=== PATIENT | male | born 1975 | race Hispanic/Latino ===

== ENCOUNTER 2018-11-30 22:18 | Inpatient (IN) | payer MEDICARE ==
[~2018-11-30] VITALS: Ht 121.9 cm; Wt 22.7 kg
[2018-11-30 23:29] LABS: BASOPHILS % 0.3 % (0.0-1.0); EOSINOPHILS # (AUTO) 0.2 (0.0-0.4); HEMATOCRIT 41.4 % (38.2-49.6); HEMOGLOBIN 14.1 g/dL (14.0-18.0); LYMPHOCYTES # (AUTO) 1.9 (1.0-3.2); MEAN CORPUSCULAR HEMOGLOBIN 32.1 pg (28-32); MEAN CORPUSCULAR HGB CONC 34.1 g/dL (31-35); MEAN CORPUSCULAR VOLUME 94.3 fL (81-99); MONOCYTES # (AUTO) 0.6 (0.2-0.8); MONOCYTES % 4.4 % (4.4-11.3); NEUTROPHILS # (AUTO) 11.7 (2.1-6.9); NEUTROPHILS % 80.9 % (38.7-80.0); PLATELET COUNT 248 x10e3/uL (140-360); RED BLOOD COUNT 4.39 x10e6/uL (4.3-5.7); RED CELL DISTRIBUTION WIDTH 14.1 % (11.7-14.4)
[2018-11-30 23:39] LABS: INR 0.89; PROTHROMBIN TIME 12.5 seconds (11.9-14.5)
[2018-11-30 23:40] LABS: PARTIAL THROMBOPLASTIN TIME 25.8 seconds (23.8-35.5)
[2018-11-30 23:46] LABS: ALANINE AMINOTRANSFERASE 73 IU/L (0-55); ALBUMIN 3.6 g/dL (3.5-5.0); ALKALINE PHOSPHATASE 119 IU/L (40-150); ANION GAP 13.4 mmol/L (8-16); BLOOD UREA NITROGEN 19 mg/dL (7-26); BUN/CREATININE RATIO 32 (6-25); CALCIUM 9.4 mg/dL (8.4-10.2); CARBON DIOXIDE 29 mmol/L (22-29); CHLORIDE 96 mmol/L (98-107); CREATININE, SERUM 0.59 mg/dL (0.72-1.25); EST GLOMERULAR FILTRATION RATE > 60 ML/MIN (60-); GLUCOSE 132 mg/dL (74-118); POTASSIUM 3.4 mmol/L (3.5-5.1); SODIUM 135 mmol/L (136-145)
[2018-11-30 23:47] LABS: AMYLASE 324 U/L (25-125); LIPASE 387 U/L (8-78)
[2018-12-01] VITALS (9 sets, daily range): BP systolic 115–145; BP diastolic 64–100
[2018-12-01] MEDS ORDERED: CARBAMAZEP100 MG/5 M NG (00:32)
[2018-12-01] MEDS: KCL 20MEQ/.9 SOD CHL 1,000 ML IV SCH ×2 (02:02→09:30)
[2018-12-01] MEDS: MORPHINE SULFATE 2 MG/ML SYR 1ML IV PRN ×4 (02:03→17:18)
--- NOTE | 2018-12-01 02:15 | NUR ---
patient came from ER around 01:15, awake but non verbal, sister is on bed side. patient is confined to bed, contractured on all extremities. iv live is on right hand size 20g. noted emesis color dark brown. looked restless and irritable. per reports and according to his sister, sometimes he bites. patient has pegtube but he is NPO at this time as ordered. per sister he consumes 4-5 cartoon (237cc) Vital 1.2 via peg tube. skin intact, iv fuid running at 125cc/hr.
[2018-12-01] MEDS: ONDANSETRON HCL INJ 2MG/ML 2ML 2 MG/ML VIAL IV PRN ×3 (02:53→12:08)
--- OUTSIDE RECORDS SUMMARY | 2018-12-01 04:36 | XMS REPORT ---
Author Author Admin, [facility] [place] [address] [place] [address] Phone Allergies, Adverse Reactions, Alerts Allergy Name Reaction Description Start Date Severity Status Provider No Known Allergies Verna Duong MA Conditions or Problems Problem Name Problem Code Onset Date Status Entry Date Provider Comment Standard Description Annotate Elevated blood pressure reading without diagnosis of hypertension 796.2 Active Candelaria Dialol MD (res) Elevated blood pressure reading without diagnosis of hypertension Circadian rhythm sleep disorder, 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 Candelaria Diallo MD (res) Circadian rhythm sleep disorder, irregular sleep-wake type Flu shot V04.8 Active Candelaria Diallo MD (res) Need for prophylactic vaccination and inoculation against other viral diseases Insomnia 780.52 Active Fran Wu MD Insomnia, unspecified Constipation 564.00 Active Candelaria Diallo MD (res) Constipation, unspecified Cachexia 799.4 Active Candelaria Diallo MD (res) Cachexia Developmental delay 315.9 Active Candelaria Diallo MD (res) Unspecified delay in development Feeding intolerance 783.3 Active Candelaria Diallo MD (res) Feeding difficulties and mismanagement High risk for aspiration V47.2 Active Candelaria Diallo MD (res) Other cardiorespiratory problems History of meningitis V12.42 Active Candelaria Diallo MD (res) Personal history of infections of the central nervous system age 2 months Leaking peg tube 536.49 Active Ashleigh Gaitan D.O. Other gastrostomy complications Need for home health care V60.4 Active Candelaria Diallo MD (res) No other household member able to render care Presence of gastrostomy V44.1 Active Candelaria Diallo MD (res) Gastrostomy status Seizure disorder 780.39 Active Candelaria Diallo MD (res) Other convulsions Cough ICD-786.2 Inactive Candelaria Diallo MD (res) Dysuria ICD-788.1 Inactive Candelaria Diallo MD (res) Foul smelling urine ICD-791.9 Inactive Candelaria Diallo MD (res) Pain due to internal orthopedic prosthetic devices, implants and grafts, initial encounter Inactive Candelaria Diallo MD (res) Cough 786.2 Resolved Candelaria Diallo MD (res) Cough Dysuria 788.1 Resolved Candelaria Diallo MD (res) Dysuria Foul smelling urine 791.9 Resolved Candelaria Diallo MD (res) Other nonspecific findings on examination of urine Medication List Medication Instructions Start Date Stop Date Generic Name NDC Status Provider Patient Instruction HYDROCODONE-ACETAMINOPHEN 5-325 MG ORAL TABLET 1 tab per tube q8h As Needed severe pain HYDROCODONE-ACETAMINOPHEN 32932178031 Active Candelaria Diallo MD (res) Active MELATONIN 10 MG ORAL TABLET DISINTEGRATING 1 tab By Mouth qhs MELATONIN 16645669585 Active Candelaria Diallo MD (res) Active AMBIEN 5 MG ORAL TABLET 1/2 tab by tube nightly at bedtime as needed for insomnia ZOLPIDEM TARTRATE 75697204115 Active Sarah [facility] Active PANTOPRAZOLE SODIUM 40 MG ORAL TABLET DELAYED RELEASE 1 tab per tube daily PANTOPRAZOLE SODIUM 18126578990 Active Candelaria Diallo MD (res) Active DOCUSATE SODIUM 50 MG/5ML ORAL LIQUID 10ml per tube BID DOCUSATE SODIUM 89312323967 Active Candelaria Diallo MD (res) Active CARBAMAZEPINE 100 MG/5ML ORAL SUSPENSION 10ml per G-tube TID CARBAMAZEPINE 63694728854 Active Candelaria Diallo MD (res) Active LORATADINE 10 MG ORAL TABLET 1 per tube once a day as needed for allergies LORATADINE 10 MG ORAL TABLET 789208 LORATADINE Inactive AUGMENTIN 250-62.5 MG/5ML ORAL SUSPENSION RECONSTITUTED 2ml BID for 5 days AUGMENTIN 250-62.5 MG/5ML ORAL SUSPENSION RECONSTITUTED 269655 AMOXICILLIN- POT CLAVULANATE Inactive [facility] PROBIOTIC MAXIMUM STRENGTH ORAL CAPSULE 1 capsule By Mouth tid [facility] PROBIOTIC MAXIMUM STRENGTH ORAL CAPSULE PROBIOTIC PRODUCT Inactive MORPHINE SULFATE 10 MG/5ML ORAL SOLUTION 1ml per G tube q4h As Needed pain MORPHINE SULFATE 10 MG/5ML ORAL SOLUTION 396918 MORPHINE SULFATE Inactive REGLAN 10 MG ORAL TABLET 1/2 tab by mouth ac and nightly at bedtime REGLAN 10 MG ORAL TABLET 123005 METOCLOPRAMIDE HCL Inactive HYDROXYZINE HCL 50 MG ORAL TABLET 1 by mouth take at bedtime for sleep HYDROXYZINE HCL 98657679182 No Longer Active Candelaria Diallo MD (res) Active LORATADINE 10 MG ORAL TABLET 1 per tube once a day as needed for allergies LORATADINE 75395379783 No Longer Active Candelaria Diallo MD (res) Active AUGMENTIN 250-62.5 MG/5ML ORAL SUSPENSION RECONSTITUTED 2ml BID for 5 days AMOXICILLIN-POT CLAVULANATE 27537930870 No Longer Active Candelaria Diallo MD (res) Active [facility] PROBIOTIC MAXIMUM STRENGTH ORAL CAPSULE 1 capsule By Mouth tid PROBIOTIC PRODUCT 80202744225 No Longer Active Candelaria Diallo MD (res) Active MORPHINE SULFATE 10 MG/5ML ORAL SOLUTION 1ml per G tube q4h As Needed pain MORPHINE SULFATE 96883963026 No Longer Active Candelaria Diallo MD (res) Active REGLAN 10 MG ORAL TABLET 1/2 tab by mouth ac and nightly at bedtime METOCLOPRAMIDE HCL 87513505111 No Longer Active Candelaria Diallo MD (res) Active Immunizations Vaccine Administration Date Value Standard Description influenza immunization (Flu Vax) has been administered given influenza virus vaccine, unspecified formulation Vital Signs Date Name Value Unit Range Description blood pressure, diastolic 142 mm[Hg] BP quinn blood pressure, systolic 207 mm[Hg] BP sys pulse rate E&M 98 /min Heart rate respiratory rate E&M 21 /min Resp rate temperature E&M 98.1 [degF] Body temperature blood pressure, diastolic 82 mm[Hg] BP quinn blood pressure, systolic 129 mm[Hg] BP sys pulse rate E&M 66 /min Heart rate respiratory rate E&M 16 /min Resp rate temperature E&M 98.3 [degF] Body temperature blood pressure, diastolic 58 mm[Hg] BP quinn blood pressure, systolic 132 mm[Hg] BP sys pulse rate E&M 136 /min Heart rate respiratory rate E&M 22 /min Resp rate temperature E&M 99.1 [degF] Body temperature Diagnostic Results Date Name Value Unit Range Description Lab Report: Urine Culture, Routine, Result - Urinalysis urine culture PSEUAE Lab Report: Comp. Metabolic Panel (14), Carbamazepine(Tegretol),S - Chemistry sodium, serum 138 mmol/L 600-675 2552/06/26 urea nitrogen/creatinine ratio, serum 88 9-20 Lab Report: Comp. Metabolic Panel (14), Carbamazepine(Tegretol),S - Genetics/fertility eGFR if 205 mL/min/1.73m2 >59 Lab Report: Comp. Metabolic Panel (14), Carbamazepine(Tegretol),S - Chemistry globulin, serum 2.7 1.5-4.5 albumin/globulin ratio, serum 1.4 1.2-2.2 Estimated Glomerular Filtration Rate (calc) 178 mL/min/1.73m2 >59 creatinine, serum 0.25 mg/dL 0.76-1.27 carbon dioxide, venous blood 23 mmol/L 20-29 chloride, serum 99 mmol/L 96-106 bilirubin, serum, total <0.2 mg/dL mg/dL 0.0-1.2 calcium, serum 9.1 mg/dL 8.7-10.2 urea nitrogen, blood 22 mg/dL 6-24 alanine aminotransferase (SGPT), serum 37 U/L 0-44 blood glucose, random 95 mg/dL 65-99 aspartate aminotransferase (SGOT), serum 35 U/L 0-40 protein, total, serum 6.5 g/dL 6.0-8.5 alkaline phosphatase, serum 159 U/L 39-117 potassium, serum 4.7 mmol/L 3.5-5.2 albumin, serum 3.8 g/dL 3.5-5.5 Encounters Date Encounter Provider Code Facility 10:21:25 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
--- NOTE | 2018-12-01 06:50 | NUR ---
RECEIVED PATIENT RESTING IN BED. NO ACUTE DISTRESS NOTED. SISTER AT BEDSIDE. CALL LIGHT WITHIN REACH. BED IN THE LOWEST POSITION. BED ALARM ON.
--- NOTE | 2018-12-01 06:50 | NUR ---
PER NIGHT NURSE PATIENT IS NPO EXCEPT FOR PEG TUBE MEDICATIONS.
[2018-12-01] MEDS: CARBAMAZEPINE 200 MG TAB NG SCH ×3 (08:13→21:32)
--- NOTE | 2018-12-01 08:13 | NUR ---
ASSESSED FOR RESIDUAL AT THIS TIME. NONE NOTED.
--- NOTE | 2018-12-01 10:42 | Diagnostic Imaging Report ---
EXAM: Right upper quadrant abdominal ultrasound INDICATION: Right upper quadrant pain COMPARISON: None. TECHNIQUE: Transverse and longitudinal images of the right upper quadrant abdomen were obtained FINDINGS: Liver: Size: 11.5 cm in the right midclavicular line, normal Appearance: Normal echogenicity, smooth contour Mass: No focal masses Gallbladder: No gallbladder distension, pericholecystic fluid, wall thickening, stone, or reported sonographic Meade's sign. Gallbladder wall measures 0.2 cm. Bile Ducts: Intrahepatic Ducts: No dilatation Extrahepatic Ducts: Common bile duct measures 0.2cm, no dilatation Pancreas: Visualized portions of the pancreatic head, neck and proximal body are normal. Kidney: The right kidney measures 7. 33.3 x 4.0 cm without evidence of hydronephrosis or stone. Vessels: Aorta: Visualized portions are normal Inferior Vena Cava: Visualized portions are normal Main Portal Vein: 0.6 cm, normal size with hepatopetal flow. Free Fluid: No ascites or pleural effusion IMPRESSION: Normal right upper quadrant ultrasound. Signed by: Junior Truong MD on 12/01/2018 10:39 AM
--- NOTE | 2018-12-01 11:36 | NUR ---
DR. CHAPARRO CALLED BACK IN REGARDS TO STAT CONSULT FOR PATIENT. PER MD INCREASE CURRENT IV FLUIDS TO 150CC/HR AND KEEP PATIENT NPO.
--- NOTE | 2018-12-01 12:10 | NUR ---
NOTIFIED DR. CHAPARRO OF PATIENT'S HAVING SMALL AMOUNTS OF COFFEE GROUND EMESIS. WAITING FOR CALL BACK/ORDER.
--- NOTE | 2018-12-01 14:14 | NUR ---
ASSESSED PEG TUBE RESIDUAL, NONE NOTED AT THIS TIME.
--- NOTE | 2018-12-01 14:56 | NUR ---
UNABLE TO DO DPA AT THIS TIME, NO FAMILY MEMBER AND PT UNABLE TO COMMUNICATE AT THIS TIME. LIVES AT HOME WITH FAMILY
[2018-12-01] MEDS ORDERED: POTASSIUM CHLORIDE 20MEQ/15ML UDC NG ONE (16:00)
[2018-12-01] MEDS: D5NS/KCL 20MEQ 1,000 ML IV SCH ×2 (16:09→21:33)
--- NOTE | 2018-12-01 16:10 | NUR ---
PATIENT OFF THE UNIT FOR CT SCAN.
--- NOTE | 2018-12-01 16:28 | NUR ---
PER CHARGE NURSE, PATIENT VOMITED SIGNIFICANT AMOUNT OF GROUND COFFEE EMESIS DOWN IN RADIOLOGY. PAGED DR. CHAPARRO TO INFORM HIM AT THIS TIME.
--- NOTE | 2018-12-01 16:30 | NUR ---
Patient down in CT and techs called a rapid response. Patient resting on ct table and noted to have coffee ground emesis. Call placed to nurse to inform. Nurse informed that patient has been having that today and GI was informed and no new orders. Patient is stable and breathing
--- NOTE | 2018-12-01 16:36 | NUR ---
PATIENT BACK TO UNIT AT THIS TIME. HE IS IN STABLE CONDITION. BROTHER AT BEDSIDE.
--- NOTE | 2018-12-01 16:46 | NUR ---
DR. MORIN NOTIFIED THAT PATIENT HAD A RAPID RESPONSE DUE TO VOMITING X3 COPIOUS AMOUNT OF COFFEE GROUND EMESIS. NEW ORDERS RECEIVED.
[2018-12-01] MEDS ORDERED: PROMETHAZINE 12.5MG/ NACL 0.9% 12.5 MG/50 ML BAG IV PRN (17:00)
[2018-12-01] MEDS ORDERED: PANTOPRAZOLE 40 MG 10ML VIAL IV SCH (17:00)
--- NOTE | 2018-12-01 17:09 | Diagnostic Imaging Report ---
EXAM: CT Abdomen and Pelvis WITH intravenous contrast INDICATION: High lipase COMPARISON: Ultrasound of the right upper quadrant performed partially today TECHNIQUE: Abdomen and pelvis were scanned utilizing a multidetector helical scanner from the lung base to the pubic symphysis after administration of IV contrast. Coronal and sagittal reformations were obtained. Routine protocol was performed. Scan was performed during portal venous phase. IV CONTRAST: 100mL of Isovue 370 ORAL CONTRAST: Water RADIATION DOSE: Total DLP: 143.61 mGy*cm Dose modulation, iterative reconstruction, and/or weight based adjustment of the mA/kV was utilized to reduce the radiation dose to as low as reasonably achievable. FINDINGS: LOWER THORAX: The lung bases are clear. HEPATOBILIARY: No focal hepatic lesions. No biliary ductal dilatation. The gallbladder appears unremarkable. SPLEEN: No splenomegaly. PANCREAS: The pancreas is homogeneous in attenuation. There is no pancreatic ductal dilatation. No peripancreatic inflammatory stranding is present. ADRENALS: No adrenal nodules. KIDNEYS/URETERS: No hydronephrosis, stones, or solid mass lesions. PELVIC ORGANS/BLADDER: Unremarkable. PERITONEUM / RETROPERITONEUM: No free air or fluid. LYMPH NODES: No lymphadenopathy. VESSELS: Unremarkable. GI TRACT: A gastrostomy tube is present. The distal tip of the gastrostomy tube terminates in the second portion of the duodenum. There is moderate distention of the stomach and esophagus. The small bowel is decompressed. There is no evidence of small bowel obstruction. There is a moderate to large amount of retained fecal material throughout the colon particularly in the rectosigmoid colon. BONES AND SOFT TISSUES: No acute osseous abnormalities. IMPRESSION: 1. No CT findings of pancreatitis. 2. The stomach and esophagus are moderately distended. There is no evidence of mechanical obstruction. Consider decreasing tube feed rates. 3. Moderate to large amount retained fecal material. Signed by: Junior Truong MD on 12/01/2018 5:06 PM
[2018-12-01] MEDS: PANTOPRAZOLE 40 MG 10ML VIAL IV SCH (17:18)
--- NOTE | 2018-12-01 18:02 | NUR ---
PAGED DR. MORIN TO INFORM HIM THAT PATIENT'S SISTER STATES HE IS ABOUT TO HAVE A SEIZURE, PATIENT IS CRYING AND TWITCHING FROM HIS ARMS.
[2018-12-01] MEDS ORDERED: PANTOPRAZOLE SO40 MG PEG (18:24)
[2018-12-01] MEDS ORDERED: LORAZEPAM 0.5 MG TAB PEG PRN ×2 (18:30→18:45)
--- NOTE | 2018-12-01 18:40 | NUR ---
SPOKE TO DR. GUTIERREZ IN REGARDS TO CONSULT AND PATIENT POSSIBLE HAVING A SEIZURE, NEW ORDERS RECEIVED.
[2018-12-01] MEDS: LORAZEPAM INJ 2 MG/ML VIAL IV PRN (18:42)
[2018-12-01] MEDS ORDERED: PHENYTOIN SODIUM INJ 50 MG/ML 2 ML VIAL IV ONE (18:45)
--- NOTE | 2018-12-01 18:45 | NUR ---
Received bedside report from day shift RN. The patient is laying asleep on the left side. Mother at bedside. Call light within reach, bed height low, side rails up x2 and wheels lock.
--- NOTE | 2018-12-01 19:10 | NUR ---
Report given to oncoming nurse. Patient is resting in bed, respirations even and unlabored. No acute distress noted. Family at bedside. Call light within reach. Bed in the lowest position.
--- NOTE | 2018-12-01 19:22 | NUR ---
Nutrition Intervention Note RD Recommendation(s) for Physician: -When medically appropriate, rec resuming bolus feeding with 3-4 cartons of 237cc Vital 1.2 via PEG -Water flushes per MD -Monitor for labs, gastric tolerance, daily weight -If GI symptoms persist, rec post pyloric feeding with similar regimen for better tolerance Plan of Care: RD following, monitoring for tolerance and adequacy Nutrition reason for involvement: tube feeding, Nutrition Risk Trigger MST RD Assessment 12/01 43yo M, who was admitted for pancreatitis and coffee ground emesis. Pt was awake but non verbal. Per sister, pt has been getting 4-5 cartons of 237cc Vital 1.2 (1136kcal, 71g protein) via PEG tube (7am, 12pm, 5pm, 9pm). CT abdomen showed no acute finding of pancreatitis; the stomach and esophagus are moderately distended with no evidence of mechanical obstruction, consider decreasing tube feed rates; moderate to large stools. Gallbladder US is WNL. His weight has remained at 50lbs. Pt has been tolerating tube feeding at home so far. Will continue to monitor and follow. Principal Problems/Diagnoses: Pancreatitis, vomiting PMH: no H&P noted GI: abdomen flat, soft, non-tender Skin: intact Labs: (12/01) Na 135 L, K 3.4 L, Creatinine 0.59 L, glucose 139 H, AST 44 H, ALT 73 H, amylase 324 H, lipase 387 H Meds: protonix, morphine, KCl Ht: 48in Wt: 49lb (verified with family) BMI: n/a IBW: n/a Malnutrition Evaluation (12/01/2018) The patient does not meet criteria for a specified degree of malnutrition at this time. Will re-evaluate at follow-up as appropriate. Nutrition Prescription (Diet Order): NPO Estimated Nutritional Needs: Calories: 675 - 787kcal(30-35kcal/kg/d) Weight used: actual body weight Protein: 22 - 33 g(1-1.5g/kg/d) Weight used: actual body weight Diet Adequacy: Not meeting calorie needs, Not meeting protein needs Diet Education Needs Assessment: Diet education not indicated. Nutrition Care Level: mod Nutrition Diagnosis: Swallowing difficulty related to chronic illness as evidenced by dependence on PEG for main source of nutrition. Goal: Patient will meet 75-100% of estimated needs by follow up Progress: Not Progressing Interventions: Composition, Rate, Route Monitoring/Evaluation: Total energy intake, Total protein intake, Formula/Solution, Weight change Signed: Amy Davis MS, RD, LD
[2018-12-01] MEDS ORDERED: IOPAMIDOL 370 MG/ML 200 ML INFUS..BTL INJ ONE (19:35)
[2018-12-01] MEDS ORDERED: [UNRECOGNIZED DRUG - OTHER] IV ONE ×2 (19:45)
[2018-12-01] MEDS ORDERED: SODIUM CHLORIDE 0.9% IV ONE ×2 (19:45)
[2018-12-01] MEDS ORDERED: PHENYTOIN SOD IV ONE ×2 (19:45)
[2018-12-01 20:37] LABS: BASOPHILS # (AUTO) 0.1 (0.0-0.1); BASOPHILS % 0.4 % (0.0-1.0); EOSINOPHILS % 0.2 % (0.0-6.0); HEMATOCRIT 35.9 % (38.2-49.6); HEMOGLOBIN 11.4 g/dL (14.0-18.0); LYMPHOCYTES % 8.2 % (18.0-39.1); MEAN CORPUSCULAR HEMOGLOBIN 32.2 pg (28-32); MEAN CORPUSCULAR HGB CONC 31.8 g/dL (31-35); MEAN CORPUSCULAR VOLUME 101.4 fL (81-99); MONOCYTES # (AUTO) 0.8 (0.2-0.8); MONOCYTES % 6.8 % (4.4-11.3); NEUTROPHILS # (AUTO) 10.2 (2.1-6.9); NEUTROPHILS % 83.8 % (38.7-80.0); PLATELET COUNT 185 x10e3/uL (140-360); RED BLOOD COUNT 3.54 x10e6/uL (4.3-5.7); RED CELL DISTRIBUTION WIDTH 14.4 % (11.7-14.4)
[2018-12-01 21:26] LABS: FERRITIN 79.54 ng/mL (21.81-274.66)
--- NOTE | 2018-12-01 21:30 | NUR ---
DR. CHAPARRO, GI MD, VISITED THE PATIENT WITH SISTER AT BEDSIDE. MD STATED THE COFFEE GROUND EMESIS IS FROM THE PANCREATITIS/GASTRITIS. ORDERED MEDICATIONS TO ASSIST WITH BM. STATED TO CONTINUE WITH IV FLUID AND NPO DIET.
[2018-12-02] VITALS (7 sets, daily range): BP systolic 110–150; BP diastolic 62–94
--- NOTE | 2018-12-02 01:09 | Consultation ---
DATE OF CONSULTATION: 12/01/2018 REASON FOR CONSULT: 1. Coffee-ground emesis. 2. Acute pancreatitis. HISTORY OF PRESENTING ILLNESS: A 43 years old male who is a nonverbal, bed-bound. I cannot derive any history from the patient. Most of my information is derived from my personal interaction with nurse as well as reviewing the medical chart. The patient apparently came with recurrent episode of some coffee-ground emesis. It was also felt that he might be having abdominal pain as well. Blood work revealed lipase level elevated to 387, amylase 328. CT of the abdomen and pelvis with contrast showed no finding of pancreatitis. Stomach and esophagus were moderately distended. Moderate amount of stool was found in colon. He also had ultrasound done that showed no gallstones. Currently, he is being treated on the line of idiopathic pancreatitis. He is getting IV fluids. He is also getting Protonix for coffee-ground emesis. REVIEW OF SYSTEMS: Unobtainable. PAST MEDICAL HISTORY: Mental retardation, seizure disorder, and constipation. PAST SURGICAL HISTORY: PEG tube. FAMILY HISTORY: Noncontributory. SOCIAL HISTORY: No smoking, alcohol, or any illicit drug use. HOME MEDICATIONS: Carbamazepine, lorazepam, morphine, Zofran, pantoprazole, MiraLAX, and promethazine. Home medications reviewed. PHYSICAL EXAMINATION: VITAL SIGNS: Temperature 96.0, pulse 76, respirations 18, blood pressure 140/85 and oxygen saturation 98% on room air. LABORATORY DATA: Sodium 135, potassium 3.4, chloride 96, bicarb 29, BUN 19, creatinine 0.59, glucose 139. Liver enzymes showed total bilirubin 0.4, AST 44, ALT 73, alkaline phosphatase 119. CT of the abdomen and pelvis with contrast showed no CT finding of pancreatitis. Stomach and esophagus are moderately distended. There is no evidence of mechanical obstruction. Consider decreasing tube feedings. Moderate to large amount of retained fecal material in the colon. Ultrasound of the gallbladder showed normal right upper quadrant ultrasound. No gallstones. IMPRESSION: 1. Coffee-grounds emesis, likely due to underlying gastritis. Agree to continue PPI daily. 2. Amylase and lipase levels elevated without any radiographic evidence of pancreatitis on CT scan. This elevated amylase and lipase could be originating from the GI tract rather than coming from pancreatitis. PLAN: Continue IV fluid, resume PEG feeding, continue PPI twice daily. Monitor clinically. I thank Dr. Kraus for allowing me to participate in the care of this patient. Jon Carney MD SA/VANESSA /[id number]
[2018-12-02] MEDS: MORPHINE SULFATE 2 MG/ML SYR 1ML IV PRN (04:46)
[2018-12-02 06:06] LABS: BASOPHILS # (AUTO) 0.1 (0.0-0.1); BASOPHILS % 0.6 % (0.0-1.0); EOSINOPHILS # (AUTO) 0.2 (0.0-0.4); EOSINOPHILS % 1.5 % (0.0-6.0); HEMATOCRIT 42.1 % (38.2-49.6); HEMOGLOBIN 12.8 g/dL (14.0-18.0); LYMPHOCYTES # (AUTO) 1.9 (1.0-3.2); LYMPHOCYTES % 19.5 % (18.0-39.1); MEAN CORPUSCULAR HGB CONC 30.4 g/dL (31-35); MEAN CORPUSCULAR VOLUME 105.3 fL (81-99); MONOCYTES # (AUTO) 0.7 (0.2-0.8); MONOCYTES % 7.5 % (4.4-11.3); NEUTROPHILS # (AUTO) 6.9 (2.1-6.9); NEUTROPHILS % 70.5 % (38.7-80.0); PLATELET COUNT 159 x10e3/uL (140-360); RED CELL DISTRIBUTION WIDTH 14.5 % (11.7-14.4)
[2018-12-02 06:24] LABS: ALANINE AMINOTRANSFERASE 58 IU/L (0-55); ALBUMIN 3.2 g/dL (3.5-5.0); AMYLASE 98 U/L (25-125); BLOOD UREA NITROGEN 10 mg/dL (7-26); BUN/CREATININE RATIO 17 (6-25); CALCIUM 8.5 mg/dL (8.4-10.2); CARBON DIOXIDE 20 mmol/L (22-29); CHLORIDE 111 mmol/L (98-107); CREATININE, SERUM 0.59 mg/dL (0.72-1.25); EST GLOMERULAR FILTRATION RATE > 60 ML/MIN (60-); GLUCOSE 116 mg/dL (74-118); LIPASE 48 U/L (8-78)
[2018-12-02 06:37] LABS: ALKALINE PHOSPHATASE 102 IU/L (40-150)
[2018-12-02 06:38] LABS: ANION GAP 15.4 mmol/L (8-16); POTASSIUM 4.4 mmol/L (3.5-5.1); SODIUM 142 mmol/L (136-145)
[2018-12-02 06:55] LABS: CARBAMAZEPINE (TEGRETOL) 5.04 ug/mL (4.0-12.0); PHENYTOIN (DILANTIN) 13.19 ug/mL (10-20)
--- NOTE | 2018-12-02 07:00 | NUR ---
RECEIVED PATIENT RESTING IN BED. HE IS SCREAMING IN PAIN, PER NIGHT NURSE PATIENT RECEIVED PAIN MEDICATION ABOUT 2 HOURS AGO. SISTER AT BEDSIDE. CALL LIGHT WITHIN REACH. BED IN THE LOWEST POSITION.
--- NOTE | 2018-12-02 07:01 | NUR ---
Paged Dr. Potter to notify that patient is screaming in pain. Morphine administered about 2 hours ago. Waiting business transformation consultant back.
[2018-12-02] MEDS ORDERED: SOD PHOSPHATE/SOD BIPHOSPHATE ENEMA 132 ML BTL PR ONE (08:00)
--- NOTE | 2018-12-02 08:00 | NUR ---
PATIENT SCREAMS IN PAIN ON AND OFF. PAGED DR. THOMAS ONE MORE TIME FOR PAIN MEDICATION ORDER AT THIS TIME.
--- NOTE | 2018-12-02 08:39 | NUR ---
Dr. Sandee Potter called in regards to pain medication page, new orders received.
[2018-12-02] MEDS: HYDROMORPHONE 1MG/1ML INJ IV PRN ×3 (09:05→19:55)
[2018-12-02] MEDS: PANTOPRAZOLE 40 MG 10ML VIAL IV SCH ×2 (09:05→16:00)
[2018-12-02] MEDS: ONDANSETRON HCL INJ 2MG/ML 2ML 2 MG/ML VIAL IV PRN ×3 (09:05→19:54)
[2018-12-02] MEDS: POLYETHYLENE GLYCOL 3350 17 GM PACK PEG SCH ×2 (09:27→16:00)
[2018-12-02] MEDS: CARBAMAZEPINE 200 MG TAB NG SCH ×3 (09:27→22:11)
--- NOTE | 2018-12-02 09:48 | NUR ---
PER DR. CHAPARRO IN PROGRESS NOTE "RESUME PEG FEEDIN". PATIENT ORDER IS STILL NPO IN THE SYSTEM. PAGED DR. CHAPARRO TO CLARIFY FEEDING ORDER. SPOKE TO DR. NIXON, COVERING PHYSICIAN FOR DR. CHAPARRO, AND HE STATED TO RESUME PEG FEEDINGS.
[2018-12-02] MEDS: D5NS/KCL 20MEQ 1,000 ML IV SCH ×2 (11:10→18:00)
--- NOTE | 2018-12-02 12:05 | NUR ---
Dr. Sandee Potter in to see patient, he is screaming and agitated. Per MD give patient a one time dose of Ativan 1mg IV.
[2018-12-02] MEDS ORDERED: LORAZEPAM INJ 2 MG/ML VIAL IV ONE (12:15)
--- NOTE | 2018-12-02 12:30 | NUR ---
Assessed patient's PEG tube residual, none noted at this time. First bolus feeding provided to patient at this time, with the corresponding water flush. Patient tolerated it well. Sister at bedside. Patient with HOB elevated to 45 degrees.
--- NOTE | 2018-12-02 12:42 | NUR ---
Upon assessing patient's VS, O2 saturation noted to be 82%. Placed patient in NC @4L, patient sating 96%.
--- NOTE | 2018-12-02 15:31 | History and Physical ---
HISTORY OF PRESENT ILLNESS: A 43 years old male, who had a past medical history positive for cerebral palsy, contractures while breathing, came here with vomiting. He was found to have pancreatitis. He was admitted to the hospital. REVIEW OF SYSTEMS: The patient is unable to communicate, most information received from his brother who is at the bedside. PAST MEDICAL HISTORY: Positive for cerebral palsy, PEG tube feeding, contractures. ALLERGIES: APPARENTLY, HE IS NOT ALLERGIC TO ANY MEDICATION. SOCIAL HISTORY: We do not know he smokes or drink, apparently not. PHYSICAL EXAMINATION: VITAL SIGNS: Blood pressure 115/64, temperature 35.3, heart rate 65 per minute, and respiratory rate 17 per minute, and oxygen saturation 91%. HEART: Showed regular rhythm. Normal S1, S2 sounds. LUNGS: Clear bilaterally. ABDOMEN: Soft. Has a PEG tube in place. EXTREMITIES: Show atrophy in upper and lower extremities and contractures. LABORATORY DATA: On the BMP; sodium 135, potassium 3.4, chloride 96, CO2 of 29, BUN 19, creatinine 0.59, and glucose 132. On CBC, white count 14,400, hemoglobin 14.1, hematocrit 41.4, and platelet count 248,000. PT 12.5, INR 0.89, and PTT 25.8. AST 44, ALT 73, total bilirubin 0.4, and alkaline phosphatase 119. IMPRESSION: 1. Acute pancreatitis. 2. Hypokalemia. 3. Diagnosis of seizure disorders. 4. Cerebral palsy. 5. Egwdcdif-ht-wdsbgo protein calorie malnutrition. PLAN OF TREATMENT: Change IV fluids to D5 normal saline at 150 mL an hour plus 20 mEq of potassium, Zofran 4 mg IV q.4 hours as needed, carbamazepine 200 mg three times a day, morphine 1 mg q.4 hours as needed. We are going to replete the potassium. We are going to recheck CBC and CMP tomorrow. Lipase level daily for 5 days. Gastroenterology consult, Dr. Garcia. ARMAND TIDWELL/VANESSA /[id number]
[2018-12-02] MEDS: NYSTATIN 100,000 UNITS/GM CRM 30GM TUBE TOP SCH (15:33)
--- NOTE | 2018-12-02 16:30 | NUR ---
ASSESSED FEEDING RESIDUAL, NONE NOTED AT THIS TIME. BOLUS FEEDING PROVIDED AT THIS TIME WITH CORRESPONDING WATER FLUSH.
--- NOTE | 2018-12-02 17:42 | Consultation ---
DATE OF CONSULTATION: 12/02/2018 Neurology Consult Note HISTORY OF PRESENT ILLNESS: Mr. Gimenez is a 43-year-old man with past medical history significant for meningitis at the age of [age] months resulting in severe developmental delay and seizure disorder admitted to [facility] on December 01, 2018, with vomiting and suspected abdominal pain. Mr. Gimenez is nonverbal and bed-bound. History is obtained from his sister, who is at the bedside and is his primary caregiver, as well as review of the electronic medical records. On the day of admission, Mr. Gimenez experienced 2-3 episodes of coffee-grounds emesis. According to the patient's sister, he was moaning and screaming as well, leaving his sister to believe he was in some sort of pain. Mr. Gimenez was brought to the Emergency Center at [facility] for further evaluation of his symptoms. Upon arrival in the Emergency Center, the patient was afebrile with a blood pressure of 170/108 mmHg and a pulse of 70 beats per minute. While in the emergency room, blood work revealed elevated, amylase of 324 and lipase of 387. Mr. Gimenez was admitted to [facility] as an inpatient for possible pancreatitis. Shortly after being admitted to the floor, the patient experienced activity described as follows: The patient flexed his arms at the elbow, repeatedly shrugged his shoulders up and down, and screamed intermittently. The patient's sister informed his nurse, "this is what he does when he has a seizure." Therefore, the Neurology Consultation was placed for further evaluation and treatment of seizures. While speaking with the patient's nurse via telephone, I informed her the type of activity, but more specifically the duration of the activity, made unlikely the patient was experiencing a seizure. However, in the event he was experiencing a seizure, an order for Ativan 1 mg IV was given. This was to be followed by a loading dose of fosphenytoin 500 mg (approximately 20 mg/kg) intravenously once. Carbamazepine was to be held. Total phenytoin and carbamazepine levels were requested to be drawn with morning labs. Treatment with carbamazepine was held due to the patient's admitting diagnosis of possible pancreatitis. There are multiple cases in the literature linking treatment with carbamazepine to pancreatitis, and at least one report linking treatment with carbamazepine to recurrent pancreatitis. REVIEW OF SYSTEMS: Unable to obtain secondary to the patient being nonverbal. PAST MEDICAL HISTORY: Meningitis at the age of three months, severe developmental delay, seizure disorder, and chronic constipation. PAST SURGICAL HISTORY: PEG tube placement. PAST HOSPITALIZATIONS: Surgeries/procedures as listed, pneumonia, abdominal pain x2. FAMILY MEDICAL HISTORY: There is no reported significant family medical history. SOCIAL HISTORY: Mr. Gimenez is single. He is nonverbal and bed-bound. He is cared for by family members. The patient is unemployed. There is no reported current or prior tobacco, alcohol, or recreational drug use. MEDICATIONS: Reported to be: Carbamazepine, lorazepam, morphine, Zofran, pantoprazole, MiraLAX, and promethazine. HOSPITAL MEDICATIONS: Carbamazepine, Dilaudid, lorazepam, Zofran, pantoprazole, and MiraLAX. ALLERGIES: NO KNOWN DRUG ALLERGIES. NO KNOWN FOOD ALLERGIES. NO KNOWN ALLERGIES TO LATEX. NO KNOWN ALLERGIES TO IODINE OR OTHER CONTRAST MATERIALS. PHYSICAL EXAMINATION: VITAL SIGNS: Height 48 inches, weight 49 pounds, BMI 15.0 kg/m2, blood pressure 110/62 mmHg, pulse 92 beats per minute, respiratory rate 20 breaths per minute, and oxygen saturation 97% on room air. GENERAL: The patient is awake, moaning repeatedly. Thin, small for his age. HEENT: Normocephalic, atraumatic. Pupils equal, round, and sluggishly reactive to light. Moist mucous membranes. NECK: Supple. No appreciable thyromegaly. No appreciable carotid bruits. CARDIOVASCULAR: S1, S2, tachycardic, regular rhythm. No murmurs, rubs, or gallops. RESPIRATORY: Clear to auscultation bilaterally. No wheezes, rhonchi, or rales. EXTREMITIES: The skin is warm and dry. No clubbing, cyanosis, or edema. The posterior tibial and dorsalis pedis pulses are 1+ and symmetric. The extremities are without the expected muscle mass (skin and bones). SKIN: No rashes or lesions. NEUROLOGIC: Memory/Attention: The patient is awake, moaning repeatedly. Cranial Nerves: Pupils are 4 mm, sluggishly reactive to 2 mm. The face appears symmetric. Strength: Muscle bulk is markedly reduced. There are flexion contractures at the elbows, wrists, fingers, hips, knees, and ankles. Strength is grossly 1-2/5. Tone is significantly increased in all extremities. DTRs: Deep tendon reflexes are 3+ and symmetric at the triceps, biceps, brachioradialis, patellas, and Achilles. Plantar responses are extensor bilaterally. Sensation: Mr. Gimenez withdraws to peripheral noxious stimulation in both arms and both legs. Cerebellar: Unable to assess secondary to the patient being unable to follow commands. Gait: Deferred. Speech: Mr. Gimenez is nonverbal. Involuntary movements: None. Pronator Drift: As per motor exam. LABORATORY DATA: The most recent comprehensive metabolic panel is significant for a chloride of 111, carbon dioxide of 20, AST of 37, ALT of 58, and globulin of 3.2. Amylase three for 24, 98. Lipase 387, 48. Iron 86, TIBC 279, plus percent saturation 31, transferrin 199, ferritin 79.54. The CBC with differential and platelets reveals a white blood cell count of 9.78 with a normal differential. The hemoglobin and hematocrit are 12.8 and 42.1, respectively. The platelet count is 159. The coagulation profile is within normal limits. Total phenytoin level 13.19. Carbamazepine level 5.04. Anti mitochondrial antibodies are pending. Hepatitis panel is pending. DIAGNOSTIC STUDIES: Gallbladder ultrasound 12/01/2018: Normal right upper quadrant ultrasound. CT of the abdomen Garcia/pelvis with contrast 12/01/2018: 1. No CT findings of pancreatitis. 2. The stomach and esophagus are moderately distended. There is no evidence of mechanical obstruction. Consider decreasing tube feed rates. 3. Moderate to large amount of retained feces much fecal material sorry. ASSESSMENT AND PLAN: Mr. Gimenez is a 43-year-old man with a history of meningitis at the age of [age] months resulting in severe developmental delay and seizure disorder. The patient was admitted to [facility] with multiple episodes of coffee-grounds emesis and probable abdominal pain. The patient's admitting diagnosis was possible pancreatitis. However, according to the Director Of Student Services, the elevated enzymes are more likely to be due to gastritis, rather than pancreatitis. This is especially true given the absence of findings of pancreatitis on the CT of the abdomen/pelvis with contrast on December 01, 2018. Per the Director Of Student Services, treatment with intravenous Protonix was to be continued. An order was given for Mr. Gimenez to resume tube feeds. As detailed in the history of present illness, carbamazepine was held initially due to the possible diagnosis of pancreatitis. However, as the Director Of Student Services suspects elevation of amylase and lipase was secondary to gastritis, rather than pancreatitis, there is no need to continue withholding treatment with carbamazepine. RECOMMENDATIONS: 1. Continue the patient's home medication of carbamazepine 200 mg via PEG tube three times daily. 2. Monitor clinically for seizure activity. 3. Defer treatment of the remaining medical comorbidities to the primary and other services following the patient. Thank you for this consultation. I will continue to follow the patient while he remains in the hospital. TIME SPENT: 50 minutes. Aleyda Larson MD CP/MODL /[id number] MTDD
--- NOTE | 2018-12-02 18:45 | NUR ---
Received bedside report from day shift RN. The patient is laying in bed, not in distress. Family members at bedside. Communication was established to give IV pain medication as needed if the patient is screaming or crying. Call light within reach, bed height low, side rails up x2, and wheels lock
--- NOTE | 2018-12-02 19:17 | NUR ---
REPORT GIVEN TO ONCOMING NURSE. PATIENT IS RESTING IN BED. RESPIRATIONS EVEN AND UNLABORED, NO ACUTE DISTRESS NOTED. FAMILY AT BEDSIDE. CALL LIGHT WITHIN REACH. BED IN THE LOWEST POSITION.
--- NOTE | 2018-12-02 22:00 | NUR ---
Administered 8 oz of Vital AF 1.2 elisa via PEG tube with 60 cc of water for flush/prime. Patient tolerated well.
[2018-12-03] VITALS (8 sets, daily range): BP systolic 98–133; BP diastolic 60–96
[2018-12-03] MEDS: D5NS/KCL 20MEQ 1,000 ML IV SCH ×4 (00:20→18:50)
[2018-12-03] MEDS: ONDANSETRON HCL INJ 2MG/ML 2ML 2 MG/ML VIAL IV PRN ×4 (01:44→21:45)
[2018-12-03] MEDS: HYDROMORPHONE 1MG/1ML INJ IV PRN ×4 (01:44→21:45)
--- NOTE | 2018-12-03 01:47 | NUR ---
Patient had a BM. RN and RN tech helped cleaned the patient, change position, put on new gown. Pain medicine was administered along with Zofran.
--- NOTE | 2018-12-03 06:50 | NUR ---
RECEIVED PATIENT RESTING IN BED. NO ACUTE DISTRESS NOTED. MOTHER AT BEDSIDE. CALL LIGHT WITHIN REACH. BED IN THE LOWEST POSITION.
--- NOTE | 2018-12-03 08:30 | NUR ---
ASSESSED PATIENT'S RESIDUAL. NONE NOTED AT THIS TIME. PROVIDED WITH BOLUS FEED AND CORRESPONDING WATER FLUSH. PATIENT TOLERATED IT WELL.
[2018-12-03] MEDS: POLYETHYLENE GLYCOL 3350 17 GM PACK PEG SCH ×2 (08:59→16:00)
[2018-12-03] MEDS: PANTOPRAZOLE 40 MG 10ML VIAL IV SCH ×2 (08:59→16:00)
[2018-12-03] MEDS: NYSTATIN 100,000 UNITS/GM CRM 30GM TUBE TOP SCH ×2 (08:59→16:00)
[2018-12-03] MEDS: CARBAMAZEPINE 200 MG TAB NG SCH ×3 (08:59→21:30)
--- NOTE | 2018-12-03 12:20 | NUR ---
ASSESSED PATIENT'S RESIDUAL AT THIS TIME, NONE NOTED. PROVIDED WITH BOLUS FEED AND CORRESPONDING WATER FLUSH AT THIS TIME, PATIENT TOLERATED IT WELL.
--- NOTE | 2018-12-03 16:00 | NUR ---
ASSESSED PEG TUBE RESIDUAL AT THIS TIME, NONE NOTED. WILL CONTINUE TO MONITOR.
--- NOTE | 2018-12-03 16:50 | NUR ---
PEG TUBE RESIDUAL ASSESSED AT THIS TIME, NO RESIDUAL NOTED. BOLUS FEED PROVIDED FOLLOWED BY CORRESPONDING WATER FLUSH. WILL CONTINUE TO MONITOR.
--- NOTE | 2018-12-03 19:26 | NUR ---
REPORT GIVEN TO ONCOMING NURSE, WALKING ROUNDS DONE. PATIENT IS LAYING IN BED, HE IS SCREAMING ON AND OFF. NO ACUTE DISTRESS NOTED. CALL LIGHT WITHIN REACH. BED IN THE LOWEST POSITION.
--- NOTE | 2018-12-03 20:00 | NUR ---
PATIENT RESTING IN BED NO DISTRESS NOTED. PATIENT HAD SOILED DIAPER AND WAS CHANGED PROMPTLY. IV IS FLOWING AT ORDERED RATE, BOTH SIDE RAILS ARE UP, BED IN LOWEST POSITION CALL LIGHT WITHIN REACH, WILL CONTINUE TO MONITOR.
--- NOTE | 2018-12-03 21:35 | NUR ---
PATIENT HAD SOILED DIAPER AGAIN AND WAS BATHED AND CHANGED WITH HELP FROM FAMILY MEMBER. NIGHT MEDICATION WAS GIVEN, NO DISTRESS NOTED. FAMILY MEMBERS ARE NOW TRANSPORTING THE PATIENT UP AND DOWN THE HALLS VIA WHEELCHAIR. WILL CONTINUE TO MONITOR.
[2018-12-03] MEDS: LORAZEPAM INJ 2 MG/ML VIAL IV PRN (22:51)
[2018-12-04] VITALS (9 sets, daily range): BP systolic 90–190; BP diastolic 50–97
--- NOTE | 2018-12-04 01:53 | NUR ---
PATIENT URINATED IN DIAPER, WAS CHANGED AND CLEANED PROMPTLY. FAMILY MEMBER AT BEDSIDE, BOTH SIDE RAILS ARE UP, CALL LIGHT IN REACH, WILL CONTINUE TO MONITOR.
[2018-12-04] MEDS: D5NS/KCL 20MEQ 1,000 ML IV SCH ×2 (04:00→04:16)
[2018-12-04] MEDS: HYDROMORPHONE 1MG/1ML INJ IV PRN (07:30)
--- NOTE | 2018-12-04 07:30 | NUR ---
recd pt in bed ,thrashing in bed,and moanoing medicated.had large loose stool
[2018-12-04] MEDS: POLYETHYLENE GLYCOL 3350 17 GM PACK PEG SCH ×2 (09:00→16:48)
[2018-12-04] MEDS: CARBAMAZEPINE 200 MG TAB NG SCH ×3 (09:00→21:00)
[2018-12-04] MEDS: PANTOPRAZOLE 40 MG 10ML VIAL IV SCH (09:00)
--- NOTE | 2018-12-04 09:52 | NUR ---
EDUCATED ABOUT IMM, SIGNED, FILED IN CHART, WITH COPY LEFT WITH FAMILY AT BEDSIDE.
[2018-12-04] MEDS: NYSTATIN 100,000 UNITS/GM CRM 30GM TUBE TOP SCH (10:00)
[2018-12-04] MEDS: LORAZEPAM INJ 2 MG/ML VIAL IV PRN (10:40)
--- NOTE | 2018-12-04 10:40 | NUR ---
PT YELLING AND SCREAMING MEDICATED WITH ATIVAN MOTHER REQUEST
--- NOTE | 2018-12-04 11:21 | NUR ---
WOUND CARE NURSE INITIAL CONSULTATION. 43 YEAR OLD ADMITTED TO [facility] WITH DX OF PANCREATITIS AND VOMITING. HEAD TO TOE SKIN ASSESSMENT PERFORMED TODAY. PT PRESENTS WITH A 0.5X0.5X0.1CM STAGE II PRESSURE ULCER TO RIGHT MEDIAL KNEE. PEG TUBE IN PLACE. THERE ARE NO OTHER AREAS OF CONCERN NOTED A THIS TIME. NO S/S OF INFECTION. LABS: WBC: 9.78 GLUCOSE: 111 ALB: 3.2 RECOMMENDATIONS: APPLY VENELEX OINTMENT TO RIGHT MEDIAL KNEE AND COVER WITH FOAM. CHANGE DRESSING DAILY. TURN PT Q 2 HOURS AND PRN. PROVIDE PT WITH BILATERAL HEEL PROTECTORS AND PILLOW SUSPENSIONS. CONTINUE WITH ALTERNATING. LOW AIR LOSS MATTRESS. THANKS FOR THIS CONSULTATION. Addendum: 12/04/18 at 1128 by Jenny Posey RN Amended: Links added. Addendum: 12/04/18 at 1131 by Jenny Posey RN ULCER IS LOCATED ON LEFT MEDIAL KNEE.
--- NOTE | 2018-12-04 14:45 | NUR ---
Spoke with Dr. Rubin regarding DC plan. States pt can discharge home today. Gave order for home health. CRISTY called and spoke with pt's sister Randa [phone] regarding home health. She states she was agreeable for CM to set it up and to use any company that the MD recommends. Referral was sent to [facility] [place] Amy Erickson, with [facility] was informed of referral and anticipated DC for today. CRISTY called pt's sister Randa and let her know referral was sent to [facility] and that CM will leave contact information for company in pt's room.
--- NOTE | 2018-12-04 16:06 | NUR ---
Nutrition Intervention Note RD Recommendation(s) for Physician: - When medically appropriate, continue 3- 4 cartons of 237cc Vital 1.2 via PEG (1136 kcal, 71 gram protein, 768 ml of fluid) - Water flushes per MD, current water flushes provide the pt with an additional 480 ml of fluid. - Monitor for labs, gastric tolerance, daily weight Plan of Care: RD following, monitoring for tolerance and adequacy. EN recs. Nutrition reason for involvement: f/u RD Assessment 12/04: follow up: Discussed pt in rounds, pt is tolerating his TF per nurse. Pt is receiving 4 cans per day of Vital AF. Pt is meeting 168% of his recommended minimum calorie needs and 215% of his recommended minimum protein needs. Observed pt lying in bed, family at bedside. Possible d/c to home today. Noted- wound care is following. Will continue to monitor. 12/01 43yo M, who was admitted for pancreatitis and coffee ground emesis. Pt was awake but non verbal. Per sister, pt has been getting 4-5 cartons of 237cc Vital 1.2 (1136kcal, 71g protein) via PEG tube (7am, 12pm, 5pm, 9pm). CT abdomen showed no acute finding of pancreatitis; the stomach and esophagus are moderately distended with no evidence of mechanical obstruction, consider decreasing tube feed rates; moderate to large stools. Gallbladder US is WNL. His weight has remained at 50lbs. Pt has been tolerating tube feeding at home so far. Will continue to monitor and follow. Principal Problems/Diagnoses: Pancreatitis, vomiting PMH: cerebral palsy, PEG tube feeding, contractures. GI: abdomen soft, non-tender , stool: liquid Skin: stage II pressure ulcer on left knee Labs: 12/04: POC GM: 111, Lipase 23 (12/01) Na 135 L, K 3.4 L, Creatinine 0.59 L, glucose 139 H, AST 44 H, ALT 73 H, amylase 324 H, lipase 387 H Meds: miralax Ht: 48in Wt: 49lb (verified with family) BMI: 15 kg/m2 IBW: n/a Malnutrition Evaluation (12/04/2018) The patient does not meet criteria for a specified degree of malnutrition at this time. Will re-evaluate at follow-up as appropriate. Nutrition Prescription (Diet Order): Bolus feeding. 4- 5 cans a day. 60 cc water flushed after each can and water flush 2 hours after feeding Estimated Nutritional Needs: Calories: 675 - 787kcal (30-35kcal/kg/d) Weight used: actual body weight Protein: 33 -44 g (1.5-2g/kg/d) Weight used: actual body weight Diet Adequacy: meeting calorie needs, meeting protein needs Diet Education Needs Assessment: Diet education not indicated. Nutrition Care Level: mod Nutrition Diagnosis: Swallowing difficulty related to chronic illness as evidenced by dependence on PEG for main source of nutrition. Goal: Patient will meet 75-100% of estimated needs by follow up Progress: Progressing Interventions: Composition, Rate, Route Monitoring/Evaluation: Total energy intake, Total protein intake, Formula/Solution, Weight change Signed: Sully Timmons RD, LD
--- NOTE | 2018-12-04 16:26 | Progress Note ---
DATE: Internal Medicine Progress Note SUBJECTIVE: The patient is nonverbal. PHYSICAL EXAMINATION: VITAL SIGNS: Blood pressure 105/72, temperature 98.1, heart rate 88 per minute, respiratory rate 18 per minute, O2 saturation 96%. HEART: Showed regular rhythm. Normal S1, S2 sound. LUNGS: Clear bilaterally. ABDOMEN: Soft. He had a PEG tube in place. EXTREMITIES: Show atrophy and contractures in upper and lower extremities. LABORATORY DATA: On the BMP; sodium 142, potassium 4.4, chloride 111, CO2 of 20, BUN 10, creatinine 0.59, glucose 116. On the CBC, white blood count 9.728, hemoglobin 12.8, hematocrit 42.1, platelet count 159,000. PT 12.5, INR 0.89, PTT 25.8. AST 37, ALT 58, total bilirubin 0.5, alkaline phosphatase 102. FINAL IMPRESSION: 1. Vomiting, which is resolved. 2. Dysphagia. 3. Seizure disorder. 4. Mental retardation. 5. Severe protein-calorie malnutrition. PLAN OF TREATMENT: Continue current IV fluids. Continue PEG tube feeding. Continue Zofran 4 mg IV every 4 hours as needed, carbamazepine 200 mg three times a day, Protonix 40 mg twice a day, Dilaudid 1 mg IV q.3 hours as needed, promethazine 12.5 mg IV q.4 hours as needed for vomiting if the Zofran does not work. Continue nystatin twice a day to affected area topically, Balsam Norma/castor oil one application daily of 60 g daily. Continue MiraLAX 17 g twice a day. So far, amylase and lipase are normal. CT of the abdomen showed no evidence of any significant abnormality to explain the vomiting. Gastroenterology is on the case. From the Gastroenterology point of view tentative discharge tomorrow if he is doing better. MD YAMILETH Stewart/VANESSA /[id number]
[2018-12-04] MEDS ORDERED: ATIVAN0.5 MG PO (18:36)
--- NOTE | 2018-12-04 19:50 | NUR ---
RECEIVED PT N BED AOX2.RESPPIRATIONS ARE EVEN AND UNLABORED PEG TUBE INTACT.RT 20 G D51/2 NS + 20KCL RUNNING AT 150 cc/hr .D/C ORDER TO HOME TODAY .FAMILY SAID THEY WITL BE ONLY AFTER 8.WAITING TO TH FAMILY.CALL LIGHT WITH IN REACH .CONTINUE TO MONITOR
[2018-12-04] MEDS: ACETAMINOPHEN 325 MG TAB PO PRN (21:30)
[2018-12-04] MEDS ORDERED: CEFTRIAXONE SOD 2 GM/NS 100 ML 100 ML IV SCH (21:30)
--- NOTE | 2018-12-04 21:30 | NUR ---
DR CORREA HAS GIVEN THE ORDER TO HOLD THE D/C DUE TO THE TEMPERATURE.CONTINUE TO MONITOR
--- NOTE | 2018-12-04 22:48 | Diagnostic Imaging Report ---
Examination: Single AP view of the chest. COMPARISON: CT abdomen and pelvis 12/01/2018 INDICATION: Fever DISCUSSION: The lungs are well-inflated. New dense consolidation with multiple air bronchograms involving the right lower lungs and. Patchy opacities in the upper lungs are present as well. No pleural effusion or pneumothorax. Atherosclerotic calcification of the thoracic aorta. Normal heart size. Convexity of the left lower paraspinal line reflective of esophageal wall thickening as discussed on comparison CT. No acute osseous abnormality. IMPRESSION: Multifocal consolidations compatible with pneumonia in the clinical setting of fever, worst in the right lower and middle lobes. Follow-up chest radiograph in 8 weeks is suggested after appropriate treatment to document resolution. Signed by: Dr. Nasir Rodriguez M.D. on 12/04/2018 10:45 PM
[2018-12-05] VITALS (8 sets, daily range): BP systolic 97–133; BP diastolic 55–78
[2018-12-05] MEDS ORDERED: ONDANSETRON HCL INJ 2MG/ML 2ML 2 MG/ML VIAL IV PRN
[2018-12-05] MEDS ORDERED: LORAZEPAM INJ 2 MG/ML VIAL IV PRN
[2018-12-05] MEDS ORDERED: PROMETHAZINE 12.5MG/ NACL 0.9% 12.5 MG/50 ML BAG IV PRN
[2018-12-05] MEDS: ACETAMINOPHEN 325 MG TAB PO PRN ×2 (05:30→21:06)
[2018-12-05] MEDS: HYDROMORPHONE 2MG/ML 2 MG/ML ML IV PRN ×3 (05:39→15:45)
--- NOTE | 2018-12-05 05:53 | Discharge Summary ---
HISTORY: A 43-year-old male, who has a past medical history positive for when he was 3 years old and with severe mental retardation, contractures in upper and lower extremity. He had a PEG tube, came here with nausea and vomiting, which resolved. The CT of the abdomen showed no evidence of pancreatitis. The lipase and amylase were high in the beginning, back to normal at the end. The patient was seen by Dr. Carney, who recommended proton pump inhibitor. The patient is tolerating the diet. There is no fever. He is going home today with home health. PHYSICAL EXAMINATION: HEART: Showed regular rhythm. Normal S1 and S2 sound. LUNGS: Clear bilaterally. ABDOMEN: Soft. He had a PEG tube in place. VITAL SIGNS: Heart rate 88 per minute, respiratory rate 18 per minute, blood pressure 105/72, temperature is 98.1 degrees, and oxygen 96%. LABORATORY DATA: He had also a CT of the abdomen and pelvis, which showed moderate distension of stomach, so far with no evidence of any mechanical bowel obstruction. He has [id number] amount of retained fecal material. He had a gallbladder ultrasound also, which showed normal right upper quadrant ultrasound. On the blood work, we have a CBC; white blood count 9.78, which is normal; hemoglobin 12.8; hematocrit 42.1; and platelet count 159,000. . On the BMP; sodium 142, potassium 4.4, chloride 111, CO2 of 20, BUN 10, creatinine 0.59, glucose 116, iron 86, TIBC 279, transferrin 199, ferritin 79.4. AST 37, ALT 58, alkaline phosphatase 102, total protein 6.5, albumin 3.2, globulin 3.3, amylase 98, and lipase 48. FINAL IMPRESSION: 1. Episode of vomiting, which is completely resolved. 2. Mental retardation. 3. Contractures. 4. Dysphagia. PLAN OF TREATMENT: The patient going to be discharged home with instruction to continue the current PEG tube feedings. He is going to continue Protonix 40 mg by the PEG tube twice a day, lorazepam 0.5 mg by the PEG tube q.6 hours only as needed for anxiety, Zofran 4 mg by PEG tube q.6 hours as needed for vomiting, carbamazepine 200 mg three times a day, Balsam Norma castor oil one application of 60 g topically daily. The patient going home today with home health. MD YAMILETH Stewart/VANESSA /[id number]
--- NOTE | 2018-12-05 06:39 | NUR ---
PT HAS NAUSEA AND VOMITING .GIVEN ORDERED PAIN MEDICATION..PT HAS LOOSE STOOL.T STRAIGHT. CATH NO URINE GOT TRY TO GET AGAIN .PT C/O PAIN AND GIVEN ORDERED PAIN MEDICATION .CONTINUE TO MONITOR
[2018-12-05] MEDS: D5NS/KCL 20MEQ 1,000 ML IV SCH ×4 (06:40→20:00)
--- NOTE | 2018-12-05 07:30 | NUR ---
The pt. was received from the off-going nurse in bed with bed rails elevated. The family is at the bedside asleep. There is no sign of distress noted and consult with Dr. Dinh is pending.
[2018-12-05] MEDS ORDERED: BALSAM PERU/CASTOR OIL 60 GM OINT...G. TP SCH (09:00)
[2018-12-05] MEDS: NYSTATIN 100,000 UNITS/GM CRM 30GM TUBE TOP SCH ×3 (09:00→17:51)
[2018-12-05] MEDS: POLYETHYLENE GLYCOL 3350 17 GM PACK PEG SCH ×2 (09:20→17:51)
[2018-12-05] MEDS: CARBAMAZEPINE 200 MG TAB NG SCH ×3 (09:20→21:06)
[2018-12-05] MEDS: PIPERACILLIN/TAZO 2.25 GM 50 ML IV SCH ×2 (13:21→20:04)
--- NOTE | 2018-12-05 14:47 | NUR ---
Spoke to Dr. Rubin regarding LTAC order. He states pt has bilateral pna and will need 2 weeks of IV abx. CM called and spoke to pt's sister Randa Alexander [phone] and discussed new discharge plan. Explained need for IV abx. Ms. Tolentino verbalized understanding and is agreeable to [facility]. Choice letter placed in chart. Summer Crenshaw with [facility] was informed of referral.
--- NOTE | 2018-12-05 15:18 | NUR ---
MOT initiated and given to Molly, community board member, to place with pt's packet once it has been made. [id number] [place], [place] [id number]
--- NOTE | 2018-12-05 16:09 | Consultation ---
DATE OF CONSULTATION: 12/05/2018 REASON FOR CONSULTATION: This is a patient of Dr. Jorge Rubin, currently located at [facility] in room 286. HISTORY OF PRESENT ILLNESS: Mr. Gimenez is a pleasant 43-year-old gentleman unfortunate, cerebral palsy was admitted to the hospital secondary to episodes of coffee-ground emesis. Initial workup suggested pancreatitis with elevated amylase and lipase. CT of abdomen and pelvis, however, was not indicating evidence of pancreatitis. CT also suggests that the stomach and esophagus were moderately distended and there was no evidence of mechanical obstruction on CAT scan, as it was reported and was recommended to decrease the feeding rate on a feeding tube and also showed the patient had moderate to large amount of retained fecal material. The patient was treated with Rocephin and he was about to be discharged when he spiked a temperature of 100.1. Discharge was held and Infectious Disease was consulted for evaluation of fever. PAST MEDICAL HISTORY: Including cerebral palsy, dysphagia with PEG tube. The patient is bedbound, aphasic, dysphagia, anxiety, electrolyte abnormalities, and constipation. ALLERGIES: NO KNOWN ALLERGIES. SOCIAL HISTORY: The patient without history of tobacco or alcohol or illicit drugs. The patient stays at home with the family, seems to have a good family support. PAST SURGICAL HISTORY: Feeding tube placement. MEDICATIONS: Medication list reviewed and as far as Infectious Disease point of view, the patient is on Rocephin gram a day. RADIOLOGY STUDIES: CT of abdomen and pelvis was mentioned above. Chest x-ray was done yesterday showed multifocal consolidation compatible with pneumonia, worse on the right lower and middle lobes. REVIEW OF SYSTEMS: Unable to obtain review of systems. PHYSICAL EXAMINATION: GENERAL: The patient is currently in bed, awake and agitated a little bit. VITAL SIGNS: Include temperature 97.7, pulse is 77, respirations 17, and blood pressure 97/57. CV: S1 and S2. CHEST: Decreased breath sounds. Equal expansion. No acute distress. ABDOMEN: Soft. No distention. Bowel sounds positive with PEG tube. HEENT: Moist. No pallor. No JVD. EXTREMITIES: Cerebral palsy, contracted, thin, and underdeveloped. ASSESSMENT AND PLAN: 1. Fever. 2. Aspiration precaution with concern about aspiration pneumonia. 3. Cerebral palsy. 4. Debility. 5. Recent elevation of pancreatic enzymes. 6. Constipation. The patient is seen and evaluated. Discussed with Dr. Dinh in details. Available labs and notes reviewed, the patient has no allergies and has a creatinine level of 0.59. Available labs as mentioned above and reviewed. Hep panel was negative. We changed antibiotics to Zosyn and discharge planning noted for home, may be able to change to Augmentin through the PEG tube and discharge at the time of discharge plan. Thank you for this consult. This case was discussed with Dr. Dinh in details. Dictated by Rick Mccrayr PA-C (Al) Bienvenido Dinh MD /VANESSA /[id number]
--- NOTE | 2018-12-05 16:09 | Progress Note ---
DATE: Internal Medicine Progress Note SUBJECTIVE: The patient developed fever last night. Chest x-ray was done. He was found to have pneumonia, most likely secondary to aspiration. He was started on IV Zosyn. We are going to need to transfer him to [facility] for continuation of IV antibiotic. PHYSICAL EXAMINATION: VITAL SIGNS: Blood pressure 133/72, temperature 96.6, heart rate 92 per minute, respiratory rate 19 per minute, and oxygen saturation 94%. HEART: Show regular rhythm. Normal S1, S2 sound. LUNGS: Show decreased breath sounds bilaterally. ABDOMEN: Soft. He had a PEG tube in place. EXTREMITIES: Show atrophy in upper and lower extremities. LABORATORY DATA: On the BMP; sodium 142, potassium 4.4, chloride 111, CO2 of 20, BUN 10, creatinine 0.59, glucose 116. On the CBC; white blood count 9.78, hemoglobin 12.8, hematocrit 42.1, platelet count 159,000. PT 12.5, INR 0.89, PTT 25.8. AST 37, ALT 58, total bilirubin 0.5, alkaline phosphatase 102. IMPRESSION: 1. Fever secondary to aspiration pneumonia. 2. Dysphagia. 3. Vomiting, which has resolved. 4. Seizure disorder. 5. Mental retardation. 6. Severe protein-calorie malnutrition. PLAN OF TREATMENT: 1. Continue Zosyn 3.375 g IV q.8 hours. 2. Continue IV fluids 150 mL an hour. 3. Carbamazepine 200 mg via PEG tube three times a day. 4. MiraLAX 17 g twice a day. 5. Lorazepam 2 mg q.4 hours as needed. 6. Nystatin twice a day. 7. Promethazine 12.5 mg IV q.4 hours as needed. 8. Balsam Norma castor oil one application daily. 9. Zofran 4 mg IV q.4 hours as needed. 10. Tylenol 650 mg q.4 hours as needed. 11. Dilaudid 1 mg IV q.3 hours as needed. Tentative discharge to [facility] if okay with the family. He needs at least two weeks of IV antibiotics. MD YAMILETH Stewart/VANESSA /[id number]
--- NOTE | 2018-12-05 16:33 | NUR ---
Straight cath urine obtained and sent to the lab.
[2018-12-05 16:40] LABS: BILIRUBIN,URINE NEGATIVE (NEGATIVE); CLARITY,URINE CLEAR (CLEAR); COLOR,URINE YELLOW (YELLOW); KETONES,URINE NEGATIVE (NEGATIVE); LEUKOCYTE ESTERASE ,URINE NEGATIVE (NEGATIVE); NITRITE,URINE NEGATIVE (NEGATIVE); PROTEIN,URINE DIPSTICK NEGATIVE (NEGATIVE); URINE UROBILINOGEN 0.2 mg/dL (0.2 - 1)
[2018-12-05 17:00] LABS: AMORPHOUS SEDIMENT,URINE FEW (FEW); MUCUS,URINE FEW (RARE)
--- NOTE | 2018-12-05 19:50 | NUR ---
report given to MALIKA at [facility]
--- NOTE | 2018-12-05 20:39 | NUR ---
Spoke with Dr. Rubin regarding patient's room in [place]. Order to discharge patient received.
--- NOTE | 2018-12-05 22:15 | NUR ---
Patient transferred to [place] via EMS. Not on distress. Patient on portable quality assurance monitor body and oxygen. Family is aware of the transfer.
--- NOTE | 2018-12-06 00:48 | Progress Note ---
DATE: 12/05/2018 SUBJECTIVE: The patient continues to have cough, phlegm. No ok coffee-grounds emesis. Tolerating G-tube feeding. Regular BM, stool is liquidy brown. REVIEW OF SYSTEMS: Unobtainable. The patient is mentally challenged. MEDICATIONS: Reviewed as per MAR. PHYSICAL EXAMINATION: VITAL SIGNS: Temperature 97.4, pulse 84, respirations 18, blood pressure 105/55, oxygen saturation 99% on 2 L nasal cannula. GENERAL: Thin body habitus, nonverbal. HEENT: Oral mucosa is moist. ABDOMEN: Soft, nondistended. G-tube site is clean. No bleeding or leak. No mass or hernia. Bowel sounds present. LABORATORY DATA: WBC 9.78, hemoglobin 12.8, hematocrit 42.1, MCV 105.3, and platelet count 159. Sodium 142, potassium 4.4, chloride 111, bicarb 20, BUN 10, creatinine 0.59. Liver enzymes showed a total bilirubin 0.5. AST 37, ALT 58, alkaline phosphatase 102. Chest x-ray showed multifocal consolidation compatible with pneumonia in the clinical setting of fever, worst in the right lower and middle lobes. Follow up chest radiograph in 8 weeks is suggested after appropriate treatment to document resolution. IMPRESSION: 1. Coffee-grounds emesis, resolved. 2. Status post G-tube, tolerating it very well. PLAN: Continue present medical management for pneumonia. G-tube bolus feeding as before. The patient is going to be transferred to [place]. We will follow him there to check his clinical progress. Jon Carney MD SA/VANESSA /[id number]
== END 2018-12-05 22:20 | DRG 177 ==
LOC: ER 22:18 → ERHOLD 12-01 00:45 → MED/SURG3 12-01 01:15
PROVIDERS: ADMIT Internal Medicine; ATTEND Internal Medicine
DX: J69.0 Pneumonitis due to inhalation of food and vomit (principal); E43 Unspecified severe protein-calorie malnutrition; E87.6 Hypokalemia; G40.909 Epilepsy, unspecified, not intractable, without status epilepticus; G80.9 Cerebral palsy, unspecified; R13.10 Dysphagia, unspecified; F79 Unspecified intellectual disabilities; K59.00 Constipation, unspecified; M24.50 Contracture, unspecified joint; Z74.01 Bed confinement status; R74.8 Abnormal levels of other serum enzymes; Z93.1 Gastrostomy status; K29.70 Gastritis, unspecified, without bleeding
CPT/HCPCS: 36415; 71045; 74177; 76705; 80053; 80156; 80185; 81001; 82150; 82390; 82728; 82948; 83540; 83690; 84466; 85025; 85610; 85730; 86255; 86850; 86900; 87040; 87086; 99284; J0696; J1165; J1170; J2060; J2270; J2405; J2543; J2550; Q9967

== ENCOUNTER 2019-10-14 17:26 | Inpatient (IN) | payer MEDICARE, OTHER ==
[~2019-10-14] VITALS: Ht 121.9 cm; Wt 26.4 kg
[~2019-10-14 17:26] MED LIST: ATIVAN0.5 MG PO; CARBAMAZEP100 MG/5 M NG; PANTOPRAZOLE SO40 MG PEG
[2019-10-14] MEDS ORDERED: PANTOPRAZOLE 40 MG 10ML VIAL IV STA (17:53)
[2019-10-14] MEDS ORDERED: PIPERACILLIN/TAZO 2.25 GM 50 ML IV STA (17:53)
[2019-10-14] MEDS ORDERED: SODIUM CHLORIDE 0.9% 500ML 500 ML IV ONE (18:00)
[2019-10-14 18:55] LABS: BASOPHILS # (AUTO) 0.1 (0.0-0.1); BASOPHILS % 0.3 % (0.0-1.0); EOSINOPHILS # (AUTO) 0.1 (0.0-0.4); EOSINOPHILS % 0.3 % (0.0-6.0); HEMATOCRIT 46.4 % (38.2-49.6); HEMOGLOBIN 15.3 g/dL (14.0-18.0); LYMPHOCYTES # (AUTO) 2.6 (1.0-3.2); LYMPHOCYTES % 18.1 % (18.0-39.1); MEAN CORPUSCULAR HEMOGLOBIN 31.7 pg (28-32); MEAN CORPUSCULAR VOLUME 96.3 fL (81-99); MONOCYTES # (AUTO) 0.4 (0.2-0.8); MONOCYTES % 2.9 % (4.4-11.3); NEUTROPHILS # (AUTO) 11.1 (2.1-6.9); NEUTROPHILS % 78.1 % (38.7-80.0); PLATELET COUNT 232 x10e3/uL (140-360); RED BLOOD COUNT 4.82 x10e6/uL (4.3-5.7); RED CELL DISTRIBUTION WIDTH 14.1 % (11.7-14.4)
[2019-10-14 19:04] LABS: BILIRUBIN,URINE NEGATIVE (NEGATIVE); CLARITY,URINE HAZY (CLEAR); COLOR,URINE YELLOW (YELLOW); KETONES,URINE NEGATIVE (NEGATIVE); LEUKOCYTE ESTERASE ,URINE NEGATIVE (NEGATIVE); NITRITE,URINE NEGATIVE (NEGATIVE); PROTEIN,URINE DIPSTICK 2+ (NEGATIVE); URINE UROBILINOGEN 0.2 mg/dL (0.2 - 1)
[2019-10-14 19:05] LABS: INR 0.96; PROTHROMBIN TIME 13.3 seconds (11.9-14.5)
--- NOTE | 2019-10-14 19:05 | Emergency Department Note ---
History of Present Illnes History of Present Illness Chief Complaint: General Medicine Complaints History of Present Illness This is a 44 year old male with PMH of developmental delay presents to the ED for pain and discoloration of the feeding tube. Sister provides history where patient is acting abnormal and indicates that the feeding tube site is not functional . . Historian: Family Member (sister) Arrival Mode: Car History limited by: developmental delay Onset (how long ago): second(s) Severity: moderate Duration (how long): hour(s) Progression: worsening Chronicity: new Context: Reports recent immobilization Exacerbating factors: eating Associated symptoms: Reports loss of appetite, Reports weakness Treatments prior to arrival: none Past Medical/Family History Physician Review I have reviewed the patient's past medical and family history. Any updates have been documented here. Past Medical History Recent Fever: No Clinical Suspicion of Infectio: No New/Unexplained Change in Ment: Yes Past Medical History: Seizure Disorder, GERD Other Medical History: MENINGITIS AT 3 MONTHS PEG TUBE MENTAL RETARDATION Other Surgery: PEG TUBE Social History Smoking Cessation: Never Smoker Alcohol Use: None Physically hurt or threatened: No Other Last Tetanus: UTD Review of Systems ROS Narrative Unable to obtain ROS: altered mental status Review of Systems Constitutional: Reports malaise, Reports weakness Gastrointestinal: Reports abdominal pain Physical Exam Related Data Allergies: Coded Allergies: No Known Drug Allergies (Verified Allergy, Unknown, 11/30/18) Triage Vital Signs Vital Signs Date Time Temp Pulse Resp B/P (MAP) Pulse Ox O2 Delivery O2 Flow Rate FiO2 7//20 17:50 97.2 88 20 169/99 95 Room Air Physical Exam CONSTITUTIONAL Constitutional: Present cachectic, Present distressed, Present ill appearing HENT HENT: Present normocephalic, Present atraumatic, Present oropharynx clear/moist, Present nose normal HENT L/R: Present left ext ear normal, Present right ext ear normal EYES Eyes: Reports PERRL, Reports conjunctivae normal NECK Neck: Present ROM normal PULMONARY Pulmonary: Present effort normal, Present breath sounds normal CARDIOVASCULAR Cardiovascular: Present regular rhythm, Present heart sounds normal, Present capillary refill normal, Present normal rate GASTROINTESTINAL Abdominal: Present soft, Present distension GENITOURINARY Genitourinary: Present exam deferred SKIN Skin: Present warm, Present dry, Present erythema (erythema surrounding feeding tube site. Petechial lesions LUQ) MUSCULOSKELETAL Musculoskeletal: Present ROM normal NEUROLOGICAL Neurological: Present abnormal DTRs, Present abnormal coordination, Present weakness PSYCHOLOGICAL Results Laboratory Result Diagram: 10/14/19 9107 Laboratory Laboratory Tests Test 10/14/19 18:35 White Blood Count 14.30 x10e3/uL (4.8-10.8) Red Blood Count 4.82 x10e6/uL (4.3-5.7) Hemoglobin 15.3 g/dL (14.0-18.0) Hematocrit 46.4 % (38.2-49.6) Mean Corpuscular Volume 96.3 fL (81-99) Mean Corpuscular Hemoglobin 31.7 pg (28-32) Mean Corpuscular Hemoglobin Concent 33.0 g/dL (31-35) Red Cell Distribution Width 14.1 % (11.7-14.4) Platelet Count 232 x10e3/uL (140-360) Neutrophils (%) (Auto) 78.1 % (38.7-80.0) Lymphocytes (%) (Auto) 18.1 % (18.0-39.1) Monocytes (%) (Auto) 2.9 % (4.4-11.3) Eosinophils (%) (Auto) 0.3 % (0.0-6.0) Basophils (%) (Auto) 0.3 % (0.0-1.0) Neutrophils # (Auto) 11.1 (2.1-6.9) Lymphocytes # (Auto) 2.6 (1.0-3.2) Monocytes # (Auto) 0.4 (0.2-0.8) Eosinophils # (Auto) 0.1 (0.0-0.4) Basophils # (Auto) 0.1 (0.0-0.1) Absolute Immature Granulocyte (auto 0.05 x10e3/uL (0-0.1) Urine Color Yellow (YELLOW) Urine Clarity Hazy (CLEAR) Urine pH 5.5 (5 - 7) Urine Specific [place] 1.030 (1.010-1.025) Urine Protein 2+ (NEGATIVE) Urine Glucose (UA) Negative (NEGATIVE) Urine Ketones Negative (NEGATIVE) Urine Blood Negative (NEGATIVE) Urine Nitrite Negative (NEGATIVE) Urine Bilirubin Negative (NEGATIVE) Urine Urobilinogen 0.2 mg/dL (0.2 - 1) Urine Leukocyte Esterase Negative (NEGATIVE) Lab results reviewed: Yes Imaging Imaging results reviewed: Yes Impressions [facility] [address] [address] Patient Name: SHANNON VAZQUEZ MR #: [id number] : 1975 Age/Sex: 44/M Req #: [id number] Adm Physician: Ordered by: SHIRLEY CHAIDEZ MD Report #: [id number] Location: ER Room/Bed: Procedure: [id number] CT/CT ABDOMEN/PELVIS W Exam Date: 10/14/19 Exam Time: 230 REPORT STATUS: Signed EXAM: CT Abdomen and Pelvis WITH contrast INDICATION: ^ABD PAIN, DISTENDED, FLUID LEAKING AROUND GTUBE, ?SBO ^[id number] ^2300 COMPARISON: 12/01/2018 TECHNIQUE: Abdomen and pelvis were scanned utilizing a multidetector helical scanner from the lung base to the pubic symphysis after administration of IV contrast. Coronal and sagittal reformations were obtained. Routine protocol was performed. Scan was performed when during portal venous phase. IV CONTRAST: 100 mL of Isovue 370 ORAL CONTRAST: Water COMPLICATIONS: None RADIATION DOSE: Total DLP: 842 mGy*cm Estimated effective dose: (DLP x 0.015 x size factor) mSv CTDIvol has been reviewed. It is below the limits set by the Radiation Protocol Committee (RPC). Dose modulation, iterative reconstruction, and/or weight based adjustment of the mA/kV was utilized to reduce the radiation dose to as low as reasonably achievable. FINDINGS: LOWER THORAX: Confluent groundglass opacities of the visualized lower lobes. No pleural effusion. HEPATOBILIARY: No focal hepatic lesions. No biliary ductal dilation. GALLBLADDER: No radio-opaque stones or sludge. No wall thickening. SPLEEN: No splenomegaly. PANCREAS: No focal masses or ductal dilatation. ADRENALS: No adrenal nodules. KIDNEYS/URETERS: Kidneys enhance symmetrically. No hydronephrosis. Small left renal cortical cyst. No stones. GI TRACT: Suboptimal evaluation of the bowel due to lack of oral contrast and small amount of intraperitoneal fat. A percutaneous gastroduodenal tube is in unchanged position when compared to the previous study from 2019. The tip of the tube again terminates within the second portion of the duodenum. The stomach is mostly decompressed. The visualized thoracic esophagus is markedly dilated and contains a large amount of fluid. No discrete dilated small bowel loops. The rectum and sigmoid colon are distended by stool. Prominent gas within the transverse colon. PELVIC ORGANS/BLADDER: Grossly unremarkable. LYMPH NODES: Suboptimally evaluated. No gross adenopathy. VESSELS: Unremarkable. PERITONEUM / RETROPERITONEUM: No free air or fluid. BONES: No acute osseous abnormality. SOFT TISSUES: Diffuse soft tissue edema. IMPRESSION: 1. The stomach is mostly decompressed. No specific evidence of small bowel obstruction. 2. Marked dilatation of the fluid-filled thoracic esophagus. 3. Prominent formed stool within the sigmoid colon and rectum which may reflect fecal impaction. 4. Diffuse airspace disease of the visualized lower lungs. This may represent diffuse aspiration and/or multifocal pneumonia. Signed by: Carisa Marucs MD on 10/14/2019 11:33 PM Dictated By: CARISA MARCUS MD [id number] Transcribed By: SELVIN on 10/14/19 2333 COPY TO: SHIRLEY CHAIDEZ MD~ Critical Care Time Total Critical Care Time (min): 31 Critcal care necessary due to: respiratory failure Critcal care time spent by me: develop tx plan w patient/surrogate, examination of patient, obtaining hx from patient/surrogate, order/perform tx or interventions, order/review laboratory studies, order/review radiographic studies, pulse oximetry Assessment & Plan Medical Decision Making MDM 44 yom with abdominal pain. CBC, CMP, UA and CTS ordered to r/o sepsis, pneumonia, COVID-19 infection, appendicitis, diverticulitis, UTI, kidney stone, perforated viscus, obstruction, ischemia, and biliary pathology Assessment & Plan Final Impression: (1) Respiratory tract infection due to COVID-19 virus (2) Fecal impaction (3) Hypoxia Depart Disposition: ADMITTED Last Vital Signs Date Time Temp Pulse Resp B/P (MAP) Pulse Ox O2 Delivery O2 Flow Rate FiO2 10/14/19 20:07 80 18 124/86 99 10/14/19 19:15 97.6 10/14/19 17:50 Room Air Date Time Temp Pulse Resp B/P (MAP) Pulse Ox O2 Delivery O2 Flow Rate FiO2 10/14/19 17:50 97.2 88 20 169/99 95 Room Air Home Meds Reported Medications Lorazepam* (ATIVAN*) 0.5 Mg Tablet, 0.5 MG PO QID PRN for ANXIETY, #60 TAB 12/04/18 Pantoprazole Sodium* (PROTONIX) 40 Mg Tablet.dr, 40 MG PEG DAILY, TAB 12/01/18 Carbamazepine (CARBAMAZEPINE) 100 Mg/5 Ml Oral.susp, 200 MG NG TID GIVE 10ML PER G-TUBE THREE TIMES DAILY. PER PT'S SISTER, PT TAKES 1ST DOSE AT 0800; 2ND DOSE AT 2878-4220; THIRD DOSE AT 2200. 12/01/18 Medications in the ED Pantoprazole Sodium 40 mg ONCE STAT IV ; Start 10/14/19 at 17:53; Stop 10/14/19 at 18:00; Status DC Sodium Chloride 500 ml @ 0 mls/hr Q0M ONCE IV ; Start 10/14/19 at 18:00; Stop 10/14/19 at 18:01; Status DC Piperacillin Sod/ Tazobactam Sod 50 ml @ 50 mls/hr NOW STAT IV ; Start 10/14/19 at 17:53; Stop 10/14/19 at 18:52; Status DC DENISSE MEJIA DO Oct 14, 2019 19:05
[2019-10-14 19:06] LABS: PARTIAL THROMBOPLASTIN TIME 36.5 seconds (23.8-35.5)
[2019-10-14 19:08] LABS: AMORPHOUS SEDIMENT,URINE FEW (FEW); BACTERIA,URINE FEW /HPF; EPITHELIAL CELLS,URINE FEW /LPF; MUCUS,URINE FEW (RARE); RBC,URINE 0-5 /HPF (0-5); WBC,URINE (MAN) 0-5 /HPF (0-5)
[2019-10-14 22:18] LABS: ALANINE AMINOTRANSFERASE 68 IU/L (0-55); ALBUMIN 2.9 g/dL (3.5-5.0); ALBUMIN/GLOBULIN RATIO 0.7 (0.8-2.0); ALKALINE PHOSPHATASE 113 IU/L (40-150); BLOOD UREA NITROGEN 35 mg/dL (7-26); BUN/CREATININE RATIO 51 (6-25); CALCIUM 7.8 mg/dL (8.4-10.2); CARBON DIOXIDE 28 mmol/L (22-29); CHLORIDE 102 mmol/L (98-107); CREATINE KINASE 32 IU/L (30-200); CREATININE, SERUM 0.69 mg/dL (0.72-1.25); EST GLOMERULAR FILTRATION RATE > 60 ML/MIN (60-); GLUCOSE 123 mg/dL (74-118); SODIUM 141 mmol/L (136-145)
[2019-10-14] MEDS ORDERED: IOPAMIDOL 370 MG/ML 200 ML INFUS..BTL INJ ONE (22:34)
[2019-10-14] MEDS ORDERED: SODIUM CHLORIDE 0.9% 50ML 50 ML ONE (22:34)
[2019-10-14 22:35] LABS: LIPASE 39 U/L (8-78)
[2019-10-14] MEDS ORDERED: LEVETIRACETAM 500MG/5ML VIAL 500 MG in SODIUM CHLORIDE 0.9% 100 ML 100 ML IV STA (22:37)
[2019-10-14] MEDS ORDERED: LORAZEPAM INJ 2 MG/ML VIAL IV ONE (22:45)
[2019-10-14] MEDS ORDERED: LEVETIRACETAM 500 MG/5 ML VIAL IV ONE (22:48)
[2019-10-14] MEDS ORDERED: LEVETIRACETAM 500MG/5ML VIAL 500 MG in SODIUM CHLORIDE 0.9% 100 ML 100 ML IV SCH (23:00)
--- NOTE | 2019-10-14 23:37 | Diagnostic Imaging Report ---
EXAM: CT Abdomen and Pelvis WITH contrast INDICATION: ^ABD PAIN, DISTENDED, FLUID LEAKING AROUND GTUBE, ?SBO ^[id number] ^2300 COMPARISON: 12/01/2018 TECHNIQUE: Abdomen and pelvis were scanned utilizing a multidetector helical scanner from the lung base to the pubic symphysis after administration of IV contrast. Coronal and sagittal reformations were obtained. Routine protocol was performed. Scan was performed when during portal venous phase. IV CONTRAST: 100 mL of Isovue 370 ORAL CONTRAST: Water COMPLICATIONS: None RADIATION DOSE: Total DLP: 842 mGy*cm Estimated effective dose: (DLP x 0.015 x size factor) mSv CTDIvol has been reviewed. It is below the limits set by the Radiation Protocol Committee (RPC). Dose modulation, iterative reconstruction, and/or weight based adjustment of the mA/kV was utilized to reduce the radiation dose to as low as reasonably achievable. FINDINGS: LOWER THORAX: Confluent groundglass opacities of the visualized lower lobes. No pleural effusion. HEPATOBILIARY: No focal hepatic lesions. No biliary ductal dilation. GALLBLADDER: No radio-opaque stones or sludge. No wall thickening. SPLEEN: No splenomegaly. PANCREAS: No focal masses or ductal dilatation. ADRENALS: No adrenal nodules. KIDNEYS/URETERS: Kidneys enhance symmetrically. No hydronephrosis. Small left renal cortical cyst. No stones. GI TRACT: Suboptimal evaluation of the bowel due to lack of oral contrast and small amount of intraperitoneal fat. A percutaneous gastroduodenal tube is in unchanged position when compared to the previous study from 2019. The tip of the tube again terminates within the second portion of the duodenum. The stomach is mostly decompressed. The visualized thoracic esophagus is markedly dilated and contains a large amount of fluid. No discrete dilated small bowel loops. The rectum and sigmoid colon are distended by stool. Prominent gas within the transverse colon. PELVIC ORGANS/BLADDER: Grossly unremarkable. LYMPH NODES: Suboptimally evaluated. No gross adenopathy. VESSELS: Unremarkable. PERITONEUM / RETROPERITONEUM: No free air or fluid. BONES: No acute osseous abnormality. SOFT TISSUES: Diffuse soft tissue edema. IMPRESSION: 1. The stomach is mostly decompressed. No specific evidence of small bowel obstruction. 2. Marked dilatation of the fluid-filled thoracic esophagus. 3. Prominent formed stool within the sigmoid colon and rectum which may reflect fecal impaction. 4. Diffuse airspace disease of the visualized lower lungs. This may represent diffuse aspiration and/or multifocal pneumonia. Signed by: Williams Ramos MD on 10/14/2019 11:33 PM
[2019-10-15] VITALS (8 sets, daily range): BP systolic 95–113; BP diastolic 58–82
[2019-10-15] MEDS ORDERED: ONDANSETRON HCL INJ 2MG/ML 2ML 2 MG/ML VIAL IV PRN
[2019-10-15] MEDS ORDERED: MORPHINE SULFATE INJ IV PRN (00:15)
[2019-10-15] MEDS ORDERED: MORPHINE SULFATE INJ 4 MG/ML INJ 1ML IV PRN (00:15)
--- NOTE | 2019-10-15 01:35 | NUR ---
patient is a new admit that arrived via stretcher. patient is awake and non verbal. no signs of pain or discomfort noted. patient has been transferred into the bed. bed is in the lowest position and call light is within reach. will continue to monitor patient.
[2019-10-15] MEDS ORDERED: SODIUM CHLORIDE 0.9% 1000ML 1,000 ML ONE (05:40)
[2019-10-15] MEDS: SODIUM CHLORIDE 0.9% 1000ML 1,000 ML IV SCH ×2 (06:16→17:00)
--- NOTE | 2019-10-15 06:56 | NUR ---
patient is resting in the bed. bed is in the lowest position and call light is within reach.
--- NOTE | 2019-10-15 07:48 | NUR ---
PATIENT RESTING IN BED WITH NO S/S OF DISTRESS. PEG TUBE TO MID ABD INTACT. BED IN LOWER POSITION, CALL LIGHT AT REACH.
--- NOTE | 2019-10-15 09:29 | Diagnostic Imaging Report ---
EXAMINATION: CHEST SINGLE (PORTABLE) INDICATION: Pneumonia COMPARISON: CT abdomen and pelvis of 10/14/2019, chest radiograph 12/04/2018 FINDINGS: LINES/TUBES:None LUNGS:The lungs are well-inflated. Multifocal bilateral patchy airspace opacities. PLEURA:No pleural effusion or pneumothorax. MEDIASTINUM:The cardiomediastinal silhouette appears normal in size and shape. BONES/SOFT TISSUES:No acute osseous injury. ABDOMEN:No free air under the diaphragm. IMPRESSION: Multifocal bilateral patchy airspace opacities consistent with known history of viral pneumonia. Signed by: Petr Flynn MD on 10/15/2019 9:25 AM
[2019-10-15] MEDS: CARBAMAZEPINE 200 MG TAB PEG SCH ×3 (09:50→21:00)
[2019-10-15] MEDS: LEVETIRACETAM 500MG/5ML VIAL 500 MG in SODIUM CHLORIDE 0.9% 100 ML 100 ML IV SCH ×2 (10:54→21:00)
--- NOTE | 2019-10-15 11:00 | NUR ---
MD IN TO SEE PATIENT, NEW ORDERS RECEIVED.
--- NOTE | 2019-10-15 11:15 | Consultation ---
DATE OF CONSULTATION: Pulmonary Critical Care Consultation CHIEF COMPLAINT: Congestion and positive COVID-19. HISTORY OF PRESENT ILLNESS: The patient is a 44-year-old man with severe developmental delay and cognitive impairment. He also has a history of a seizure disorder and is on Keppra. He came to the emergency department with increased congestion and was found to have COVID-19 infection. PAST MEDICAL HISTORY: 1. Developmental delay. 2. Cognitive impairment. 3. Seizure disorder. PAST SURGICAL HISTORY: Noncontributory. ALLERGIES: NO KNOWN DRUG ALLERGIES. FAMILY HISTORY: Noncontributory. SOCIAL HISTORY: The patient is not a smoker. He is not a drinker. REVIEW OF SYSTEMS: The patient does not have any fevers at this time. He has no history of recent seizures. He is not complaining of chest pain. There was some increased phlegm production. There is no abdominal pain. There is no nausea or vomiting. PHYSICAL EXAMINATION: VITAL SIGNS: The blood pressure is 103/63, saturation is 98% on 2 L and the pulse is 116, the respiratory rate is 18. GENERAL: The patient is small for his age and has obvious developmental delay with neurological impairment. HEENT: Shows no facial swelling or erythema. LYMPHATIC: Shows no submandibular, cervical, or supraclavicular adenopathy. CARDIAC: Reveals regular rate and rhythm with normal S1 and S2. LUNGS: Auscultation of lungs reveals rhonchorous breath sounds bilaterally. There is no wheezing. ABDOMEN: Soft, nontender. There is no rebound or guarding. EXTREMITIES: Shows no leg edema or calf tenderness. There is atrophy in the extremities. The patient does move, but does not have any meaningful interactions, which appears to be his baseline. LABORATORY DATA: BUN to creatinine ratio is 35 to 0.69. Other electrolytes are within normal limits. White blood cell count is 14.3 and hemoglobin is 15.3. Platelet count is 232,000. Urinalysis is within normal limits. RADIOGRAPHIC DATA: Chest x-ray shows multifocal bilateral infiltrates consistent with viral pneumonia. IMPRESSION: 1. Viral pneumonia and coronavirus disease-19 infection. 2. Dehydration and acute kidney injury. 3. Severe developmental delay. 4. Seizure disorder. 5. Gastroesophageal reflux. PLAN: 1. Continue IV hydration and repeat electrolytes, BUN and creatinine tomorrow. 2. Continue Tegretol and check Tegretol level. 3. Rocephin and Zithromax. 4. Low-dose oxygen. 5. Enteral feedings. 6. Continue Protonix. MD TAMMI Gonzalez/VANESSA /[id number]
[2019-10-15] MEDS ORDERED: CITRATE OF MAGNESIA 300ML BOTTLE PO ONE (11:30)
[2019-10-15] MEDS: CEFTRIAXONE SOD 1 GM/NS 50 ML 50 ML IV SCH (11:59)
[2019-10-15 12:21] LABS: BASOPHILS % 0.1 % (0.0-1.0); EOSINOPHILS % 0.3 % (0.0-6.0); HEMOGLOBIN 11.8 g/dL (14.0-18.0); LYMPHOCYTES # (AUTO) 1.3 (1.0-3.2); LYMPHOCYTES % 16.3 % (18.0-39.1); MEAN CORPUSCULAR HEMOGLOBIN 31.1 pg (28-32); MEAN CORPUSCULAR HGB CONC 31.9 g/dL (31-35); MEAN CORPUSCULAR VOLUME 97.6 fL (81-99); MONOCYTES # (AUTO) 0.2 (0.2-0.8); MONOCYTES % 2.7 % (4.4-11.3); NEUTROPHILS # (AUTO) 6.2 (2.1-6.9); NEUTROPHILS % 80.1 % (38.7-80.0); PLATELET COUNT 152 x10e3/uL (140-360); RED BLOOD COUNT 3.79 x10e6/uL (4.3-5.7); RED CELL DISTRIBUTION WIDTH 14.1 % (11.7-14.4)
[2019-10-15] MEDS: AZITHROMYCIN 250MG/NS 100 ML 100 ML IV SCH (12:48)
[2019-10-15 12:53] LABS: ALANINE AMINOTRANSFERASE 55 IU/L (0-55); ALBUMIN 2.5 g/dL (3.5-5.0); ALBUMIN/GLOBULIN RATIO 0.7 (0.8-2.0); ALKALINE PHOSPHATASE 98 IU/L (40-150); ANION GAP 10.9 mmol/L (8-16); BLOOD UREA NITROGEN 20 mg/dL (7-26); BUN/CREATININE RATIO 40 (6-25); CALCIUM 7.6 mg/dL (8.4-10.2); CARBON DIOXIDE 25 mmol/L (22-29); CHLORIDE 109 mmol/L (98-107); EST GLOMERULAR FILTRATION RATE > 60 ML/MIN (60-); GLUCOSE 89 mg/dL (74-118); POTASSIUM 3.9 mmol/L (3.5-5.1); SODIUM 141 mmol/L (136-145)
--- NOTE | 2019-10-15 13:52 | NUR ---
WOUND CARE CONSULT FOR 44 YO MALE HX OF PNEU,FECAL IMPACTION LIZA 11 ON STRICT PUP STATUS AND INTERVENTIONS AND ALTERNATING PRESSURE MATTRESS LABS: WBC-14.30 HGB_15.3 GLUCOSE-123 SKIN ASSESSMENT COMPLETE PATIENT PRESENTS WITH DENUDED SKIN RAMILA G TUBE 3CM X3CM X0.1CM RECOMMENDATIONS: NURSING TO CONTINUE TO MAINTAIN STRICT PUP STATUS AND INTERVENTIONS AND ALTERNATING PRESSURE MATTRESS NURSING TO CONTINUE TO ASSIST PATIENT OUT OF BED FOR MEALS AND MUCH TOLERATED NURSING TO CONTINUE TO ASSIST PATIENT NEEDED WITH MEALS AND NUTRITIONAL SUPPLEMENTS TO ENSURE PROPER REQUIREMENTS FOR HEALING NURSING TO CONTINUE TO OFFLOAD FEET AND HEELS NEEDED WITH PILLOW SUSPENSION WHEN IN BED NURSING TO CLEAN DENUDED SKIN RAMILA G TUBE WITH NORMAL SALINE PRN WHEN PECTIN BARRIER BECOMES UNSECURED AND REAPPLY BARRIER . STOMA POWDER MAY BE USED TO ACHIEVE DRY SURFACE IF DENUDED SKIN IS WEEPING Addendum: 10/15/19 at 1405 by Hossein Smith RN Amended: Links added.
--- NOTE | 2019-10-15 15:44 | NUR ---
PATIENT ASSISTED WITH DIAPER CHANGE. REPOSITIONED IN BED, CALL LIGHT AT REACH.
--- NOTE | 2019-10-15 15:49 | NUR ---
Nutrition Intervention Note RD Recommendation(s) for Physician: - Recommend changing TF to Osmolite 1.2 with goal rate of 40 ml/hr (to provide 1152 kcal and 53 gm protein). - Water flushes per MD. Plan of Care: RD following, TF rec's, monitor tolerance and adequacy Nutrition reason for involvement: new TF on admit RD Assessment 10/14: 44 YOM admitted for pneumonia and fecal impaction, found to have Covid-19 on admit. Pt with g-tube present on admit, recent TF hx unavailable. Pt wt stable per admit hx and UBW of 49-50#. TF rec's provided. Chart reviewed. Will continue to monitor. Principal Problems/Diagnoses: pneumonia, covid-19, fecal impaction PMH: celebral palsy, PEG, pancreatitis GI: LBM 10/14- liquid stool, + PEG Skin: denuded skin around PEG site Labs: 10/14: Na 141, K 3.9, BUN 20, Cr 0.5, Gluc 89 Meds: protonix, zofran, azithromycin, abx, decadron IV/Drips: NS at 125 ml/hr Ht: 48 in Wt: 48.13 lb BMI: 14.7 kg/m2 AIBW: 41.4 kg Malnutrition Evaluation (10/15/19) Unable to assess at this time due to current isolation protocol. Nutrition Prescription (Diet Order): Jevity 1.2 at 20 ml/hr- pending Estimated Nutritional Needs: Calories: 5523-3532 (25-30 kcal/kg/d) Weight used: AIBW Protein: 41-62 (1-1.5 g/kg/d) Weight used: AIBW Diet Adequacy: Meeting calorie needs, Not meeting protein needs Tolerance: pending Diet Education Needs Assessment: Diet education not indicated. Nutrition Care Level: Low- established TF pt Nutrition Diagnosis: Inadequate energy and protein intake related to PEG on admit as evidenced by requiring EN. Goal: Patient will meet 75-100% of estimated needs by follow up Progress: N/A Interventions: Tube feeding - Composition, Rate, Route Monitoring/Evaluation: Total energy intake, Total protein intake, Formula/Solution, Weight change Signed: Sophia Dickson RD, LD, [facility]
--- NOTE | 2019-10-15 16:32 | Consultation ---
DATE OF CONSULTATION: HISTORY OF PRESENT ILLNESS: Mr. Gimenez is a 44-year-old male, who has severe developmental disorder, history of seizure disorder, comes to emergency room with congestion. He was found to have COVID-19. The patient was alert, but noncommunicative. The patient was admitted. The patient, who has past medical history of developmental delay, cognitive impairment, and seizure disorder. PAST MEDICAL HISTORY: As above. PAST SURGICAL HISTORY: As above. ALLERGIES: NKA. SOCIAL HISTORY: There is no smoking, drug abuse, or alcohol abuse. The patient is being admitted. PHYSICAL EXAMINATION: GENERAL: He is alert, noncommunicative. VITAL SIGNS: Temperature 97.5, heart rate of 52, respiration 18, he is on nasal cannula of 2 L. Vitals stable, currently afebrile. HEENT: He is not icteric. NECK: Supple. CHEST: Clear. HEART: S1 and S2. ABDOMEN: Soft. LABORATORY DATA: His blood culture is pending. His white count when he first came 14.3, hemoglobin 15.4, came down to 7.69. COVID-19 was positive. Sodium 141, potassium 3.9, creatinine 0.51, 7.69. IMPRESSION: COVID-19 pneumonia on admission, probably aspiration. I will recommend azithromycin 500 mg daily for 3 days, Rocephin 1 g daily for 5 days, Lovenox 30 mg subcutaneous daily. Oxygen as needed. We will follow with you. We will give supplement of zinc, vitamin D, and vitamin C. MD JORY Wilcox/MODL /[id number]
[2019-10-15] MEDS: ENOXAPARIN 30 MG/0.3 ML SYR SC SCH (17:10)
--- NOTE | 2019-10-15 17:34 | NUR ---
TUBE FEEDING STARTED ORDERED, PATIENT IN BED WITH HEAD OF BED ELEVATED, CALL LIGHT AT REACH.
[2019-10-15] MEDS: DEXAMETHASONE PHOS 4MG/ML 5ML MULTIDOSE VIAL IV SCH (18:03)
--- NOTE | 2019-10-15 19:15 | NUR ---
BEDSIDE SHIFT REPORT RECEIVED FROM DAY RN. PT OPENS EYES AND MOVES AROUND IN BED TO VERBAL STIMULI. O2 ON PER N/C AT 2l. RESPIRATIONS ARE EVEN AND UNLABORED. TUBE FEEDING PER PEG TUBE AT 20 ML/HR. PIV AT 100 ML/HR. HOB ELEVATED. CALL LIGHT WITHIN REACH. BED IN LOW POSITION.
--- NOTE | 2019-10-15 19:25 | NUR ---
BED SIDE SHIFT REPORT GIVEN TO ON COMING NURSE.
[2019-10-16] VITALS (7 sets, daily range): BP systolic 101–109; BP diastolic 67–77
--- NOTE | 2019-10-16 05:00 | NUR ---
DR Sandee THOMAS CALLED PT HR 51-44 INTERMITENTLY. PT TURNED Q 2HRS INCONTINENT OF LARGE LIQUID BROWN STOOL. PT INCONTINENT OF STOOL.AWAITING CALL ABOUT LOWER HR. pT CRYING HR 90,
--- NOTE | 2019-10-16 07:53 | NUR ---
PATIENT IN BED RESTING WITH HEAD OF BED ELEVATED, O2 IN PLACE VIA N/C. TUBE FEEDING IN PROGRESS. BED ON LOWER POSITION, CALL LIGHT AT REACH.
[2019-10-16] MEDS ORDERED: ACETAMINOPHEN 325 MG TAB PO PRN (08:15)
[2019-10-16] MEDS: PANTOPRAZOLE SOD 40 MG TABEC PO SCH (09:35)
[2019-10-16] MEDS: LEVETIRACETAM 500MG/5ML VIAL 500 MG in SODIUM CHLORIDE 0.9% 100 ML 100 ML IV SCH ×2 (09:35→22:03)
[2019-10-16] MEDS ORDERED: LORAZEPAM 0.5 MG TAB PO PRN (10:00)
[2019-10-16] MEDS: CEFTRIAXONE SOD 1 GM/NS 50 ML 50 ML IV SCH (11:00)
--- NOTE | 2019-10-16 11:55 | NUR ---
PATIENT ASSISTED WITH DIAPER CHANGE, REPOSITIONED IN BED, CALL LIGHT AT REACH.
[2019-10-16] MEDS: AZITHROMYCIN 250MG/NS 100 ML 100 ML IV SCH (12:55)
--- NOTE | 2019-10-16 14:07 | Progress Note ---
DATE: Pulmonary Critical Care Progress Note SUBJECTIVE: The patient is afebrile. Still on nasal cannula. PHYSICAL EXAMINATION: VITAL SIGNS: Blood pressure is 101/70, saturation is 100% on 2 L and the pulse is 75. HEENT: Shows no facial swelling or erythema. CARDIAC: Reveals regular rate and rhythm with normal S1 and S2. LUNGS: Auscultation of lungs reveals decreased breath sounds at the bases. There is no wheezing. The patient has contractures and changes consistent with chronic neurological disease. IMPRESSION: 1. COVID-19 and viral pneumonia. 2. Developmental delay. 3. Seizure disorder. 4. Gastroesophageal reflux. PLAN: 1. Continue oxygen. 2. Address nutrition. 3. Lovenox for DVT prophylaxis. 4. Dexamethasone. 5. Continue current seizure medications. MD TAMMI Gonzalez/VANESSA /[id number]
[2019-10-16] MEDS: CARBAMAZEPINE 200 MG TAB NG SCH ×2 (15:00→22:13)
[2019-10-16] MEDS ORDERED: CARBAMAZEPINE 200 MG NG SCH (15:00)
[2019-10-16] MEDS: SODIUM CHLORIDE 0.9% 1000ML 1,000 ML IV SCH ×2 (16:00)
[2019-10-16] MEDS: DEXAMETHASONE PHOS 4MG/ML 5ML MULTIDOSE VIAL IV SCH (16:00)
--- NOTE | 2019-10-16 16:07 | NUR ---
MD IN TO SEE PATIENT, NEW ORDERS RECEIVED.
[2019-10-16] MEDS: CHOLECALCIFEROL 400 UNIT TAB PO SCH (17:26)
[2019-10-16] MEDS: ENOXAPARIN 30 MG/0.3 ML SYR SC SCH (17:26)
[2019-10-16] MEDS: ASCORBIC ACID 500 MG TAB PO SCH (17:26)
[2019-10-17] VITALS: BP 107/80
[2019-10-17 04:00] VITALS: BP 114/88
[2019-10-17 06:21] LABS: BASOPHILS % 0.2 % (0.0-1.0); EOSINOPHILS % 0.2 % (0.0-6.0); HEMATOCRIT 37.3 % (38.2-49.6); HEMOGLOBIN 12.1 g/dL (14.0-18.0); LYMPHOCYTES # (AUTO) 0.7 (1.0-3.2); LYMPHOCYTES % 17.2 % (18.0-39.1); MEAN CORPUSCULAR HEMOGLOBIN 32.1 pg (28-32); MEAN CORPUSCULAR HGB CONC 32.4 g/dL (31-35); MEAN CORPUSCULAR VOLUME 98.9 fL (81-99); MONOCYTES # (AUTO) 0.1 (0.2-0.8); MONOCYTES % 3.2 % (4.4-11.3); NEUTROPHILS # (AUTO) 3.2 (2.1-6.9); NEUTROPHILS % 77.5 % (38.7-80.0); PLATELET COUNT 99 x10e3/uL (140-360); RED BLOOD COUNT 3.77 x10e6/uL (4.3-5.7); RED CELL DISTRIBUTION WIDTH 14.2 % (11.7-14.4)
[2019-10-17 06:38] LABS: ANION GAP 8.8 mmol/L (8-16); BLOOD UREA NITROGEN 7 mg/dL (7-26); BUN/CREATININE RATIO 18 (6-25); CALCIUM 7.1 mg/dL (8.4-10.2); CARBON DIOXIDE 24 mmol/L (22-29); CHLORIDE 106 mmol/L (98-107); EST GLOMERULAR FILTRATION RATE > 60 ML/MIN (60-); GLUCOSE 99 mg/dL (74-118); POTASSIUM 3.8 mmol/L (3.5-5.1); SODIUM 135 mmol/L (136-145)
--- NOTE | 2019-10-17 07:24 | NUR ---
infectious disease progress note 10/17/2019 Patient seen examined chart reviewed events noted Medication list reviewed Discussed with the medical team Laboratory reviewed Patient is feeling better e patient is afebrile. Still on nasal cannula. PHYSICAL EXAMINATION: VITAL SIGNS: Blood pressure is 101/70, saturation is 100% on 2 L and the pulse is 75. HEENT: Shows no facial swelling or erythema. CARDIAC: Reveals regular rate and rhythm with normal S1 and S2. LUNGS: Auscultation of lungs reveals decreased breath sounds at the bases. There is no wheezing. The patient has contractures and changes consistent with chronic neurological disease. IMPRESSION: 1. COVID-19 and viral pneumonia. 2. Developmental delay. 3. Seizure disorder. 4. Gastroesophageal reflux. clinically improving Patient to be discharged home with home oxygen albuterol inhaler as needed for cough Tylenol for fever 10 days of Decadron Eliquis 2.5 Eliquis 2.5 mg by mouth twice a day for 30 days
[2019-10-17 08:00] VITALS: BP 132/83
--- NOTE | 2019-10-17 08:04 | NUR ---
REPORT GIVEN TO DAYSHIFT NURSE. ALERT. RESTING IN BED. NO SIGNS IV INFILTRATION. BED LOCKED AND IN LOW POSITION. CALL LIGHT WITHIN REACH.
[2019-10-17 08:40] VITALS: BP 132/83
[2019-10-17] MEDS ORDERED: ZINC SULFATE 220 MG CAP PO SCH (09:00)
[2019-10-17] MEDS: LEVETIRACETAM 500MG/5ML VIAL 500 MG in SODIUM CHLORIDE 0.9% 100 ML 100 ML IV SCH (09:28)
[2019-10-17] MEDS: ASCORBIC ACID 500 MG TAB PO SCH ×2 (09:28→16:29)
[2019-10-17] MEDS: CHOLECALCIFEROL 400 UNIT TAB PO SCH ×2 (09:28→16:29)
[2019-10-17] MEDS: CARBAMAZEPINE 200 MG TAB NG SCH ×2 (09:28→16:29)
[2019-10-17] MEDS: PANTOPRAZOLE SOD 40 MG TABEC PO SCH (09:28)
[2019-10-17 09:50] LABS: PLATELET MORPHOLOGY COMMENT RARE EDTA CLUMPING; RBC MORPHOLOGY COMMENT NORMAL
[2019-10-17 09:51] LABS: PLATELET ESTIMATE MODERATELY DECREASED
[2019-10-17] MEDS: CEFTRIAXONE SOD 1 GM/NS 50 ML 50 ML IV SCH (11:00)
--- NOTE | 2019-10-17 11:40 | Progress Note ---
DATE: SUBJECTIVE: The patient is not in any respiratory distress. He is on 2 L. He has no fever. PHYSICAL EXAMINATION: VITAL SIGNS: The blood pressure is 132/83 and saturation is 99%. Pulse is 50 to 60. HEENT: Shows no facial swelling or erythema. CARDIAC: Reveals regular rate and rhythm with normal S1 and S2. LUNGS: Auscultation of lungs reveals decreased breath sounds at the bases. There is no wheezing. ABDOMEN: Soft and nontender. There is no rebound or guarding. EXTREMITIES: Shows contractures. NEUROLOGIC: He has permanent neurological impairment that is his baseline. LABORATORY DATA: White blood cell count is 4 and the hemoglobin is 12.1. The platelet count is 199. The BUN to creatinine ratio is 7 to 0.4. Sodium is 135. IMPRESSION: 1. COVID-19 and viral pneumonia. 2. Developmental delay. 3. Seizure disorder. 4. Gastroesophageal reflux. PLAN: 1. Continue oxygen. 2. DVT prophylaxis. 3. Complete dexamethasone. 4. Continue seizure medications. 5. Continue enteral feedings. 6. Arrange for disposition. Tico Martin MD [facility]/MODL /[id number]
[2019-10-17 12:20] VITALS: BP 112/75
[2019-10-17] MEDS: AZITHROMYCIN 250MG/NS 100 ML 100 ML IV SCH (12:54)
[2019-10-17 16:00] VITALS: BP 110/67
[2019-10-17] MEDS: DEXAMETHASONE PHOS 4MG/ML 5ML MULTIDOSE VIAL IV SCH (16:29)
[2019-10-17] MEDS: ENOXAPARIN 30 MG/0.3 ML SYR SC SCH (16:29)
--- NOTE | 2019-10-17 17:00 | NUR ---
Spoke with sister to let her know that patient will be discharging home. Sister verbalized understanding off all discharge instructions and new prescriptions.
[2019-10-17] MEDS ORDERED: DECADRON6 MG PEG (17:48)
[2019-10-17] MEDS ORDERED: ELIQUIS2.5 MG PEG (17:49)
--- NOTE | 2019-10-17 20:02 | NUR ---
Spoke with family to confirm that patient okay to DC home [facility]. Family informed that Tegretol was last given at approximately 1630. Patient currently leaving by stretcher. Vital signs stable, on room air, no s/s of distress. All belongings with patient.
--- OUTSIDE RECORDS SUMMARY | 2019-11-09 06:49 | XMS REPORT | Clinical Summary ---
Author Author [facility] Organization [facility] Address Unknown Phone Unavailable Care Team Providers Care Pole Shaver Helper Name Role Phone Summer Jasso MD PCP Allergies No Known Allergies Medications End Date Status Medication Sig Dispensed Refills Start Date Active hydrOXYzine (ATARAX) 50 1 by mouth 0 MG tablet take at 8 bedtime for sleep Active pantoprazole (PROTONIX) Take 40 mg by 2 40 MG EC tablet mouth daily. 9 Active zolpidem (AMBIEN) 5 MG / tab by 0 01 tablet tube nightly 8 at bedtime as needed for insomnia Active carBAMazepine (TEGretol) Take 400 mg 6 06/13 200 mg tablet by mouth 3 9 (three) times a day. 8am, 3pm, 8pm Active bisacodyL (DULCOLAX) 10 Insert 10 mg 0 mg suppository into the rectum as needed for constipation. Active HYDROcodone-acetaminophen Take 1 tablet 0 (NORCO) 5-325 mg per by mouth tabletIndications: acute every 6 (six) pain hours as needed for moderate pain .acute pain. 06/24/2019 Discontinued ondansetron (ZOFRAN) 4 Take 5 mL (4 50 mL 0 mg/5 mL solution mg total) by 9 mouth 2 (two) times a day as needed for nausea or vomiting. 06/24/2019 Discontinued HYDROcodone-acetaminophen 1 tab per 0 01/09 (NORCO) 5-325 mg per tube q8h As 8 tablet Needed severe pain 06/24/2019 Discontinued carBAMazepine (TEGretol) 200 mg by 0 200 mg tablet g-tube route daily with lunch. 06/27/2019 Discontinued (Stop Taking at Discharge) azithromycin (ZITHROMAX) Take 6.3 mL 25.2 mL 0 0 200 mg/5 mL suspension (250 mg 0 total) by mouth daily for 4 days. * 06/24/2019 Discontinued amoxicillin-pot Take 12.5 mL 175 mL 0 clavulanate (AUGMENTIN) (1,000 mg 0 400-57 mg/5 mL suspension total) by mouth 2 (two) times a day for 7 days. 07/19/2019 albuterol (ACCUNEB) 2.5 Take 3 mL 75 mL 0 mg /3 mL (0.083 %) (2.5 mg 0 nebulizer total) by solutionIndications: nebulization Pneumonia of both lungs every 6 (six) due to infectious hours as organism, unspecified needed for part of lung wheezing for up to 30 days. 07/04/2019 amoxicillin-pot Take 1 tablet 14 tablet 0 06/27/19 2 clavulanate (AUGMENTIN) by mouth 2 0 875-125 mg per tablet (two) times a day for 7 days. Active Problems Problem Noted Date Community acquired pneumonia 06/24/2019 Gastric outlet obstruction 07/12/2018 UTI (urinary tract infection) 07/12/2018 Sepsis 07/14/2017 Acute respiratory failure with hypoxia 07/14/2017 Septic shock 07/14/2017 Cerebral palsied 07/14/2017 Seizure 07/14/2017 Thrombocytopenia 07/14/2017 ARDS (adult respiratory distress syndrome) 8 Pneumonia of both lungs due to infectious organism 0 07/03/2017 Encounters Care Team Description Date Type Specialty Rui Etienne DO Mougouris, Taso, MD Community acquired pneumonia, unspecifie d laterality (Primary Dx); Failure of outpatient treatment 06/24/2019 [facility] General Internal In dicine - Encounter 06/27/2019 06/24/2019 Travel Suzy Garcia MD Pneumonia of both lungs due to infectiou s organism, unspecified part of lung (Primary Dx) 06/19/2019 Emergency Emergency Medicine 11/30/2018 Emergency Emergency Medicine after 10/13/2018 Immunizations Name Administration Dates Next Due FLUCELVAX QUAD PF 06/27/2019 Pneumococcal Conjugate 07/15/2017 (Deferred: - Re ceived Pneumonia 13-Valent Vaccine previous hospital v isit) Family History Medical History Relation Name Comments Hypertension Brother Arthritis Mother Diabetes Mother Hyperlipidemia Mother Hypertension Mother Arthritis Sister Hyperlipidemia Sister Hypertension Sister Pancreatitis Sister Hypertension Sister Relation Name Status Comments Brother Mother Sister Sister Social History Date Tobacco Use Types Packs/Day Years Used Never Smoker Smokeless Tobacco: Never Used Drinks/Week oz/Week Comments Alcohol Use No Sex Assigned at Date Recorded Not on file Industry Job Start Date Occupation Not on file Not on file Not on file Travel End Travel History Travel Start No recent travel history available. Last Filed Vital Signs Reading Time Taken Comments Vital Sign 113/71 06/27/2019 3:23 PM CDT Blood Pressure 64 06/27/2019 3:23 PM CDT Pulse 36.6 C (97.9 F) 06/27/2019 3:23 PM CDT Temperature 17 06/27/2019 3:23 PM CDT Respiratory Rate 98% 06/27/2019 3:23 PM CDT Oxygen Saturation - - Inhaled Oxygen Concentration 18.6 kg (41 lb) 06/24/2019 2:04 AM CDT Weight 147.3 cm (4' 10") 06/24/2019 2:04 AM CDT Height 8.57 06/24/2019 2:04 AM CDT Body Mass Index Plan of Treatment Health Maintenance Due Date Last Done Comments INFLUENZA VACCINE 11/10/2019 06/27/2019 Procedures Comments Procedure Name Priority Date/Time Associated Diag nosis ESTIMATED GFR Routine 06/27/2019 5:25 AM CDT COMPREHENSIVE METABOLIC Routine 06/27/2019 PANEL 5:25 AM CDT HC COMPLETE BLD COUNT Routine 06/27/2019 W/AUTO DIFF 5:25 AM CDT XR CHEST 1 VW PORTABLE Routine 06/26/2019 12:06 PM CDT ESTIMATED GFR Routine 06/26/2019 5:03 AM CDT HC COMPLETE BLD COUNT Routine 06/26/2019 W/AUTO DIFF 5:03 AM CDT COMPREHENSIVE METABOLIC Routine 06/26/2019 PANEL 5:03 AM CDT ESTIMATED GFR Routine 06/25/2019 5:51 AM CDT COMPREHENSIVE METABOLIC Routine 06/25/2019 PANEL 5:51 AM CDT HC COMPLETE BLD COUNT Routine 06/25/2019 W/AUTO DIFF 5:51 AM CDT XR CHEST 1 VW PORTABLE STAT 06/24/2019 3:05 AM CDT RESPIRATORY PATHOGEN Routine 06/24/2019 PANEL 2:40 AM CDT BLOOD CULTURE, AEROBIC & Routine 06/24/2019 ANAEROBIC 2:40 AM CDT INFLUENZA ANTIGEN TEST, Routine 06/24/2019 REFLEX NEGATIVE TO RPP 2:40 AM CDT LIPASE LEVEL STAT 06/24/2019 2:25 AM CDT HEPATIC FUNCTION PANEL STAT 06/24/2019 2:25 AM CDT ESTIMATED GFR STAT 06/24/2019 2:25 AM CDT CREATINE KINASE, TOTAL STAT 06/24/2019 (CPK) 2:25 AM CDT BASIC METABOLIC PANEL STAT 06/24/2019 2:25 AM CDT HC COMPLETE BLD COUNT STAT 06/24/2019 W/AUTO DIFF 2:25 AM CDT XR CHEST 1 VW PORTABLE STAT 06/19/2019 12:58 AM CDT after 10/13/2018 Results * Estimated GFR (06/27/2019 5:25 AM CDT) Only the most recent of 4 results within the time period is included. Estimated GFR >=90 mL/min/1.73 m2 [place] Comment: [facility] Interpretation G1 >=90 Normal or high G2 60-89 Mildly decreased G3a 45-59 Mildly to moderately decreased G3b 30-44 Moderately to severely decreased G4 15-29 Severely decreased G5 <15 Kidney failure The eGFR was calculated using the Chronic Kidney Disease Epidemiology Collaboration (CKD-EPI) equation. Interpretation is based on recommendations of the National Kidney Foundation-Kidney Disease Outcomes Quality Initiative (NKF-KDOQI) published in 2014. Specimen Performing Organization Address City/State/Zipcode Ph one Number [facility] [place] [address] [place], [place] [address] PATHOLOGY AND GENOMIC MEDICINE [facility] [address] * CBC with platelet and differential (06/27/2019 5:25 AM CDT) Only the most recent of 4 results within the time period is included. WBC 4.15 (L) 4.50 - 11.00 k/uL [facility] RBC 4.08 (L) 4.40 - 6.00 m/uL [facility] HGB 12.4 (L) 14.0 - 18.0 g/dL [facility] HCT 38.8 (L) 41.0 - 51.0 % [facility] MCV 95.1 82.0 - 100.0 fL [facility] MCH 30.4 27.0 - 34.0 pg [facility] MCHC 32.0 31.0 - 37.0 g/dL [facility] RDW - SD 52.9 37.0 - 55.0 fL [facility] MPV 10.8 8.8 - 13.2 fL [facility] Platelet count 220 150 - 400 k/uL [facility] Nucleated RBC 0.00 /100 WBC [facility] Neutrophils 62.9 39.0 - 69.0 % [facility] Lymphocytes 25.8 25.0 - 45.0 % [facility] Monocytes 5.1 0.0 - 10.0 % [facility] Eosinophils 4.8 0.0 - 5.0 % [facility] Basophils 1.2 (H) 0.0 - 1.0 % [facility] Specimen Blood Performing Organization Address City/State/Zipcode Ph one Number [facility] [place] [address] [address] [place] [address] PATHOLOGY AND GENOMIC MEDICINE [facility] [address] [address] * Comprehensive metabolic panel (06/27/2019 5:25 AM CDT) Only the most recent of 3 results within the time period is included. Sodium 142 135 - 148 mEq/L [facility] Potassium 3.2 (L) 3.5 - 5.0 mEq/L [facility] Chloride 110 98 - 112 mEq/L [facility] CO2 21 (L) 24 - 31 mEq/L [facility] Anion gap 11@ANIO 7 - 15 mEq/L [facility] BUN 17 6 - 20 mg/dL [facility] Creatinine 0.40 (L) 0.70 - 1.20 mg/dL [facility] Glucose 130 (H) 65 - 99 mg/dL [facility] Calcium 8.4 8.3 - 10.2 mg/dL [facility] Protein 6.3 6.3 - 8.3 g/dL [place] Comment: [facility] [place] 4.6-7.0 g/dL 1 week 4.4-7.6 g/dL 7 months-1year 5.1-7.3 g/dL 1-2 years 5.6-7.5 g/dL >3 years 6.0-8.0 g/dL 18-150 6.3-8.3 g/dL Albumin 3.2 (L) 3.5 - 5.0 g/dL [facility] A/G ratio 1.0 0.7 - 3.8 [facility] Alkaline 140 (H) 40 - 129 U/L [place] phosphatase [facility] AST 80 (H) 10 - 50 U/L [facility] ALT 87 (H) 5 - 50 U/L [facility] Total bilirubin <0.2 0.0 - 1.2 mg/dL [facility] Specimen Blood Performing Organization Address City/State/Zipcode Ph one Number [facility] [place] [address] [address] [place], [place] [address] PATHOLOGY AND GENOMIC MEDICINE [facility] [address] [place] [address] [facility] * XR Chest 1 Vw Portable (06/26/2019 12:06 PM CDT) Only the most recent of 3 results within the time period is included. Specimen Narrative Performed At EXAMINATION: XR CHEST 1 VW PORTABLE [facility]IANT CLINICAL HISTORY: f u pneumonia COMPARISON: Single view chest from IMPRESSION: An AP radiograph of the chest was submi tted for interpretation. Perihilar opacities have improved. Inte rstitial opacities are again seen bilaterally which are nonspecific and m ay represent underlying chronic lung disease. No pleural effusion. No pneumothorax or midline shift. The mediastinal contours and cardiac si lhouette are unchanged. Atherosclerotic disease. Osteopenia. [facility] Procedure Note Hm Interface, Radiology Results Incoming - 06/26/2019 12:12 PM CDT EXAMINATION: XR CHEST 1 VW PORTABLE CLINICAL HISTORY: f u pneumonia COMPARISON: Single view chest from 06/24/2019 IMPRESSION: An AP radiograph of the chest was submitted for interpretation. Perihilar opacities have improved. Interstitial opacities are again seen bilaterally which are nonspecific and may represent underlying chronic lung disease. No pleural effusion. No pneumothorax or midline shift. The mediastinal contours and cardiac silhouette are unchanged. Atherosclerotic disease. Osteopenia. [facility] Performing Organization Address City/[facility] Ph one Number [facility] [address] [place] [address] * Respiratory pathogen panel (06/24/2019 2:40 AM CDT) [facility] Respiratory Negative for all pathogens [place] pathogen panel tested: [facility] Negative for Adenovirus HOSPITAL Negative for Coronavirus HKU1 Negative for Coronavirus NL63 Negative for Coronavirus 229E Negative for Coronavirus OC43 Negative for Human Metapneumovirus Negative for Rhinovirus/Enterovirus Negative for Influenza A Negative for Influenza A/H1 Negative for Influenza A/H3 Negative for Influenza A/H1-2009 Negative for Influenza B Negative for Parainfluenza Virus 1 Negative for Parainfluenza Virus 2 Negative for Parainfluenza Virus 3 Negative for Parainfluenza Virus 4 Negative for Respiratory Syncytial Virus Negative for Bordetella pertussis Negative for Chlamydophila pneumoniae Negative for Mycoplasma pneumoniae This real-time PCR assay detects the presence of nucleic acids (RNA or DNA) for the respiratory pathogens listed. A result of "Not-detected" does not exclude the possibility of the presence of one or more pathogens at concentrations less than the detectable limits of the assay. Comment: Specimen Information Specimen Source: Nares Specimen Site: Left Specimen Nares - Left Performing Organization Address City/State/Zipcode Ph one Number [facility] DEPARTMENT OF [address] [place] [address] PATHOLOGY AND GENOMIC MEDICINE [place] [facility] [address] [place] [address] * Influenza antigen test, reflex negative to RPP (06/24/2019 2:40 AM CDT) Influenza Negative for Influenza A/B [place] antigen antigen. [facility] Comment: [facility] Specimen Information Specimen Source: Nares Specimen Site: Left Specimen Nares - Left Performing Organization Address [facility] one Number [facility] [place]MENT [place] [id number] [place] [address] [place] [address] PATHOLOGY AND GENOMIC MEDICINE [address] * Blood culture, aerobic & anaerobic (06/24/2019 2:40 AM CDT) Pathologist [facility] Blood culture No growth after 5 days of [place] isolate incubation. [facility] Comment: HOSPITAL Specimen Information Specimen Source: Blood Specimen Site: Forearm, left Specimen Blood - Forearm, left Performing Organization Address [facility] one Number [facility] DEPARTMENT OF [address] [place] [address] PATHOLOGY AND GENOMIC MEDICINE [place] [facility] [address] [place] [address] * Lipase level (06/24/2019 2:25 AM CDT) Pathologist [facility] Lipase 118 (H) 13 - 60 U/L [facility] Specimen Blood Performing Organization Address [facility] one Number [facility] [place] [id number] [place] [address] [place] [address] PATHOLOGY AND GENOMIC MEDICINE [place] [facility] * Creatine kinase, total (CPK) (06/24/2019 2:25 AM CDT) Creatine kinase 114 39 - 308 U/L [facility] Specimen Blood Performing Organization Address [facility] one Number [facility] [place] [address] [place] [address] PATHOLOGY AND GENOMIC MEDICINE [address] * Hepatic function panel (06/24/2019 2:25 AM CDT) Albumin 3.8 3.5 - 5.0 g/dL [facility] Total bilirubin 0.2 0.0 - 1.2 mg/dL [facility] Bilirubin <0.1 0.0 - 0.3 mg/dL [place] direct [facility] Alkaline 153 (H) 40 - 129 U/L [place] phosphatase [facility] Protein 7.9 6.3 - 8.3 g/dL [place] Comment: [facility] 4.6-7.0 g/dL 1 week 4.4-7.6 g/dL 7 months-1year 5.1-7.3 g/dL 1-2 years 5.6-7.5 g/dL >3 years 6.0-8.0 g/dL 18-150 6.3-8.3 g/dL ALT 86 (H) 5 - 50 U/L [facility] AST 80 (H) 10 - 50 U/L [facility] Specimen Blood Performing Organization Address [facility] Ph one Number [facility] DEPARTMENT [place] [address] [place] [address] [place] [address] PATHOLOGY AND GENOMIC MEDICINE [address] * Basic metabolic panel (06/24/2019 2:25 AM CDT) Sodium 136 135 - 148 mEq/L [facility] Potassium 5.0 3.5 - 5.0 mEq/L [facility] Chloride 102 98 - 112 mEq/L [facility] CO2 20 (L) 24 - 31 mEq/L [facility] Anion gap 14@ANIO 7 - 15 mEq/L [facility] BUN 20 6 - 20 mg/dL [facility] Creatinine 0.40 (L) 0.70 - 1.20 mg/dL [facility] Glucose 115 (H) 65 - 99 mg/dL [facility] Calcium 9.1 8.3 - 10.2 mg/dL [facility] Specimen Blood Performing Organization Address [facility] Ph one Number [facility] [place] [address] [place] [address] PATHOLOGY AND GENOMIC MEDICINE [address] [place] [address] [facility] after 10/13/2018 Insurance Type Payer Benefit Subscriber ID Effective Phone Address Plan / Dates Group O [facility] D[facility] xxxxxxxxx 2019-P COMPLETE resent [place]ANC[place] Advance Directives For more information, please contact: [phone] Patient Multi Skilled Operator Explanation Type Date Recorded Advance Directives, 07/03/2017 1:34 PM Living Will and Medical Power of Distributor Sales Manager Advance Directives, 05/12/2018 12:51 PM Living Will and Medical Power of Distributor Sales Manager Advance Directives, 07/12/2018 4:53 AM Living Will and Medical Power of Distributor Sales Manager Date Inactivated Comments Code Status Date Activated 07/16/2017 2:02 AM DNR 07/05/2017 6:55 PM Code Status decision reached by: Legal Surrogate Name of Surrogate: brother , mother Surrogate Relation: 1. Legal Guardian or Agent
--- OUTSIDE RECORDS SUMMARY | 2019-11-09 06:50 | XMS REPORT | Continuity of Care Document ---
Author Author [facility] t Organization [facility] Address [address] [place] [address] Phone Unavailable Care Team Providers Care Nurse Case Management Name Role Phone NONSTAFF PCP Unavailable BASHIR THOMAS Attphys Unavailable Ruyd Boo Attphys Unavailable Avalos MedAdherence,, Eloisa Attphys Unavailable Gal Otoole Attphys Unavailable Emerald, Paigea Attphys Unavailable Duncan Heart Attphys Unavailable Minoo Lee Attphys Unavailable Summer Jasso Attphys Ren MedAdherence, Sarah Attphys Veena Gaitan Attphys Darshana Gomez Attphys Unavailable Kaitlyn Pfeiffer Attphys Unavailable Veena Posey Attphys Unavailable Plasencia MedAdherence, Loida Attphys Unavailable Noah MedAdherence, S Opal Attphys Unavailab le Posey MedAdherence, Tabatha Attphys Unavailable Luba Mandujano Attphys Unavailable Fabian Vazquez Attphys Unavailable Chloe Etienne DO Attphys Richie HIDALGO, Awilda Attphys Jose HIDALGO, Maddy Almonte Attphys Diana Herrera Attphys Wilfredo MedAdherence, IShunti Attphys Unavailab le Status, Fax Attphys Unavailable Augustus Guzman Attphys Unavailable Duong, Verna Attphys Unavailable GoldbergRanda honeycutt Attphys Unavailable Randa Alicia Attphys Unavailable Fran Wu Attphys Tobi Roxana Attphys Magallon, Hassel Attphys Unavailable PrietoAnushka marino Attphys Unavailable AlejoAbby agarwal Attphys Unavailable Shahid Dumontlondrika Attphys Unavailable Roman Kristal Attphys Unavailable MIKEL, ARMAND Attphys Unavailable Kicza, Candelaria Attphys Unavailable Cornelius Bull, Tanika Attphys Unavailable Lindsey, Madisabellamita Attphys Su Underwood Attphys Unavailable Ruddy, Elvira Attphys Unavailable Elisabeth Astorga Attphys Unavailable Enedelia Mi Attphys Unavailable Desi Adam Attphys Effie Woodard Attphys Argueta, Claus Attphys Unavailable THOMAS, SOUHEIL Admphys Unavailable MOUGOURIS, TASO Admphys Unavailable MIKEL, ARMAND Admphys Unavailable Rudy Boo Unavailable Unavailable Tim, Agustinarika Unavailable Unavailable Kicza, Candelaria Unavailable Unavailable Fran Wu Unavailable Veena Gaitan Unavailable Payers Payer Name Policy Type Policy Number Effective Date Expiration Date zan [facility] [id number] 2011 00:00:00 [facility] [id number] 1998 00:00:[address] [facility] UHC MEDICAREUHC DUAL COMPLETE [id number] xxxxxxxxx 2019 00:00:00 [facility] A & B [id number] 1998 00:00:00 [facility] Problems Condition Name Condition Details Condition Category Status Onset Date Resolution Date Last Treatment Date Treating Clinician Comments Source Bronchiectasis Condition Active 2019-07-31 00:00:00 11:40:02 [facility] Chest congestion Condition Active 2019-07-18 00:00:00 2 08[facility]50:[facility] acquired pneumonia Community acquired pneumonia Disease Active 2019-06-24 00:00:00 Jed Otero Irritability Condition Active 2019-04-06 00:00:00 04-18 10:04:29 [facility] Incontinence Condition Active 2019-02-27 00:00:00 03-01 09:25:22 [facility] Generalized pain Condition Active 2019-02-27 00:00:00 2 09[facility]25[facility] G[facility] outlet obstruction Gastric outlet obstruction Disease Active 2018-07-12 00:00:[address] UTI (urinary tract infection) UTI (urinary tract infection) Disease Active 2018-07-12 00:00:00 Jed Otero Elevated blood pressure reading without diagnosis of hypertensio n Condition Active 2018-03-30 00:00:00 2018-03-31 [facility] Ins[facility] Condition Active 2018-01-26 00:00:00 2018-03-12 1 16:40:26 Fran Wu [facility] Circadian rhythm sleep disorder, irregular sleep wake Condition Active 2018-01-26 00:00:00 2018-01-26 21:38:56 [facility] Flu shot Condition Active 2018-01-26 00:00:00 2018-01-09 8 21:38:56 [facility] Constipation Condition Active 2017-11-02 00:00:00 11-02 [facility] Condition Active 2017-10-04 00:00:00 2 09:58:34 Ashleigh Gaitan [facility] High risk for aspiration Condition Active 2017-10-04 00:0 0:00 2017-10-05 19:34:[facility] Cachexia Condition Active 2017-10-04 00:00:00 2017-09-10 7 19:34:51 Candelaria Diallo [facility] Need for home health care Condition Active 2017-10-04 00: 00:00 2017-10-05 19:34:51 Candelaria Diallo [facility] lt Seizure disorder Condition Active 2017-10-04 00:00:00 2 16:09:06 Candelaria Diallo [facility] Feeding intolerance Condition Active 2017-10-04 00:00:00 2017-10-04 16:09:06 Candelaria Diallo [facility] Presence of gastrostomy Condition Active 2017-10-04 00:00 :00 2018-05-16 11:59:16 Candelaria Diallo [facility] History of meningitis Condition Active 2017-10-04 00:00:0 0 2017-10-04 16:09:06 Candelaria Diallo age 2 months [facility] Developmental delay Condition Active 2017-10-04 00:00:00 2017-10-04 16:09:06 Candelaria Diallo [facility] Sepsis Sepsis Disease Active 2017-07-14 00:00:00 Jed Otero Acute respiratory failure with hypoxia Acute respiratory jonathan lure with hypoxia Disease Active 2017-07-14 00:00:00 Jed Otero Septic shock Septic shock Disease Active 2017-07-14 00:00:00 Jed Otero Cerebral palsied Cerebral palsied Disease Active 2017-07-14 00:00:00 Jed Otero Seizure Seizure Disease Active 2017-07-14 00:00:00 Jed Otero Thrombocytopenia Thrombocytopenia Disease Active 2017-07-14 00:00:00 Jed Otero ARDS (adult respiratory distress syndrome) ARDS (adult respiratory distress syndrome) Disease Active 2017-07-05 00:00:00 Alexander Otero Pneumonia of both lungs due to infectious organism Pne umonia of both lungs due to infectious organism Disease Active 2017-07-03 00:00:00 Jed Otero Pancreatitis Pancreatitis Problem Active [facility] Vomiting Vomiting Problem Active [facility] Respiratory tract infection due to sever e acute respiratory syndrome coronavirus 2 (SARS-CoV-2) Problem Active [facility] Fecal impaction Problem Active [facility] Hypoxia Problem Active [facility] History of Past Illness Condition Name Condition Details Condition Category Status Onset Date Resolution Date Last Treatment Date Treating Clinician Comments Source Cough Condition Inactive 2017-12-06 00:00:00 2018-01-26 00:00:00 2018-01-26 21:38:56 Yoel Candelaria [facility] Dysuria Condition Inactive 2017-10-04 00:00:00 2017-11-02 00:00:00 2017-11-02 13:21:10 Yoel [facility] Foul smelling urine Condition Inactive 2017-10-04 00:00 :00 2017-11-02 00:00:00 2017-11-02 13:21:10 Yoel Cand[facility]aria [facility] Allergies, Adverse Reactions, Alerts This patient has no known allergies or adverse reactions. Family History Family Member Diagnosis Comments Start Date Stop Date Source Natural brother Hypertension [facility] Natural mother Arthritis [facility] Natural mother Diabetes [facility] Natural mother Hyperlipidemia [place] Natural mother Hypertension Goode Yarsani Natural sister Arthritis [facility] Natural sister Hyperlipidemia [place] Natural sister Pancreatitis Good[facility] Yarsani Natural sister Hypertension [facility] Social History Social Habit Start Date Stop Date Quantity Comments Source Sex Assigned At [place] adalsophia Otero time of call 2019-09-04 14:51:58 2019-09-04 14:51:58 09/04/2019 2:52 PM [facility] Alcohol intake 2019-06-24 00:00:00 2019-06-24 00:00:00 Current non-drinker of alcohol (finding) [facility] drug use, illicit 2019-04-06 15:48:42 2019-04-06 15:48:42 Never [facility] alcohol use 2019-04-06 15:48:42 2019-04-06 15:48:42 Never [facility] social history reviewed E&M 2019-04-06 15:48:42 2019-04-06 15:48 :42 reviewed today [facility] passive cigarette smoke exposure 2019-04-06 15:48:42 2019-04-06 15:48 :42 No [facility] assessment of health literacy ([employer] 2014 Standard s, 3C10) 2019-04-06 15:48:42 2019-04-06 15:48:42 Low [facility] is there any chance that you could be ? 2019-02-27 1 5:50:01 2019-02-27 15:50:[address] [facility] Occupation #1 2017-10-04 14:13:35 2017-10-04 14:13:35 Disabled [facility] patient considered to be homeless 2017-10-04 14:13:35 2017-10-04 14:1 3:35 No [facility] Smoking Status Start Date Stop Date Source Never smoker Jed eller Medications Ordered Medication Name Filled Medication Name Start Date Stop Da te Current Medication? Ordering Clinician Indication Dosage Frequency Signature (SIG) Comments Components Source (SODIUM CHLORIDE) 0.9 % NEBU 2019-07-26 00:00:00 Yes Yue Wu apply 3ml to nebulizer Three Times a Day As Needed allow for substitutions [facility] AIRIAL COMPACT COMPRESSOR NEB (NEBULIZERS) 2019-07-18 00:0 0:00 Yes Fran Wu use as instructed for chest congestion related to bronchiectasis allow for substitutions [facility] bisacodyL (DULCOLAX) 10 mg suppository 2019-06-27 21:27:19 Yes 10mg Insert 10 mg into the rectum as needed for constipation. Jed Otero HYDROcodone-acetaminophen (NORCO) 5-325 mg per tablet 2019-06-27 21:27:19 Yes acute pain 1{tbl} Q6H Take 1 tablet b y mouth every 6 (six) hours as needed for moderate pain .acute pain. Jed Curiel ethodist amoxicillin-pot clavulanate (AUGMENTIN) 875-125 mg per table t 2019-06-27 00:00:00 2019-07-04 23:59:00 No 1{tbl} Q.5D Take 1 tablet by mouth 2 (two) times a day for 7 days. Jed eller carBAMazepine (TEGretol) 200 mg tablet 2019-06-10 5 09:16:53 2019-06-24 00:00:00 No 200mg QD 200 mg by g-tube route daily wit h lunch. Jed Otero albuterol (ACCUNEB) 2.5 mg /3 mL (0.083 %) nebulizer solutio n 2019-06-19 00:00:00 2019-07-19 23:59:00 No Pneumonia of both lungs due to infectious organism, unspecified part of lung 2.5mg Q6H Take 3 mL (2.5 mg total) by nebulization every 6 (six) hours as needed for wheezing for up to 30 days. Jed Otero azithromycin (ZITHROMAX) 200 mg/5 mL suspension 2019-06-19 00:00:00 2019-06-27 00:00:00 No 250mg QD Take 6.3 mL (2 50 mg total) by mouth daily for 4 days. * Jed Otero amoxicillin-pot clavulanate (AUGMENTIN) 400-57 mg/5 mL suspe nsion 2019-06-19 00:00:00 2019-06-24 00:00:00 No 1000mg Q.5D Take 12.5 mL (1,000 mg total) by mouth 2 (two) times a day for 7 days. Alexander Otero (TRAMADOL HCL) 50 MG TABS 2019-04-06 00:00:00 Yes Is aac Wu 2{Tablet} 2xD 1-2 tablets by mouth 2 times a day as needed for pain [facility] (HYDROXYZINE HCL) 25 MG TABS 2019-04-06 00:00:00 Yes Yue ac Wu 2 by mouth daily As Needed before bedtime [facility] (LORAZEPAM) 0.5 MG TABS 2019-04-06 00:00:00 Yes Isaa c Wu 1{Tablet} 3xD 1 by mouth 3 times a day as needed [facility] (GABAPENTIN) 100 MG CAPS 2019-04-06 00:00:00 Yes Fran G oldberg 1 by mouth before bedtime [facility] (TRAMADOL HCL) 50 MG TABS 2019-02-27 00:00:00 2019-04-06 00:00:0 0 No 2{Tablet} 4xD 1-2 tablets by mouth 4 times a day as needed for pain [facility] carBAMazepine (TEGretol) 200 mg tablet 2018-06-13 00:00:00 Yes 400mg [id number] Take 400 mg by mouth 3 (three) times a d ay. 8am, 3pm, 8pm Jed Otero ondansetron (ZOFRAN) 4 mg/5 mL solution 00:00:00 2019-06-24 00:00:00 No 4mg Q.5D Take 5 mL (4 m g total) by mouth 2 (two) times a day as needed for nausea or vomiting. Jed Curiel ethodist pantoprazole (PROTONIX) 40 MG EC tablet 2018-04-29 00:00:00 Yes 40mg QD Take 40 mg by mouth daily. Jed Meth odist (MELATONIN) 10 MG TBDP 2018-01-26 00:00:00 Yes Fran Gol dberg 1 tab By Mouth [facility] HYDROcodone-acetaminophen (NORCO) 5-325 mg per tablet 2018-01-26 00:00:00 2019-06-24 00:00:00 No 1 tab per tube q8h A s Needed severe pain Jed Otero (HYDROCODONE-ACETAMINOPHEN) 5-325 MG TABS 2017-04 00:00:00 2019-04-06 00:00:00 No 1 tab per tube q8h As Needed se elin pain [facility] (PANTOPRAZOLE SODIUM) 40 MG TBEC 2017-12-30 00:00:00 Yes Ashleigh Curiel Ehdaie 1 tab per tube daily [facility] hydrOXYzine (ATARAX) 50 MG tablet 2017-12-30 00:00:00 Yes 1 by mouth take at bedtime for sleep Jed Henley isdaphnie zolpidem (AMBIEN) 5 MG tablet 2017-12-30 00:00:00 Yes 1/2 tab by tube nightly at bedtime as needed for insomnia Jed Otero AMBIEN (ZOLPIDEM TARTRATE) 5 MG TABS 2017-12-30 00:00: 00 2019-04-06 00:00:00 No 1/2 tab by tube nightly at bedtime as ne eded for insomnia [facility] (LORATADINE) 10 MG TABS 2017-12-06 00:00:00 2018-01-26 00: 00:00 No Ashleigh Curiel Ehdaie 1 per tube once a day as needed for tien rgies [facility] (DOCUSATE SODIUM) 50 MG/5ML LIQD 2017-11-02 00:00:00 Yes Ashleigh Curiel Shahzaddaie 10ml per tube BID [facility] (CARBAMAZEPINE) 100 MG/5ML SUSP 2017-10-29 00:00:00 Yes Fran Wu TAKE 10ML PER G-TUBE 3 TIMES DAILY [facility] AUGMENTIN (AMOXICILLIN-POT CLAVULANATE) 250-62.5 MG/5ML SUSR 2017-10-10 00:00:00 2017-11-02 00:00:00 No 2ml BID for 5 days take with food, changed from pill to liquid [facility] [employer] PROBIOTIC MAXIMUM STRENGTH (PROBIOTIC PRODUCT) CAPS 2017-10-10 00:00:00 2017-10-15 00:00:00 No Ashleigh Curiel Ehdaie 1 capsule By Veena burnett [facility] REGLAN (METOCLOPRAMIDE HCL) 10 MG TABS 2017-09-10 6 00:00:00 2018-01-26 00:00:00 No Ashleigh Pikedaie 1/2 tab by mouth ac and kulwinder gan at bedtime [facility] (MORPHINE SULFATE) 10 MG/5ML SOLN 2017-10-04 00:00:00 2017 00:00:00 No 1ml per G tube q4h As Needed pain [facility] Apixaban (Eliquis) 2.5 Mg TABLET Apixaban (Eliquis) 2.5 Mg TABLET Yes 2.5 Twice A Day for 30 [facility] Carbamazepine Carbamazepine Yes [address] [facility] Dexamethasone (Decadron) 6 Mg TABLET Dexamethasone (Decadron) 6 Mg TABLET Yes [address] [facility] Lorazepam (Ativan*) 0.5 Mg TABLET Lorazepam (Ativan*) 0.5 Mg TABLET Yes .5 Four Times Daily as needed for Anxiety [facility] Pantoprazole Sodium (Protonix) 40 Mg TABLET. Pantopr azole Sodium (Protonix) 40 Mg TABLET. Yes [address] [facility] Immunizations Ordered Immunization Name Filled Immunization Name Date Status Comments Source FLUCELVAX QUAD PF 2019-06-27 00:00:00 Completed Jed Otero Vital Signs Vital Name Observation Time Observation Value Comments Source Body Temperature 2019-10-17 16:00:00 97.1 [degF] [facility] Weight 2019-10-17 02:24:00 58.25 [lb_av] [facility] BMI (Body Mass Index) 2019-10-17 02:24:00 17.8 kg/m2 [facility] Weight 2019-10-14 17:50:00 50 [lb_av] [facility] BMI (Body Mass Index) 2019-10-14 17:50:00 15.3 kg/m2 [facility] Systolic blood pressure 2019-06-27 15:23:03 113 mm[Hg] Goode Yarsani Diastolic blood pressure 2019-06-27 15:23:03 71 mm[Hg] Goode Yarsani Heart rate 2019-06-27 15:23:03 64 [facility] 2019-06-27 15:23:03 36.61 Talya [place] Yarsani Respiratory rate 2019-06-27 15:23:03 17 /min [place] [facility] Oxygen saturation in Arterial blood by Pulse oximetry 06-26 15:23:03 98 /min Adkins Yarsani Body height 2019-06-24 02:04:00 147.3 cm Goode Yarsani Body weight 2019-06-24 02:04:00 18.597 kg Goode Yarsani BMI 2019-06-24 02:04:00 8.57 kg/m2 Goode Yarsani oxygen saturation, oximetry 2019-04-06 15:48:42 98 % [facility] blood pressure, diastolic 2019-04-06 15:48:42 61 mm[Hg] [facility] blood pressure, systolic 2019-04-06 15:48:42 102 mm[Hg] [facility] respiratory rate E&M 2019-04-06 15:48:42 18 /min [facility] pulse rate 2019-04-06 15:48:42 72 /min [facility] temperature site 2019-04-06 15:48:42 tympanic Lega [facility] temperature E&M 2019-04-06 15:48:42 98.2 [degF] [facility], oximetry 2019-02-27 15:50:01 95 % [facility] blood pressure, diastolic 2019-02-27 15:50:01 85 mm[Hg] [facility] blood pressure, systolic 2019-02-27 15:50:01 138 mm[Hg] [facility] respiratory rate E&M 2019-02-27 15:50:01 14 /min [facility] pulse rate 2019-02-27 15:50:01 68 /min [facility] 2019-02-27 15:50:01 oral Lega [facility] temperature E&M 2019-02-27 15:50:01 97.6 [degF] [facility] oxygen saturation, oximetry 2018-03-30 09:44:41 98 % [facility] blood pressure, diastolic 2018-03-30 09:44:41 142 mm[Hg] [facility] blood pressure, systolic 2018-03-30 09:44:41 207 mm[Hg] [facility] respiratory rate E&M 2018-03-30 09:44:41 21 /min [facility] pulse rate 2018-03-30 09:44:41 98 /min [facility] temperature site 2018-03-30 09:44:41 tympanic Lega [facility] temperature E&M 2018-03-30 09:44:41 98.1 [degF] [facility] pressure, diastolic 2018-01-26 14:21:39 82 mm[Hg] [facility] blood pressure, systolic 2018-01-26 14:21:39 129 mm[Hg] [facility] respiratory rate E&M 2018-01-26 14:21:39 16 /min [facility] pulse rate 2018-01-26 14:21:39 66 /min [facility] 2018-01-26 14:21:39 tympanic Lega [facility] temperature E&M 2018-01-26 14:21:39 98.3 [degF] Legac [facility] respiratory rate E&M 2017-11-02 09:08:16 22 /min [facility] pulse rate 2017-11-02 09:08:16 136 /min [facility] blood pressure, diastolic 2017-11-02 09:08:16 58 mm[Hg] [facility] blood pressure, systolic 2017-11-02 09:08:16 132 mm[Hg] [facility] oxygen saturation, oximetry 2017-11-02 09:08:16 90 % [facility] temperature E&M 2017-11-02 09:08:16 99.1 [degF] [facility] 2017-11-02 09:08:16 axillary Lega [facility] oxygen saturation, oximetry 2017-10-04 14:13:35 98 % [facility] blood pressure, diastolic 2017-10-04 14:13:35 97 mm[Hg] [facility] blood pressure, systolic 2017-10-04 14:13:35 143 mm[Hg] [facility] respiratory rate E&M 2017-10-04 14:13:35 16 /min [facility] pulse rate 2017-10-04 14:13:35 67 /min [facility] temperature site 2017-10-04 14:13:35 oral Lega [facility] temperature E&M 2017-10-04 14:13:35 99.2 [degF] [facility] Procedures Procedure Date / Time Performed Performing Clinician Sour e Computed tomography of abdomen and pelvis with contrast 00:00:00 [facility] HC COMPLETE BLD COUNT W/AUTO DIFF 2019-06-27 05:25:00 Jose David COMPREHENSIVE METABOLIC PANEL 2019-06-27 05:25:00 Jose David ESTIMATED GFR 2019-06-27 05:25:00 Dustin Martinez XR CHEST 1 VW PORTABLE 2019-06-26 12:06:36 Dustin Martinez COMPREHENSIVE METABOLIC PANEL 2019-06-26 05:03:00 David Jaime HC COMPLETE BLD COUNT W/AUTO DIFF 2019-06-26 05:03:00 Denny Jaime ESTIMATED GFR 2019-06-26 05:03:00 David Jaime HC COMPLETE BLD COUNT W/AUTO DIFF 2019-06-25 05:51:00 Murray Colon COMPREHENSIVE METABOLIC PANEL 2019-06-25 05:51:00 Radha Colon ESTIMATED GFR 2019-06-25 05:51:00 ColonRadha reich XR CHEST 1 VW PORTABLE 2019-06-24 03:05:18 Rui Etienne INFLUENZA ANTIGEN TEST, REFLEX NEGATIVE TO RPP 2019-06-24 02 :40:00 LowellRui BLOOD CULTURE, AEROBIC & ANAEROBIC 2019-06-24 02:40:00 LowellTeresita RESPIRATORY PATHOGEN PANEL 2019-06-24 02:40:00 LowellRui HC COMPLETE BLD COUNT W/AUTO DIFF 2019-06-24 02:25:00 LowellDarrell BASIC METABOLIC PANEL 2019-06-24 02:25:00 LowellRui CREATINE KINASE, TOTAL (CPK) 2019-06-24 02:25:00 LowellRui ESTIMATED GFR 2019-06-24 02:25:00 LowellRui HEPATIC FUNCTION PANEL 2019-06-24 02:25:00 LowellRui LIPASE LEVEL 2019-06-24 02:25:00 LowellRui XR CHEST 1 VW PORTABLE 2019-06-19 00:58:00 Suzy Garcia Plan of Care Planned Activity Planned Date Details Comments Source Future Scheduled Test 2019-11-10 00:00:00 INFLUENZA VACCINE [code = INFLUENZA VACCINE] Jed Otero Instructions COVID-19: 06/25/2019 [facility] Encounters Start Date/Time End Date/Time Encounter Type Admission Type [facility] Care Department Encounter ID Source 2019-10-15 02:00:00 2019-10-15 02:00:00 Admitted Inpatient 1 THOMASBASHIR Swenson [facility] [id number] [facility] 2019-09-25 00:00:00 2019-09-25 00:00:00 Office Visit Rudy Barron [facility]herence,, [facility]/[id number] [facility] 2019-09-25 00:00:00 2019-09-25 00:00:00 Office Visit Rudy Barron MedAdherbruno,, Eloisa [facility] Encounter/[id number] [facility] 2019-09-10 00:00:00 2019-09-10 00:00:00 Office Visit Rudy Barron, Gal Corbin, Ileana Heart, Duncan Lee, Minoo [facility] Encounter/[id number] [facility] 2019-09-07 00:00:00 2019-09-07 00:00:00 Office Visit Summer Vaughn MedAdherence, Sarah Boo, Rudy [facility] Encounter/[id number] [facility] 2019-09-07 00:00:00 2019-09-07 00:00:00 Office Visit Ashleigh Zamora MedAdherbruno, Sarah [facility] Encounter/[id number] [facility] 2019-09-04 00:00:00 2019-09-04 00:00:00 Office Visit Rudy Barron Lisa Mariaca, Jennifer [facility] Encounter/[id number] Leg [facility] 2019-08-06 00:00:00 2019-08-06 00:00:00 Office Visit Rudy Barron Lisa [facility] Encounter/[id number] [facility] 2019-07-31 00:00:00 2019-07-31 00:00:00 Office Visit Rudy Barron Lisa Vazquez, Shantelle M [facility] Encounter/[id number] [facility] 2019-07-30 00:00:00 2019-07-30 00:00:00 Office Visit Ashleigh Zamora Mary [facility] Encounter/[id number] [facility] 2019-07-26 00:00:00 2019-07-26 00:00:00 Office Visit Pankaj Boo [facility] Encounter/[id number] [facility] 2019-07-18 00:00:00 2019-07-18 00:00:00 Office Visit Rudy Barron MedAdherbruno [facility]al [facility] Encounter/[id number] [facility] 2019-06-29 00:00:00 2019-06-29 00:00:00 Office Visit Rudy Barron MedAdherenceTabatha [facility] Encounter/[id number] [facility] 2019-06-29 00:00:00 2019-06-29 00:00:00 Office Visit Rudy Barron Lindsey Leon, Karla L [facility] Encounter/[id number] [facility] 2019-06-27 00:00:00 2019-06-27 00:00:00 Office Visit Pankaj Boo [facility] Encounter/[id number] [facility] 2019-06-27 00:00:00 2019-06-27 00:00:00 Office Visit Pankaj Boo [facility] Encounter/[id number] [facility] 2019-06-24 00:00:00 2019-06-27 00:00:00 Inpatient ANNIE MANZANO [facility] [id number] [facility] 2019-06-24 00:00:00 2019-06-24 00:00:00 Office Visit Pankaj Boo [facility] Encounter/[id number] [facility] 2019-06-19 00:00:00 2019-06-19 00:00:00 Emergency JOSE SUZY Popeye 064 [id number] [facility] 2019-06-19 00:00:00 2019-06-19 00:00:00 Office Visit Pankaj Boo [facility] Encounter/[id number] [facility] 2019-06-05 00:00:00 2019-06-05 00:00:00 Office Visit Aisha Herrera [facility] Encounter/[id number] [facility] 2019-05-15 00:00:00 2019-05-15 00:00:00 Office Visit Ashleigh Zamora MedAdherence, Rudy Lam MedAdherence, Ольга [facility] Encounter/[id number] [facility] 2019-05-02 00:00:00 2019-05-02 00:00:00 Office Visit Aisha Herrera [facility] Encounter/[id number] [facility] 2019-05-02 00:00:00 2019-05-02 00:00:00 Office Visit Status, Fax [facility] Encounter/[id number] [facility] 2019-05-02 00:00:00 2019-05-02 00:00:00 Office Visit Status, Fax [facility] Encounter/[id number] [facility] 2019-05-02 00:00:00 2019-05-02 00:00:00 Office Visit Status, Fax [facility] Encounter/[id number] [facility] 2019-04-20 00:00:00 2019-04-20 00:00:00 Office Visit Pankaj Boo [facility] Encounter/[id number] [facility] 2019-04-18 00:00:00 2019-04-18 00:00:00 Office Visit Augustus Ashton Yandro [facility][id number] [facility]:00 2019-04-09 00:00:00 Office Visit Status, Fax [facility] Encounter/[id number] [facility] 2019-04-09 00:00:00 2019-04-09 00:00:00 Office Visit Status, Fax [facility] Encounter/[id number] [facility] 2019-04-09 00:00:00 2019-04-09 00:00:00 Office Visit Status, Fax [facility] Encounter/[id number] [facility] 2019-04-06 00:00:00 2019-04-06 00:00:00 Office Visit Pankaj Boo [facility] Encounter/[id number] [facility] 2019-04-06 00:00:00 2019-04-06 00:00:00 Office Visit Pankaj Boo emanuel [facility] Encounter/[id number] [facility] 2019-04-06 00:00:00 2019-04-06 00:00:00 Office Visit Pankaj Boo emanuel [facility] Encounter/[id number] [facility] 2019-04-06 00:00:00 2019-04-06 00:00:00 Office Visit Ashleigh Zamora, Diana Duong, Rudy Gunderson [facility] Encounter/[id number] [facility] 2019-03-30 00:00:00 2019-03-30 00:00:00 Office Visit Galina Goldberg [facility] Encounter/[id number] [facility] 2019-03-30 00:00:00 2019-03-30 00:00:00 Office Visit Portia Alicia [facility] Encounter/[id number] [facility] 2019-03-29 00:00:00 2019-03-29 00:00:00 Office Visit Nathan Jasso [facility] Encounter/[id number] [facility] 2019-03-23 00:00:00 2019-03-23 00:00:00 Office Visit Fran Welch MedAdherLoida carr [facility] Encounter/[id number] [facility] 2019-03-14 00:00:00 2019-03-14 00:00:00 Office Visit Roxana Duggan MedAdherSarah carr [facility] Encounter/[id number] [facility] 2019-03-01 00:00:00 2019-03-01 00:00:00 Office Visit Luciano Magallon [facility] Encounter/[id number] [facility] 2019-02-28 00:00:00 2019-02-28 00:00:00 Office Visit Darshana Ambriz Christina Cepeda, Abby Felix [facility][id number] [facility] 2019-02-[facility] 00:00:00 2019-02-28 00:00:00 Office Visit Status, Fax [facility] Encounter/[id number] [facility] 2019-02-28 00:00:00 2019-02-28 00:00:00 Office Visit Status, Fax [facility] Encounter/[id number] [facility] 2019-02-28 00:00:00 2019-02-28 00:00:00 Office Visit Status, Fax [facility] Encounter/[id number] [facility] 2019-02-27 00:00:00 2019-02-27 00:00:00 Office Visit Polly Dumont [facility] Encounter/[id number] [facility] 2019-02-27 00:00:00 2019-02-27 00:00:00 Office Visit Polly Dumont [facility] Encounter/[id number] [facility] 2019-02-27 00:00:00 2019-02-27 00:00:00 Office Visit Aurora elliott, Fran Herrera, Diana Dumont, Polly Owens, Augustus Orozco [facility] Encounter/[id number] [facility] 2019-02-09 00:00:00 2019-02-09 00:00:00 Office Visit Roxana Duggan MedAdherence, Loida Mcclure MedAdherence, Sarah Dumont, Polly [facility] Encounter/[id number] L [facility] 2018-12-18 00:00:00 2018-12-18 00:00:00 Office Visit Luba Rapp Jennifer [facility] Encounter/[id number] [facility] 2018-12-01 00:45:00 2018-12-05 22:20:00 Discharged Inpatient 1 MIKEL, ARMAND [facility] [id number] [facility] 2018-11-30 00:00:00 2018-11-30 00:00:00 Office Visit Polly Dumont [facility] Encounter/[id number] [facility] 2018-11-28 00:00:00 2018-11-28 00:00:00 Office Visit Summer Vaughn, Sarah FLORES [facility] Encounter/[id number] [facility] 2018-10-13 00:00:00 2018-10-13 00:00:00 Office Visit Status, Fax [facility] Encounter/[id number] [facility] 2018-10-04 00:00:00 2018-10-04 00:00:00 Office Visit Jasmin Byrd, Sarah Mandujano, Luba Prieto, Abby Marinelli [facility] Encounter/[id number] [facility] 2018-10-04 00:00:00 2018-10-04 00:00:00 Office Visit Status, Faasael [facility] Encounter/[id number] [facility] 2018-09-26 00:00:00 2018-09-26 00:00:00 Office Visit Cristina Diallo [facility] Encounter/[id number] [facility] 2018-09-24 00:00:00 2018-09-24 00:00:00 Office Visit Cristina Diallo [facility] Encounter/[id number] [facility] 2018-09-05 00:00:00 2018-09-05 00:00:00 Office Visit Jasmin Byrd, Darshana Onofre Adrienne Osorio Marquez, Laura [facility] Encounter/[id number] [facility] 2018-09-05 00:00:00 2018-09-05 00:00:00 Office Visit Fran WelchAdherbruno, Candelaria Bustamante [facility] Encounter/[id number] [facility] 2018-07-20 00:00:00 2018-07-20 00:00:00 Office Visit Cristina Diallo [facility] Encounter/[id number] [facility] 2018-07-14 00:00:00 2018-07-14 00:00:00 Office Visit Arsh Britton i [facility] Encounter/[id number] [facility] 2018-07-14 00:00:00 2018-07-14 00:00:00 Office Visit Cristina Diallo [facility] Encounter/[id number] [facility] 2018-07-14 00:00:00 2018-07-14 00:00:00 Office Visit Cristina Diallo [facility] Encounter/[id number] [facility] 2018-07-11 00:00:00 2018-07-11 00:00:00 Office Visit Ema Robertdr castellanos [facility] Encounter/[id number] [facility] 2018-07-11 00:00:00 2018-07-11 00:00:00 Office Visit Candelaria Matta Lindsey [id number] [facility]-06-15 00:00:00 2018-06-15 00:00:00 Office Visit Ileana Desir Lindsey [facility][id number] [facility] 2018-05-16 00:00:00 2018-05-16 00:00:00 Office Visit Cristina Diallo LC Encounter/[id number] [facility] 2018-05-16 00:00:00 2018-05-16 00:00:00 Office Visit Galindo Portillo [facility] Encounter/[id number] [facility] 2018-05-16 00:00:00 2018-05-16 00:00:00 Office Visit Hamida Mandujano [facility] Encounter/[id number] [facility] 2018-05-11 00:00:00 2018-05-11 00:00:00 Office Visit Candelaria Matta Lindsey LC LC Encounter/[id number] [facility] 2018-03-30 00:00:00 2018-03-30 00:00:00 Office Visit Cristina Diallo [facility] Encounter/[id number] [facility] 2018-03-30 00:00:00 2018-03-30 00:00:00 Office Visit Fran Welch Jacqueline Kicza, Adrienne [facility] Encounter/[id number] [facility] 2018-03-15 00:00:00 2018-03-15 00:00:00 Office Visit Keith Gaitan [facility] Encounter/[id number] [facility] 2018-01-30 00:00:00 2018-01-30 00:00:[address] Adrienne [facility] Encounter/[id number] [facility] 2018-01-30 00:00:00 2018-01-30 00:00:00 Office Visit Anushka Prieto [facility] Encounter/[id number] [facility] 2018-01-26 00:00:00 2018-01-26 00:00:00 Office Visit Cristina Diallo [facility] Encounter/[id number] [facility] 2018-01-26 00:00:00 2018-01-26 00:00:00 Office Visit Cristina Diallo [facility] Encounter/[id number] [facility] 2018-01-26 00:00:00 2018-01-26 00:00:00 Office Visit Cristina Diallo [facility] Encounter/[id number] [facility] 2018-01-26 00:00:00 2018-01-26 00:00:00 Office Visit Portia Alicia [facility] Encounter/[id number] [facility] 2018-01-26 00:00:00 2018-01-26 00:00:00 Office Visit Cristina Diallo LC [facility] Encounter/[id number] [facility] 2018-01-26 00:00:00 2018-01-26 00:00:00 Office Visit Fran Welch Maria Rivera, Jacqueline Kicza, Adrienne [facility] Encounter/[id number] [facility] 2018-01-26 00:00:00 2018-01-26 00:00:00 Office Visit Hamida Mandujano [facility] Encounter/[id number] [facility] 2018-01-25 00:00:00 2018-01-25 00:00:00 Office Visit Cristina Diallo [facility] Encounter/[id number] [facility] 2018-01-25 00:00:00 2018-01-25 00:00:00 Office Visit Candelaria Matta Lindsey [facility] Encounter/[id number] [facility] 2018-01-25 00:00:00 2018-01-25 00:00:00 Office Visit Hamida Mandujano [facility] Encounter/[id number] [facility] 2018-01-20 00:00:00 2018-01-20 00:00:00 Office Visit Cristina Diallo [facility] Encounter/[id number] [facility] 2018-01-20 00:00:00 2018-01-20 00:00:[address] Lindsey Kicza, Adrienne [facility] Encounter/[id number] [facility] 2018-01-13 00:00:00 2018-01-13 00:00:00 Office Visit Cristina Diallo [facility] Encounter/[id number] [facility] 2018-01-11 00:00:00 2018-01-11 00:00:00 Office Visit Cristina Diallo [facility] Encounter/[id number] [facility] 2017-12-30 00:00:00 2017-12-30 00:00:00 Office Visit Cristina Diallo [facility] Encounter/[id number] [facility] 2017-12-20 00:00:00 2017-12-20 00:00:00 Office Visit Summer Vaughn Drinda Kicza, Adrienne [facility] Encounter/[id number] [facility] 2017-12-19 00:00:00 2017-12-19 00:00:00 Office Visit Cristina Diallobhavana [facility] Encounter/[id number] [facility] 2017-12-15 00:00:00 2017-12-15 00:00:00 Office Visit Cristina Diallo [facility] Encounter/[id number] [facility] 2017-12-15 00:00:00 2017-12-15 00:00:00 Office Visit Cristina Diallo [facility] Encounter/[id number] [facility] 2017-12-15 00:00:00 2017-12-15 00:00:00 Office Visit Crsitina Diallobhavana [facility] Encounter/[id number] [facility] 2017-12-06 00:00:00 2017-12-06 00:00:00 Office Visit Candelaria Matta Lindsey Garcia, Yareli LC LC Encounter/[id number] [facility] 2017-11-15 00:00:00 2017-11-15 00:00:00 [facility]/[id number] [facility] 2017-11-08 00:00:00 2017-11-08 00:00:00 [facility]/[id number] [facility] 2017-11-02 00:00:00 2017-11-02 00:00:00 Office Visit Cristina Diallo susan [facility] Encounter/[id number] [facility] 2017-11-02 00:00:00 2017-11-02 00:00:00 Office Visit Ashleigh Zamora, Elisabeth Diallo, Elvira Bonilla Kristine [facility] Encounter/[id number] [facility] 2017-10-24 00:00:00 2017-10-24 00:00:00 [facility]/[id number] [facility] 2017-10-14 00:00:00 2017-10-14 00:00:00 Office Visit Emily BaileyJorgeon [facility] Encounter/[id number] [facility] 2017-10-10 00:00:00 2017-10-10 00:00:00 Office Visit Yoel Cristina larsonbhavana LC [facility] Encounter/[id number] [facility] 2017-10-07 00:00:00 2017-10-07 00:00:00 Office Visit Emily Bailey Elvira [facility] Encounter/[id number] [facility] 2017-10-06 00:00:00 2017-10-06 00:00:00 Office Visit Keith Gaitan LC [facility] Encounter/[id number] [facility] 2017-10-05 00:00:00 2017-10-05 00:00:00 Office Visit Jerrytessy Cristina susan LC [facility] Encounter/[id number] [facility] 2017-10-05 00:00:00 2017-10-05 00:00:00 Office Visit Sarah Yanez LC [facility] Encounter/[id number] [facility] 2017-10-05 00:00:00 2017-10-05 00:00:00 Office Visit Status, Fax [facility] Encounter/[id number] [facility] 2017-10-05 00:00:00 2017-10-05 00:00:00 Office Visit Status, Fax [facility] Encounter/[id number] [facility] 2017-10-05 00:00:00 2017-10-05 00:00:00 Office Visit Status, Fax [facility] Encounter/[id number] [facility] 2017-10-05 00:00:00 2017-10-05 00:00:00 Office Visit Status, Fax L[facility] Encounter/[id number] [facility] 2017-10-05 00:00:00 2017-10-05 00:00:00 Office Visit Status, Fax L[facility] Encounter/[id number] [facility] 2017-10-05 00:00:00 2017-10-05 00:00:00 Office Visit Status, Fax L[facility] Encounter/[id number] [facility] 2017-10-04 00:00:00 2017-10-04 00:00:00 Office Visit Keith Gaitan [facility] Encounter/[id number] [facility] 2017-10-04 00:00:00 2017-10-04 00:00:00 Office Visit Cristina Diallo [facility] Encounter/[id number] [facility] 2017-10-04 00:00:00 2017-10-04 00:00:00 Office Visit Cristina Diallo [facility] Encounter/[id number] [facility] 2017-10-04 00:00:00 2017-10-04 00:00:00 Office Visit Ashleigh Zamora Veena Adam, Desi Goldberg, Randa Woodard, Effie Diallo, Candelaria Fox, Elvira Argueta, Claus Mi, Enedelia [facility] Encounter/[id number] [facility] Results Test Description Test Time Test Comments Results Result Comments Source Blood leukocytes automated count (number/volume) 2019-10-17 05:40:00 Test Item White Blood Count (test code = 6690-2) 4.08 4.8-10.8 [facility] erythrocytes automated count (number/volume)2019-10-17 05:40:00* Test Item Value Reference Range Interpretation Comments Red Blood Count (test code = 789-8) 3.77 4.3-5.7 [facility] hemoglobin measurement (moles/volume)2019-10-17 05:40:00* Test Item Value Reference Range Interpretation Comments Hemoglobin (test code = 43518-7) 12.1 14.0-18.0 [facility]Autom[facility] blood hematocrit (volume fraction)2019-10-17 05:40:00* Test Item Value Reference Range Interpretation Comments Hematocrit (test code = 4544-3) 37.3 38.2-49.6 [facility] erythrocyte mean corpuscular atirse5321-16-68 05:40:00* Test Item Value Reference Range Interpretation Comments Mean Corpuscular Volume (test code = 787-2) 98.9 81-99 [facility] erythrocyte mean corpuscular hemoglobin (mass per erythrocyte)2019-10-17 05:40:00* Test Item Value Reference Range Interpretation Comments Mean Corpuscular Hemoglobin (test code = 785-6) 32.1 28-32 [facility] erythrocyte mean corpuscular hemoglobin concentration measurement (mass/volume)2019-10-17 05:40:00* Test Item Value Reference Range Interpretation Comments Mean Corpuscular Hemoglobin Concent (test code = 786-4) 32.4 31-35 [facility] HospitalRDW ZwqOa-Pgy4320-68-08 05:40:00* Test Item Value Reference Range Interpretation Comments Red Cell Distribution Width (test code = 52743-8) 14.2 11.7 -14.4 [facility] Hospital[facility] blood platelet count (count/volume)2019-10-17 05:40:00* Test Item Value Reference Range Interpretation Comments Platelet Count (test code = 777-3) 99 140-360 [facility] Tomballed blood segmented neutrophil count as percentage of total lrcoxnofvb3784-39-43 05:40:00* Test Item Value Reference Range Interpretation Comments Neutrophils (%) (Auto) (test code = 80560-4) 77.5 38.7-80.0 [facility] HospitalAutom[facility] lymphocyte count as percentage ot total fynmdtqwlt0024-37-72 05:40:00* Test Item Value Reference Range Interpretation Comments Lymphocytes (%) (Auto) (test code = 736-9) 17.2 18.0-39.1 [facility] HospitalAutom[facility] blood monocyte count as percentage of total ksbcqlbtcg1902-78-81 05:40:00* Test Item Value Reference Range Interpretation Comments Monocytes (%) (Auto) (test code = 5905-5) 3.2 4.4-11.3 [facility] HospitalAutom[facility] blood eosinophil count as percentage of total atugsvtxnp5259-23-09 05:40:00* Test Item Value Reference Range Interpretation Comments Eosinophils (%) (Auto) (test code = 713-8) 0.2 0.0-6.0 [facility] HospitalAutom[facility] blood basophil count as percentage of total qnapwkfymx6990-13-61 05:40:00* Test Item Value Reference Range Interpretation Comments Basophils (%) (Auto) (test code = 706-2) 0.2 0.0-1.0 [facility] HospitalFluoroscopic procedure less than one hour qbtliyxu6747-04-64 05:40:00* Test Item Value Reference Range Interpretation Comments IM GRANULOCYTES % (test code = IM GRANULOCYTES %) 1.7 0.0- 1.0 [facility] HospitalAutom[facility] blood neutrophil count 2019-10-17 05:40:00* Test Item Value Reference Range Interpretation Comments Neutrophils # (Auto) (test code = 751-8) 3.2 2.1-6.9 [facility] HospitalBlood lymphocytes count (number/volume) 2019-10-17 05:40:00* Test Item Value Reference Range Interpretation Comments Lymphocytes # (Auto) (test code = 23513-9) 0.7 1.0-3.2 [facility] monocytes automated count (number/volume)2019-10-17 05:40:00* Test Item Value Reference Range Interpretation Comments Monocytes # (Auto) (test code = 742-7) 0.1 0.2-0.8 [facility] HospitalAutom[facility] blood eosinophil count 2019-10-17 05:40:00* Test Item Value Reference Range Interpretation Comments Eosinophils # (Auto) (test code = 711-2) 0.0 0.0-0.4 [facility] HospitalAutomated blood basophil count (count/volume)2019-10-17 05:40:00* Test Item Value Reference Range Interpretation Comments Basophils # (Auto) (test code = 704-7) 0.0 0.0-0.1 [facility] HospitalFluoroscopic procedure less than one hour ynokxcpu2945-30-68 05:40:00* Test Item Value Reference Range Interpretation Comments Absolute Immature Granulocyte (auto (heraclio t code = Absolute Immature Granulocyte (auto) 0.07 0-0.1 [facility] HospitalBlood platelets count by estimate (number/volume)2019-10-17 05:40:00* Test Item Value Reference Range Interpretation Comments Platelet Estimate (test code = 48498-3) MODERATELY DECREASED [facility] HospitalPlatelet gshrwewdhr3531-07-96 05:40:00* Test Item Value Reference Range Interpretation Comments Platelet Morphology Comment (test code = 85160-1) RARE EDTA CLUMPIN G [facility] HospitalRBC bgxfbjrffv7789-64-19 05:40:00* Test Item Value Reference Range Interpretation Comments Red Cell Morphology Comment (test code = 6742-1) NORMAL [place] [facility] sodium measurement (moles/volume)2019-10-17 05:40:00* Test Item Value Reference Range Interpretation Comments Sodium Level (test code = 2951-2) 135 136-145 [place] [facility] potassium measurement (moles/volume)2019-10-17 05:40:00* Test Item Value Reference Range Interpretation Comments Potassium Level (test code = 2823-3) 3.8 3.5-5.1 [facility] chloride measurement (moles/volume)2019-10-17 05:40:00* Test Item Value Reference Range Interpretation Comments Chloride Level (test code = 2075-0) 106 98-107 [place] [facility] plasma carbon dioxide, total measurement (moles/volume)2019-10-17 05:40:00* Test Item Value Reference Range Interpretation Comments Carbon Dioxide Level (test code = 2028-9) 24 22-29 [facility] Hospital[facility] or plasma anion ujy1782-02-50 05:40:00* Test Item Value Reference Range Interpretation Comments Anion Gap (test code = 15491-7) 8.8 8-16 [place] [facility] or plasma urea nitrogen measurement (mass/volume)2019-10-17 05:40:00* Test Item Value Reference Range Interpretation Comments Blood Urea Nitrogen (test code = 3094-0) 7 7-26 [place] [facility] Hospital[facility] or plasma creatinine measurement (mass/volume)2019-10-17 05:40:00* Test Item Value Reference Range Interpretation Comments Creatinine (test code = 2160-0) 0.40 0.72-1.25 [place] [facility] Hospitalerum or plasma urea nitrogen/creatinine mass wzvkh4070-89-02 05:40:00* Test Item Value Reference Range Interpretation Comments BUN/Creatinine Ratio (test code = 3097-3) 18 6-25 [facility] HospitalEstimated glomerular filtration rate (GFR) ywjkhzxkxaiye1027-80-00 05:40:00* Test Item Value Reference Range Interpretation Comments Estimat Glomerular Filtration Rate (test code = 714607646) > 60 >60 Ranges were taken from the National Kidney Disease Education Program and the [facility] Kidney Foundation literature.Reference ranges:60 or greater: Fejymu95-56 ( for 3 consecutive months): Chronic kidney disease 15 or less: Kidney failureSt. Luke's Health – Memorial Livingston HospitalGlucose zajltadjiry2764-79-63 05:40:00* Test Item Value Reference Range Interpretation Comments Glucose Level (test code = PKH2909) 99 74-118 [place] [facility] calcium [facility] (mass/volume)2019-10-17 05:40:00* Test Item Value Reference Range Interpretation Comments Calcium Level (test code = 35563-8) 7.1 8.4-10.2 [place] [facility] total bilirubin measurement (mass/volume)2019-10-15 12:18:00* Test Item Value Reference Range Interpretation Comments Total Bilirubin (test code = 1975-2) 0.2 0.2-1.2 [facility] HospitalFluoroscopic procedure less than one hour [id number] 12:18:00* Test Item Value Reference Range Interpretation Comments Aspartate Amino Transf (AST/SGOT) (test code = Aspartate Amino Transf (AST/SGOT)) 40 5-34 [place] [facility] alanine aminotransferase measurement (enzymatic activity/volume)2019-10-15 12:18:00* Test Item Value Reference Range Interpretation Comments Alanine Aminotransferase (ALT/SGPT) (test code = 1742-6) 55 0-55 [place] [facility] protein measurement (mass/volume)2019-10-15 12:18:00* Test Item Value Reference Range Interpretation Comments Total Protein (test code = 2885-2) 6.2 6.5-8.1 [place] [facility] albumin measurement (mass/volume)2019-10-15 12:18:00* Test Item Value Reference Range Interpretation Comments Albumin (test code = 1751-7) 2.5 3.5-5.0 [facility] HospitalPlasma globulin measurement (mass/volume) 2019-10-15 12:18:00* Test Item Value Reference Range Interpretation Comments Globulin (test code = 73027-3) 3.7 2.3-3.5 [facility] albumin/globulin mass vurht0645-25-74 12:18:00* Test Item Value Reference Range Interpretation Comments Albumin/Globulin Ratio (test code = 1759-0) 0.7 0.8-2.0 [place] [facility] alkaline phosphatase measurement (enzymatic activity/volume)2019-10-15 12:18:00* Test Item Value Reference Range Interpretation Comments Alkaline Phosphatase (test code = 6768-6) 98 40-150 [place] [facility] plasma carbamazepine measurement (mass/volume)2019-10-15 12:18:00* Test Item Value Reference Range Interpretation Comments Carbamazepine (Tegretol) Level (test code = 3432-2) 8.65 4. 0-12.0 [facility] HospitalCHEST SINGLE (PORTABLE)2019-10-15 09:24:00 [place] [address] Patient Name: SHANNON GIMENEZ MR #: [id number] : 1975 Age/Sex: 44/M Req #: [id number] Adm Physician: BASHIR THOMAS MD Ordered by: MELCHOR LI MD Report #: [id number] Location: [facility] Room/Bed: [place] [address] Procedure: [id number] DX/CHEST SINGL E (PORTABLE) Exam Date: 10/15/19 Exam Time: 0855 REPORT STATUS: Signed EXAMINATION: CHEST SINGLE (PORTABLE) INDICATION: Pneumonia COMPARISON: CT abdo men and pelvis of 10/14/2019, chest radiograph 12/04/2018 FINDINGS: LINES/TUBES:None LUNGS:The lungs are well-inflated. Multifocal bilateral pa tchy airspace opacities. PLEURA:No pleural effusion or pneumothorax. MEDIASTINUM:The cardiomediastinal silhouette appears normal in size and shape. BONES/SOFT TISSUES:No acute osseous injury. ABDOMEN:No free air under the diaphragm. IMPRESSION: Multifocal bilateral patchy airspace opaci ties consistent with known history of viral pneumonia. Signed by: Fredrick Perry MD on 10/15/2019 9:25 AM Dictated By: FREDRICK PERRY MD Electronically Si gned By: FREDRICK PERRY MD on 10/15/19924 Transcribed By: SELVIN on 10/15/19 092 5 COPY TO: MELCHOR LI MD CT ABDOMEN/PELVIS [id number] 23:26:00 [place] [address] Patient Name: SHANNON GIMENEZ MR #: [id number] : 1975 Age/Sex: 44/M Req #: [id number] Adm Physician: Ordered by: SHIRLEY CHAIDEZ MD Report #: [id number] Location: ER Room/Bed: Procedure: [id number] CT/CT ABDOMEN/ PELVIS W Exam Date: 10/14/19 Exam Time: 2300 REPORT STATUS: Signed EXAM: CT Abdomen and Pelvis WITH contrast INDICATION: ABD PAIN, DISTENDED, FLUID NUVIASera RANDHAWA AROUND AARTI, ?SBO [id number] COMPARISON: 12/01/2018 TECHNIQUE : Abdomen and pelvis were scanned utilizing a multidetector helical scanner fr om the lung base to the pubic symphysis after administration of IV contrast. C oronal and sagittal reformations were obtained. Routine protocol was performed . Scan was performed when during portal venous phase. IV CONTRAST: 10 0 mL of Isovue 370 ORAL CONTRAST: Water COMPLICATIONS: N one RADIATION DOSE: Total DLP: 842 mGy*cm Estimated effective dose: (DLP x 0.015 x size factor) mSv CTDIvol has been reviewed. It is b elow the limits set by the Radiation Protocol Committee (RPC). Dose mod ulation, iterative reconstruction, and/or weight based adjustment of the mA/kV was utilized to reduce the radiation dose to as low as reasonably achievable. FINDINGS: LOWER THORAX: Confluent groundglass opacities of the visu alized lower lobes. No pleural effusion. HEPATOBILIARY: No focal hep atic lesions. No biliary ductal dilation. GALLBLADDER: No radio-opaque sto almita or sludge. No wall thickening. SPLEEN: No splenomegaly. PANCREAS : No focal masses or ductal dilatation. ADRENALS: No adrenal nodules. KIDNEYS/URETERS: Kidneys enhance symmetrically. No hydronephrosis. Small left renal cortical cyst. No stones. GI TRACT: Suboptimal evaluation of the bowel due to lack of oral contrast and small amount of intraperitoneal fat . A percutaneous gastroduodenal tube is in unchanged position when compared to the previous study from 2019. The tip of the tube again terminates within the second portion of the duodenum. The stomach is mostly decompressed. The visua lized thoracic esophagus is markedly dilated and contains a large amount of fl uid. No discrete dilated small bowel loops. The rectum and sigmoid colon are d istended by stool. Prominent gas within the transverse colon. PELVIC ORGA NS/BLADDER: Grossly unremarkable. LYMPH NODES: Suboptimally evaluated. No g ross adenopathy. VESSELS: Unremarkable. PERITONEUM / RETROPERITONEUM: No free air or fluid. BONES: No acute osseous abnormality. SOFT TISSUE S: Diffuse soft tissue edema. IMPRESSION: 1. The stomach is mostly decompressed. No specific evidence of small bowel obstruction. 2. M arked dilatation of the fluid-filled thoracic esophagus. 3. Prominent formed stool within the sigmoid colon and rectum which may reflect fecal impaction. 4. Diffuse airspace disease of the visualized lower lungs. This may represent diffuse aspiration and/or multifocal pneumonia. Signed by: Williams Marcus MD on 10/14/2019 11:33 PM Dictated By: WILLIAMS MARCUS MD 32 Transcribed By: SELVIN on 2332 COPY TO: SHIRLEY CHAIDEZ MD Serum or plasma sodium measurement (moles/volume)2019-10-14 21:53:00* Test Item Value Reference Range Interpretation Comments Sodium Level (test code = 2951-2) 141 136-145 [place] [facility] potassium measurement (moles/volume)2019-10-14 21:53:00* Test Item Value Reference Range Interpretation Comments Potassium Level (test code = 2823-3) 4.0 3.5-5.1 [place] [facility] plasma chloride measurement (moles/volume)2019-10-14 21:53:00* Test Item Value Reference Range Interpretation Comments Chloride Level (test code = 2075-0) 102 98-107 [place] [facility] or plasma carbon dioxide, total measurement (moles/volume)2019-10-14 21:53:00* Test Item Value Reference Range Interpretation Comments Carbon Dioxide Level (test code = 2028-9) 28 22-29 [place] [facility] or plasma anion ros4720-66-88 21:53:00* Test Item Value Reference Range Interpretation Comments Anion Gap (test code = 83505-6) 15.0 8-16 [place] [facility] plasma urea nitrogen measurement (mass/volume)2019-10-14 21:53:00* Test Item Value Reference Range Interpretation Comments Blood Urea Nitrogen (test code = 3094-0) 35 7-26 [facility] plasma creatinine measurement (mass/volume)2019-10-14 21:53:00* Test Item Value Reference Range Interpretation Comments Creatinine (test code = 2160-0) 0.69 0.72-1.25 [place] [facility] Hospital[facility] or plasma urea nitrogen/creatinine mass [id number] 21:53:00* Test Item Value Reference Range Interpretation Comments BUN/Creatinine Ratio (test code = 3097-3) 51 6-25 [facility] HospitalEstimated glomerular filtration rate (GFR) qrxaezqmvlxvk6152-85-51 21:53:00* Test Item Value Reference Range Interpretation Comments Estimat Glomerular Filtration Rate (test code = 755173542) > 60 >60 Ranges were taken from the National Kidney Disease Education Program and the [facility] Foundation literature.Reference ranges:60 or greater: Fzeufm76-05 ( for 3 consecutive months): Chronic kidney disease 15 or less: Kidney failureSt. Luke's Health – Memorial Livingston HospitalGlucose mlxzqpgohzb2354-81-06 21:53:00* Test Item Value Reference Range Interpretation Comments Glucose Level (test code = YKO1259) 123 74-118 [place] [facility] or plasma calcium measurement (mass/volume)2019-10-14 21:53:00* Test Item Value Reference Range Interpretation Comments Calcium Level (test code = 77938-6) 7.8 8.4-10.2 [place] [facility] Hospital[facility] or plasma total bilirubin measurement (mass/volume)2019-10-14 21:53:00* Test Item Value Reference Range Interpretation Comments Total Bilirubin (test code = 1975-2) 0.4 0.2-1.2 [facility] HospitalFluoroscopic procedure less than one hour zozcnoif2811-97-76 21:53:00* Test Item Value Reference Range Interpretation Comments Aspartate Amino Transf (AST/SGOT) (test code = Aspartate Amino Transf (AST/SGOT)) 44 5-34 [place] [facility] Hospitalerum or plasma alanine aminotransferase measurement (enzymatic activity/volume)2019-10-14 21:53:00* Test Item Value Reference Range Interpretation Comments Alanine Aminotransferase (ALT/SGPT) (test code = 1742-6) 68 0-55 [place] [facility] Hospitaler[facility] or plasma protein measurement (mass/volume)2019-10-14 21:53:00* Test Item Value Reference Range Interpretation Comments Total Protein (test code = 2885-2) 7.1 6.5-8.1 [place] [facility] Hospitalerum or plasma albumin measurement (mass/volume)2019-10-14 21:53:00* Test Item Value Reference Range Interpretation Comments Albumin (test code = 1751-7) 2.9 3.5-5.0 [facility] HospitalPlasma globulin measurement (mass/volume) 2019-10-14 21:53:00* Test Item Value Reference Range Interpretation Comments Globulin (test code = 72309-1) 4.2 2.3-3.5 [place] [facility]er[facility] or plasma albumin/globulin mass iyldl2655-59-37 21:53:00* Test Item Value Reference Range Interpretation Comments Albumin/Globulin Ratio (test code = 1759-0) 0.7 0.8-2.0 [place] [facility] Hospitaler[facility] or plasma alkaline phosphatase measurement (enzymatic activity/volume)2019-10-14 21:53:00* Test Item Value Reference Range Interpretation Comments Alkaline Phosphatase (test code = 6768-6) 113 40-150 [place] [facility] Hospital[facility] or plasma creatine kinase measurement (enzymatic activity/volume)2019-10-14 21:53:00* Test Item Value Reference Range Interpretation Comments Creatine Kinase (test code = 2157-6) 32 30-200 [place] [facility]er[facility] or plasma creatine kinase MB measurement (mass/volume)2019-10-14 21:53:00* Test Item Value Reference Range Interpretation Comments Creatine Kinase MB (test code = 91739-7) 0.70 0-5.0 [facility] HospitalTroponin I measurement by highly sensitive enzyme ycsfsivrhys3819-16-34 21:53:00* Test Item Value Reference Range Interpretation Comments Troponin I (test code = 18832-2) < 0.001 0-0.300 [place] [facility]er[facility] or plasma lipase measurement (enzymatic activity/volume)2019-10-14 21:53:00* Test Item Value Reference Range Interpretation Comments Lipase (test code = 3040-3) 39 8-78 [place] [facility] Hospitalerum or plasma creatine kinase measurement (enzymatic activity/volume)2019-10-14 21:53:00* Test Item Value Reference Range Interpretation Comments Creatine Kinase (test code = 2157-6) 32 30-200 [place] [facility] Hospitaler[facility] or plasma creatine kinase MB measurement (mass/volume)2019-10-14 21:53:00* Test Item Value Reference Range Interpretation Comments Creatine Kinase MB (test code = 27117-4) 0.70 0-5.0 [facility] HospitalTroponin I measurement by highly sensitive enzyme ewghdwvluaa8461-93-09 21:53:00* Test Item Value Reference Range Interpretation Comments Troponin I (test code = 54856-6) < 0.001 0-0.300 [place] [facility] or plasma lipase measurement (enzymatic activity/volume)2019-10-14 21:53:00* Test Item Value Reference Range Interpretation Comments Lipase (test code = 3040-3) 39 8-78 [facility] HospitalFluoroscopic procedure less than one hour gnsbfanz2717-92-78 20:11:00* Test Item Value Reference Range Interpretation Comments Coronavirus (PCR) (test code = Coronavirus (PCR)) DETECTED NOTD ETECTED SARS-COV2/RT-PCRResults are for the detection of SARS-COV-2 RNA. The SARS-COV-2 RNA is generally detectable in nasopharyngeal swab specimens during the acute ph ase of infection. Positive results are indicitive of active infection with SARS- COV-2; clinical correlation with patient history and other diagnostic informatio n is necessary to determine patient infection status. Positive results do not ru le out bacterial infection or co-infection with other viruses. The agent detecte d may not be the definite cause of the disease.The limit of detection for this a ssay is 250 copies/mLThe SARS-CoV-2 test is a rapid, real-time RT-PCR test inten ded for the qualitative detection of nucleic acid from SARS-CoV-2 in nasopharyng eal swab specimen collected from individuals suspected of COVID-19 by their [facility]. This test has not been Food and Drug Administration (FDA) clear ed or approved and has been authorized by FDA under an Emergency Use Authorizati on (EUA). This EUA will be effective until the declaration that circumstances ex ist justifying the authorization of the emergency use of in vitro diagnostic heraclio t for detection and or diagnosis of COVID-19 is terminated under section 564(b) of the Act, or the the EUA is revoked under 564(g) of the ACT.Testing performed by [facility] [place], [place] [address]LYXSt. Luke's Health – Memorial Living[facility] HospitalBlst. mary's medical center leukocytes automated count (number/volume) 2019-10-14 18:35:00* Test Item Value Reference Range Interpretation Comments White Blood Count (test code = 6690-2) 14.30 4.8-10.8 [facility] HospitalBlst. mary's medical center erythrocytes automated count (number/volume)2019-10-14 18:35:00* Test Item Value Reference Range Interpretation Comments Red Blood Count (test code = 789-8) 4.82 4.3-5.7 [facility] HospitalBlood hemoglobin measurement (moles/volume)2019-10-14 18:35:00* Test Item Value Reference Range Interpretation Comments Hemoglobin (test code = 26832-5) 15.3 14.0-18.0 [facility] HospitalAutomated blood hematocrit (volume fraction)2019-10-14 18:35:00* Test Item Value Reference Range Interpretation Comments Hematocrit (test code = 4544-3) 46.4 38.2-49.6 [facility] HospitalAutomated erythrocyte mean corpuscular yhitvf4649-42-17 18:35:00* Test Item Value Reference Range Interpretation Comments Mean Corpuscular Volume (test code = 787-2) 96.3 81-99 [facility] HospitalAutomated erythrocyte mean corpuscular hemoglobin (mass per erythrocyte)2019-10-14 18:35:00* Test Item Value Reference Range Interpretation Comments Mean Corpuscular Hemoglobin (test code = 785-6) 31.7 28-32 [facility] HospitalAutomated erythrocyte mean corpuscular hemoglobin concentration measurement (mass/volume)2019-10-14 18:35:00* Test Item Value Reference Range Interpretation Comments Mean Corpuscular Hemoglobin Concent (test code = 786-4) 33.0 31-35 [facility] HospitalRDW MfzBq-Sdv8081-57-05 18:35:00* Test Item Value Reference Range Interpretation Comments Red Cell Distribution Width (test code = 37004-2) 14.1 11.7 -14.4 [facility] HospitalAutomated blood platelet count (count/volume)2019-10-14 18:35:00* Test Item Value Reference Range Interpretation Comments Platelet Count (test code = 777-3) 232 140-360 [facility] HospitalAutomated blood segmented neutrophil count as percentage of total zopibjmcgi8129-05-24 18:35:00* Test Item Value Reference Range Interpretation Comments Neutrophils (%) (Auto) (test code = 55434-9) 78.1 38.7-80.0 [facility] Tomballed blood lymphocyte count as percentage ot total dscrdtofab0659-81-82 18:35:00* Test Item Value Reference Range Interpretation Comments Lymphocytes (%) (Auto) (test code = 736-9) 18.1 18.0-39.1 [facility] HospitalAutomated blood monocyte count as percentage of total orbvmuffcl1661-76-06 18:35:00* Test Item Value Reference Range Interpretation Comments Monocytes (%) (Auto) (test code = 5905-5) 2.9 4.4-11.3 [facility] HospitalAutblowing rock hospitaled blood eosinophil count as percentage of total gytqkugxxv5457-39-60 18:35:00* Test Item Value Reference Range Interpretation Comments Eosinophils (%) (Auto) (test code = 713-8) 0.3 0.0-6.0 [facility] HospitalAutomated blood basophil count as percentage of total juxylugbix1858-43-59 18:35:00* Test Item Value Reference Range Interpretation Comments Basophils (%) (Auto) (test code = 706-2) 0.3 0.0-1.0 [facility] HospitalFluoroscopic procedure less than one hour ubplxkpu3561-96-08 18:35:00* Test Item Value Reference Range Interpretation Comments IM GRANULOCYTES % (test code = IM GRANULOCYTES %) 0.3 0.0- 1.0 [facility] HospitalAutomated blood neutrophil count 2019-10-14 18:35:00* Test Item Value Reference Range Interpretation Comments Neutrophils # (Auto) (test code = 751-8) 11.1 2.1-6.9 [facility] HospitalBlood lymphocytes count (number/volume) 2019-10-14 18:35:00* Test Item Value Reference Range Interpretation Comments Lymphocytes # (Auto) (test code = 32142-5) 2.6 1.0-3.2 [facility] HospitalBlood monocytes automated count (number/volume)2019-10-14 18:35:00* Test Item Value Reference Range Interpretation Comments Monocytes # (Auto) (test code = 742-7) 0.4 0.2-0.8 [facility] HospitalAutomated blood eosinophil count 2019-10-14 18:35:00* Test Item Value Reference Range Interpretation Comments Eosinophils # (Auto) (test code = 711-2) 0.1 0.0-0.4 [facility] HospitalAutomated blood basophil count (count/volume)2019-10-14 18:35:00* Test Item Value Reference Range Interpretation Comments Basophils # (Auto) (test code = 704-7) 0.1 0.0-0.1 [facility] HospitalFluoroscopic procedure less than one hour klcvjazs4477-99-58 18:35:00* Test Item Value Reference Range Interpretation Comments Absolute Immature Granulocyte (auto (heraclio t code = Absolute Immature Granulocyte (auto) 0.05 0-0.1 [facility] HospitalProthrombin time (PT) in platelet poor plasma by coagulation rijoi2206-54-37 18:35:00* Test Item Value Reference Range Interpretation Comments Prothrombin Time (test code = 5902-2) 13.3 11.9-14.5 [facility] HospitalINR in Platelet poor plasma by Coagulation lhvos4562-31-99 18:35:00* Test Item Value Reference Range Interpretation Comments Prothromb Time International Ratio (test code = 6301-6) 0.96 Oral Anticoagulant Therapy INR Values:1. Low Intensity Therapy 1.5 - 2.02 . Moderate Intensity Therapy 2.0 - 3.03. High Intensity Therapy(1) 2.5 - 3. 54. High Intensity Therapy(2) 3.0 - 4.05. Panic Value INR > 5.0 [facility] HospitalActivated partial thromboplastin time (aPTT) in platelet poor plasma by coagulation oxaub3532-01-49 18:35:00* Test Item Value Reference Range Interpretation Comments Activated Partial Thromboplast Time (test code = 06622-1) 36.5 23.8-35.5 [facility] HospitalUrine color cbkcaajrnsbip0961-95-73 18:35:00* Test Item Value Reference Range Interpretation Comments Urine Color (test code = 5778-6) YELLOW YELLOW [facility] HospitalUrine vnpzzdp8840-56-40 18:35:00* Test Item Value Reference Range Interpretation Comments Urine Clarity (test code = 79424-3) HAZY CLEAR [place] [facility] Hospitalpecific gravity of Urine by Test strip 2019-10-14 18:35:00* Test Item Value Reference Range Interpretation Comments Urine Specific [place] (test code = 5811-5) 1.030 1.010-1.[address] [facility] HospitalUrine pH measurement by automated test nhtxu5811-95-85 18:35:00* Test Item Value Reference Range Interpretation Comments Urine pH (test code = 14524-7) 5.5 5-7 [facility] HospitalUrine leukocyte esterase detection by oxktjapy3174-64-46 18:35:00* Test Item Value Reference Range Interpretation Comments Urine Leukocyte Esterase (test code = 5799-2) NEGATIVE NEGATIVE [facility] HospitalUrine nitrite qgolehdwf6583-20-58 18:35:00* Test Item Value Reference Range Interpretation Comments Urine Nitrite (test code = 04622-9) NEGATIVE NEGATIVE [facility] HospitalUrine protein measurement by test strip (mass/volume)2019-10-14 18:35:00* Test Item Value Reference Range Interpretation Comments Urine Protein (test code = 5804-0) 2+ NEGATIVE [facility] HospitalUrine glucose xsizvdzmy3051-49-70 18:35:00* Test Item Value Reference Range Interpretation Comments Urine Glucose (UA) (test code = 2349-9) NEGATIVE NEGATIVE [facility] HospitalUrine ketones detection by automated test xfscc4882-23-61 18:35:00* Test Item Value Reference Range Interpretation Comments Urine Ketones (test code = 43679-8) NEGATIVE NEGATIVE [facility] HospitalUrine urobilinogen measurement by test strip (mass/volume)2019-10-14 18:35:00* Test Item Value Reference Range Interpretation Comments Urine Urobilinogen (test code = 49404-1) 0.2 0.2-1 [facility] HospitalUrine total bilirubin measurement (mass/volume)2019-10-14 18:35:00* Test Item Value Reference Range Interpretation Comments Urine Bilirubin (test code = 1978-6) NEGATIVE NEGATIVE [facility] HospitalUrine erythrocytes ufghduook3593-37-12 18:35:00* Test Item Value Reference Range Interpretation Comments Urine Blood (test code = 07690-4) NEGATIVE NEGATIVE [facility] HospitalAutomated urine sediment leukocyte count by microscopy (number/high power field)2019-10-14 18:35:00* Test Item Value Reference Range Interpretation Comments Urine WBC (test code = 5821-4) 0-5 0-5 [facility] HospitalErythrocytes detection in urine sediment by light sorqvtxgic9630-68-46 18:35:00* Test Item Value Reference Range Interpretation Comments Urine RBC (test code = 69621-8) 0-5 0-5 [facility] HospitalBacteria detection in urine sediment by light nbybainoah6425-89-50 18:35:00* Test Item Value Reference Range Interpretation Comments Urine Bacteria (test code = 66646-7) FEW NONE [facility] HospitalEpithelial cells detection in urine sediment by light zeansdaeva5701-17-83 18:35:00* Test Item Value Reference Range Interpretation Comments Urine Epithelial Cells (test code = 90885-0) FEW NONE [facility] HospitalAmorphous sediment detection in urine sediment by light sfvknjhtkp7859-83-57 18:35:00* Test Item Value Reference Range Interpretation Comments Urine Amorphous Sediment (test code = 8246-1) FEW FEW [facility] HospitalAutomated fine granular casts count in urine sediment by microscopy low power field (number/area)2019-10-14 18:35:00* Test Item Value Reference Range Interpretation Comments Urine Fine Granular Casts (test code = 51958-5) 1-[address] [facility] HospitalMucus detection in urine sediment by light oetouutssf1561-49-49 18:35:00* Test Item Value Reference Range Interpretation Comments Urine Mucus (test code = 8247-9) FEW RARE [facility] HospitalProthrombin time (PT) in platelet poor plasma by coagulation nkcpd1643-14-90 18:35:00* Test Item Value Reference Range Interpretation Comments Prothrombin Time (test code = 5902-2) 13.3 11.9-14.5 [facility] HospitalINR in Platelet poor plasma by Coagulation mrbks2163-94-95 18:35:00* Test Item Value Reference Range Interpretation Comments Prothromb Time International Ratio (test code = 6301-6) 0.96 Oral Anticoagulant Therapy INR Values:1. Low Intensity Therapy 1.5 - 2.02 . Moderate Intensity Therapy 2.0 - 3.03. High Intensity Therapy(1) 2.5 - 3. 54. High Intensity Therapy(2) 3.0 - 4.05. Panic Value INR > 5.0 [facility] HospitalActivated partial thromboplastin time (aPTT) in platelet poor plasma by coagulation mrdal7240-69-28 18:35:00* Test Item Value Reference Range Interpretation Comments Activated Partial Thromboplast Time (test code = 03377-0) 36.5 23.8-35.5 [facility] HospitalUrine color mwepofarnrrfe9265-77-15 18:35:00* Test Item Value Reference Range Interpretation Comments Urine Color (test code = 5778-6) YELLOW YELLOW [facility] HospitalUrine guhsvik2647-29-26 18:35:00* Test Item Value Reference Range Interpretation Comments Urine Clarity (test code = 95531-6) [facility] Hospitalpecific gravity of Urine by Test strip 2019-10-14 18:35:00* Test Item Value Reference Range Interpretation Comments Urine Specific [place] (test code = 5811-5) 1.030 1.010-1.[address] [facility] HospitalUrine pH measurement by automated test ltrtv9116-45-63 18:35:00* Test Item Value Reference Range Interpretation Comments Urine pH (test code = 18425-1) 5.5 5-7 [facility] HospitalUrine leukocyte esterase detection by vrnrkiik7168-38-50 18:35:00* Test Item Value Reference Range Interpretation Comments Urine Leukocyte Esterase (test code = 5799-2) NEGATIVE NEGATIVE [facility] HospitalUrine nitrite mcfespwct3716-01-16 18:35:00* Test Item Value Reference Range Interpretation Comments Urine Nitrite (test code = 27418-5) NEGATIVE NEGATIVE [facility] HospitalUrine protein measurement by test strip (mass/volume)2019-10-14 18:35:00* Test Item Value Reference Range Interpretation Comments Urine Protein (test code = 5804-0) 2+ NEGATIVE [facility] HospitalUrine glucose kmbtcaeei4988-24-77 18:35:00* Test Item Value Reference Range Interpretation Comments Urine Glucose (UA) (test code = 2349-9) NEGATIVE NEGATIVE [facility] HospitalUrine ketones detection by automated test wzpdp4875-80-89 18:35:00* Test Item Value Reference Range Interpretation Comments Urine Ketones (test code = 88216-9) NEGATIVE NEGATIVE [facility] HospitalUrine urobilinogen measurement by test strip (mass/volume)2019-10-14 18:35:00* Test Item Value Reference Range Interpretation Comments Urine Urobilinogen (test code = 11633-9) 0.2 0.2-1 [facility] HospitalUrine total bilirubin measurement (mass/volume)2019-10-14 18:35:00* Test Item Value Reference Range Interpretation Comments Urine Bilirubin (test code = 1978-6) NEGATIVE NEGATIVE [facility] HospitalUrine erythrocytes cklbdnslx7773-64-51 18:35:00* Test Item Value Reference Range Interpretation Comments Urine Blood (test code = 71017-2) NEGATIVE NEGATIVE [facility] HospitalAutomated urine sediment leukocyte count by microscopy (number/high power field)2019-10-14 18:35:00* Test Item Value Reference Range Interpretation Comments Urine WBC (test code = 5821-4) 0-5 0-5 [facility] HospitalErythrocytes detection in urine sediment by light jhmbhwlgpm5375-20-49 18:35:00* Test Item Value Reference Range Interpretation Comments Urine RBC (test code = 06083-1) 0-5 0-5 [facility] HospitalBacteria detection in urine sediment by light himldlqfdl4731-47-72 18:35:00* Test Item Value Reference Range Interpretation Comments Urine Bacteria (test code = 30424-0) FEW NONE [facility] HospitalEpithelial cells detection in urine sediment by light cxxvzolefi8846-78-04 18:35:00* Test Item Value Reference Range Interpretation Comments Urine Epithelial Cells (test code = 24069-0) FEW NONE [facility] HospitalAmorphous sediment detection in urine sediment by light vbzqlqyoux9652-29-15 18:35:00* Test Item Value Reference Range Interpretation Comments Urine Amorphous Sediment (test code = 8246-1) FEW FEW [facility] HospitalAutomated fine granular casts count in urine sediment by microscopy low power field (number/area)2019-10-14 18:35:00* Test Item Value Reference Range Interpretation Comments Urine Fine Granular Casts (test code = 58315-9) 1-[address] [facility] HospitalMucus detection in urine sediment by light kgtwvxuphg4457-83-07 18:35:00* Test Item Value Reference Range Interpretation Comments Urine Mucus (test code = 8247-9) FEW RARE [facility] HospitalBlood xntkwao9235-05-27 18:35:00* Test Item Value Reference Range Interpretation Comments Blood Culture (test code = 67562392) NO GROWTH AFTER [address] [facility] HospitalFluoroscopic procedure less than one hour pombqxkv9202-83-63 18:32:00* Test Item Value Reference Range Interpretation Comments Lactic Acid Level (test code = Lactic Acid Level) 1.5 0.5- 2.0 [facility] HospitalFluoroscopic procedure less than one hour ozosrzxz4908-85-59 18:32:00* Test Item Value Reference Range Interpretation Comments Lactic Acid Level (test code = Lactic Acid Level) 1.5 0.5- 2.0 [facility] HospitalBlood culture, aerobic & anaerobic 2019-06-29 12:03:04* Test Item Value Reference Range Interpretation Comments Blood culture isolate (test code = 600-7) No growth after 5 days of incubation. Specimen InformationSpecimen Source: BloodSpecimen Site: Forearm, left [facility] MethodistComprehensive metabolic feliw6776-63-12 06:05:05* Test Item Value Reference Range Interpretation Comments Sodium (test code = 2951-2) 142 135- 148 mEq/L Potassium (test code = 2823-3) 3.2 3.5- 5.0 mEq/L L Chloride (test code = 5-0) 110 98- 112 mEq/L CO2 (test code = 2027-9) 21 24- 31 mEq/L L Anion gap (test code = 06272-2) 11@ANIO 7- 15 mEq/L BUN (test code = 3094-0) 17 mg/dL 6-20 Creatinine (test code = 2160-0) 0.40 mg/dL 0.7-1.2 L Glucose (test code = 2345-7) 130 mg/dL 65-99 H Calcium (test code = 81472-5) 8.4 mg/dL 8.3-10.2 Protein (test code = 2885-2) 6.3 g/dL 6.3-8.3 - 4.6- 7.0 g/dL1 week 4.4-7.6 g/dL7 months-1year 5.1-7.3 g/dL1-2 years 5.6-7.5 g/dL>3 years 6.0-8.0 g/iJ05-701 6.3-8.3 g/dL Albumin (test code = 1751-7) 3.2 g/dL 3.5-5 L A/G ratio (test code = 1759-0) 1.0 0.7-3.8 Alkaline phosphatase (test code = 6768-6) 140 U/L 40-129 H AST (test code = 1920-8) 80 U/L 10-50 H ALT (test code = 1742-6) 87 U/L 5-50 H Total bilirubin (test code = 1974-2) <0.2 0-1.2 Lab Interpretation (test code = 61040-0) Abnormal [facility] MethodistEstimated ACZ2676-94-56 06:05:05* Test Item Value Reference Range Interpretation Comments Estimated GFR (test code = 5488) >=90 mL/min/1.73 m2 Catergory Units InterpretationG1 >=90 Normal or highG2 60-89 Mildly uczbifxlvG0o 45-59 Mildly to moderately cthrdbeqyO3p 30-44 Moderately to severely decreasedG4 15-29 Severely decreasedG5 <15 Kidney failureThe eGFR was calculated using the Chronic Kidney Disease Epidemiology Collaboration (CKD-EPI) equation. Interpretation is based on recommendations of the National Kidney Foundation-Kidney Disease Outcomes Quality Initiative (NKF-KDOQI) published in 2014. [facility] MethodistCBC with platelet and aertfxpxxgtl6507-15-54 05:49:01* Test Item Value Reference Range Interpretation Comments WBC (test code = 99977-7) 4.15 4.50- 11.00 k/uL L RBC (test code = 94798-1) 4.08 m/uL 4.4-6 L HGB (test code = 718-7) 12.4 g/dL 14-18 L HCT (test code = 4544-3) 38.8 % 41-51 L MCV (test code = 787-2) 95.1 fL 82-100 MCH (test code = 785-6) 30.4 pg 27-34 MCHC (test code = 786-4) 32.0 g/dL 31-37 RDW - SD (test code = 09247-0) 52.9 fL 37-55 MPV (test code = 39598-8) 10.8 fL 8.8-13.2 Platelet count (test code = 65544-5) 220 150- 400 k/uL Nucleated RBC (test code = 24359-5) 0.00 /100 WBC Neutrophils (test code = 05461-9) 62.9 % 39-69 Lymphocytes (test code = 63272-6) 25.8 % 25-45 Monocytes (test code = 25169-6) 5.1 % 0-10 Eosinophils (test code = 68926-9) 4.8 % 0-5 Basophils (test code = 35584-2) 1.2 % 0-1 H Lab Interpretation (test code = 04762-6) Abnormal [facility] MethodistXR Chest 1 Vw Worhjnqb1891-69-95 12:09:24Hm Interface, Radiology Results - 06/26/2019 12:12 PM CDTEXAMINATION: XR CHEST 1 VW PORTABLECLINICAL HISTORY: f u pneumoniaCOMPARISON: Single view chest from 06/24/2019IMPRESSION:An AP radiograph of the chest was submitted for in terpretation.Perihilar opacities have improved. Interstitial opacities are again seen bilaterally which are nonspecific and may represent underlying chronic lung disease.No pleural effusion. No pneumothorax or midline shift.The mediastinal contours and cardiac silhouette are unchanged. Atherosclerotic disease.Micheal butler RM-WPHYAAMemorial Medical Center MethodistRespiratory pathogen mdnqu3086-73-45 12:00:03 Respiratory pathogen panelNegative for all pathogens tested:Negative for Adenovi rusNegative for Coronavirus ADS9Nppzqzcg for Coronavirus FR66Avgptsdr for Chadwick virus 229ENegative for Coronavirus CE93Nnvkqhgx for Human MetapneumovirusNegativ e for Rhinovirus/EnterovirusNegative for Influenza ANegative for Influenza A/H1N egative for Influenza A/E5Egwwfaxm for Influenza A/H1-2009Negative for Influenza BNegative for Parainfluenza Virus 1Negative for Parainfluenza Virus 2Negative f or Parainfluenza Virus 3Negative for Parainfluenza Virus 4Negative for Respirato ry Syncytial VirusNegative for Bordetella pertussisNegative for Chlamydophila pn eumoniaeNegative for Mycoplasma pneumoniaeThis real-time PCR assay detects the p resence of nucleic acids (RNA or DNA) for the respiratory pathogens listed. A r esult of "Not-detected" does not exclude the possibility of the presence of one or more pathogens at concentrations less than the detectable limits of the assay . Comment: Specimen InformationSpecimen Source: NaresSpecimen Site: [facility] MethodistHepatic function nvdnc8935-31-32 03:42:58* Test Item Value Reference Range Interpretation Comments Albumin (test code = 1751-7) 3.8 g/dL 3.5-5 Total bilirubin (test code = 1974-2) 0.2 mg/dL 0-1.2 Bilirubin direct (test code = 1967-7) <0.1 0-0.3 Alkaline phosphatase (test code = 6768-6) 153 U/L 40-129 H Protein (test code = 2885-2) 7.9 g/dL 6.3-8.3 -Grant 4.6- 7.0 g/dL1 week 4.4-7.6 g/dL7 months-1year 5.1-7.3 g/dL1-2 years 5.6-7.5 g/dL>3 years 6.0-8.0 g/pN99-156 6.3-8.3 g/dL ALT (test code = 1742-6) 86 U/L 5-50 H AST (test code = 1920-8) 80 U/L 10-50 H Lab Interpretation (test code = 22294-1) Abnormal [facility] MethodistLipase dpaww3198-46-01 03:42:58* Test Item Value Reference Range Interpretation Comments Lipase (test code = 3040-3) 118 U/L 13-60 H Lab Interpretation (test code = 77764-5) Abnormal [facility] MethodistInfluenza antigen test, reflex negative to GHK9543-84-93 03:04:43* Test Item Value Reference Range Interpretation Comments Influenza antigen (test code = 33124-5) Negative for Influenza A/B antigen. Specimen InformationSpecimen Source: [facility]pe[facility] Site: Left [facility] MethodistBasic metabolic hgelf3142-35-81 02:56:36* Test Item Value Reference Range Interpretation Comments Sodium (test code = 2951-2) 136 135- 148 mEq/L Potassium (test code = 2823-3) 5.0 3.5- 5.0 mEq/L Chloride (test code = 2075-0) 102 98- 112 mEq/L CO2 (test code = 2028-9) 20 24- 31 mEq/L L Anion gap (test code = 91739-5) 14@ANIO 7- 15 mEq/L BUN (test code = 3094-0) 20 mg/dL 6-20 Creatinine (test code = 2160-0) 0.40 mg/dL 0.7-1.2 L Glucose (test code = 2345-7) 115 mg/dL 65-99 H Calcium (test code = 15535-6) 9.1 mg/dL 8.3-10.2 Lab Interpretation (test code = 04083-0) Abnormal [facility] MethodistCreatine kinase, total (CPK)2019-06-24 02:56:36* Test Item Value Reference Range Interpretation Comments Creatine kinase (test code = 2157-6) 114 U/L 39-308 [facility] Methodistcarbamazepine level, jlpxx4171-15-00 16:51:00* Test Item Value Reference Range Interpretation Comments carbamazepine level, serum (test code = 3432-2) 12.7 ug/mL 4.0-12 .0 [facility] Wnixilt5855-43-63 21:05:00* Test Item Value Reference Range Interpretation Comments Blood Culture (test code = 65742470) NO GROWTH AFTER [address] [facility] HospitalUrine DTR5054-74-90 17:00:00* Test Item Value Reference Range Interpretation Comments Urine WBC (test code = 5821-4) NONE 0-5 [facility] HospitalUrine WZX6922-27-98 17:00:00* Test Item Value Reference Range Interpretation Comments Urine RBC (test code = 08112-0) NONE 0-5 [facility] HospitalUrine Xiykcueb0180-20-93 17:00:00* Test Item Value Reference Range Interpretation Comments Urine Bacteria (test code = 51918-2) NONE NONE [facility] HospitalUrine Epithelial Xeaas1549-99-40 17:00:00 * Test Item Value Reference Range Interpretation Comments Urine Epithelial Cells (test code = 36224-1) NONE NONE [facility] HospitalUrine Amorphous Fizdoknz9853-85-94 17:00:00* Test Item Value Reference Range Interpretation Comments Urine Amorphous Sediment (test code = 8246-1) FEW FEW [facility] HospitalUrine Azown5173-55-09 17:00:00* Test Item Value Reference Range Interpretation Comments Urine Mucus (test code = 8247-9) FEW RARE H [facility] HospitalUrine Nmkwa6972-56-64 16:44:00* Test Item Value Reference Range Interpretation Comments Urine Color (test code = 5778-6) YELLOW YELLOW [facility] HospitalUrine Woenzwj5099-39-75 16:44:00* Test Item Value Reference Range Interpretation Comments Urine Clarity (test code = 71816-5) CLEAR CLEAR [facility] HospitalUrine Specific Uyuqfun2237-52-78 16:44:00 * Test Item Value Reference Range Interpretation Comments Urine Specific [place] (test code = 5811-5) 1.015 1.010-1.[address] [facility] HospitalUrine hX4423-85-34 16:44:00* Test Item Value Reference Range Interpretation Comments Urine pH (test code = 33521-8) 6 5-7 [facility] HospitalUrine Leukocyte Mxnvpovk2976-93-75 16:44:00* Test Item Value Reference Range Interpretation Comments Urine Leukocyte Esterase (test code = 46419-7) NEGATIVE NEGATIV E [facility] HospitalUrine Ontfxpj4229-70-12 16:44:00* Test Item Value Reference Range Interpretation Comments Urine Nitrite (test code = 80740-7) NEGATIVE NEGATIVE [facility] HospitalUrine Ckbjvii6897-74-63 16:44:00* Test Item Value Reference Range Interpretation Comments Urine Protein (test code = 79994-3) NEGATIVE NEGATIVE [facility] HospitalUrine Glucose (UA)2018-12-05 16:44:00* Test Item Value Reference Range Interpretation Comments Urine Glucose (UA) (test code = 53589-4) NEGATIVE NEGATIVE [facility] HospitalUrine Rjwavpc3839-55-33 16:44:00* Test Item Value Reference Range Interpretation Comments Urine Ketones (test code = 01169-1) NEGATIVE NEGATIVE [facility] Ucsbzjrzujtn4607-78-30 16:44:00* Test Item Value Reference Range Interpretation Comments Urine Urobilinogen (test code = 64883-8) 0.2 0.2-1 [facility] HospitalUrine Hxlsfcfww3702-54-54 16:44:00* Test Item Value Reference Range Interpretation Comments Urine Bilirubin (test code = 1977-8) NEGATIVE NEGATIVE [facility] HospitalUrine Ztbfe6497-84-38 16:44:00* Test Item Value Reference Range Interpretation Comments Urine Blood (test code = 64775-4) NEGATIVE NEGATIVE [facility] HospitalLipase2019-08-27 05:49:00* Test Item Value Reference Range Interpretation Comments Lipase (test code = 3040-3) 22 8- [facility] HospitalHepatitis A IgM Rdbwziuz3638-19-29 05:08:00* Test Item Value Reference Range Interpretation Comments Hepatitis A IgM Antibody (test code = 44998-7) Negative Negativ e [facility] B Surface Fyfgqco2752-15-96 05:08:00* Test Item Value Reference Range Interpretation Comments Hepatitis B Surface Antigen (test code = 5196-1) Negative Negat yuli [facility] B Core IgM Ulxulqzt2751-84-29 05:08:00* Test Item Value Reference Range Interpretation Comments Hepatitis B Core IgM Antibody (test code = 58058-4) Negative Ne gative [facility] HospitalHeva [facility] C Qoxsgror6174-36-21 05:08:00* Test Item Value Reference Range Interpretation Comments Hepatitis C Antibody (test code = 45881-1) <0.1 0.0-0.9 Negative: < 0.8 Indeterminate: 0.8 - 0.9 Positive: > 0.9 The CDC recommends that a positive HCV antibody result be followed up with a HCV Nucleic Acid Amplification test (032162).Performed at: - [facility] [id number] Director: Ramon Meza MD, Phone: [phone] [facility] HospitalCHES SINGLE ([facility]) 2018-12-04 22:42:00 [place] [address] Patient Name: SHANNON GIMENEZ MR #: [id number] : 1975 Age/Sex: 43/M Req #: [id number] Adm Physician: ARMAND MORIN MD Ordered by: ARMAND MORIN MD Report #: [id number] Location: MED/SURG3 Room/Bed: [facility] Procedure: [id number] DX /CHEST SINGLE (PORTABLE) Exam Date: 12/04/18 Exam Ti me: 2206 REPORT STATUS: Signed E xamination: Single AP view of the chest. COMPARISON: CT abdomen and pelvis 12/01/2018 INDICATION: Fever DISCUSSION: The lungs are well-i nflated. New dense consolidation with multiple air bronchograms involving the right lower lungs and. Patchy opacities in the upper lungs are present as well . No pleural effusion or pneumothorax. Atherosclerotic calcification of the th oracic aorta. Normal heart size. Convexity of the left lower paraspinal line r eflective of esophageal wall thickening as discussed on comparison CT. No acut e osseous abnormality. IMPRESSION: Multifocal consolidations compatib le with pneumonia in the clinical setting of fever, worst in the right lower a nd middle lobes. Follow-up chest radiograph in 8 weeks is suggested after appr opriate treatment to document resolution. Signed by: Prasad Becker on 12/04/2018 10:45 PM Dictated By: MINOO ZHENG MD Electronically Sig maurice By: MINOO ZHENG MD on 12/04/18 1599 Transcribed By: SELVIN on 12/04/18 2 247 COPY TO: ARMAND MORIN MD Ibjrhvjcfxcpj0893-94-77 22:16:00* Test Item Value Reference Range Interpretation Comments Ceruloplasmin (test code = 2064-4) 28.5 16.0-31.0 Performed at: [facility] [id number], [place], [place] [id number] 4Lab Director: ROWENA Arroyo MD, Phone: [phone]. Luke's Health [facility] HospitalAnti-Mitochondrial Qbemubpq3759-27-59 22:16:00* Test Item Value Reference Range Interpretation Comments Anti-Mitochondrial Antibody (test code = 66037-0) <20.0 0.0- 20.0 Negative 0.0 - 20.0 Equivocal 20.1 - 24.9 Positive > 24.9Mitochondrial (M2) Antibodies are found in 90-96% ofpatients with primary bi liary cirrhosis.Performed at: - [facility] [id number] Director: Kobe Meyers MD, Phone: [phone]. Luke's Health – [facility] HospitalBedside Odegbzl5435-37-38 16:13:00* Test Item Value Reference Range Interpretation Comments Bedside Glucose (test code = 33115-7) 111 70-120 Meter ID: [id number] HospitalCarbamazepine (Tegretol) Wiubj7895-35-93 06:56:00* Test Item Value Reference Range Interpretation Comments Carbamazepine (Tegretol) Level (test code = 3432-2) 5.04 4. 0-12.0 [facility] HospitalPhenytoin (Dilantin) Rynrb8253-74-46 06:56:00* Test Item Value Reference Range Interpretation Comments Phenytoin (Dilantin) Level (test code = 3968-5) 13.19 10-20 [facility] Hospitalodium Gaugx0627-59-62 06:38:00* Test Item Value Reference Range Interpretation Comments Sodium Level (test code = 2951-2) 142 136-145 VERIFIED ON 2ND ANALYZERSt. Luke's Health – [facility] HospitalPotassium Level 2018-12-02 06:38:00* Test Item Value Reference Range Interpretation Comments Potassium Level (test code = 2823-3) 4.4 3.5-5.1 VERIFIED ON 2ND ANALYZERSt. Luke's Health – [facility] HospitalAnion Gap 2018-12-02 06:38:00* Test Item Value Reference Range Interpretation Comments Anion Gap (test code = 92480-0) 15.4 8-16 [facility] HospitalAlkaline Zaatptusidm1825-95-33 06:38:00* Test Item Value Reference Range Interpretation Comments Alkaline Phosphatase (test code = 6768-6) 102 40-150 [facility] HospitalChloride Uqywa9744-12-49 06:25:00* Test Item Value Reference Range Interpretation Comments Chloride Level (test code = 2075-0) 111 98-[address] [facility] HospitalCarbon Dioxide Rhjfr5472-34-87 06:25:00* Test Item Value Reference Range Interpretation Comments Carbon Dioxide Level (test code = 2028-9) 20 22-[address] [facility] HospitalBlood Urea Nksevuxx2663-95-19 06:25:00* Test Item Value Reference Range Interpretation Comments Blood Urea Nitrogen (test code = 3094-0) 10 7-26 [facility] HospitalCreatinine2019-08-24 06:25:00* Test Item Value Reference Range Interpretation Comments Creatinine (test code = 2160-0) 0.59 0.72-1.[address] [facility] HospitalBUN/Creatinine Swycc1791-83-54 06:25:00* Test Item Value Reference Range Interpretation Comments BUN/Creatinine Ratio (test code = 3097-3) 17 6-25 [facility] HospitalEstimat Glomerular Filtration Rate 2018-12-02 06:25:00* Test Item Value Reference Range Interpretation Comments Estimat Glomerular Filtration Rate (test code = 323031041) > 60 >60 Ranges were taken from the National Kidney Disease Education Program and the [facility] Kid[facility] Foundation literature.Reference ranges:60 or greater: Kgmdan89-90 ( for 3 consecutive months): Chronic kidney disease 15 or less: Kidney failureSt. Luke's Health – Memorial Livingston HospitalGlucose Bgixv9846-44-56 06:25:00* Test Item Value Reference Range Interpretation Comments Glucose Level (test code = CYM6783) 116 74-118 [facility] HospitalCalcium Fepcd1289-62-19 06:25:00* Test Item Value Reference Range Interpretation Comments Calcium Level (test code = 96144-3) 8.5 8.4-10.2 [facility] HospitalTotal Kemfytrry8251-12-07 06:25:00* Test Item Value Reference Range Interpretation Comments Total Bilirubin (test code = 1975-2) 0.5 0.2-1.2 [facility] HospitalAspartate Amino Transf (AST/SGOT) 2018-12-02 06:25:00* Test Item Value Reference Range Interpretation Comments Aspartate Amino Transf (AST/SGOT) (test code = Aspartate Amino Transf (AST/SGOT)) 37 5-[address] [facility] HospitalAlanine Aminotransferase (ALT/SGPT) 2018-12-02 06:25:00* Test Item Value Reference Range Interpretation Comments Alanine Aminotransferase (ALT/SGPT) (test code = 1742-6) 58 0-[address] [facility] HospitalTotal Xrbbsfc3067-33-14 06:25:00* Test Item Value Reference Range Interpretation Comments Total Protein (test code = 2885-2) 6.5 6.5-8.1 [facility] HospitalAlbumin2019-08-24 06:25:00* Test Item Value Reference Range Interpretation Comments Albumin (test code = 1751-7) 3.2 3.5-5.[address] [facility] HospitalGlobulin2019-08-24 06:25:00* Test Item Value Reference Range Interpretation Comments Globulin (test code = 09589-1) 3.3 2.3-3.5 [facility] HospitalAlbumin/Globulin [id number] 06:25:00 * Test Item Value Reference Range Interpretation Comments Albumin/Globulin Ratio (test code = 1759-0) 1.0 0.8-2.0 [facility] HospitalAmylase Olnyk5897-08-45 06:25:00* Test Item Value Reference Range Interpretation Comments Amylase Level (test code = 1798-8) 98 25-125 [facility] HospitalWhite Blood Oktcx1583-89-26 06:16:00* Test Item Value Reference Range Interpretation Comments White Blood Count (test code = 6690-2) 9.78 4.8-10.8 [facility] HospitalRed Blood Tphas3239-65-24 06:16:00* Test Item Value Reference Range Interpretation Comments Red Blood Count (test code = 789-8) 4.00 4.3-5.[address] [facility] HospitalHemoglobin2019-08-24 06:16:00* Test Item Value Reference Range Interpretation Comments Hemoglobin (test code = 48305-5) 12.8 14.0-18.[address] [facility] HospitalHematocrit2019-08-24 06:16:00* Test Item Value Reference Range Interpretation Comments Hematocrit (test code = 4544-3) 42.1 38.2-49.6 [facility] HospitalMean Corpuscular Qbobtn0848-95-17 06:16:00* Test Item Value Reference Range Interpretation Comments Mean Corpuscular Volume (test code = 787-2) 105.3 81-[address] [facility] HospitalMean Corpuscular Xisqigirxw8901-76-51 06:16:00* Test Item Value Reference Range Interpretation Comments Mean Corpuscular Hemoglobin (test code = 785-6) 32.0 28-32 [facility] HospitalMean Corpuscular Hemoglobin Concent 2018-12-02 06:16:00* Test Item Value Reference Range Interpretation Comments Mean Corpuscular Hemoglobin Concent (test code = 786-4) 30.4 31-[address] [facility] HospitalRed Cell Distribution Bjrhk1880-18-93 06:16:00* Test Item Value Reference Range Interpretation Comments Red Cell Distribution Width (test code = 47877-0) 14.5 11.7 -14.[address] [facility] HospitalPlatelet Mptsc7863-85-79 06:16:00* Test Item Value Reference Range Interpretation Comments Platelet Count (test code = 777-3) 159 140-360 [facility] HospitalNeutrophils (%) (Auto)2018-12-02 06:16:00 * Test Item Value Reference Range Interpretation Comments Neutrophils (%) (Auto) (test code = 56371-2) 70.5 38.7-80.0 [facility] HospitalLymphocytes (%) (Auto)2018-12-02 06:16:00 * Test Item Value Reference Range Interpretation Comments Lymphocytes (%) (Auto) (test code = 736-9) 19.5 18.0-39.1 [facility] HospitalMonocytes (%) (Auto)2018-12-02 06:16:00* Test Item Value Reference Range Interpretation Comments Monocytes (%) (Auto) (test code = 5905-5) 7.5 4.4-11.3 [facility] HospitalEosinophils (%) (Auto)2018-12-02 06:16:00 * Test Item Value Reference Range Interpretation Comments Eosinophils (%) (Auto) (test code = 713-8) 1.5 0.0-6.0 [facility] HospitalBasophils (%) (Auto)2018-12-02 06:16:00* Test Item Value Reference Range Interpretation Comments Basophils (%) (Auto) (test code = 706-2) 0.6 0.0-1.0 [facility] HospitalIM GRANULOCYTES %2018-12-02 06:16:00* Test Item Value Reference Range Interpretation Comments IM GRANULOCYTES % (test code = IM GRANULOCYTES %) 0.4 0.0- 1.0 [facility] HospitalNeutrophils # (Auto)2018-12-02 06:16:00* Test Item Value Reference Range Interpretation Comments Neutrophils # (Auto) (test code = 751-8) 6.9 2.1-6.9 [facility] HospitalLymphocytes # (Auto)2018-12-02 06:16:00* Test Item Value Reference Range Interpretation Comments Lymphocytes # (Auto) (test code = 41633-9) 1.9 1.0-3.2 [facility] HospitalMonocytes # (Auto)2018-12-02 06:16:00* Test Item Value Reference Range Interpretation Comments Monocytes # (Auto) (test code = 742-7) 0.7 0.2-0.8 [facility] HospitalEosinophils # (Auto)2018-12-02 06:16:00* Test Item Value Reference Range Interpretation Comments Eosinophils # (Auto) (test code = 711-2) 0.2 0.0-0.4 [facility] HospitalBasophils # (Auto)2018-12-02 06:16:00* Test Item Value Reference Range Interpretation Comments Basophils # (Auto) (test code = 704-7) 0.1 0.0-0.1 [facility] HospitalAbsolute Immature Granulocyte (auto 2018-12-02 06:16:00* Test Item Value Reference Range Interpretation Comments Absolute Immature Granulocyte (auto (heraclio t code = Absolute Immature Granulocyte (auto) 0.04 0-0.1 [facility] HospitalFerritin2019-08-23 21:32:00* Test Item Value Reference Range Interpretation Comments Ferritin (test code = 2276-4) 79.54 21.81-274.66 [facility] HospitalIron Winzj3555-97-55 21:14:00* Test Item Value Reference Range Interpretation Comments Iron Level (test code = 2498-4) 86 65-175 [facility] HospitalTotal Iron Binding Mmbpmtwn5186-67-55 21:14:00* Test Item Value Reference Range Interpretation Comments Total Iron Binding Capacity (test code = 2500-7) 279 261-[address] [facility] HospitalPercent Iron Yrtwtveumh9881-63-04 21:14:00* Test Item Value Reference Range Interpretation Comments Percent Iron Saturation (test code = 2502-3) 31 15-50 [facility] HospitalTransferrin2019-08-23 21:14:00* Test Item Value Reference Range Interpretation Comments Transferrin (test code = 3034-6) 199 174-364 [facility] HospitalCT ABDOMEN/PELVIS [id number] 16:56:00 [place] [address] Patient Name: SHANNON GIMENEZ MR #: [id number] : 1975 Age/Sex: 43/M Req #: [id number] Adm Physician: ARMAND MORIN MD Ordered by: ARMAND MORIN MD Report #: [id number] Location: [place] [address] Room/Bed: [facility] Procedure: CT /CT ABDOMEN/PELVIS W Exam Date: 12/01/18 Exam Time: 1625 REPORT STATUS: Signed EXAM: CT Abdomen and Pelvis WITH intravenous contrast INDICATION: High lipase COMPARISON: Ultrasound of the right upper quadrant performed partially today TECHNIQUE: Abdomen and pelvis were scanned utilizing a multidetector helical scanner from the lung base to the pubic symphysis after administration of IV contrast. Coronal and sagittal reformations were obtained. Routine protocol was performed. Scan was performed during portal venous phase. IV CO NTRAST: 100mL of Isovue 370 ORAL CONTRAST: Water RADIATION DOSE: Total DLP: 143.61 mGy*cm Dose modulation, iterative reconstruction, and/or weigh t based adjustment of the mA/kV was utilized to reduce the radiation dose to a s low as reasonably achievable. FINDINGS: LOWER THORAX: The lung bases are clear. HEPATOBILIARY: No focal hepatic lesions. No biliary ductal dil atation. The gallbladder appears unremarkable. SPLEEN: No splenomegaly . PANCREAS: The pancreas is homogeneous in attenuation. There is no pancrea tic ductal dilatation. No peripancreatic inflammatory stranding is present. ADRENALS: No adrenal nodules. KIDNEYS/URETERS: No hydronephrosis, stones, or solid mass lesions. PELVIC ORGANS/BLADDER: Unremarkable. PERITONEUM / R ETROPERITONEUM: No free air or fluid. LYMPH NODES: No lymphadenopathy. VESSE LS: Unremarkable. GI TRACT: A gastrostomy tube is present. The distal tip o f the gastrostomy tube terminates in the second portion of the duodenum. There is moderate distention of the stomach and esophagus. The small bowel is decom pressed. There is no evidence of small bowel obstruction. There is a moderate to large amount of retained fecal material throughout the colon particularly i n the rectosigmoid colon. BONES AND SOFT TISSUES: No acute osseous abnorm alities. IMPRESSION: 1. No CT findings of pancreatitis. 2. The stom ach and esophagus are moderately distended. There is no evidence of mechanical obstruction. Consider decreasing tube feed rates. 3. Moderate to large amount retained fecal material. Signed by: Junior Truong MD on 12/01/2018 5:06 PM Dictated By: JUNIOR TRUONG MD 05 Transcribed By: SELVIN on 12/01/181705 COPY TO: ARMAND MORIN MD [id number] 10:37:00 [place] [address] Patient Name: SHANNON WILEY MR #: [id number] : 1975 Age/Sex: 43/M Req #: [id number] Adm Physician: ARMAND MORIN MD Ordered by: AMY OSWALD MD Report #: [id number] Location: MED/SURG3 Room/Bed: [facility] Procedure: 0823- 0002 US/US GALLBLADDER Exam Date: 12/01/18 Exam Time : 855 REPORT STATUS: Signed EXA M: Right upper quadrant abdominal ultrasound INDICATION: Right upper quad rant pain COMPARISON: None. TECHNIQUE: Transverse and longitudinal images of the right upper quadrant abdomen were obtained FINDINGS: Liver: Size: 11.5 cm in the right midclavicular line, normal Appearance: Normal ec hogenicity, smooth contour Mass: No focal masses Gallbladder: No gallblad dominga distension, pericholecystic fluid, wall thickening, stone, or reported son ographic Meade's sign. Gallbladder wall measures 0.2 cm. Bile Ducts: Intrahepatic Ducts: No dilatation Extrahepatic Ducts: Common bile duct measure s 0.2cm, no dilatation Pancreas: Visualized portions of the pancreatic he ad, neck and proximal body are normal. Kidney: The right kidney measures 7. 33.3 x 4.0 cm without evidence of hydronephrosis or stone. Vessels: A ashkan: Visualized portions are normal Inferior Vena Cava: Visualized portions a re normal Main Portal Vein: 0.6 cm, normal size with hepatopetal flow. Fr ee Fluid: No ascites or pleural effusion IMPRESSION: Normal right up per quadrant ultrasound. Signed by: Junior Truong MD on 12/01/2018 10:39 AM Dictated By: JUNIOR TRUONG MD 1038 Transcribed By: SELVIN on 12/01/18 1039 COPY TO: AMY OSWALD MD Activated Partial Thromboplast Time 2018-11-30 23:42:00* Test Item Value Reference Range Interpretation Comments Activated Partial Thromboplast Time (test code = 65005-4) 25.8 23.8-35.5 [facility] HospitalProthrombin Wyhq4021-77-82 23:40:00* Test Item Value Reference Range Interpretation Comments Prothrombin Time (test code = 5902-2) 12.5 11.9-14.5 [facility] HospitalProthromb Time International Ratio 2018-11-30 23:40:00* Test Item Value Reference Range Interpretation Comments Prothromb Time International Ratio (test code = 6301-6) 0.89 Oral Anticoagulant Therapy INR Values:1. Low Intensity Therapy 1.5 - 2.02 . Moderate Intensity Therapy 2.0 - 3.03. High Intensity Therapy(1) 2.5 - 3. 54. High Intensity Therapy(2) 3.0 - 4.05. Panic Value INR > 5.0 [facility] Hospitalurine qhnbqsx7048-89-97 15:11:00* Test Item Value Reference Range Interpretation Comments urine culture (test code = 630-4) PSEUAE A [facility] ([facility]), [id number] 16:28:00 * Test Item Value Reference Range Interpretation Comments alanine aminotransferase (SGPT), serum (test code = 1742-6) 37 1/L 0-44 [facility] Hospitalaspartate aminotransferase (SGOT), nqtat3755-80-96 16:28:00* Test Item Value Reference Range Interpretation Comments aspartate aminotransferase (SGOT), serum (test code = 1920-8) 35 1/ L 0-40 [facility] Hospitalalkaline phosphatase, kvxnl2822-55-52 16:28:00* Test Item Value Reference Range Interpretation Comments alkaline phosphatase, serum (test code = 1783-0) 159 1/L 39-11 7 H [facility]bilirubin, serum, [id number] 16:28:00* Test Item Value Reference Range Interpretation Comments bilirubin, serum, total (test code = 1975-2) <0.2 mg/dL 0.0-1.2 [facility] Hospitalalbumin/globulin ratio, [id number] 16:28:00* Test Item Value Reference Range Interpretation Comments albumin/globulin ratio, serum (test code = 1759-0) 1.4 1.2 -2.2 [facility] Healthglobulin, [id number] 16:28:00* Test Item Value Reference Range Interpretation Comments globulin, serum (test code = 2336-6) 2.7 1.5-4.5 [facility] Healthalbumin, [id number] 16:28:00* Test Item Value Reference Range Interpretation Comments albumin, serum (test code = 1751-7) 3.8 g/dL 3.5-5.5 [facility] Healthprotein, total, [id number] 16:28:00* Test Item Value Reference Range Interpretation Comments protein, total, serum (test code = 2885-2) 6.5 g/dL 6.0-8.5 [facility] Healthcalcium, [id number] 16:28:00* Test Item Value Reference Range Interpretation Comments calcium, serum (test code = 2000-8) 9.1 mg/dL 8.7-10.2 [facility] Hospitalcarbon dioxide, venous bqpbp9347-40-30 16:28:00* Test Item Value Reference Range Interpretation Comments carbon dioxide, venous blood (test code = 2027-1) 23 mmol/L 20-2 9 [facility] Healthchloride, pqmqr2584-56-78 16:28:00* Test Item Value Reference Range Interpretation Comments chloride, serum (test code = 2075-0) 99 mmol/L 96-106 [facility] Healthpotassium, [id number] 16:28:00* Test Item Value Reference Range Interpretation Comments potassium, serum (test code = 2823-3) 4.7 mmol/L 3.5-5.2 [facility] Healthsodium, qtzju7372-05-83 16:28:00* Test Item Value Reference Range Interpretation Comments sodium, serum (test code = 2951-2) 138 mmol/L 134-144 [facility] Healthurea nitrogen/creatinine ratio, ltmjd1950-57-52 16:28:00 * Test Item Value Reference Range Interpretation Comments urea nitrogen/creatinine ratio, serum (test code = 3097-3) 88 9-20 H [facility] HealtheGFR if Gmqfrwxt2751-52-45 16:28:00* Test Item Value Reference Range Interpretation Comments eGFR if (test code = 06980-9) 205 mL/min/((173/100 ).m2) >59 [facility] HospitalEstimated Glomerular Filtration Rate (calc)2017-10-04 16:28:00* Test Item Value Reference Range Interpretation Comments Estimated Glomerular Filtration Rate (calc) (test code = 86572-6) 178 mL/min/((173/100).m2) >59 [facility] Hospitalcreatinine, [id number] 16:28:00* Test Item Value Reference Range Interpretation Comments creatinine, serum (test code = 2160-0) 0.25 mg/dL 0.76-1.27 L [facility] Hospitalurea nitrogen, [id number] 16:28:00* Test Item Value Reference Range Interpretation Comments urea nitrogen, blood (test code = 3094-0) 22 mg/dL 6-24 [facility] Hospitalblood glucose, mpoiqr0682-38-52 16:28:00* Test Item Value Reference Range Interpretation Comments blood glucose, random (test code = 2339-0) 95 mg/dL 65-99 [facility]
--- OUTSIDE RECORDS SUMMARY | 2019-11-09 06:50 | XMS REPORT ---
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 Name Role Phone Summer Jasso Unavailable PROBLEMS Condition Status Date Provider Notes Bronchiectasis active Yandro Boo Chest congestion active Yandro Boo Irritability active Yandro Boo Incontinence active Berlondrika Tim Generalized pain active Berlondrika Tim Elevated blood pressure reading without diagnosis of hyperte nsion active Candelariasusan Muñoza Insomnia active Fran Wu Circadian rhythm sleep disorder, irregular sleep wake active Candelaria Muñoza Flu shot active Candelaria Muñoza Cough completed - Candelaria Muñoza Constipation active Candelaria Muñoza Leaking peg tube active Ashleigh Gaitan High risk for aspiration active Candelaria Kicza Cachexia active Candelaria Muñoza Need for home health care active Candelaria Muñoza Dysuria completed - Candelaria Muñoza Foul smelling urine completed - Candelaria hernandez Seizure disorder active Candelaria Muñoza Feeding intolerance active Candelaria Diallo Presence of gastrostomy active Candelaria Diallo History of meningitis active Candelaria Diallo age 2 months Developmental delay active Candelaria Diallo ENCOUNTERS Date Type Provider Location Encounter Diagn osis - Ambulatory Encounter Rudy Avalos [facility] - Ambulatory Encounter Yandro Boo Y milan Boo Eloisa Avalos [facility], UNK - Ambulatory Encounter Yandro Boo Y milan Boo Gal Lee UNK - Ambulatory Encounter Summer Mcclure [facility] Yandro Boo Yandro Boo UNK - Ambulatory Encounter Ashleigh Mcclure [facility] UNK - Ambulatory Encounter Yandro Boo Y milan Boo Darshana Jason Pfeiffer UNK - Ambulatory Encounter Yandro Boo Y milan Boo Darshana Gomez UNK - Ambulatory Encounter Yandro Boo Y milan Boo Darshana Posey Bronchiectasis - Ambulatory Encounter Ashleigh Plasencia [facility] UNK - Ambulatory Encounter Yandro Boo [place] UNK - Ambulatory Encounter Yandro Boo Y milan Boo Opal Zamora [facility] Chest congestion - Ambulatory Encounter Yandro Boo Y milan Boo LinkLogic UNK - Ambulatory Encounter Yandro Boo Y milan Boo Tabatha Posey [facility] UNK - Ambulatory Encounter Yandro Boo Y milan Boo Luba Vazquez UNK - Ambulatory Encounter Yandro Boo Y milan Boo LinkLogic UNK - Ambulatory Encounter Yandro Boo Y milan Boo LinkLogic UNK - Ambulatory Encounter Yandro Boo Y milan Boo LinkLogic UNK - Ambulatory Encounter Diana Javier UNK - Ambulatory Encounter Ashleigh Mcclure [facility] Yandro Boo Yandro Boo Ольга Villalobos [facility] UNK - Ambulatory Encounter Diana Javier UNK - Ambulatory Encounter Fax Status LinkLogic UNK - Ambulatory Encounter Fax Status LinkLogic UNK - Ambulatory Encounter Fax Status LinkLogic UNK - Ambulatory Encounter Yandro Boo Y milan Boo LinkLogic UNK - Ambulatory Encounter Augustus pompa Boo Yandro Boo UNK - Ambulatory Encounter Yandro Boo Y milan Boo LinkLogic UNK - Ambulatory Encounter Fax Status LinkLogic UNK - Ambulatory Encounter Fax Status LinkLogic UNK - Ambulatory Encounter Fax Status LinkLogic UNK - Ambulatory Encounter Yandro Boo Yandro L eal UNK - Ambulatory Encounter Yandro Boo Yandro L eal UNK - Ambulatory Encounter Ashleigh Duong Yandro Boo Yandro Boo Irrit ability - Ambulatory Encounter Summer Jasso LinkLog ic UNK - Ambulatory Encounter Randa Goldberg UNK - Ambulatory Encounter Randa Alicia UNK - Ambulatory Encounter Fran Plasencia [facility] UNK - Ambulatory Encounter Roxana Tobi Barron william Mcclure [facility] UNK - Ambulatory Encounter Sandovalany Magallon UNK - Ambulatory Encounter Darshana Gomez Casey Angel Cepeda Abby Alejo UNK - Ambulatory Encounter Fax Status LinkLogic UNK - Ambulatory Encounter Fax Status LinkLogic UNK - Ambulatory Encounter Fax Status LinkLogic UNK - Ambulatory Encounter Polly Curiel cNeal Berlondrika Tim LinkLogic UNK - Ambulatory Encounter Polly Curiel cNeal Berlondrika Tim UNK - Ambulatory Encounter Fran Herrera Berlondrika Tim Berlondrika Tim Kristal Guzman Generalized painIncontinence - Ambulatory Encounter Roxana Plasencia [facility] Sarah Mcclure [facility] Berlondrika Tim Berlondrika Tim UNK - Ambulatory Encounter Luba Pfeiffer UNK - Ambulatory Encounter Polly Curiel cNeal Berlondrika Tim LinkLogic UNK - Ambulatory Encounter Summer Mcclure [facility] UNK - Ambulatory Encounter Fax Status LinkLogic UNK - Ambulatory Encounter Rudy Boo LinkLogic UNK - Ambulatory Encounter Candelaria Diallo LinkLogic UNK - Ambulatory Encounter Sarah anderson [facility] Luba Alejo UNK - Ambulatory Encounter Fax Status LinkLogic UNK - Ambulatory Encounter Candelaria Alvarez nne Kicza UNK - Ambulatory Encounter Sarah Vladimir anderson [facility] Darshana Gomez Candelaria Kicza Candelaria Kicza Tanika Bull UNK - Ambulatory Encounter Fran Simmonsyn Ren [facility] Candelariasusan Muñoza Candelaria Kicza UNK - Ambulatory Encounter Candelaria Muñoz a Candelaria Kicza LinkLogic UNK - Ambulatory Encounter Roxana Britton LinkLogi c UNK - Ambulatory Encounter Candelaria Muñoz a Candelaria Kicza LinkLogic UNK - Ambulatory Encounter Candelaria blackburne Kicza UNK - Ambulatory Encounter Candelaria Muñoz a Candelaria Tonia Luba Short UNK - Ambulatory Encounter Ileana Mandujano UNK - Ambulatory Encounter Candelaria Muñoz a Candelaria Kicza LinkLogic UNK - Ambulatory Encounter Ervin Portillo Link Logic UNK - Ambulatory Encounter Luba Mandujano UNK - Ambulatory Encounter Candelaria Jerrymelani a Candelaria Tonia Luba Mandujano Presence of gastrostomy - Ambulatory Encounter Candelariasusan Muñoza Cristinae nne Kicza UNK - Ambulatory Encounter Fran Evansenne Kicza Candelaria Kicza [place] zuleima blood pressure reading without diagnosis of hypertension - Ambulatory Encounter Ashleigh Gaitan LinkLogic UNK - Ambulatory Encounter Candelaria Diallo LinkLogic UNK - Ambulatory Encounter Candelaria Muñoza LinkLogic UNK - Ambulatory Encounter Candelaria Diallo LinkLogic UNK - Ambulatory Encounter Candelaria Diallo LinkLogic UNK - Ambulatory Encounter Anushka marino Candelaria Diallo UNK - Ambulatory Encounter Anushka Prieto UNK - Ambulatory Encounter Randa Alicia UNK - Ambulatory Encounter Candelaria Alvarez nne Kicza UNK - Ambulatory Encounter Fran Alicia Verna Duong Candelaria Muñoza CoughFlu shotCircadian rhythm sleep disorder, irregular sleep wakeInsomnia - Ambulatory Encounter Luba Mandujano UNK - Ambulatory Encounter Candelaria Alvarez nne Kicza UNK - Ambulatory Encounter Candelaria Diallo Luba Mandujano UNK - Ambulatory Encounter Luba Mandujano UNK - Ambulatory Encounter Candelaria Muñoza LinkLogic UNK - Ambulatory Encounter Candelaria Evanse nne Kicza UNK - Ambulatory Encounter Anushka Meisey Nazia Candelaria Muñoza Candelaria Muñoza UNK - Ambulatory Encounter Candelaria torrez Candelariasusan Muñoza LinkLogic UNK - Ambulatory Encounter Candelaria Diallo Adrie nne Kicza UNK - Ambulatory Encounter Candelaria Diallo UNK - Ambulatory Encounter Candelaria Diallo LinkLogic UNK - Ambulatory Encounter Candelaria Diallo LinkLogic UNK - Ambulatory Encounter Summer Otoole Candelaria Diallo UNK - Ambulatory Encounter Candelaria Diallo Luba Blue Kj Cough - Ambulatory Encounter Ashleigh DuarteLogmiriam UNK - Ambulatory Encounter Elvira Fox UNK - Ambulatory Encounter Elvira Fox UNK - Ambulatory Encounter Candelaria Diallo UNK - Ambulatory Encounter Ashleigh Astorga Candelaria Diallo Elvira Mi Foul smelling urineDysuriaCo nstipation - Ambulatory Encounter Elvira Fox UNK - Ambulatory Encounter Elvira Fox UNK - Ambulatory Encounter Candelaria Diallo UNK - Ambulatory Encounter Candelaria Diallo LinkLogic UNK - Ambulatory Encounter Elvira Fox UNK - Ambulatory Encounter Ashleigh Gaitan UNK - Ambulatory Encounter Sarah Mcclure Med Adherence UNK - Ambulatory Encounter Fax Status LinkLogic UNK - Ambulatory Encounter Fax Status LinkLogic UNK - Ambulatory Encounter Fax Status LinkLogic UNK - Ambulatory Encounter Fax Status LinkLogic UNK - Ambulatory Encounter Fax Status LinkLogic UNK - Ambulatory Encounter Fax Status LinkLogic UNK - Ambulatory Encounter Candelaria Diallo LinkLogic UNK - Ambulatory Encounter Candelaria Diallo UNK - Ambulatory Encounter Ashleigh Woodard Candelaria Edwardsmelanilore Elvira Mi Developmen lars delayHistory of meningitisPresence of gastrostomyFeeding intoleranceSeizure disorderFoul smelling urineDysuriaNeed for home health careCachexiaHigh risk for aspirationLeaking peg tube VITAL SIGNS Date Observation Value Provider oxygen saturation, oximetry 98 % Cathy ueline Duong " method used to obtain blood pressure automatic Verna Duong " Blood Pressure Position 01 sitting Jacqu iona Duong " blood pressure, site #1 right arm Jacqueli ne Duong " blood pressure, diastolic 61 mm[Hg] Elizabeth line Duong " blood pressure, systolic 102 mm[Hg] Jacquel ine Duong " respiratory rate E&M 18 /min Verna Duong " pulse rate 72 /min Verna River a " temperature site tympanic Verna Rive ra " temperature E&M 98.2 [degF] Verna [place] a oxygen saturation, oximetry 95 % Augustus Guzman " method used to obtain blood pressure automatic Augustus Guzman " Blood Pressure Position 01 sitting Augustus Guzman " blood pressure, site #1 left arm Augustus Cifuentes pa " blood pressure, diastolic 85 mm[Hg] Augustus C hapa " blood pressure, systolic 138 mm[Hg] Augustus Cohen apa " respiratory rate E&M 14 /min Augustus Guzman " pulse rate 68 /min Augustus Guzman " temperature site oral Augustus Guzman " temperature E&M 97.6 [degF] Augustus Guzman oxygen saturation, oximetry 98 % Cathy ueline Duong " method used to obtain blood pressure automatic Verna Duong " Blood Pressure Position 01 sitting Jacqu iona Duong " blood pressure, site #1 left leg Jacqueli ne Duong " blood pressure, diastolic 142 mm[Hg] Elizabeth line Duong " blood pressure, systolic 207 mm[Hg] Jacquel ine Duong " respiratory rate E&M 21 /min Verna Duong " pulse rate 98 /min Verna [place] a " temperature site tympanic Verna Rive ra " temperature E&M 98.1 [degF] [place]a [place] a method used to obtain blood pressure automatic Verna Duong " Blood Pressure Position 01 sitting Jacqu iona Duong " blood pressure, site #1 left arm Jacqueli ne Duong " blood pressure, diastolic 82 mm[Hg] Elizabeth line Duong " blood pressure, systolic 129 mm[Hg] Jacquel ine Duong " respiratory rate E&M 16 /min Verna Duong " pulse rate 66 /min Verna [place] a " temperature site tympanic Verna Rive ra " temperature E&M 98.3 [degF] Verna [place] a " Reason Weight not obtained unable to obtain dorothy ent weight Verna Duong respiratory rate E&M 22 /min Elisabeth Gut ierrez " pulse rate 136 /min Elisabeth Gutierre z " blood pressure, diastolic 58 mm[Hg] Jessic a Astorga " blood pressure, systolic 132 mm[Hg] Elisabeth Astorga " oxygen saturation, oximetry 90 % Yamilka ica Astorga " temperature E&M 99.1 [degF] Elisabeth Gutierre z " blood pressure, site #1 right arm Elisabeth Astorga " Blood Pressure Position 01 laying Anisha ca Astorga " method used to obtain blood pressure automatic Elisabeth Astorga " temperature site axillary Elisabeth Gutierr ez oxygen saturation, oximetry 98 % Portia Goldberg " method used to obtain blood pressure automatic Randa Goldberg " Blood Pressure Position 01 sitting Randa Goldberg " blood pressure, site #1 right leg Randa reed " blood pressure, diastolic 97 mm[Hg] Randa Goldberg " blood pressure, systolic 143 mm[Hg] Randa gonzalez " respiratory rate E&M 16 /min Randa huston " pulse rate 67 /min Randa Goldberg " temperature site oral Randa Goldberg " temperature E&M 99.2 [degF] Randa Goldberg " Reason Weight not obtained unable to obtain dorothy ent weight Randa Goldberg Allergies No Known Allergy Information REASON FOR REFERRAL Start Date - End Date Service - Gastroenterology - External RESULTS Date Observation Value Provider Reference Range Interpretati on Location carbamazepine level, serum 12.7 ug/mL [facility] 4.0-12.0 Panic high urine culture [place] [facility] Abnormal alanine aminotransferase (SGPT), serum 37 1/L [facility] 0-44 " aspartate aminotransferase (SGOT), serum 35 1/L [facility] 0-40 " alkaline phosphatase, serum 159 1/L [facility] 39-117 H igh " bilirubin, serum, total <0.2 mg/dL [facility] 0.0-1.2 " albumin/globulin ratio, serum 1.4 [facility] 1.2-2.2 " globulin, serum 2.7 [facility]Logic 1.5-4.5 " albumin, serum 3.8 g/dL [facility] 3.5-5.5 " protein, total, serum 6.5 g/dL [facility] 6.0-8.5 " calcium, serum 9.1 mg/dL [facility] 8.7-10.2 " carbon dioxide, venous blood 23 mmol/L [facility] 20-29 " chloride, serum 99 mmol/L [facility] 96-106 " potassium, serum 4.7 mmol/L [facility] 3.5-5.2 " sodium, serum 138 mmol/L [facility] 134-144 " urea nitrogen/creatinine ratio, serum 88 [facility] 9 -20 High " eGFR if 205 mL/min/((173/100).m2) [facility] >59 " Estimated Glomerular Filtration Rate (calc) 178 mL/min/((173/100).m2) [facility] >59 " creatinine, serum 0.25 mg/dL [facility] 0.76-1.27 Low " urea nitrogen, blood 22 mg/dL [facility] 6-24 " blood glucose, random 95 mg/dL [facility] 65-99 HISTORY OF IMMUNIZATIONS No Information Available HISTORY OF MEDICATION USE Medication Instructions Dates Provider Comments TRAMADOL HCL 50 MG ORAL TABLET 1-2 tablets by mouth 2 times a day as needed for pain Rudy Boo SODIUM CHLORIDE 0.9 % INHALATION NEBULIZATION SOLUTION apply 3ml to nebulizer Three Times a Day As Needed Rudy Boo allow for bah bstitutions AIRIAL COMPACT COMPRESSOR NEB use as instructed for ch est congestion related to bronchiectasis Rudy Boo allow for substituti ons HYDROXYZINE HCL 25 MG ORAL TABLET 2 by mouth daily As Needed before bedtime Ashleigh Gaitan LORAZEPAM 0.5 MG ORAL TABLET 1 by mouth 3 times a day as needed Rudy Boo GABAPENTIN 100 MG ORAL CAPSULE 1 by mouth before bedtime Rudy Boo TRAMADOL HCL 50 MG ORAL TABLET 1-2 tablets by mouth 4 times a day as needed for pain - Rudy Boo MELATONIN 10 MG ORAL TABLET DISINTEGRATING 1 tab By Mouth qhs 20 26/01/18 Candelaria Diallo HYDROCODONE-ACETAMINOPHEN 5-325 MG ORAL TABLET 1 tab p er tube q8h As Needed severe pain - Rudy Boo AMBIEN 5 MG ORAL TABLET 1/2 tab by tube nightly at b edtime as needed for insomnia - Rudy Boo PANTOPRAZOLE SODIUM 40 MG ORAL TABLET DELAYED RELEASE 1 tab per tube daily Candelaria Diallo LORATADINE 10 MG ORAL TABLET 1 per tube once a day as needed for allergies - Candelaria Diallo DOCUSATE SODIUM 50 MG/5ML ORAL LIQUID 10ml per tube BID Candelaria Diallo [facility] PROBIOTIC MAXIMUM STRENGTH ORAL CAPSULE 1 capsule By Lee Ann th tid - Candelaria Diallo AUGMENTIN 250-62.5 MG/5ML ORAL SUSPENSION RECONSTITUTED 2ml BID for 5 days - Candelaria Diallo take with food, changed from pill to liquid REGLAN 10 MG ORAL TABLET 1/2 tab by mouth ac and nightly at bedtime - Candelaria Diallo MORPHINE SULFATE 10 MG/5ML ORAL SOLUTION 1ml per G tube q4h As Needed pain - Candelaria Diallo CARBAMAZEPINE 100 MG/5 ML SUSP TAKE 10ML PER G-TUBE 3 TIMES MEL Y Eloisa Avalos MedAdherence, SOCIAL HISTORY Date Observation Value Provider time of call 09/04/2019 2:52 PM Kaitlyn Pearce aca time of call 07/31/2019 12:09 PM Elizabeth Posey time of call 06/29/2019 11:51 AM Amirah Vazquez drug use, illicit Never Verna Kishore era " alcohol use Never Verna River a " social history reviewed E&M reviewed today Cathy ueline Duong " assessment of health literacy ([facility]LY [facility], 3C10) Low Verna Duong " passive cigarette smoke exposure No Verna Duong Exercise Program Referral Alhaji Wu " Weight Management Counseling Provided Alhaji Wu " Nutrition intervention Alhaji peck time of call 02/28/2019 4:09 PM Abby agarwal drug use, illicit Never Augustus Guzman " alcohol use Never Augustus Guzman " social history reviewed E&M reviewed today Augustus Guzman " is there any chance that you could be ? No Augustus Guzman " assessment of health literacy ([facility], 3C10) Low Augustus Guzman " passive cigarette smoke exposure No Augustus Guzman " smoking status never smoker Augustus Guzman time of call 12/18/2018 10:54 AM Kaitlyn tellez time of call 10/04/2018 2:25 PM Abby agarwal time of call 09/05/2018 4:03 PM Tanika Salmonemanuel Bull drug use, illicit Never Verna Kishore era " alcohol use Never Verna River a " social history reviewed E&M reviewed today Cathy ueline Duong " assessment of health literacy ([facility], 3C10) Low Verna Duong " passive cigarette smoke exposure No Verna Duong " smoking status never smoker [place]a [place] a Exercise Program Referral Alhaji Wu " Weight Management Counseling Provided Alhaji Wu " Nutrition intervention T Fran peck " drug use, illicit Never Verna Kishore era " alcohol use Never Verna [place] a " social history reviewed E&M reviewed today Cathy ueline Duong " assessment of health literacy ([facility], 3C10) Low Verna Duong " passive cigarette smoke exposure No Verna Duong drug use, illicit Never Elisabeth Morinier elvira " alcohol use Never Elisabeth Gutierre z " social history reviewed E&M reviewed today Yamilka Arorarez " assessment of health literacy ([facility], 3C10) Low Elisabeth Morinierrez " passive cigarette smoke exposure No Elisabeth Morinierrez " smoking status never smoker Elisabeth Arorare z drug use, illicit Never Randa Goldberg " alcohol use Never Randa Goldberg " Occupation #1 Disabled Randa Goldberg " patient considered to be homeless No Randa Goldberg " social history reviewed E&M reviewed today Portia torrez Ashlyn " passive cigarette smoke exposure No Randa Goldberg " smoking status never smoker Randa Goldberg " assessment of health literacy ([facility] Low Randa Goldberg FUNCTIONAL STATUS No Information Available MENTAL STATUS Date Observation Value Provider assessment of judgment and insight E&M unable ac eligio Boo " mental status examination: orientation E&M unabl e to efrain Boo " assessment of mood and affect E&M unable to aces aspen Boo " Generalized Anxiety Disorder Questionnaire - Que stion 2 0 Verna Duong " Generalized Anxiety Disorder Questionnaire - Que stion 1 0 Verna Duong assessment of judgment and insight E&M unable ac ess Polly Dumont " mental status examination: orientation E&M unabl e to aceverónica Polly Dumont " assessment of mood and affect E&M unable to aces s Polly Dumont " Generalized Anxiety Disorder Questionnaire - Que stion 2 0 Augustus Guzman " Generalized Anxiety Disorder Questionnaire - Que stion 1 0 Augustus Guzman Generalized Anxiety Disorder Questionnaire - Que stion 2 0 Verna Duong " Generalized Anxiety Disorder Questionnaire - Que stion 1 0 Verna Duong Generalized Anxiety Disorder Questionnaire - Que stion 2 0 Verna Duong " Generalized Anxiety Disorder Questionnaire - Que stion 1 0 Verna Duong Generalized Anxiety Disorder Questionnaire - Que stion 2 0 Elisabeth Astorga " Generalized Anxiety Disorder Questionnaire - Que stion 1 0 Elisabeth Astorga Generalized Anxiety Disorder Questionnaire - Que stion 2 0 Randa Goldberg " Generalized Anxiety Disorder Questionnaire - Que stion 1 0 Randa Goldberg MEDICAL EQUIPMENT No Information Available FAMILY HISTORY No Information Available INSURANCE PROVIDERS No Information Available ADVANCE DIRECTIVES No Information Available TREATMENT PLAN Date Name Carbamazepine(Tegretol), S Carbamazepine(Tegretol), S Urinalysis (w/micro), Comple te Urine Culture, Routine Comp. Metabolic Panel (14) - Ofc Vst, Est Level IV Est Patient Exp Problem - 99 213 Est Patient Exp Problem - 99 213 Est Patient Detailed - 82964 INFLUENZA VACCINE QUADRIVALE NT 3 YRS PLUS IM Admin of Vaccine - Injection - 1 Est Patient Exp Problem - 99 213 Underlay Stitcher Est Patient Exp Problem - 99 213 Underlay Stitcher New Patient Exp Problem - 99 202 HISTORY OF PROCEDURES No Information Available GOALS No Information Available HEALTH CONCERNS No Information Available
--- OUTSIDE RECORDS SUMMARY | 2019-11-09 06:57 | XMS REPORT | Clinical Summary ---
Author Author [facility] Organization [facility] Address Unknown Phone Unavailable Care Team Providers Care Steward/Stewardess Third Name Role Phone Summer Jasso MD PCP [...] (Primary Dx); Failure of outpatient treatment 06/24/2019 [facility] General Internal [place] dicine - Encounter 06/27/2019 06/24/2019 Travel Suzy Garcia MD Pneumonia of both lungs due to infectiou s organism, unspecified part of lung (Primary Dx) 06/19/2019 Emergency Emergency Medicine 11/30/2018 Emergency Emergency Medicine after 10/14/2018 Immunizations Name Administration Dates Next Due FLUCELVAX [...] PORTABLE STAT 06/19/2019 12:58 AM CDT after 10/14/2018 Results * Estimated GFR (06/27/2019 5:25 AM CDT) Only the most recent of 4 results within the time period is included. Estimated GFR >=90 mL/min/1.73 m2 [place] Comment: RELIGIOUS CLEAR [facility] Interpretation G1 >=90 Normal or high [...] Performing Organization Address City/State/Zipcode Ph one Number [facility] [place] [place] [address] [place], [place] [address] PATHOLOGY AND GENOMIC MEDICINE [facility] [address] * CBC with platelet and differential (06/27/2019 5:25 AM CDT) Only the most recent of 4 results within the time period is included. WBC 4.15 (L) 4.50 - 11.00 k/uL [facility] RBC 4.08 (L) 4.40 - 6.00 m/uL [facility] HGB 12.4 (L) 14.0 - 18.0 g/dL [facility] HCT 38.8 (L) 41.0 - 51.0 % [facility] MCV 95.1 82.0 - 100.0 fL [facility] MCH 30.4 27.0 - 34.0 pg [facility] MCHC 32.0 31.0 - 37.0 g/dL [facility] RDW - SD 52.9 37.0 - 55.0 fL [facility] MPV 10.8 8.8 - 13.2 fL [facility] Platelet count 220 150 - 400 k/uL [facility] Nucleated RBC 0.00 /100 WBC [facility] Neutrophils 62.9 39.0 - 69.0 % [facility] Lymphocytes 25.8 25.0 - 45.0 % [facility] Monocytes 5.1 0.0 - 10.0 % [facility] Eosinophils 4.8 0.0 - 5.0 % [facility] Basophils 1.2 (H) 0.0 - 1.0 % [facility] Specimen Blood Performing Organization Address City/State/Zipcode Ph one Number [facility] [place] [place] [address] [address] [place] [place] [address] PATHOLOGY AND GENOMIC MEDICINE [facility] [address] [address] * Comprehensive metabolic panel (06/27/2019 5:25 AM CDT) Only the most recent of 3 results within the time period is included. Sodium 142 135 - 148 mEq/L [facility] Potassium 3.2 (L) 3.5 - 5.0 mEq/L [facility] Chloride 110 98 - 112 mEq/L [facility] CO2 21 (L) 24 - 31 mEq/L [facility] Anion gap 11@ANIO 7 - 15 mEq/L [facility] BUN 17 6 - 20 mg/dL [facility] Creatinine 0.40 (L) 0.70 - 1.20 mg/dL [facility] Glucose 130 (H) 65 - 99 mg/dL [facility] Calcium 8.4 8.3 - 10.2 mg/dL [facility] Protein 6.3 6.3 - 8.3 g/dL [place] Comment: [facility] [place] 4.6-7.0 g/dL 1 week 4.4-7.6 g/dL 7 months-1year 5.1-7.3 g/dL 1-2 years 5.6-7.5 g/dL >3 years 6.0-8.0 g/dL 18-150 6.3-8.3 g/dL Albumin 3.2 (L) 3.5 - 5.0 g/dL [facility] A/G ratio 1.0 0.7 - 3.8 [facility] Alkaline 140 (H) 40 - 129 U/L [place] phosphatase [facility] AST 80 (H) 10 - 50 U/L [facility] ALT 87 (H) 5 - 50 U/L [facility] Total bilirubin <0.2 0.0 - 1.2 mg/dL [facility] Specimen Blood Performing Organization Address City/State/Zipcode Ph one Number [facility] [place] [address] [address] [place] [address] PATHOLOGY AND GENOMIC MEDICINE [facility] [address] [place] [address] [facility] * XR Chest 1 Vw Portable (06/26/2019 [...] si lhouette are unchanged. Atherosclerotic disease. Osteopenia. [facility] Procedure Note Hm Interface, Radiology Results Incoming [...] cardiac silhouette are unchanged. Atherosclerotic disease. Osteopenia. [facility] Performing Organization Address City/[facility] Ph one Number [facility] [address] [place] [address] * Respiratory pathogen panel (06/24/2019 2:40 AM CDT) [facility] Respiratory Negative for all pathogens [place] pathogen panel tested: RELIGIOUS Negative for Adenovirus HOSPITAL Negative for Coronavirus [...] Performing Organization Address City/State/Zipcode Ph one Number [facility] DEPARTMENT OF [address] [place] [address] PATHOLOGY AND GENOMIC MEDICINE [place] RELIGIOUS [address] [place] [address] * Influenza antigen test, reflex negative to RPP (06/24/2019 2:40 AM CDT) Influenza Negative for Influenza A/B [place] antigen antigen. RELIGIOUS CLEAR Comment: [facility] Specimen Information Specimen Source: Nares Specimen Site: Left Specimen Nares - Left Performing Organization Address [facility] one Number [facility] DEPARTMENT [place] [id number] [place] [address] [place] [address] PATHOLOGY AND GENOMIC MEDICINE [address] * Blood culture, aerobic & anaerobic (06/24/2019 2:40 AM CDT) Pathologist [facility] Blood culture No growth after 5 days of [place] isolate incubation. RELIGIOUS Comment: HOSPITAL Specimen Information Specimen Source: Blood Specimen Site: Forearm, left Specimen Blood - Forearm, left Performing Organization Address [facility] one Number [facility] DEPARTMENT OF [address] [place] [address] PATHOLOGY AND GENOMIC MEDICINE [place] RELIGIOUS [address] [place] [address] * Lipase level (06/24/2019 2:25 AM CDT) Pathologist [facility] Lipase 118 (H) 13 - 60 U/L [facility] Specimen Blood Performing Organization Address [facility] one Number [facility] DEPARTMENT [place] [id number] [place] [address] [place] [phone] PATHOLOGY AND GENOMIC MEDICINE [place] [address] * Creatine kinase, total (CPK) (06/24/2019 2:25 AM CDT) Creatine kinase 114 39 - 308 U/L [facility] Specimen Blood Performing Organization Address [facility] one Number [facility] [place] [address] [place] [address] PATHOLOGY AND GENOMIC MEDICINE [address] * Hepatic function panel (06/24/2019 2:25 AM CDT) Albumin 3.8 3.5 - 5.0 g/dL [facility] Total bilirubin 0.2 0.0 - 1.2 mg/dL [facility] Bilirubin <0.1 0.0 - 0.3 mg/dL [place] direct [facility] Alkaline 153 (H) 40 - 129 U/L [place] phosphatase [facility] Protein 7.9 6.3 - 8.3 g/dL [place] Comment: [facility] 4.6-7.0 g/dL 1 week 4.4-7.6 g/dL 7 months-1year 5.1-7.3 g/dL 1-2 years 5.6-7.5 g/dL >3 years 6.0-8.0 g/dL 18-150 6.3-8.3 g/dL ALT 86 (H) 5 - 50 U/L [facility] AST 80 (H) 10 - 50 U/L [facility] Specimen Blood Performing Organization Address [facility] Ph one Number [facility] DEPARTMENT [place] [id number] [place] [address] [place] [address] PATHOLOGY AND GENOMIC MEDICINE [address] * Basic metabolic panel (06/24/2019 2:25 AM CDT) Sodium 136 135 - 148 mEq/L [facility] Potassium 5.0 3.5 - 5.0 mEq/L [facility] Chloride 102 98 - 112 mEq/L [facility] CO2 20 (L) 24 - 31 mEq/L [facility] Anion gap 14@ANIO 7 - 15 mEq/L [facility] BUN 20 6 - 20 mg/dL [facility] Creatinine 0.40 (L) 0.70 - 1.20 mg/dL [facility] Glucose 115 (H) 65 - 99 mg/dL [facility] Calcium 9.1 8.3 - 10.2 mg/dL [facility] Specimen Blood Performing Organization Address [facility] Ph one Number [facility] [place] [address] [place] [address] PATHOLOGY AND GENOMIC MEDICINE [address] [place] [address] [facility] after 10/14/2018 Insurance Type Payer Benefit Subscriber ID Effective Phone Address Plan / Dates Group O [facility] DUAL xxxxxxxxx 2019-P COMPLETE resent FRANCISCO Advance Directives For more information, please contact: [phone] 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 Legal Guardian or Agent
--- OUTSIDE RECORDS SUMMARY | 2019-11-09 06:58 | XMS REPORT | Continuity of Care Document ---
Author Author [facility] t Organization [facility] Address [address] [place] [address] Phone Unavailable Care Team Providers Care Massage Coordinator Name Role Phone NONSTAFF PCP Unavailable BASHIR THOMAS Attphys Unavailable Rudy Boo Attphys Unavailable Avalos MedAdherence,, Eloisa Attphys [...] Policy Number Effective Date Expiration Date zan [facility] [id number] 2011 00:00:00 [facility] [id number] 1998 00:00:[address] [facility] UHC MEDICAREUHC DUAL COMPLETE [id number] xxxxxxxxx 2019 00:00:00 [facility] Medicare A & B [id number] 1998 00:00:00 [facility] Problems Condition Name Condition Details Condition Category Status Onset Date Resolution Date Last Treatment Date Treating Clinician Comments Source Bronchiectasis Condition Active 2019-07-31 00:00:00 11:40:02 [facility] Condition Active 2019-07-18 00:00:00 2 08[facility]50[facility]16 [facility] acquired pneumonia Community acquired pneumonia Disease Active 2019-06-24 00:00:00 Jed Otero Irritability Condition Active 2019-04-06 00:00:00 04-18 10:04:29 [facility] Incontinence Condition Active 2019-02-27 00:00:00 03-01 09:25:22 [facility] Generalized pain Condition Active 2019-02-27 00:00:00 2 09:25:22 [facility] Gastric outlet obstruction Gastric outlet obstruction Disease Active 2018-07-12 00:00:[address] UTI (urinary tract infection) UTI (urinary tract infection) Disease Active 2018-07-12 00:00:00 Jed Otero Elevated blood pressure reading without diagnosis of hypertensio n Condition Active 2018-03-30 00:00:00 2018-03-31 16:42:10 [facility] Insomnia Condition Active 2018-01-26 00:00:00 2018-03-12 1 16:40:26 Fran Wu [facility] Circadian rhythm sleep disorder, irregular sleep wake Condition Active 2018-01-26 00:00:00 2018-01-26 21:38:56 [facility] Flu shot Condition Active 2018-01-26 00:00:00 2018-01-09 8 21:38:56 [facility] Constipation Condition Active 2017-11-02 00:00:00 11-02 10:04:00 [facility] Leaking peg tube Condition Active 2017-10-04 00:00:00 2 09:58:34 Ashleigh Gaitan [facility] High risk for aspiration Condition Active 2017-10-04 00:0 0:00 2017-10-05 19:34:[facility] Condition Active 2017-10-04 00:00:00 2017-09-10 7 19:34:51 Candelaria Diallo [facility] Need for home health care Condition Active 2017-10-04 00: 00:00 2017-10-05 19:34:51 Candelaria Diallo [facility] Seizure disorder Condition Active 2017-10-04 00:00:00 2 16:09:06 Candelaria Diallo [facility] Feeding intolerance Condition Active 2017-10-04 00:00:00 2017-10-04 16:09:06 Candelaria Diallo [facility] Presence of gastrostomy Condition Active 2017-10-04 00:00 :00 2018-05-16 11:59:16 Candelaria Diallo [facility] History of meningitis Condition Active 2017-10-04 00:00:0 0 2017-10-04 16:09:06 Candelaria Diallo age 2 months [facility] Developmental delay Condition Active 2017-10-04 00:00:00 2017-10-04 16:09:06 Candelaria Diallo [facility] Sepsis Sepsis Disease Active 2017-07-14 00:00:00 Jed [...] 00:00:00 Jed Otero Pancreatitis Pancreatitis Problem Active [facility] Vomiting Vomiting Problem Active [facility] Respiratory tract infection due to sever e acute respiratory syndrome coronavirus 2 (SARS-CoV-2) Problem Active [facility] Fecal impaction Problem Active [facility] Hypoxia Problem Active [facility] History of Past Illness Condition Name Condition Details Condition Category Status Onset Date Resolution Date Last Treatment Date Treating Clinician Comments Source Cough Condition Inactive 2017-12-06 00:00:00 2018-01-26 00:00:00 2018-01-26 21:38:56 Yoel Candelaria [facility] Dysuria Condition Inactive 2017-10-04 00:00:00 2017-11-02 00:00:00 2017-11-02 13:21:10 Yoel [facility] Foul smelling urine Condition Inactive 2017-10-04 00:00 :00 2017-11-02 00:00:00 2017-11-02 13:21:10 Yoel [facility] Allergies, Adverse Reactions, Alerts This patient has no known allergies or adverse reactions. Family History Family Member Diagnosis Comments Start Date Stop Date Source Natural brother Hypertension [facility] Natural mother Arthritis [facility] Natural mother Diabetes [facility] Natural mother Hyperlipidemia [place] [facility] Natural mother Hypertension [facility] Natural sister Arthritis [facility] Natural sister Hyperlipidemia [place] [facility] Natural sister Pancreatitis [facility] Natural sister Hypertension [facility] [place] Social History Social Habit Start Date Stop Date Quantity Comments Source Sex Assigned [place] adalsophia Otero time of call 2019-09-04 14:51:58 2019-09-04 14:51:58 09/04/2019 2:52 PM [facility] Alcohol intake 2019-06-24 00:00:00 2019-06-24 00:00:00 Current non-drinker of alcohol (finding) [facility] [place] drug use, illicit 2019-04-06 15:48:42 2019-04-06 15:48:42 Never [facility] alcohol use 2019-04-06 15:48:42 2019-04-06 15:48:42 Never [facility] social history reviewed E&M 2019-04-06 15:48:42 2019-04-06 15:48 :42 reviewed today [facility] passive cigarette smoke exposure 2019-04-06 15:48:42 2019-04-06 15:48 :42 No [facility] assessment of health literacy (NCQA [facility] 2014 Standard s, 3C10) 2019-04-06 15:48:42 2019-04-06 15:48:42 Low [facility] is there any chance that you could be ? 2019-02-27 1 5:50:01 2019-02-27 15:50:01 [facility] Occupation #1 2017-10-04 14:13:35 2017-10-04 14:13:35 Disabled [facility] patient considered to be homeless 2017-10-04 14:13:35 2017-10-04 14:1 3:35 No [facility] Smoking Status Start Date Stop Date Source Never smoker Jed eller Medications Ordered Medication Name Filled Medication Name Start Date Stop Da te Current Medication? Ordering Clinician Indication Dosage Frequency Signature (SIG) Comments Components Source (SODIUM CHLORIDE) 0.9 % NEBU 2019-07-26 00:00:00 Yes Yue Wu apply 3ml to nebulizer Three Times a Day As Needed allow for substitutions [facility] AIRIAL COMPACT COMPRESSOR NEB (NEBULIZERS) 2019-07-18 00:0 0:00 Yes Fran Wu use as instructed for chest congestion related to bronchiectasis allow for substitutions [facility] bisacodyL (DULCOLAX) 10 mg suppository 2019-06-27 [...] times a day as needed for pain [facility] (HYDROXYZINE HCL) 25 MG TABS 2019-04-06 00:00:00 Yes Yue ac Wu 2 by mouth daily As Needed before bedtime [facility] (LORAZEPAM) 0.5 MG TABS 2019-04-06 00:00:00 Yes Isaa c Wu 1{Tablet} 3xD 1 by mouth 3 times a day as needed [facility] (GABAPENTIN) 100 MG CAPS 2019-04-06 00:00:00 Yes Fran G oldberg 1 by mouth before bedtime [facility] (TRAMADOL HCL) 50 MG TABS 2019-02-27 00:00:00 2019-04-06 00:00:0 0 No 2{Tablet} 4xD 1-2 tablets by mouth 4 times a day as needed for pain [facility] carBAMazepine (TEGretol) 200 mg tablet 2018-06-13 00:00:00 Yes 400mg Q.[id number] Take 400 mg by mouth 3 (three) [...] Gol dberg 1 tab By Mouth qhs [facility] HYDROcodone-acetaminophen (NORCO) 5-325 mg per tablet 2018-01-26 00:00:00 2019-06-24 00:00:00 No 1 tab per tube q8h A s Needed severe pain Jed Otero (HYDROCODONE-ACETAMINOPHEN) 5-325 MG TABS 2017-04 00:00:00 2019-04-06 00:00:00 No 1 tab per tube q8h As Needed se elin pain [facility] (PANTOPRAZOLE SODIUM) 40 MG TBEC 2017-12-30 00:00:00 Yes Ashleigh Curiel Ehdaie 1 tab per tube daily [facility] hydrOXYzine (ATARAX) 50 MG tablet 2017-12-30 [...] at bedtime as ne eded for insomnia [facility] (LORATADINE) 10 MG TABS 2017-12-06 00:00:00 2018-01-26 00: 00:00 No Ashleigh Curiel Ehdaie 1 per tube once a day as needed for tien rgies [facility] (DOCUSATE SODIUM) 50 MG/5ML LIQD 2017-11-02 00:00:00 Yes Ashleigh Curiel Shahzaddaie 10ml per tube BID [facility] (CARBAMAZEPINE) 100 MG/5ML SUSP 2017-10-29 00:00:00 Yes Fran Wu TAKE 10ML PER G-TUBE 3 TIMES DAILY [facility] AUGMENTIN (AMOXICILLIN-POT CLAVULANATE) 250-62.5 MG/5ML SUSR 2017-10-10 00:00:00 2017-11-02 00:00:00 No 2ml BID for 5 days take with food, changed from pill to liquid [facility] [employer] PROBIOTIC MAXIMUM STRENGTH (PROBIOTIC PRODUCT) CAPS 2017-10-10 00:00:00 2017-10-15 00:00:00 No Ashleigh Curiel Ehdaie 1 capsule By Veena burnett [facility] REGLAN (METOCLOPRAMIDE HCL) 10 MG TABS 2017-09-10 6 00:00:00 2018-01-26 00:00:00 No Ashleigh Pikedaie 1/2 tab by mouth ac and kulwinder gan at bedtime [facility] (MORPHINE SULFATE) 10 MG/5ML SOLN 2017-10-04 00:00:00 2017 00:00:00 No 1ml per G tube q4h As Needed pain [facility] Apixaban (Eliquis) 2.5 Mg TABLET Apixaban (Eliquis) 2.5 Mg TABLET Yes 2.5 Twice A Day for 30 [facility] Carbamazepine Carbamazepine Yes 200 Three Times A Day [facility] Dexamethasone (Decadron) 6 Mg TABLET Dexamethasone (Decadron) 6 Mg TABLET Yes 6 Daily [facility] Lorazepam (Ativan*) 0.5 Mg TABLET Lorazepam (Ativan*) 0.5 Mg TABLET Yes .5 Four Times Daily as needed for Anxiety [facility] Pantoprazole Sodium (Protonix) 40 Mg TABLET. Pantopr azole Sodium (Protonix) 40 Mg TABLET. Yes 40 Daily [facility] Immunizations Ordered Immunization Name Filled Immunization Name Date Status Comments Source FLUCELVAX QUAD PF 2019-06-27 00:00:00 Completed Jed Otero Vital Signs Vital Name Observation Time Observation Value Comments Source Body Temperature 2019-10-17 16:00:00 97.1 [degF] [facility] Weight 2019-10-17 02:24:00 58.25 [lb_av] [facility] BMI (Body Mass Index) 2019-10-17 02:24:00 17.8 kg/m2 [facility] Weight 2019-10-14 17:50:00 50 [lb_av] [facility] BMI (Body Mass Index) 2019-10-14 17:50:00 15.3 kg/m2 [facility] Systolic blood pressure 2019-06-27 15:23:03 113 mm[Hg] [facility] Diastolic blood pressure 2019-06-27 15:23:03 71 mm[Hg] [facility] Heart rate 2019-06-27 15:23:03 64 /min [facility] Body [facility] 2019-06-27 15:23:03 36.61 Talya [place] [facility] Respiratory rate 2019-06-27 15:23:03 17 /min [place] [facility] Oxygen saturation in Arterial blood by Pulse oximetry 06-26 15:23:03 98 /min [place] [facility] Body height 2019-06-24 02:04:00 147.3 cm [facility] Body weight 2019-06-24 02:04:00 18.597 kg [facility] BMI 2019-06-24 02:04:00 8.57 kg/m2 [facility] oxygen saturation, oximetry 2019-04-06 15:48:42 98 % [facility] blood pressure, diastolic 2019-04-06 15:48:42 61 mm[Hg] [facility] blood pressure, systolic 2019-04-06 15:48:42 102 mm[Hg] [facility] respiratory rate E&M 2019-04-06 15:48:42 18 /min [facility] pulse rate 2019-04-06 15:48:42 72 /min [facility] temperature site 2019-04-06 15:48:42 tympanic Lega [facility] temperature E&M 2019-04-06 15:48:42 98.2 [degF] [facility], oximetry 2019-02-27 15:50:01 95 % [facility] blood pressure, diastolic 2019-02-27 15:50:01 85 mm[Hg] [facility] blood pressure, systolic 2019-02-27 15:50:01 138 mm[Hg] [facility] respiratory rate E&M 2019-02-27 15:50:01 14 /min [facility] pulse rate 2019-02-27 15:50:01 68 /min [facility] 2019-02-27 15:50:01 oral Lega [facility] temperature E&M 2019-02-27 15:50:01 97.6 [degF] [facility] oxygen saturation, oximetry 2018-03-30 09:44:41 98 % [facility] blood pressure, diastolic 2018-03-30 09:44:41 142 mm[Hg] [facility] blood pressure, systolic 2018-03-30 09:44:41 207 mm[Hg] [facility] respiratory rate E&M 2018-03-30 09:44:41 21 /min [facility] pulse rate 2018-03-30 09:44:41 98 /min [facility] temperature site 2018-03-30 09:44:41 tympanic Lega [facility] temperature E&M 2018-03-30 09:44:41 98.1 [degF] [facility] pressure, diastolic 2018-01-26 14:21:39 82 mm[Hg] [facility] blood pressure, systolic 2018-01-26 14:21:39 129 mm[Hg] [facility] respiratory rate E&M 2018-01-26 14:21:39 16 /min [facility] pulse rate 2018-01-26 14:21:39 66 /min [facility] 2018-01-26 14:21:39 tympanic Lega [facility] temperature E&M 2018-01-26 14:21:39 98.3 [degF] [facility] respiratory rate E&M 2017-11-02 09:08:16 22 /min [facility] pulse rate 2017-11-02 09:08:16 136 /min [facility] blood pressure, diastolic 2017-11-02 09:08:16 58 mm[Hg] [facility] blood pressure, systolic 2017-11-02 09:08:16 132 mm[Hg] [facility] oxygen saturation, oximetry 2017-11-02 09:08:16 90 % [facility] temperature E&M 2017-11-02 09:08:16 99.1 [degF] Legac y [facility] temperature site 2017-11-02 09:08:16 axillary Lega [facility] oxygen saturation, oximetry 2017-10-04 14:13:35 98 % [facility] blood pressure, diastolic 2017-10-04 14:13:35 97 mm[Hg] [facility] blood pressure, systolic 2017-10-04 14:13:35 143 mm[Hg] [facility] respiratory rate E&M 2017-10-04 14:13:35 16 /min [facility] pulse rate 2017-10-04 14:13:35 67 /min [facility] temperature site 2017-10-04 14:13:35 oral Lega [facility] temperature E&M 2017-10-04 14:13:35 99.2 [degF] [facility] Procedures Procedure Date / Time Performed Performing Clinician Sour e Computed tomography of abdomen and pelvis with contrast 00:00:00 [facility] HC COMPLETE BLD COUNT W/AUTO DIFF [...] XR CHEST 1 VW PORTABLE 2019-06-19 00:58:00 Szuy Garcia Plan of Care Planned Activity Planned Date Details Comments Source Future Scheduled Test 2019-11-10 00:00:00 INFLUENZA VACCINE [code = INFLUENZA VACCINE] Jed Otero Instructions COVID-19: 06/25/2019 [facility] Encounters Start Date/Time End Date/Time Encounter Type Admission Type [facility] Care Department Encounter ID Source 2019-10-15 02:00:00 2019-10-15 02:00:00 Admitted Inpatient 1 THOMASBASHIR Swenson [facility] [id number] [facility] 2019-09-25 00:00:00 2019-09-25 00:00:00 Office Visit Rudy Barron MedAdherence,, Elo[facility]/[id number] [facility] 2019-09-25 00:00:00 2019-09-25 00:00:00 Office Visit Rudy Barron MedAdherbruno,, Eloisa [facility] Encounter/[id number] [facility] 2019-09-10 00:00:00 2019-09-10 00:00:00 Office Visit Rudy Barron, Gal Corbin, Ileana Heart, Duncan Lee, Minoo [facility] Encounter/[id number] [facility] 2019-09-07 00:00:00 2019-09-07 00:00:00 Office Visit Summer Vaughn [facility], Sarah Boo, Rudy [facility] Encounter/[id number] [facility] 2019-09-07 00:00:00 2019-09-07 00:00:00 Office Visit Ashleigh Zamora MedAdherbruno, Sarah [facility] Encounter/[id number] [facility] 2019-09-04 00:00:00 2019-09-04 00:00:00 Office Visit Rudy Barron Lisa Mariaca, Jennifer [facility] Encounter/[id number] [facility] 2019-08-06 00:00:00 2019-08-06 00:00:00 Office Visit Rudy Barron Lisa [facility] Encounter/[id number] [facility] 2019-07-31 00:00:00 2019-07-31 00:00:00 Office Visit Rudy Barron Lisa Vazquez, Shantelle M [facility] Encounter/[id number] [facility] 2019-07-30 00:00:00 2019-07-30 00:00:00 Office Visit Ashleigh Zamora Mary [facility] Encounter/[id number] [facility] 2019-07-26 00:00:00 2019-07-26 00:00:00 Office Visit Pankaj Boo [facility] Encounter/[id number] [facility] 2019-07-18 00:00:00 2019-07-18 00:00:00 Office Visit Rudy Barron MedAdherbruno Opal S [facility] Encounter/[id number] [facility] 2019-06-29 00:00:00 2019-06-29 00:00:00 Office Visit Rudy Barron MedAdherenceTabatha [facility] Encounter/[id number] [facility] 2019-06-29 00:00:00 2019-06-29 00:00:00 Office Visit Rudy Barron Lindsey Leon, Karla L [facility] Encounter/[id number] [facility] 2019-06-27 00:00:00 2019-06-27 00:00:00 Office Visit Pankaj Boo [facility] Encounter/[id number] [facility] 2019-06-27 00:00:00 2019-06-27 00:00:00 Office Visit Pankaj Boo [facility] Encounter/[id number] [facility] 2019-06-24 00:00:00 2019-06-27 00:00:00 Inpatient ANNIE MANZANO [facility] [id number] [facility] [place] 2019-06-24 00:00:00 2019-06-24 00:00:00 Office Visit Pankaj Boo [facility] Encounter/[id number] [facility] 2019-06-19 00:00:00 2019-06-19 00:00:00 Emergency JOSE SUZY Popeye [id number] [facility] [place] 2019-06-19 00:00:00 2019-06-19 00:00:00 Office Visit Pankaj Boo [facility] Encounter/[id number] [facility] 2019-06-05 00:00:00 2019-06-05 00:00:00 Office Visit Aisha Herrera [facility] Encounter/[id number] [facility] 2019-05-15 00:00:00 2019-05-15 00:00:00 Office Visit Ashleigh Zamora [facility], Rudy Lam [facility]herence, Ольга [facility] Encounter/[id number] [facility] 2019-05-02 00:00:00 2019-05-02 00:00:00 Office Visit Aisha Herrera [facility] Encounter/[id number] [facility] 2019-05-02 00:00:00 2019-05-02 00:00:00 Office Visit Status, Fax [facility] Encounter/[id number] [facility] 2019-05-02 00:00:00 2019-05-02 00:00:00 Office Visit Status, Fax [facility] Encounter/[id number] [facility] 2019-05-02 00:00:00 2019-05-02 00:00:00 Office Visit Status, Fax [facility] Encounter/[id number] [facility] 2019-04-20 00:00:00 2019-04-20 00:00:00 Office Visit Pankaj Boo [facility] Encounter/[id number] [facility] 2019-04-18 00:00:00 2019-04-18 00:00:00 Office Visit Augustus Ashton Yandro [facility][id number] [facility] 2019-04-09 00:00:00 2019-04-09 00:00:00 Office Visit Status, Fax [facility] Encounter/[id number] [facility] 2019-04-09 00:00:00 2019-04-09 00:00:00 Office Visit Status, Fax [facility] Encounter/[id number] [facility] 2019-04-09 00:00:00 2019-04-09 00:00:00 Office Visit Status, Fax [facility] Encounter/[id number] [facility] 2019-04-06 00:00:00 2019-04-06 00:00:00 Office [facility] Encounter/[id number] [facility] 2019-04-06 00:00:00 2019-04-06 00:00:00 Office Visit Pankaj Boo emanuel [facility] Encounter/[id number] [facility] 2019-04-06 00:00:00 2019-04-06 00:00:00 Office Visit Pankaj Boo emanuel [facility] Encounter/[id number] [facility] 2019-04-06 00:00:00 2019-04-06 00:00:00 Office Visit Ashleigh Zamora, Diana Duong, Rudy Gunderson [facility] Encounter/[id number] [facility] 2019-03-30 00:00:00 2019-03-30 00:00:00 Office Visit Galina Goldberg [facility] Encounter/[id number] [facility] 2019-03-30 00:00:00 2019-03-30 00:00:00 Office Visit Portia Alicia [facility] Encounter/[id number] [facility] 2019-03-29 00:00:00 2019-03-29 00:00:00 Office Visit Nathan Jasso [facility] Encounter/[id number] [facility] 2019-03-23 00:00:00 2019-03-23 00:00:00 Office Visit Fran Welch MedAdherLoida carr [facility] Encounter/[id number] [facility] 2019-03-14 00:00:00 2019-03-14 00:00:00 Office Visit Roxana Duggan MedAdherSarah carr [facility] Encounter/[id number] [facility] 2019-03-01 00:00:00 2019-03-01 00:00:00 Office Visit Luciano Magallon [facility] Encounter/[id number] [facility] 2019-02-28 00:00:00 2019-02-28 00:00:00 Office Visit Darshana Ambriz Christina Cepeda, Abby Felix [id number] [facility] 2019-02-28 00:00:00 2019-02-28 00:00:00 Office Visit Status, Fax [facility] Encounter/[id number] [facility] 2019-02-28 00:00:00 2019-02-28 00:00:00 Office Visit Status, Fax [facility] Encounter/[id number] [facility] 2019-02-28 00:00:00 2019-02-28 00:00:00 Office Visit Status, Fax [facility] Encounter/[id number] [facility] 2019-02-27 00:00:00 2019-02-27 00:00:00 Office Visit Polly Dumont [facility] Encounter/[id number] [facility] 2019-02-27 00:00:00 2019-02-27 00:00:00 Office Visit Polly Dumont [facility] Encounter/[id number] [facility] 2019-02-27 00:00:00 2019-02-27 00:00:00 Office Visit Aurora elliott, Fran Herrera, Diana Dumont, Polly Owens, Augustus Orozco [facility] Encounter/[id number] [facility] 2019-02-09 00:00:00 2019-02-09 00:00:00 Office Visit Roxana Duggan MedAdherence, Loida Mcclure MedAdherence, Sarah Dumont, Polly [facility] Encounter/[id number] [facility] 2018-12-18 00:00:00 2018-12-18 00:00:00 Office Visit Luba Rapp Jennifer [facility] Encounter/[id number] [facility] 2018-12-01 00:45:00 2018-12-05 22:20:00 Discharged Inpatient 1 MIKEL, [facility] [id number] [facility] 2018-11-30 00:00:00 2018-11-30 00:00:00 Office Visit Polly Dumont [facility] Encounter/[id number] [facility] 2018-11-28 00:00:00 2018-11-28 00:00:00 Office Visit Summer Vaughn, Sarah [facility] Encounter/[id number] [facility] 2018-10-13 00:00:00 2018-10-13 00:00:00 Office Visit Status, Fax [facility] Encounter/[id number] [facility] [facility] 2018-10-04 00:00:00 2018-10-04 00:00:00 Office Visit Jasmin Byrd, Sarah Mandujano, Luba Prieto, Abby Marinelli [facility] Encounter/[id number] Critical access hospital 2018-10-04 00:00:00 2018-10-04 00:00:00 Office Visit Status, Faasael [facility] Encounter/[id number] [facility] 2018-09-26 00:00:00 2018-09-26 00:00:00 Office Visit Cristina Diallo [facility] Encounter/[id number] [facility] 2018-09-24 00:00:00 2018-09-24 00:00:00 Office Visit Cristina Diallo [facility] Encounter/[id number] [facility] 2018-09-05 00:00:00 2018-09-05 00:00:00 Office Visit Jasmin Byrd, Darshana Onofre Adrienne Osorio Marquez, Laura [facility] Encounter/[id number] [facility] 2018-09-05 00:00:00 2018-09-05 00:00:00 Office Visit Fran WelchAdherbruno, Candelaria Bustamante [facility] Encounter/[id number] [facility] 2018-07-20 00:00:00 2018-07-20 00:00:00 Office Visit Cristina Diallo [facility] Encounter/[id number] [facility] 2018-07-14 00:00:00 2018-07-14 00:00:00 Office Visit Arsh Britton i [facility] Encounter/[id number] [facility] 2018-07-14 00:00:00 2018-07-14 00:00:00 Office Visit Cristina Diallo [facility] Encounter/[id number] [facility] 2018-07-14 00:00:00 2018-07-14 00:00:00 Office Visit Cristina Diallo [facility] Encounter/[id number] [facility] 2018-07-11 00:00:00 2018-07-11 00:00:00 Office Visit Ema Robertdr castellanos [facility] Encounter/[id number] [facility] 2018-07-11 00:00:00 2018-07-11 00:00:00 Office Visit Candelaria Matta Lindsey [facility][id number] [facility] 2018-06-15 00:00:00 2018-06-15 00:00:00 Office Visit Ileana Desir Lindsey [facility] En[facility]/[id number] [facility] 2018-05-16 00:00:00 2018-05-16 00:00:00 Office Visit Cristina Diallo [facility] Encounter/[id number] [facility] 2018-05-16 00:00:00 2018-05-16 00:00:00 Office Visit Galindo Portillo [facility] Encounter/[id number] [facility] 2018-05-16 00:00:00 2018-05-16 00:00:00 Office Visit Hamida Mandujano [facility] Encounter/[id number] [facility] 2018-05-11 00:00:00 2018-05-11 00:00:00 Office Visit Candelaria Matta Lindsey [facility] Encounter/[id number] [facility] 2018-03-30 00:00:00 2018-03-30 00:00:00 Office Visit Cristina Diallo [facility] Encounter/[id number] [facility] 2018-03-30 00:00:00 2018-03-30 00:00:00 Office Visit Fran Welch Jacqueline Kicza, Adrienne [facility] Encounter/[id number] [facility] 2018-03-15 00:00:00 2018-03-15 00:00:00 Office Visit Keith Gaitan [facility] Encounter/[id number] [facility] 2018-01-30 00:00:00 2018-01-30 00:00:[address] Adrienne [facility] Encounter/[id number] [facility] 2018-01-30 00:00:00 2018-01-30 00:00:00 Office Visit Anushka Prieto [facility] Encounter/[id number] [facility] 2018-01-26 00:00:00 2018-01-26 00:00:00 Office Visit Cristina Diallo [facility] Encounter/[id number] [facility] 2018-01-26 00:00:00 2018-01-26 00:00:00 Office Visit Cristina Diallo [facility] Encounter/[id number] [facility] 2018-01-26 00:00:00 2018-01-26 00:00:00 Office Visit Cristina Diallo [facility] Encounter/[id number] [facility] 2018-01-26 00:00:00 2018-01-26 00:00:00 Office Visit Portia Alicia [facility] Encounter/[id number] [facility] 2018-01-26 00:00:00 2018-01-26 00:00:00 Office Visit Cristina Diallo [facility] Encounter/[id number] [facility] 2018-01-26 00:00:00 2018-01-26 00:00:00 Office Visit Fran Welch Maria Rivera, Jacqueline Kicza, Adrienne [facility] Encounter/[id number] [facility] 2018-01-26 00:00:00 2018-01-26 00:00:00 Office Visit Hamida Mandujano [facility] Encounter/[id number] [facility] 2018-01-25 00:00:00 2018-01-25 00:00:00 Office Visit Cristina Diallo [facility] Encounter/[id number] [facility] 2018-01-25 00:00:00 2018-01-25 00:00:00 Office Visit Candelaria Matta Lindsey [facility] Encounter/[id number] [facility] 2018-01-25 00:00:00 2018-01-25 00:00:00 Office Visit Hmaida Mandujano [facility] Encounter/[id number] [facility] 2018-01-20 00:00:00 2018-01-20 00:00:00 Office Visit Cristina Diallo [facility] Encounter/[id number] [facility] 2018-01-20 00:00:00 2018-01-20 00:00:[address] Lindsey Kicza, Adrienne [facility] Encounter/[id number] [facility] 2018-01-13 00:00:00 2018-01-13 00:00:00 Office Visit Cristina Diallo [facility] Encounter/[id number] [facility] 2018-01-11 00:00:00 2018-01-11 00:00:00 Office Visit Cristina Diallo [facility] Encounter/[id number] [facility] 2017-12-30 00:00:00 2017-12-30 00:00:00 Office Visit Cristina Diallo [facility] Encounter/[id number] [facility] 2017-12-20 00:00:00 2017-12-20 00:00:00 Office Visit Summer Vaughn Drinda Kicza, Adrienne [facility] Encounter/[id number] [facility] 2017-12-19 00:00:00 2017-12-19 00:00:00 Office Visit Cristina Diallobhavana [facility] Encounter/[id number] [facility] 2017-12-15 00:00:00 2017-12-15 00:00:00 Office Visit Cristina Diallo [facility] Encounter/[id number] [facility] 2017-12-15 00:00:00 2017-12-15 00:00:00 Office Visit Cristina Diallo [facility] Encounter/[id number] [facility] 2017-12-15 00:00:00 2017-12-15 00:00:00 Office Visit Cristina Diallobhavana [facility] Encounter/[id number] [facility] 2017-12-06 00:00:00 2017-12-06 00:00:00 Office Visit Candelaria Matta Lindsey Garcia, Yareli [facility] Encounter/[id number] [facility] 2017-11-15 00:00:00 2017-11-15 00:00:00 [facility]/[id number] [facility] 2017-11-08 00:00:00 2017-11-08 00:00:00 [facility] En[facility]/[id number] [facility] 2017-11-02 00:00:00 2017-11-02 00:00:00 Office Visit Cristina Diallo susan [facility] Encounter/[id number] [facility] 2017-11-02 00:00:00 2017-11-02 00:00:00 Office Visit Ashleigh Zamora, Elisabeth Diallo, Elvira Bonilla Kristine [facility] Encounter/[id number] Critical access hospital 2017-10-24 00:00:00 2017-10-24 00:00:00 [facility]/[id number] [facility] 2017-10-14 00:00:00 2017-10-14 00:00:00 Office Visit Emily BaileyJorgeon [facility] Encounter/[id number] [facility] 2017-10-10 00:00:00 2017-10-10 00:00:00 Office Visit Yoel Cristina larsonbhavana [facility] Encounter/[id number] [facility] 2017-10-07 00:00:00 2017-10-07 00:00:00 Office Visit Emily Bailey Elvira [facility] Encounter/[id number] [facility] 2017-10-06 00:00:00 2017-10-06 00:00:00 Office Visit Keith Gaitan [facility] Encounter/[id number] [facility] 2017-10-05 00:00:00 2017-10-05 00:00:00 Office Visit Jerrytessy Cristina susan [facility] Encounter/[id number] [facility] 2017-10-05 00:00:00 2017-10-05 00:00:00 Office Visit Sarah Yanez [facility] Encounter/[id number] [facility] 2017-10-05 00:00:00 2017-10-05 00:00:00 Office Visit Status, Fax [facility] Encounter/[id number] [facility] 2017-10-05 00:00:00 2017-10-05 00:00:00 Office Visit Status, Fax [facility] Encounter/[id number] [facility] 2017-10-05 00:00:00 2017-10-05 00:00:00 Office Visit Status, Fax [facility] Encounter/[id number] [facility] 2017-10-05 00:00:00 2017-10-05 00:00:00 Office Visit Status, Fax [facility] Encounter/[id number] [facility] 2017-10-05 00:00:00 2017-10-05 00:00:00 Office Visit Status, Fax [facility] Encounter/[id number] [facility] 2017-10-05 00:00:00 2017-10-05 00:00:00 Office Visit Status, Fax [facility] Encounter/[id number] [facility] 2017-10-04 00:00:00 2017-10-04 00:00:00 Office Visit Keith Gaitan [facility] Encounter/[id number] [facility] 2017-10-04 00:00:00 2017-10-04 00:00:00 Office Visit Cristina Diallo [facility] Encounter/[id number] [facility] 2017-10-04 00:00:00 2017-10-04 00:00:00 Office Visit Cristina Diallo [facility] Encounter/[id number] [facility] 2017-10-04 00:00:00 2017-10-04 00:00:00 Office Visit Ashleigh Zaomra Veena Adam, Desi Goldberg, Randa Woodard, Effie Diallo, Candelaria Fox, Elvira Argueta, Claus Mi, Enedelia [facility] Encounter/[id number] Critical access hospital Results Test Description Test Time Test Comments Results Result Comments Source Blood leukocytes automated count (number/volume) 2019-10-17 05:40:00 Test Item White Blood Count (test code = 6690-2) 4.08 4.8-10.8 [facility] count (number/volume)2019-10-17 05:40:00* Test Item Value Reference Range Interpretation Comments Red Blood Count (test code = 789-8) 3.77 4.3-5.7 [facility] measurement (moles/volume)2019-10-17 05:40:00* Test Item Value Reference Range Interpretation Comments Hemoglobin (test code = 37489-3) 12.1 14.0-18.0 [facility] hematocrit (volume fraction)2019-10-17 05:40:00* Test Item Value Reference Range Interpretation Comments Hematocrit (test code = 4544-3) 37.3 38.2-49.6 [facility] mean corpuscular dnkwat3560-41-16 05:40:00* Test Item Value Reference Range Interpretation Comments Mean Corpuscular Volume (test code = 787-2) 98.9 81-99 [facility] mean corpuscular hemoglobin (mass per erythrocyte)2019-10-17 05:40:00* Test Item Value Reference Range Interpretation Comments Mean Corpuscular Hemoglobin (test code = 785-6) 32.1 28-32 [facility] mean corpuscular hemoglobin concentration measurement (mass/volume)2019-10-17 05:40:00* Test Item Value Reference Range Interpretation Comments Mean Corpuscular Hemoglobin Concent (test code = 786-4) 32.4 31-35 [facility] HospitalRDW DjmPh-Dxq0881-71-08 05:40:00* Test Item Value Reference Range Interpretation Comments Red Cell Distribution Width (test code = 53070-4) 14.2 11.7 -14.4 [facility] platelet count (count/volume)2019-10-17 05:40:00* Test Item Value Reference Range Interpretation Comments Platelet Count (test code = 777-3) 99 140-[address] [facility] neutrophil count as percentage of total swbzsjqyuc8215-22-78 05:40:00* Test Item Value Reference Range Interpretation Comments Neutrophils (%) (Auto) (test code = 11480-8) 77.5 38.7-80.0 [facility] lymphocyte count as percentage ot total uvdbiaafla7925-83-23 05:40:00* Test Item Value Reference Range Interpretation Comments Lymphocytes (%) (Auto) (test code = 736-9) 17.2 18.0-39.1 [facility] monocyte count as percentage of total rgkgktayrp2898-60-82 05:40:00* Test Item Value Reference Range Interpretation Comments Monocytes (%) (Auto) (test code = 5905-5) 3.2 4.4-11.3 [facility] blood eosinophil count as percentage of total spsilwmvxr6419-65-93 05:40:00* Test Item Value Reference Range Interpretation Comments Eosinophils (%) (Auto) (test code = 713-8) 0.2 0.0-6.0 [facility] blood basophil count as percentage of total jghkbnzvku4809-97-72 05:40:00* Test Item Value Reference Range Interpretation Comments Basophils (%) (Auto) (test code = 706-2) 0.2 0.0-1.0 [facility] HospitalFluoroscopic procedure less than one hour djzgsbvc9553-22-47 05:40:00* Test Item Value Reference Range Interpretation Comments IM GRANULOCYTES % (test code = IM GRANULOCYTES %) 1.7 0.0- 1.0 [facility] neutrophil count 2019-10-17 05:40:00* Test Item Value Reference Range Interpretation Comments Neutrophils # (Auto) (test code = 751-8) 3.2 2.1-6.9 [facility] lymphocytes count (number/volume) 2019-10-17 05:40:00* Test Item Value Reference Range Interpretation Comments Lymphocytes # (Auto) (test code = 05861-3) 0.7 1.0-3.2 [facility] monocytes automated count (number/volume)2019-10-17 05:40:00* Test Item Value Reference Range Interpretation Comments Monocytes # (Auto) (test code = 742-7) 0.1 0.2-0.8 [facility] blood eosinophil count 2019-10-17 05:40:00* Test Item Value Reference Range Interpretation Comments Eosinophils # (Auto) (test code = 711-2) 0.0 0.0-0.4 [facility]Autom[facility] blood basophil count (count/volume)2019-10-17 05:40:00* Test Item Value Reference Range Interpretation Comments Basophils # (Auto) (test code = 704-7) 0.0 0.0-0.1 [facility] HospitalFluoroscopic procedure less than one hour pcdppuao7662-40-30 05:40:00* Test Item Value Reference Range Interpretation Comments Absolute Immature Granulocyte (auto (heraclio t code = Absolute Immature Granulocyte (auto) 0.07 0-0.1 [facility] platelets count by estimate (number/volume)2019-10-17 05:40:00* Test Item Value Reference Range Interpretation Comments Platelet Estimate (test code = 90207-1) MODERATELY DECREASED [facility] HospitalPlatelet jzihtlhqet6157-53-84 05:40:00* Test Item Value Reference Range Interpretation Comments Platelet Morphology Comment (test code = 30894-3) RARE EDTA CLUMPIN G [facility] HospitalRBC rhpsllslpd6505-13-42 05:40:00* Test Item Value Reference Range Interpretation Comments Red Cell Morphology Comment (test code = 6742-1) NORMAL [facility] plasma sodium measurement (moles/volume)2019-10-17 05:40:00* Test Item Value Reference Range Interpretation Comments Sodium Level (test code = 2951-2) 135 136-145 [facility] or plasma potassium measurement (moles/volume)2019-10-17 05:40:00* Test Item Value Reference Range Interpretation Comments Potassium Level (test code = 2823-3) 3.8 3.5-5.1 [facility] or plasma chloride measurement (moles/volume)2019-10-17 05:40:00* Test Item Value Reference Range Interpretation Comments Chloride Level (test code = 2075-0) 106 98-107 [facility]er[facility] or plasma carbon dioxide, total measurement (moles/volume)2019-10-17 05:40:00* Test Item Value Reference Range Interpretation Comments Carbon Dioxide Level (test code = 2028-9) 24 22-29 [facility] or plasma anion edt1077-65-14 05:40:00* Test Item Value Reference Range Interpretation Comments Anion Gap (test code = 22510-1) 8.8 8-16 [facility] or plasma urea nitrogen measurement (mass/volume)2019-10-17 05:40:00* Test Item Value Reference Range Interpretation Comments Blood Urea Nitrogen (test code = 3094-0) 7 7-26 [facility] or plasma creatinine measurement (mass/volume)2019-10-17 05:40:00* Test Item Value Reference Range Interpretation Comments Creatinine (test code = 2160-0) 0.40 0.72-1.25 [facility] or plasma urea nitrogen/creatinine mass cbrmo3079-60-98 05:40:00* Test Item Value Reference Range Interpretation Comments BUN/Creatinine Ratio (test code = 3097-3) 18 6-25 [facility] HospitalEstimated glomerular filtration rate (GFR) sjqxuixwqlnpd4933-62-98 05:40:00* Test Item Value Reference Range Interpretation Comments Estimat Glomerular Filtration Rate (test code = 222754672) > 60 >60 Ranges were taken from the National Kidney Disease Education Program and the [facility] Kidney Foundation literature.Reference ranges:60 or greater: Aynkbb22-15 ( for 3 consecutive months): Chronic kidney disease 15 or less: Kidney failureLegent Orthopedic HospitalGlucose lpbdezieqcv6313-77-23 05:40:00* Test Item Value Reference Range Interpretation Comments Glucose Level (test code = SZZ0402) 99 74-118 [facility] or plasma calcium measurement (mass/volume)2019-10-17 05:40:00* Test Item Value Reference Range Interpretation Comments Calcium Level (test code = 68076-5) 7.1 8.4-10.2 [facility] Hospital[facility] or plasma total bilirubin measurement (mass/volume)2019-10-15 12:18:00* Test Item Value Reference Range Interpretation Comments Total Bilirubin (test code = 1975-2) 0.2 0.2-1.2 [facility] HospitalFluoroscopic procedure less than one hour nvkmhdoi7787-71-82 12:18:00* Test Item Value Reference Range Interpretation Comments Aspartate Amino Transf (AST/SGOT) (test code = Aspartate Amino Transf (AST/SGOT)) 40 5-34 [facility] Hospitaler[facility] or plasma alanine aminotransferase measurement (enzymatic activity/volume)2019-10-15 12:18:00* Test Item Value Reference Range Interpretation Comments Alanine Aminotransferase (ALT/SGPT) (test code = 1742-6) 55 0-55 [facility] Hospitaler[facility] or plasma protein measurement (mass/volume)2019-10-15 12:18:00* Test Item Value Reference Range Interpretation Comments Total Protein (test code = 2885-2) 6.2 6.5-8.1 [facility] Hospitaler[facility] or plasma albumin measurement (mass/volume)2019-10-15 12:18:00* Test Item Value Reference Range Interpretation Comments Albumin (test code = 1751-7) 2.5 3.5-5.0 [facility] HospitalPlasma globulin measurement (mass/volume) 2019-10-15 12:18:00* Test Item Value Reference Range Interpretation Comments Globulin (test code = 84236-2) 3.7 2.3-3.5 [facility] or plasma albumin/globulin mass ojtez7006-68-84 12:18:00* Test Item Value Reference Range Interpretation Comments Albumin/Globulin Ratio (test code = 1759-0) 0.7 0.8-2.0 [facility] or plasma alkaline phosphatase measurement (enzymatic activity/volume)2019-10-15 12:18:00* Test Item Value Reference Range Interpretation Comments Alkaline Phosphatase (test code = 6768-6) 98 40-150 [facility] Hospitaler[facility] or plasma carbamazepine measurement (mass/volume)2019-10-15 12:18:00* Test Item Value Reference Range Interpretation Comments Carbamazepine (Tegretol) Level (test code = 3432-2) 8.65 4. 0-12.0 [facility] HospitalCHE[facility] (PORTABLE)2019-10-15 09:24:00 [place] [address] Patient Name: SHANNON GIMENEZ MR #: [id number] : 1975 Age/Sex: 44/M Req #: [id number] Adm Physician: BASHIR THOMAS MD Ordered by: MELCHOR LI MD Report #: [id number] Location: [facility] Room/Bed: [place] [address] Procedure: [id number] DX/CHEST SINGL E (PORTABLE) Exam Date: 10/15/19 [...] PERRY MD Electronically Si gned By: FREDRICK PERYR MD on 10/15/19924 Transcribed By: SELVIN on 10/15/19 092 5 COPY TO: MELCHOR LI MD CT ABDOMEN/PELVIS [id number] 23:26:00 [place] [address] Patient Name: SHANNON GIMENEZ MR #: [id number] : 1975 Age/Sex: 44/M Req #: [id number] Adm Physician: Ordered by: SHIRLEY CHAIDEZ MD Report #: [id number] Location: ER Room/Bed: Procedure: [id number] CT/CT ABDOMEN/ PELVIS W Exam Date: 10/14/19 Exam Time: 2300 REPORT STATUS: Signed EXAM: CT Abdomen and Pelvis WITH contrast INDICATION: ABD PAIN, DISTENDED, FLUID NUVIASera RANDHAWA AROUND AARTI, ?SBO [id number] COMPARISON: 12/01/2018 TECHNIQUE : Abdomen and [...] Level (test code = 2951-2) 141 136-145 [facility] or plasma potassium measurement (moles/volume)2019-10-14 21:53:00* Test Item Value Reference Range Interpretation Comments Potassium Level (test code = 2823-3) 4.0 3.5-5.1 [facility] Hospitaler[facility] or plasma chloride measurement (moles/volume)2019-10-14 21:53:00* Test Item Value Reference Range Interpretation Comments Chloride Level (test code = 2075-0) 102 98-107 [facility] Hospitaler[facility] or plasma carbon dioxide, total measurement (moles/volume)2019-10-14 21:53:00* Test Item Value Reference Range Interpretation Comments Carbon Dioxide Level (test code = 2028-9) 28 22-29 [facility]er[facility] or plasma anion kgc4600-43-64 21:53:00* Test Item Value Reference Range Interpretation Comments Anion Gap (test code = 33659-4) 15.0 8-16 [facility]er[facility] or plasma urea nitrogen measurement (mass/volume)2019-10-14 21:53:00* Test Item Value Reference Range Interpretation Comments Blood Urea Nitrogen (test code = 3094-0) 35 7-26 [facility] Hospitaler[facility] or plasma creatinine measurement (mass/volume)2019-10-14 21:53:00* Test Item Value Reference Range Interpretation Comments Creatinine (test code = 2160-0) 0.69 0.72-1.25 [facility] or plasma urea nitrogen/creatinine mass mibmm0157-90-82 21:53:00* Test Item Value Reference Range Interpretation Comments BUN/Creatinine Ratio (test code = 3097-3) 51 6-25 [facility] HospitalEstimated glomerular filtration rate (GFR) qoabavljxrkdw8256-99-35 21:53:00* Test Item Value Reference Range Interpretation Comments Estimat Glomerular Filtration Rate (test code = 292692056) > 60 >60 Ranges were taken from the National Kidney Disease Education Program and the [facility] Kidney Foundation literature.Reference ranges:60 or greater: Frxyhd31-12 ( for 3 consecutive months): Chronic kidney disease 15 or less: Kidney failureLegent Orthopedic HospitalGlucose fxpmiufpotp0237-53-27 21:53:00* Test Item Value Reference Range Interpretation Comments Glucose Level (test code = FLJ0802) 123 74-118 [facility] plasma calcium measurement (mass/volume)2019-10-14 21:53:00* Test Item Value Reference Range Interpretation Comments Calcium Level (test code = 31924-3) 7.8 8.4-10.2 [facility] or plasma total bilirubin measurement (mass/volume)2019-10-14 21:53:00* Test Item Value Reference Range Interpretation Comments Total Bilirubin (test code = 1975-2) 0.4 0.2-1.2 [facility] HospitalFluoroscopic procedure less than one hour nggqhjvw6774-46-03 21:53:00* Test Item Value Reference Range Interpretation Comments Aspartate Amino Transf (AST/SGOT) (test code = Aspartate Amino Transf (AST/SGOT)) 44 5-34 [facility] Hospital[facility] or plasma alanine aminotransferase measurement (enzymatic activity/volume)2019-10-14 21:53:00* Test Item Value Reference Range Interpretation Comments Alanine Aminotransferase (ALT/SGPT) (test code = 1742-6) 68 0-55 [facility] or plasma protein measurement (mass/volume)2019-10-14 21:53:00* Test Item Value Reference Range Interpretation Comments Total Protein (test code = 2885-2) 7.1 6.5-8.1 [facility] or plasma albumin measurement (mass/volume)2019-10-14 21:53:00* Test Item Value Reference Range Interpretation Comments Albumin (test code = 1751-7) 2.9 3.5-5.0 [facility] HospitalPlasma globulin measurement (mass/volume) 2019-10-14 21:53:00* Test Item Value Reference Range Interpretation Comments Globulin (test code = 17270-6) 4.2 2.3-3.5 [facility] or plasma albumin/globulin mass oeijf6228-89-99 21:53:00* Test Item Value Reference Range Interpretation Comments Albumin/Globulin Ratio (test code = 1759-0) 0.7 0.8-2.0 [facility] Hospitaler[facility] or plasma alkaline phosphatase measurement (enzymatic activity/volume)2019-10-14 21:53:00* Test Item Value Reference Range Interpretation Comments Alkaline Phosphatase (test code = 6768-6) 113 40-150 [facility] Hospitalerum or plasma creatine kinase measurement (enzymatic activity/volume)2019-10-14 21:53:00* Test Item Value Reference Range Interpretation Comments Creatine Kinase (test code = 2157-6) 32 30-200 [facility] Hospitalerum or plasma creatine kinase MB measurement (mass/volume)2019-10-14 21:53:00* Test Item Value Reference Range Interpretation Comments Creatine Kinase MB (test code = 37560-9) 0.70 0-5.0 [facility] HospitalTroponin I measurement by highly sensitive enzyme xcebqtlbvkj0776-56-90 21:53:00* Test Item Value Reference Range Interpretation Comments Troponin I (test code = 35066-2) < 0.001 0-0.300 [facility] Hospitalerum or plasma lipase measurement (enzymatic activity/volume)2019-10-14 21:53:00* Test Item Value Reference Range Interpretation Comments Lipase (test code = 3040-3) 39 8-78 [facility] Hospitalerum or plasma creatine kinase measurement (enzymatic activity/volume)2019-10-14 21:53:00* Test Item Value Reference Range Interpretation Comments Creatine Kinase (test code = 2157-6) 32 30-200 [facility] Hospitalerum or plasma creatine kinase MB measurement (mass/volume)2019-10-14 21:53:00* Test Item Value Reference Range Interpretation Comments Creatine Kinase MB (test code = 61435-7) 0.70 0-5.0 [facility] HospitalTroponin I measurement by highly sensitive enzyme okdlzcwhbzp5764-22-26 21:53:00* Test Item Value Reference Range Interpretation Comments Troponin I (test code = 25325-6) < 0.001 0-0.300 [facility] Hospitalerum or plasma lipase measurement (enzymatic activity/volume)2019-10-14 21:53:00* Test Item Value Reference Range Interpretation Comments Lipase (test code = 3040-3) 39 8-78 [facility] HospitalFluoroscopic procedure less than one hour tcdxcuwl6028-37-12 20:11:00* Test Item Value Reference Range Interpretation [...] from individuals suspected of COVID-19 by their [facility] provider. This test has not been Food [...] under 564(g) of the ACT.Testing performed by [facility] [place], [place] [address]IVOLeg[facility] HospitalBlfederal correction institution hospital leukocytes automated count (number/volume) 2019-10-14 18:35:00* Test Item Value Reference Range Interpretation Comments White Blood Count (test code = 6690-2) 14.30 4.8-10.8 [facility]Blfederal [facility] hospital erythrocytes automated count (number/volume)2019-10-14 18:35:00* Test Item Value Reference Range Interpretation Comments Red Blood Count (test code = 789-8) 4.82 4.3-5.7 [facility] HospitalBlood hemoglobin measurement (moles/volume)2019-10-14 18:35:00* Test Item Value Reference Range Interpretation Comments Hemoglobin (test code = 02157-6) 15.3 14.0-18.0 [facility] HospitalAutomated blood hematocrit (volume fraction)2019-10-14 18:35:00* Test Item Value Reference Range Interpretation Comments Hematocrit (test code = 4544-3) 46.4 38.2-49.6 [facility] HospitalAutomated erythrocyte mean corpuscular vmypbe6809-19-29 18:35:00* Test Item Value Reference Range Interpretation Comments Mean Corpuscular Volume (test code = 787-2) 96.3 81-99 [facility] HospitalAutomated erythrocyte mean corpuscular hemoglobin (mass per erythrocyte)2019-10-14 18:35:00* Test Item Value Reference Range Interpretation Comments Mean Corpuscular Hemoglobin (test code = 785-6) 31.7 28-32 [facility] HospitalAutomated erythrocyte mean corpuscular hemoglobin concentration measurement (mass/volume)2019-10-14 18:35:00* Test Item Value Reference Range Interpretation Comments Mean Corpuscular Hemoglobin Concent (test code = 786-4) 33.0 31-35 [facility] HospitalRDW BdzSh-Ony9409-42-05 18:35:00* Test Item Value Reference Range Interpretation Comments Red Cell Distribution Width (test code = 47353-4) 14.1 11.7 -14.4 [facility] HospitalAutomated blood platelet count (count/volume)2019-10-14 18:35:00* Test Item Value Reference Range Interpretation Comments Platelet Count (test code = 777-3) 232 140-360 [facility] HospitalAutomated blood segmented neutrophil count as percentage of total bfqowvbaho8078-43-58 18:35:00* Test Item Value Reference Range Interpretation Comments Neutrophils (%) (Auto) (test code = 97851-6) 78.1 38.7-80.[address] [facility] lymphocyte count as percentage ot total ivbqjpdyam3355-28-77 18:35:00* Test Item Value Reference Range Interpretation Comments Lymphocytes (%) (Auto) (test code = 736-9) 18.1 18.0-39.1 [facility] HospitalAutomated blood monocyte count as percentage of total gkiklkjxac8754-89-24 18:35:00* Test Item Value Reference Range Interpretation Comments Monocytes (%) (Auto) (test code = 5905-5) 2.9 4.4-11.3 [facility] HospitalAutselect specialty hospital [facility]-salemed blood eosinophil count as percentage of total szxvzqwcpi2212-13-55 18:35:00* Test Item Value Reference Range Interpretation Comments Eosinophils (%) (Auto) (test code = 713-8) 0.3 0.0-6.0 [facility] HospitalAutomated blood basophil count as percentage of total wiyfouuepj8565-07-66 18:35:00* Test Item Value Reference Range Interpretation Comments Basophils (%) (Auto) (test code = 706-2) 0.3 0.0-1.0 [facility] HospitalFluoroscopic procedure less than one hour pbjzswxg1324-52-52 18:35:00* Test Item Value Reference Range Interpretation Comments IM GRANULOCYTES % (test code = IM GRANULOCYTES %) 0.3 0.0- 1.0 [facility] HospitalAutomated blood neutrophil count 2019-10-14 18:35:00* Test Item Value Reference Range Interpretation Comments Neutrophils # (Auto) (test code = 751-8) 11.1 2.1-6.9 [facility] HospitalBlood lymphocytes count (number/volume) 2019-10-14 18:35:00* Test Item Value Reference Range Interpretation Comments Lymphocytes # (Auto) (test code = 45809-3) 2.6 1.0-3.2 [facility] HospitalBlood monocytes automated count (number/volume)2019-10-14 18:35:00* Test Item Value Reference Range Interpretation Comments Monocytes # (Auto) (test code = 742-7) 0.4 0.2-0.8 [facility] HospitalAutomated blood eosinophil count 2019-10-14 18:35:00* Test Item Value Reference Range Interpretation Comments Eosinophils # (Auto) (test code = 711-2) 0.1 0.0-0.4 [facility] HospitalAutomated blood basophil count (count/volume)2019-10-14 18:35:00* Test Item Value Reference Range Interpretation Comments Basophils # (Auto) (test code = 704-7) 0.1 0.0-0.1 [facility] HospitalFluoroscopic procedure less than one hour cixockdk2490-81-45 18:35:00* Test Item Value Reference Range Interpretation Comments Absolute Immature Granulocyte (auto (heraclio t code = Absolute Immature Granulocyte (auto) 0.05 0-0.1 [facility] HospitalProthrombin time (PT) in platelet poor plasma by coagulation xjxfn1539-23-43 18:35:00* Test Item Value Reference Range Interpretation Comments Prothrombin Time (test code = 5902-2) 13.3 11.9-14.5 [facility] HospitalINR in Platelet poor plasma by Coagulation venpf8240-31-05 18:35:00* Test Item Value Reference Range Interpretation Comments Prothromb Time International Ratio (test code = 6301-6) 0.96 Oral Anticoagulant Therapy INR Values:1. Low Intensity Therapy 1.5 - 2.02 . Moderate Intensity Therapy 2.0 - 3.03. High Intensity Therapy(1) 2.5 - 3. 54. High Intensity Therapy(2) 3.0 - 4.05. Panic Value INR > 5.0 [facility] HospitalActivated partial thromboplastin time (aPTT) in platelet poor plasma by coagulation nwxqg6917-58-47 18:35:00* Test Item Value Reference Range Interpretation Comments Activated Partial Thromboplast Time (test code = 29652-3) 36.5 23.8-35.5 [facility] HospitalUrine color oabpmkwicfbsn5617-74-97 18:35:00* Test Item Value Reference Range Interpretation Comments Urine Color (test code = 5778-6) YELLOW YELLOW [facility] HospitalUrine rajbjdj6772-58-24 18:35:00* Test Item Value Reference Range Interpretation Comments Urine Clarity (test code = 15990-1) HAZY CLEAR [facility] Hospitalpecific gravity of Urine by Test strip 2019-10-14 18:35:00* Test Item Value Reference Range Interpretation Comments Urine Specific [place] (test code = 5811-5) 1.030 1.010-1.02 5 [facility] HospitalUrine pH measurement by automated test ochpt4471-48-78 18:35:00* Test Item Value Reference Range Interpretation Comments Urine pH (test code = 89673-5) 5.5 5-7 [facility] HospitalUrine leukocyte esterase detection by vivxopuz9252-12-96 18:35:00* Test Item Value Reference Range Interpretation Comments Urine Leukocyte Esterase (test code = 5799-2) NEGATIVE NEGATIVE [facility] HospitalUrine nitrite ozpsaijvj7385-73-03 18:35:00* Test Item Value Reference Range Interpretation Comments Urine Nitrite (test code = 54497-5) NEGATIVE NEGATIVE [facility] HospitalUrine protein measurement by test strip (mass/volume)2019-10-14 18:35:00* Test Item Value Reference Range Interpretation Comments Urine Protein (test code = 5804-0) 2+ NEGATIVE [facility] HospitalUrine glucose peaniuaxe1436-62-59 18:35:00* Test Item Value Reference Range Interpretation Comments Urine Glucose (UA) (test code = 2349-9) NEGATIVE NEGATIVE [facility] HospitalUrine ketones detection by automated test usnvz7113-19-07 18:35:00* Test Item Value Reference Range Interpretation Comments Urine Ketones (test code = 43904-0) NEGATIVE NEGATIVE [facility] HospitalUrine urobilinogen measurement by test strip (mass/volume)2019-10-14 18:35:00* Test Item Value Reference Range Interpretation Comments Urine Urobilinogen (test code = 99041-8) 0.2 0.2-1 [facility] HospitalUrine total bilirubin measurement (mass/volume)2019-10-14 18:35:00* Test Item Value Reference Range Interpretation Comments Urine Bilirubin (test code = 1978-6) NEGATIVE NEGATIVE [facility] HospitalUrine erythrocytes ycmzcbbvy6916-53-45 18:35:00* Test Item Value Reference Range Interpretation Comments Urine Blood (test code = 41856-2) NEGATIVE NEGATIVE [facility] HospitalAutomated urine sediment leukocyte count by microscopy (number/high power field)2019-10-14 18:35:00* Test Item Value Reference Range Interpretation Comments Urine WBC (test code = 5821-4) 0-5 0-5 [facility] HospitalErythrocytes detection in urine sediment by light mtpjsdrmhe7793-06-31 18:35:00* Test Item Value Reference Range Interpretation Comments Urine RBC (test code = 95269-6) 0-5 0-5 [facility] HospitalBacteria detection in urine sediment by light xkpvmvsurz7754-90-93 18:35:00* Test Item Value Reference Range Interpretation Comments Urine Bacteria (test code = 92126-7) FEW NONE [facility] HospitalEpithelial cells detection in urine sediment by light bjcldheawa4576-87-82 18:35:00* Test Item Value Reference Range Interpretation Comments Urine Epithelial Cells (test code = 32400-9) FEW NONE [facility] HospitalAmorphous sediment detection in urine sediment by light qapzrpigen6358-08-91 18:35:00* Test Item Value Reference Range Interpretation Comments Urine Amorphous Sediment (test code = 8246-1) FEW FEW [facility] HospitalAutomated fine granular casts count in urine sediment by microscopy low power field (number/area)2019-10-14 18:35:00* Test Item Value Reference Range Interpretation Comments Urine Fine Granular Casts (test code = 44718-6) 1-5 >0 [facility] HospitalMucus detection in urine sediment by light cwfxgiwteq2818-72-33 18:35:00* Test Item Value Reference Range Interpretation Comments Urine Mucus (test code = 8247-9) FEW RARE [facility] HospitalProthrombin time (PT) in platelet poor plasma by coagulation zyauc8164-33-87 18:35:00* Test Item Value Reference Range Interpretation Comments Prothrombin Time (test code = 5902-2) 13.3 11.9-14.5 [facility] HospitalINR in Platelet poor plasma by Coagulation mkvcd2949-11-40 18:35:00* Test Item Value Reference Range Interpretation Comments Prothromb Time International Ratio (test code = 6301-6) 0.96 Oral Anticoagulant Therapy INR Values:1. Low Intensity Therapy 1.5 - 2.02 . Moderate Intensity Therapy 2.0 - 3.03. High Intensity Therapy(1) 2.5 - 3. 54. High Intensity Therapy(2) 3.0 - 4.05. Panic Value INR > 5.0 [facility] HospitalActivated partial thromboplastin time (aPTT) in platelet poor plasma by coagulation djpre4692-50-46 18:35:00* Test Item Value Reference Range Interpretation Comments Activated Partial Thromboplast Time (test code = 28647-9) 36.5 23.8-35.5 [facility] HospitalUrine color rplomaoniepve7976-64-77 18:35:00* Test Item Value Reference Range Interpretation Comments Urine Color (test code = 5778-6) YELLOW YELLOW [facility] HospitalUrine iwztzxn4756-77-03 18:35:00* Test Item Value Reference Range Interpretation Comments Urine Clarity (test code = 27184-1) HAZY CLEAR [facility] Hospitalpecific gravity of Urine by Test strip 2019-10-14 18:35:00* Test Item Value Reference Range Interpretation Comments Urine Specific [place] (test code = 5811-5) 1.030 1.010-1.02 5 [facility] HospitalUrine pH measurement by automated test zpiln1676-11-68 18:35:00* Test Item Value Reference Range Interpretation Comments Urine pH (test code = 95501-4) 5.5 5-7 [facility] HospitalUrine leukocyte esterase detection by apqwbiiv8445-99-10 18:35:00* Test Item Value Reference Range Interpretation Comments Urine Leukocyte Esterase (test code = 5799-2) NEGATIVE NEGATIVE [facility] HospitalUrine nitrite saetneuxi5330-00-68 18:35:00* Test Item Value Reference Range Interpretation Comments Urine Nitrite (test code = 51442-4) NEGATIVE NEGATIVE [facility] HospitalUrine protein measurement by test strip (mass/volume)2019-10-14 18:35:00* Test Item Value Reference Range Interpretation Comments Urine Protein (test code = 5804-0) 2+ NEGATIVE [facility] HospitalUrine glucose ybgxbmkxq8327-57-50 18:35:00* Test Item Value Reference Range Interpretation Comments Urine Glucose (UA) (test code = 2349-9) NEGATIVE NEGATIVE [facility] HospitalUrine ketones detection by automated test unvrw6840-27-86 18:35:00* Test Item Value Reference Range Interpretation Comments Urine Ketones (test code = 62895-2) NEGATIVE NEGATIVE [facility] HospitalUrine urobilinogen measurement by test strip (mass/volume)2019-10-14 18:35:00* Test Item Value Reference Range Interpretation Comments Urine Urobilinogen (test code = 26332-7) 0.2 0.2-1 [facility] HospitalUrine total bilirubin measurement (mass/volume)2019-10-14 18:35:00* Test Item Value Reference Range Interpretation Comments Urine Bilirubin (test code = 1978-6) NEGATIVE NEGATIVE [facility] HospitalUrine erythrocytes redmlawto1968-19-99 18:35:00* Test Item Value Reference Range Interpretation Comments Urine Blood (test code = 19732-3) NEGATIVE NEGATIVE [facility] HospitalAutomated urine sediment leukocyte count by microscopy (number/high power field)2019-10-14 18:35:00* Test Item Value Reference Range Interpretation Comments Urine WBC (test code = 5821-4) 0-5 0-5 [facility] HospitalErythrocytes detection in urine sediment by light sakxtbehsy3407-08-83 18:35:00* Test Item Value Reference Range Interpretation Comments Urine RBC (test code = 57850-9) 0-5 0-5 [facility] HospitalBacteria detection in urine sediment by light axyyydxscy6967-24-48 18:35:00* Test Item Value Reference Range Interpretation Comments Urine Bacteria (test code = 96576-2) FEW NONE [facility] HospitalEpithelial cells detection in urine sediment by light zjcxkrgvrn1370-11-33 18:35:00* Test Item Value Reference Range Interpretation Comments Urine Epithelial Cells (test code = 47009-9) FEW NONE [facility] HospitalAmorphous sediment detection in urine sediment by light dvbxwepmrd7164-87-33 18:35:00* Test Item Value Reference Range Interpretation Comments Urine Amorphous Sediment (test code = 8246-1) FEW FEW [facility] HospitalAutomated fine granular casts count in urine sediment by microscopy low power field (number/area)2019-10-14 18:35:00* Test Item Value Reference Range Interpretation Comments Urine Fine Granular Casts (test code = 21876-5) 1-5 >0 [facility] HospitalMucus detection in urine sediment by light rdvqcjneyt1359-95-27 18:35:00* Test Item Value Reference Range Interpretation Comments Urine Mucus (test code = 8247-9) FEW RARE [facility] HospitalBlood tohpcvz9130-26-31 18:35:00* Test Item Value Reference Range Interpretation Comments Blood Culture (test code = 15183829) NO GROWTH AFTER 72 HOURS [facility] HospitalFluoroscopic procedure less than one hour mhseoxfi5507-45-93 18:32:00* Test Item Value Reference Range Interpretation Comments Lactic Acid Level (test code = Lactic Acid Level) 1.5 0.5- 2.0 [facility] HospitalFluoroscopic procedure less than one hour kflrdadk0687-22-33 18:32:00* Test Item Value Reference Range Interpretation Comments Lactic Acid Level (test code = Lactic Acid Level) 1.5 0.5- 2.0 [facility] HospitalBlood culture, aerobic & anaerobic 2019-06-29 12:03:04* Test Item Value Reference Range Interpretation Comments Blood culture isolate (test code = 600-7) No growth after 5 days of incubation. Specimen InformationSpecimen Source: BloodSpecimen Site: Forearm, left [facility] MethodistComprehensive metabolic [id number] 06:05:05* Test Item Value Reference Range Interpretation Comments Sodium (test code = 2951-2) 142 135- 148 mEq/L Potassium (test code = 2823-3) 3.2 3.5- 5.0 mEq/L L Chloride (test code = 5-0) 110 98- 112 mEq/L CO2 (test code = 2027-9) 21 24- 31 mEq/L L Anion gap (test code = 95934-5) 11@ANIO 7- 15 mEq/L BUN (test code = 3094-0) 17 mg/dL 6-20 Creatinine (test code = 2160-0) 0.40 mg/dL 0.7-1.2 L Glucose (test code = 2345-7) 130 mg/dL 65-99 H Calcium (test code = 33251-6) 8.4 mg/dL 8.3-10.2 Protein (test code = 2885-2) 6.3 g/dL 6.3-8.3 - 4.6- 7.0 g/dL1 week 4.4-7.6 g/dL7 months-1year 5.1-7.3 g/dL1-2 years 5.6-7.5 g/dL>3 years 6.0-8.0 g/fY17-829 6.3-8.3 g/dL Albumin (test code = 1751-7) 3.2 g/dL 3.5-5 L A/G ratio (test code = 1759-0) 1.0 0.7-3.8 Alkaline phosphatase (test code = 6768-6) 140 U/L 40-129 H AST (test code = 1920-8) 80 U/L 10-50 H ALT (test code = 1742-6) 87 U/L 5-50 H Total bilirubin (test code = 1974-2) <0.2 0-1.2 Lab Interpretation (test code = 15787-3) Abnormal [facility] MethodistEstimated [id number] 06:05:05* Test Item Value Reference Range Interpretation Comments Estimated GFR (test code = 5488) >=90 mL/min/1.73 m2 Catergory Units InterpretationG1 >=90 Normal or highG2 60-89 Mildly texarzgqhL4s 45-59 Mildly to moderately dfrjuftlwE0v 30-44 Moderately to severely decreasedG4 15-29 Severely decreasedG5 <15 Kidney failureThe eGFR was calculated using the Chronic Kidney Disease Epidemiology Collaboration (CKD-EPI) equation. Interpretation is based on recommendations of the National Kidney Foundation-Kidney Disease Outcomes Quality Initiative (NKF-KDOQI) published in 2014. [facility] MethodistCBC with platelet and cwwphnlskdxw9913-26-65 05:49:01* Test Item Value Reference Range Interpretation Comments WBC (test code = 23663-5) 4.15 4.50- 11.00 k/uL L RBC (test code = 74019-1) 4.08 m/uL 4.4-6 L HGB (test code = 718-7) 12.4 g/dL 14-18 L HCT (test code = 4544-3) 38.8 % 41-51 L MCV (test code = 787-2) 95.1 fL 82-100 MCH (test code = 785-6) 30.4 pg 27-34 MCHC (test code = 786-4) 32.0 g/dL 31-37 RDW - SD (test code = 76981-7) 52.9 fL 37-55 MPV (test code = 29861-0) 10.8 fL 8.8-13.2 Platelet count (test code = 52938-3) 220 150- 400 k/uL Nucleated RBC (test code = 22101-0) 0.00 /100 WBC Neutrophils (test code = 68898-0) 62.9 % 39-69 Lymphocytes (test code = 72670-8) 25.8 % 25-45 Monocytes (test code = 10468-8) 5.1 % 0-10 Eosinophils (test code = 65150-1) 4.8 % 0-5 Basophils (test code = 67478-2) 1.2 % 0-1 H Lab Interpretation (test code = 19166-5) Abnormal [facility] MethodistXR Chest 1 Vw Mgdjktnt1549-88-67 12:09:24Hm Interface, Radiology Results - 06/26/2019 12:12 [...] disease.Micheal butler [facility]PHY[facility]AM[facility] MethodistRespiratory pathogen fovbs1842-30-74 12:00:03 Respiratory pathogen panelNegative for all pathogens tested:Negative for Adenovi rusNegative for Coronavirus JJK4Wipiguot for Coronavirus DJ86Yofgyxhi for [place] virus 229ENegative for Coronavirus QS41Epretvyw for Human MetapneumovirusNegativ e for Rhinovirus/EnterovirusNegative for Influenza ANegative for Influenza A/H1N egative for Influenza A/J8Jzjgoxuu for Influenza A/H1-2009Negative for Influenza BNegative for [...] . Comment: Specimen InformationSpecimen Source: NaresSpec[facility] Site[facility] MethodistHepatic function wmduq9466-57-27 03:42:58* Test Item Value Reference Range Interpretation Comments Albumin (test code = 1751-7) 3.8 g/dL 3.5-5 Total bilirubin (test code = 1974-2) 0.2 mg/dL 0-1.2 Bilirubin direct (test code = 1967-7) <0.1 0-0.3 Alkaline phosphatase (test code = 6768-6) 153 U/L 40-129 H Protein (test code = 2885-2) 7.9 g/dL 6.3-8.3 -Alloy 4.6- 7.0 g/dL1 week 4.4-7.6 g/dL7 months-1year 5.1-7.3 g/dL1-2 years 5.6-7.5 g/dL>3 years 6.0-8.0 g/iS67-176 6.3-8.3 g/dL ALT (test code = 1742-6) 86 U/L 5-50 H AST (test code = 1920-8) 80 U/L 10-50 H Lab Interpretation (test code = 22736-2) Abnormal [facility] MethodistLipase zmxax6187-08-25 03:42:58* Test Item Value Reference Range Interpretation Comments Lipase (test code = 3040-3) 118 U/L 13-60 H Lab Interpretation (test code = 37197-0) Abnormal [facility] MethodistInfluenza antigen test, reflex negative to [id number] 03:04:43* Test Item Value Reference Range Interpretation Comments Influenza antigen (test code = 83983-4) Negative for Influenza A/B antigen. Specimen InformationSpecimen Source: [facility] Site: Left [facility] MethodistBasic metabolic rekvo9968-95-95 02:56:36* Test Item Value Reference Range Interpretation Comments Sodium (test code = 2951-2) 136 135- 148 mEq/L Potassium (test code = 2823-3) 5.0 3.5- 5.0 mEq/L Chloride (test code = 2075-0) 102 98- 112 mEq/L CO2 (test code = 2028-9) 20 24- 31 mEq/L L Anion gap (test code = 52431-6) 14@ANIO 7- 15 mEq/L BUN (test code = 3094-0) 20 mg/dL 6-20 Creatinine (test code = 2160-0) 0.40 mg/dL 0.7-1.2 L Glucose (test code = 2345-7) 115 mg/dL 65-99 H Calcium (test code = 76222-9) 9.1 mg/dL 8.3-10.2 Lab Interpretation (test code = 37279-8) Abnormal [facility] MethodistCreatine kinase, total (CPK)2019-06-24 02:56:36* Test Item Value Reference Range Interpretation Comments Creatine kinase (test code = 2157-6) 114 U/L 39-308 [facility] Methodistcarbamazepine level, wfrcd9986-19-04 16:51:00* Test Item Value Reference Range Interpretation Comments carbamazepine level, serum (test code = 3432-2) 12.7 ug/mL 4.0-12 .0 [facility] Yliccub5147-90-09 21:05:00* Test Item Value Reference Range Interpretation Comments Blood Culture (test code = 47152537) NO GROWTH AFTER 24 HOURS [facility] HospitalUrine [id number] 17:00:00* Test Item Value Reference Range Interpretation Comments Urine WBC (test code = 5821-4) NONE 0-5 [facility] HospitalUrine [id number] 17:00:00* Test Item Value Reference Range Interpretation Comments Urine RBC (test code = 33693-2) NONE 0-5 [facility] HospitalUrine Magfmukj5068-23-12 17:00:00* Test Item Value Reference Range Interpretation Comments Urine Bacteria (test code = 13452-0) NONE NONE [facility] HospitalUrine Epithelial Vdjxp9737-44-82 17:00:00 * Test Item Value Reference Range Interpretation Comments Urine Epithelial Cells (test code = 14348-7) NONE NONE [facility] HospitalUrine Amorphous Vkdryklp4017-43-29 17:00:00* Test Item Value Reference Range Interpretation Comments Urine Amorphous Sediment (test code = 8246-1) FEW FEW [facility] Ivftd7234-27-26 17:00:00* Test Item Value Reference Range Interpretation Comments Urine Mucus (test code = 8247-9) FEW RARE H [facility] Jqvwy6843-52-02 16:44:00* Test Item Value Reference Range Interpretation Comments Urine Color (test code = 5778-6) YELLOW YELLOW [facility] Gkaiuie0961-27-14 16:44:00* Test Item Value Reference Range Interpretation Comments Urine Clarity (test code = 02778-6) CLEAR CLEAR [facility] Hospital[facility] Specific [place]4212-01-06 16:44:00 * Test Item Value Reference Range Interpretation Comments Urine Specific [place] (test code = 5811-5) 1.015 1.010-1.02 5 [facility] tR4601-98-11 16:44:00* Test Item Value Reference Range Interpretation Comments Urine pH (test code = 77821-9) 6 5-7 [facility] Leukocyte Ccdmjnqy9294-96-11 16:44:00* Test Item Value Reference Range Interpretation Comments Urine Leukocyte Esterase (test code = 94345-1) NEGATIVE NEGATIV E [facility] Qtukzzs4330-55-10 16:44:00* Test Item Value Reference Range Interpretation Comments Urine Nitrite (test code = 64564-5) NEGATIVE NEGATIVE [facility] Yvmgumd5740-75-63 16:44:00* Test Item Value Reference Range Interpretation Comments Urine Protein (test code = 01890-0) NEGATIVE NEGATIVE [facility] Glucose (UA)2018-12-05 16:44:00* Test Item Value Reference Range Interpretation Comments Urine Glucose (UA) (test code = 95504-2) NEGATIVE NEGATIVE [facility] Wtjsbwl2446-48-14 16:44:00* Test Item Value Reference Range Interpretation Comments Urine Ketones (test code = 67433-2) NEGATIVE NEGATIVE [facility] Hfdkndpdjqjp6793-49-07 16:44:00* Test Item Value Reference Range Interpretation Comments Urine Urobilinogen (test code = 16536-4) 0.2 0.2-1 [facility] Sukfiscjt6236-10-58 16:44:00* Test Item Value Reference Range Interpretation Comments Urine Bilirubin (test code = 1977-8) NEGATIVE NEGATIVE [facility] Qdlrq1555-15-00 16:44:00* Test Item Value Reference Range Interpretation Comments Urine Blood (test code = 65882-0) NEGATIVE NEGATIVE [facility] HospitalLipase2019-08-27 05:49:00* Test Item Value Reference Range Interpretation Comments Lipase (test code = 3040-3) 22 8- [facility] HospitalHepatitis A IgM Gtmyyhvz6517-91-29 05:08:00* Test Item Value Reference Range Interpretation Comments Hepatitis A IgM Antibody (test code = 82512-3) Negative Negativ e [facility] B Surface Gxvfonv5874-49-70 05:08:00* Test Item Value Reference Range Interpretation Comments Hepatitis B Surface Antigen (test code = 5196-1) Negative Negat yuli [facility] B Core IgM Vqrhclof6313-62-38 05:08:00* Test Item Value Reference Range Interpretation Comments Hepatitis B Core IgM Antibody (test code = 99184-2) Negative Ne gative [facility] Vdzyyffo9259-62-22 05:08:00* Test Item Value Reference Range Interpretation Comments Hepatitis C Antibody (test code = 82789-8) <0.1 0.0-0.9 Negative: < 0.8 Indeterminate: 0.8 - 0.9 Positive: > 0.9 The CDC recommends that a positive HCV antibody result be followed up with a HCV Nucleic Acid Amplification test (107417).Performed at: - [facility] [id number] Director: Ramon Meza MD, Phone: [phone] [facility]CH[facility] 2018-12-04 22:42:00 [place] [address] Patient Name: SHANNON GIMENEZ MR #: [id number] : 1975 Age/Sex: 43/M Req #: [id number] Adm Physician: ARMAND MORIN MD Ordered by: ARMAND MORIN MD Report #: [id number] Location: MED/SURG3 Room/Bed: [facility] Procedure: [id number] DX /CHEST SINGLE (PORTABLE) Exam Date: 12/04/18 [...] maurice By: MINOO ZHENG MD on 12/04/18 7683 Transcribed By: SELVIN on 12/04/18 2 318 COPY TO: ARMAND MORIN MD Rvlcltecnokef7912-45-16 22:16:00* Test Item Value Reference Range Interpretation Comments Ceruloplasmin (test code = 2064-4) 28.5 16.0-31.0 Performed at: [facility] [id number] [place] [id number], [place], [place] [id number] 4Lab Director: ROWENA Arroyo MD, Phone: [phone] Orthopedic HospitalAnti-Mitochondrial Ickqlvxv0724-79-57 22:16:00* Test Item Value Reference Range Interpretation Comments Anti-Mitochondrial Antibody (test code = 15884-1) <20.0 0.0- 20.0 Negative 0.0 - 20.0 Equivocal 20.1 - 24.9 Positive > 24.9Mitochondrial (M2) Antibodies are found in 90-96% ofpatients with primary bi liary cirrhosis.Performed at: - [facility] [id number] Director: Kobe Meyers MD, Phone: [phone] Orthopedic HospitalBedside Qgiheab8385-88-20 16:13:00* Test Item Value Reference Range Interpretation Comments Bedside Glucose (test code = 79326-3) 111 70-120 Meter ID: [id number] Spohn [facility] Corp[facility] Christi – SouthCarbamazepine (Tegretol) Gwupy7705-86-15 06:56:00* Test Item Value Reference Range Interpretation Comments Carbamazepine (Tegretol) Level (test code = 3432-2) 5.04 4. 0-12.0 [facility] HospitalPhenytoin (Dilantin) Tjcha6956-33-85 06:56:00* Test Item Value Reference Range Interpretation Comments Phenytoin (Dilantin) Level (test code = 3968-5) 13.19 10-20 [facility] Rmfzr2566-31-81 06:38:00* Test Item Value Reference Range Interpretation Comments Sodium Level (test code = 2951-2) 142 136-145 VERIFIED ON 2ND ANALYZERLegent Orthopedic HospitalPotassium Level 2018-12-02 06:38:00* Test Item Value Reference Range Interpretation Comments Potassium Level (test code = 2823-3) 4.4 3.5-5.1 VERIFIED ON 2ND ANALYZERLegent Orthopedic HospitalAnion Gap 2018-12-02 06:38:00* Test Item Value Reference Range Interpretation Comments Anion Gap (test code = 66199-2) 15.4 8-16 [facility] HospitalAlkaline Uzilbzpcwbm9294-53-12 06:38:00* Test Item Value Reference Range Interpretation Comments Alkaline Phosphatase (test code = 6768-6) 102 40-150 [facility] HospitalChloride Dmxwp4660-73-28 06:25:00* Test Item Value Reference Range Interpretation Comments Chloride Level (test code = 2075-0) 111 98-107 H [facility] HospitalCarbon Dioxide Gaedq9073-32-71 06:25:00* Test Item Value Reference Range Interpretation Comments Carbon Dioxide Level (test code = 2028-9) 20 22-29 L [facility] HospitalBlood Urea Aicgihcc8611-03-25 06:25:00* Test Item Value Reference Range Interpretation Comments Blood Urea Nitrogen (test code = 3094-0) 10 7-26 [facility] HospitalCreatinine2019-08-24 06:25:00* Test Item Value Reference Range Interpretation Comments Creatinine (test code = 2160-0) 0.59 0.72-1.25 L [facility] HospitalBUN/Creatinine Jldxd8097-92-11 06:25:00* Test Item Value Reference Range Interpretation Comments BUN/Creatinine Ratio (test code = 3097-3) 17 6-25 [facility] HospitalEstimat Glomerular Filtration Rate 2018-12-02 06:25:00* Test Item Value Reference Range Interpretation Comments Estimat Glomerular Filtration Rate (test code = 490150568) > 60 >60 Ranges were taken from the National Kidney Disease Education Program and the [employer] literature.Reference ranges:60 or greater: Kmqbpn01-92 ( for 3 consecutive months): Chronic kidney disease 15 or less: Kidney failureLegent Orthopedic HospitalGlucose Dqkbo7562-30-68 06:25:00* Test Item Value Reference Range Interpretation Comments Glucose Level (test code = EYA2525) 116 74-118 [facility] HospitalCalcium Hnnhx7456-70-53 06:25:00* Test Item Value Reference Range Interpretation Comments Calcium Level (test code = 76264-1) 8.5 8.4-10.2 [facility] HospitalTotal Kcnbpdbrn5361-85-29 06:25:00* Test Item Value Reference Range Interpretation Comments Total Bilirubin (test code = 1975-2) 0.5 0.2-1.2 [facility] HospitalAspartate Amino Transf (AST/SGOT) 2018-12-02 06:25:00* Test Item Value Reference Range Interpretation Comments Aspartate Amino Transf (AST/SGOT) (test code = Aspartate Amino Transf (AST/SGOT)) 37 5-34 H [facility] HospitalAlanine Aminotransferase (ALT/SGPT) 2018-12-02 06:25:00* Test Item Value Reference Range Interpretation Comments Alanine Aminotransferase (ALT/SGPT) (test code = 1742-6) 58 0-55 H [facility] HospitalTotal Jcmitpm5152-06-12 06:25:00* Test Item Value Reference Range Interpretation Comments Total Protein (test code = 2885-2) 6.5 6.5-8.1 [facility] HospitalAlbumin2019-08-24 06:25:00* Test Item Value Reference Range Interpretation Comments Albumin (test code = 1751-7) 3.2 3.5-5.0 L [facility] HospitalGlobulin2019-08-24 06:25:00* Test Item Value Reference Range Interpretation Comments Globulin (test code = 05349-3) 3.3 2.3-3.5 [facility] HospitalAlbumin/Globulin Khgif8900-16-42 06:25:00 * Test Item Value Reference Range Interpretation Comments Albumin/Globulin Ratio (test code = 1759-0) 1.0 0.8-2.0 [facility] HospitalAmylase Vyzyy8604-56-96 06:25:00* Test Item Value Reference Range Interpretation Comments Amylase Level (test code = 1798-8) 98 25-125 [facility] HospitalWhite Blood Kfnkj7067-36-71 06:16:00* Test Item Value Reference Range Interpretation Comments White Blood Count (test code = 6690-2) 9.78 4.8-10.8 [facility] HospitalRed Blood Yzerd5671-79-42 06:16:00* Test Item Value Reference Range Interpretation Comments Red Blood Count (test code = 789-8) 4.00 4.3-5.7 L [facility] HospitalHemoglobin2019-08-24 06:16:00* Test Item Value Reference Range Interpretation Comments Hemoglobin (test code = 84778-0) 12.8 14.0-18.0 L [facility] HospitalHematocrit2019-08-24 06:16:00* Test Item Value Reference Range Interpretation Comments Hematocrit (test code = 4544-3) 42.1 38.2-49.6 [facility] HospitalMean Corpuscular Iupyqf7765-69-42 06:16:00* Test Item Value Reference Range Interpretation Comments Mean Corpuscular Volume (test code = 787-2) 105.3 81-99 H [facility] HospitalMean Corpuscular Hfjlfigqdk6319-14-59 06:16:00* Test Item Value Reference Range Interpretation Comments Mean Corpuscular Hemoglobin (test code = 785-6) 32.0 28-32 [facility] HospitalMean Corpuscular Hemoglobin Concent 2018-12-02 06:16:00* Test Item Value Reference Range Interpretation Comments Mean Corpuscular Hemoglobin Concent (test code = 786-4) 30.4 31-35 L [facility] HospitalRed Cell Distribution Ciurq2024-79-79 06:16:00* Test Item Value Reference Range Interpretation Comments Red Cell Distribution Width (test code = 68470-5) 14.5 11.7 -14.4 H [facility] HospitalPlatelet Dlghl0159-80-55 06:16:00* Test Item Value Reference Range Interpretation Comments Platelet Count (test code = 777-3) 159 140-360 [facility] HospitalNeutrophils (%) (Auto)2018-12-02 06:16:00 * Test Item Value Reference Range Interpretation Comments Neutrophils (%) (Auto) (test code = 34056-7) 70.5 38.7-80.0 [facility] HospitalLymphocytes (%) (Auto)2018-12-02 06:16:00 * Test Item Value Reference Range Interpretation Comments Lymphocytes (%) (Auto) (test code = 736-9) 19.5 18.0-39.1 [facility] HospitalMonocytes (%) (Auto)2018-12-02 06:16:00* Test Item Value Reference Range Interpretation Comments Monocytes (%) (Auto) (test code = 5905-5) 7.5 4.4-11.3 [facility] HospitalEosinophils (%) (Auto)2018-12-02 06:16:00 * Test Item Value Reference Range Interpretation Comments Eosinophils (%) (Auto) (test code = 713-8) 1.5 0.0-6.0 [facility] HospitalBasophils (%) (Auto)2018-12-02 06:16:00* Test Item Value Reference Range Interpretation Comments Basophils (%) (Auto) (test code = 706-2) 0.6 0.0-1.0 [facility] HospitalIM GRANULOCYTES %2018-12-02 06:16:00* Test Item Value Reference Range Interpretation Comments IM GRANULOCYTES % (test code = IM GRANULOCYTES %) 0.4 0.0- 1.0 [facility] HospitalNeutrophils # (Auto)2018-12-02 06:16:00* Test Item Value Reference Range Interpretation Comments Neutrophils # (Auto) (test code = 751-8) 6.9 2.1-6.9 [facility] HospitalLymphocytes # (Auto)2018-12-02 06:16:00* Test Item Value Reference Range Interpretation Comments Lymphocytes # (Auto) (test code = 21203-0) 1.9 1.0-3.2 [facility] HospitalMonocytes # (Auto)2018-12-02 06:16:00* Test Item Value Reference Range Interpretation Comments Monocytes # (Auto) (test code = 742-7) 0.7 0.2-0.8 [facility] HospitalEosinophils # (Auto)2018-12-02 06:16:00* Test Item Value Reference Range Interpretation Comments Eosinophils # (Auto) (test code = 711-2) 0.2 0.0-0.4 [facility] HospitalBasophils # (Auto)2018-12-02 06:16:00* Test Item Value Reference Range Interpretation Comments Basophils # (Auto) (test code = 704-7) 0.1 0.0-0.1 [facility] HospitalAbsolute Immature Granulocyte (auto 2018-12-02 06:16:00* Test Item Value Reference Range Interpretation Comments Absolute Immature Granulocyte (auto (heraclio t code = Absolute Immature Granulocyte (auto) 0.04 0-0.1 [facility] HospitalFerritin2019-08-23 21:32:00* Test Item Value Reference Range Interpretation Comments Ferritin (test code = 2276-4) 79.54 21.81-274.66 [facility] HospitalIron Ltxra1824-56-75 21:14:00* Test Item Value Reference Range Interpretation Comments Iron Level (test code = 2498-4) 86 65-175 [facility] HospitalTotal Iron Binding Vyjpknbn0598-72-67 21:14:00* Test Item Value Reference Range Interpretation Comments Total Iron Binding Capacity (test code = 2500-7) 279 261-4 78 [facility] HospitalPercent Iron Ijobustqed9703-44-92 21:14:00* Test Item Value Reference Range Interpretation Comments Percent Iron Saturation (test code = 2502-3) 31 15-50 [facility] HospitalTransferrin2019-08-23 21:14:00* Test Item Value Reference Range Interpretation Comments Transferrin (test code = 3034-6) 199 174-364 [facility] HospitalCT ABDOMEN/PELVIS H3225-62-92 16:56:00 [place] [address] Patient Name: SHANNON GIMENEZ MR #: [id number] : 1975 Age/Sex: 43/M Req #: [id number] Adm Physician: ARMAND MORIN MD Ordered by: ARMAND MORIN MD Report #: [id number] Location: [place] [address] Room/Bed: [facility] Procedure: CT /CT ABDOMEN/PELVIS W Exam Date: [...] on 12/01/181705 COPY TO: ARMAND MORIN MD ICAKZQCNBRZ5038-14-91 10:37:00 [place] [address] Patient Name: SHANNON WILEY MR #: [id number] : 1975 Age/Sex: 43/M Req #: [id number] Adm Physician: ARMAND MORIN MD Ordered by: AMY OSWALD MD Report #: [id number] Location: MED/SURG3 Room/Bed: [facility] Procedure: 0823- 0002 US/US GALLBLADDER Exam Date: [...] 10:39 AM Dictated By: JUNIOR TRUONG MD 1034 Transcribed By: SELVIN on 12/01/18 1039 COPY TO: AMY OSWALD MD Activated Partial Thromboplast Time 2018-11-30 23:42:00* Test Item Value Reference Range Interpretation Comments Activated Partial Thromboplast Time (test code = 71827-7) 25.8 23.8-35.5 [facility] HospitalProthrombin Kzgg4452-08-53 23:40:00* Test Item Value Reference Range Interpretation Comments Prothrombin Time (test code = 5902-2) 12.5 11.9-14.5 [facility] HospitalProthromb Time International Ratio 2018-11-30 23:40:00* Test Item Value Reference Range Interpretation Comments Prothromb Time International Ratio (test code = 6301-6) 0.89 Oral Anticoagulant Therapy INR Values:1. Low Intensity Therapy 1.5 - 2.02 . Moderate Intensity Therapy 2.0 - 3.03. High Intensity Therapy(1) 2.5 - 3. 54. High Intensity Therapy(2) 3.0 - 4.05. Panic Value INR > 5.0 [facility] Hospitalurine thyuyie9056-93-43 15:11:00* Test Item Value Reference Range Interpretation Comments urine culture (test code = 630-4) PSEUAE A [facility] Hospitalalanine aminotransferase (SGPT), dpkva3896-59-03 16:28:00 * Test Item Value Reference Range Interpretation Comments alanine aminotransferase (SGPT), serum (test code = 1742-6) 37 1/L 0-44 [facility] Hospitalaspartate aminotransferase (SGOT), qszsc8075-47-59 16:28:00* Test Item Value Reference Range Interpretation Comments aspartate aminotransferase (SGOT), serum (test code = 1920-8) 35 1/ L 0-40 [facility] Hospitalalkaline phosphatase, eqizf2658-36-58 16:28:00* Test Item Value Reference Range Interpretation Comments alkaline phosphatase, serum (test code = 1783-0) 159 1/L 39-11 7 H [facility] Hospitalbilirubin, serum, vcswy6662-05-33 16:28:00* Test Item Value Reference Range Interpretation Comments bilirubin, serum, total (test code = 1975-2) <0.2 mg/dL 0.0-1.2 [facility] Hospitalalbumin/globulin ratio, yovdf1365-06-00 16:28:00* Test Item Value Reference Range Interpretation Comments albumin/globulin ratio, serum (test code = 1759-0) 1.4 1.2 -2.2 [facility] Healthglobulin, ivmds6319-97-59 16:28:00* Test Item Value Reference Range Interpretation Comments globulin, serum (test code = 2336-6) 2.7 1.5-4.5 [facility] Healthalbumin, tsaqi4314-84-62 16:28:00* Test Item Value Reference Range Interpretation Comments albumin, serum (test code = 1751-7) 3.8 g/dL 3.5-5.5 [facility] Healthprotein, total, ypdnj0591-70-42 16:28:00* Test Item Value Reference Range Interpretation Comments protein, total, serum (test code = 2885-2) 6.5 g/dL 6.0-8.5 [facility] Healthcalcium, effci5798-19-07 16:28:00* Test Item Value Reference Range Interpretation Comments calcium, serum (test code = 2000-8) 9.1 mg/dL 8.7-10.2 [facility] Hospitalcarbon dioxide, venous ptrhn4093-67-66 16:28:00* Test Item Value Reference Range Interpretation Comments carbon dioxide, venous blood (test code = 2027-1) 23 mmol/L 20-2 9 [facility] Healthchloride, qrjjt0378-64-75 16:28:00* Test Item Value Reference Range Interpretation Comments chloride, serum (test code = 2075-0) 99 mmol/L 96-106 [facility] Healthpotassium, pqedg2554-17-26 16:28:00* Test Item Value Reference Range Interpretation Comments potassium, serum (test code = 2823-3) 4.7 mmol/L 3.5-5.2 [facility] Healthsodium, ohihq1739-34-72 16:28:00* Test Item Value Reference Range Interpretation Comments sodium, serum (test code = 2951-2) 138 mmol/L 134-144 [facility] Healthurea nitrogen/creatinine ratio, dhalj1109-74-94 16:28:00 * Test Item Value Reference Range Interpretation Comments urea nitrogen/creatinine ratio, serum (test code = 3097-3) 88 9-20 H [facility] HealtheGFR if Lkemempk3370-52-26 16:28:00* Test Item Value Reference Range Interpretation Comments eGFR if (test code = 59822-1) 205 mL/min/((173/100 ).m2) >59 [facility] HospitalEstimated Glomerular Filtration Rate (calc)2017-10-04 16:28:00* Test Item Value Reference Range Interpretation Comments Estimated Glomerular Filtration Rate (calc) (test code = 63213-4) 178 mL/min/((173/100).m2) >59 [facility] Hospitalcreatinine, pvkst3403-37-31 16:28:00* Test Item Value Reference Range Interpretation Comments creatinine, serum (test code = 2160-0) 0.25 mg/dL 0.76-1.27 L [facility] Hospitalurea nitrogen, yhcmt4928-21-58 16:28:00* Test Item Value Reference Range Interpretation Comments urea nitrogen, blood (test code = 3094-0) 22 mg/dL 6-24 [facility] Hospitalblood glucose, yiczfc6167-65-18 16:28:00* Test Item Value Reference Range Interpretation Comments blood glucose, random (test code = 2339-0) 95 mg/dL 65-99 [facility]
--- NOTE | 2019-11-13 07:31 | Discharge Summary ---
CHIEF COMPLAINT: Abdominal pain and . FINAL DIAGNOSES: Coronavirus disease-19 pneumonia, seizure disorder, bedbound individual. 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 No history of fever, chills, cough, or shortness of breath. 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 In the ER, it was noted that his G-tube was in place. Extremities were contracted and atrophied. Further evaluation, he was admitted for treatment regarding discolored G-tube site, COVID-19 pneumonia, seizure disorder, mental retardation. He will be started on IV antibiotic, O2 supplement, nebulizer treatment, requesting Infectious Disease followup. With admission, the patient was being seen by Pulmonary, Dr. Martin, due to issues of congestion with findings of being positive for COVID-19. With Dr. Martin's review, his impression was round pneumonia and coronavirus-19, dehydration and acute kidney injury, severe developmental delay, seizure disorder, reflux. Plan is to continue IV hydration. Continue blood monitoring of lab level. Continue the Tegretol. Maintain Rocephin and Zithromax. The patient is also being seen by Infectious Disease, Dr. Dinh, and his impression was COVID-19 pneumonia on admission, probably aspiration, will be recommending azithromycin and Rocephin as well as DVT prophylaxis with Lovenox. O2 as needed. The patient was admitted to [facility], was continued on G-tube feedings being, was placed on the antibiotics as well as his regular daily medications. His lab studies were being reviewed. As mentioned, his COVID-19 study returned positive. The patient was resting comfortably, in no acute distress treatment. The patient was cleared for discharge to home and released from the facility in guarded condition. IMAGING: Abdomen and pelvis CT findings reveal stomach is mostly decompressed. No specific evidence of small bowel obstruction. Marked dilatation of the fluid-filled thoracic esophagus. Prominent formed stool within the sigmoid colon and rectum, which may reflect fecal impaction. Patchy airspace disease was visualized in the lower lung. This may represent acute aspiration or multi-focal pneumonia. Chest x-ray reveals evidence of multi-focal patchy bilateral airspace opacity consistent with known history of viral pneumonia. LABORATORY DATA: Cultures; urine negative, blood negative. Further laboratory studies reveal CBC with initial white cell count of 14,000. H and H were normal. Initial platelets were 232. Followup white blood cell count continued to fall down to 4000. Followup H and H were 12.1 and 37.3. Followup platelets were 99,000. Urinalysis shows 2+ protein, 0-5 rbc's by high-power field, 0-5 wbc's by high-power field, few bacteria. Chemistries; initial panel electrolytes stable. Kidney functions; BUN 35, creatinine 0.69, glucose 123, AST 44, ALT 68. Followup electrolytes shows a drop in the sodium down to 135, potassium remained normal. Followup glucose is 99. Followup AST 40. Followup ALT 55. As mentioned, the patient was stable and was able to be discharged home in guarded condition. Noted his vital signs were stable on room air. There were no signs or symptoms of stress at the time of discharge. He will continue with home care. The patient will continue with his normal dietary programs. He will continue also on Eliquis 2.5 mg through the PEG b.i.d., Tegretol 200 mg through the PEG tube t.i.d., Decadron 6 mg through the PEG daily for seven days, lorazepam 0.5 mg p.o. q.i.d. p.r.n., Protonix 40 mg through the PEG daily. The family will be maintaining medical compliance with the family physician. Dictated by PAT Chung Enrique Potter MD CC/MODL /[id number]
== END 2019-10-17 20:06 | disposition home or self-care (01) | DRG 177 ==
LOC: ER 17:53 → IMCU 23:55 → ER 10-15 01:34 → IMCU 10-15 02:00 → UNDOADMIN 10-15 02:00 → ERHOLD 10-15 02:53 → IMCU 10-15 02:53 → ERHOLD 10-15 02:55 → UNDODISIN 10-17 20:06
DX: U07.1 COVID-19 (principal); J12.89 Other viral pneumonia; J69.0 Pneumonitis due to inhalation of food and vomit; N17.9 Acute kidney failure, unspecified; F72 Severe intellectual disabilities; K94.23 Gastrostomy malfunction; G40.909 Epilepsy, unspecified, not intractable, without status epilepticus; K21.9 Gastro-esophageal reflux disease without esophagitis; R09.02 Hypoxemia; K56.41 Fecal impaction; E86.0 Dehydration; Z99.81 Dependence on supplemental oxygen; R13.10 Dysphagia, unspecified
CPT/HCPCS: 36415; 71045; 74177; 80048; 80053; 80156; 81001; 82550; 82553; 83605; 83690; 84484; 85025; 85610; 85730; 87040; 87086; 99251; 99284; J0696; J1650; J2060; J2543; J7030; J7040; Q9967; U0002

== ENCOUNTER 2020-01-11 14:05 | Emergency (ER) | payer MEDICARE ==
[~2020-01-11] VITALS: Ht 121.9 cm; Wt 26.3 kg
[~2020-01-11 14:05] MED LIST changes: +DECADRON6 MG PEG; +ELIQUIS2.5 MG PEG
[2020-01-11] MEDS ORDERED: MUPIROCIN 2% OINT 22 GM TUBE ONE (14:32)
--- NOTE | 2020-01-11 14:36 | NUR ---
sutures removed by CARMEN HIDALGO. site dressed.
--- NOTE | 2020-01-11 14:52 | Emergency Department Note ---
History of Present Illnes History of Present Illness Chief Complaint: General Medicine Complaints History of Present Illness This is a 44 year old male needs stitches out on wound from stomach. done one month ago. pt bed bound. 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 pt with peg tube. Historian: Patient, Family Member Arrival Mode: Car Salon Supervisor Required: No Onset (how long ago): month(s) (sutures were placed over 1 month ago) Location: abd Radiation: Reports non-radiation Severity: mild Onset quality: gradual Progression: unchanged Context: Denies recent illness Relieving factors: none Exacerbating factors: none Associated symptoms: Reports denies other symptoms Past Medical/Family History Physician Review I have reviewed the patient's past medical and family history. Any updates have been documented here. Past Medical History Recent Fever: No Clinical Suspicion of Infectio: No New/Unexplained Change in Ment: No Past Medical History: Seizure Disorder, GERD Other Medical History: MENINGITIS AT 3 MONTHS PEG TUBE MENTAL RETARDATION Other Surgery: PEG TUBE Social History Smoking Cessation: Never Smoker Counseling Performed: No Alcohol Use: None Any Illegal Drug Use: No TB Exposure/Symptoms: No Physically hurt or threatened: No Family History Family history of heart diseas: No Other Last Tetanus: UTD Any Pre-Existing Lines (PICC,: No Review of Systems Review of Systems Constitutional: Reports no symptoms EENTM: Reports no symptoms Cardiovascular: Reports no symptoms Respiratory: Reports no symptoms Gastrointestinal: Reports no symptoms Genitourinary: Reports no symptoms Musculoskeletal: Reports no symptoms Integumentary: Reports as per HPI Neurological: Reports no symptoms Psychological: Reports no symptoms Endocrine: Reports no symptoms Hematological/Lymphatic: Reports no symptoms Physical Exam Related Data Allergies: Coded Allergies: No Known Drug Allergies (Verified Allergy, Unknown, 11/30/18) Triage Vital Signs Vital Signs Date Time Temp Pulse Resp B/P (MAP) Pulse Ox O2 Delivery O2 Flow Rate FiO2 01/11/20 14:09 97.5 55 22 140/99 99 Room Air Vital signs reviewed: Yes Physical Exam CONSTITUTIONAL Constitutional: Present cachectic (stunted stature) HENT HENT: Present normocephalic, Present atraumatic, Present oropharynx normal, Present nose normal HENT L/R: Present left ext ear normal, Present right ext ear normal EYES Eyes: Reports PERRL, Reports conjunctivae normal NECK Neck: Present ROM normal PULMONARY Pulmonary: Present effort normal, Present breath sounds normal; Absent respiratory distress CARDIOVASCULAR Cardiovascular: Present regular rhythm, Present heart sounds normal, Present capillary refill normal, Present normal rate GASTROINTESTINAL Abdominal: Present soft, Present nontender, Present bowel sounds normal, Present other (g-tube in place, incision inferior to g-tube with sutures in place, incision healed well (sister said pt had procedure done at [place] which sounds like an I&D of abscess with a MERLY drain placed while in the hospital)) GENITOURINARY Genitourinary: Present exam deferred SKIN Skin: Present warm, Present dry MUSCULOSKELETAL Musculoskeletal: Present ROM normal, Present other (contractures) NEUROLOGICAL Neurological: Present alert, Present other (no speech, moans occasionally) PSYCHOLOGICAL Procedures Procedures Procedure: suture removal of 5 sutures without complication, Neosporin and dressing applied to healed laceration Assessment & Plan Medical Decision Making MDM suture removal Reassessment Reassessment dc home, f/u PCP - advised family to talk to PCP about feeding tube pump instead of bolus feeds to decrease incidence of aspiration pneumonia (pt was admitted recently in [place] for this and it has been recurrent) Assessment & Plan Final Impression: (1) Visit for suture removal Depart Disposition: HOME, SELF-CARE Last Vital Signs Date Time Temp Pulse Resp B/P (MAP) Pulse Ox O2 Delivery O2 Flow Rate FiO2 01/11/20 14:09 97.5 55 22 140/99 99 Room Air Home Meds Reported Medications Apixaban (Eliquis) 2.5 Mg Tablet, 2.5 MG PEG BID for 30 for 30 Days 10/17/19 Dexamethasone (Decadron) 6 Mg Tablet, 6 MG PEG DAILY for 7 Days 10/17/19 Lorazepam* (ATIVAN*) 0.5 Mg Tablet, 0.5 MG PO QID PRN for ANXIETY, #60 TAB 12/04/18 Pantoprazole Sodium* (PROTONIX) 40 Mg Tablet.dr, 40 MG PEG DAILY, TAB 12/01/18 Carbamazepine (CARBAMAZEPINE) 100 Mg/5 Ml Oral.susp, 200 MG NG TID GIVE 10ML PER G-TUBE THREE TIMES DAILY. PER PT'S SISTER, PT TAKES 1ST DOSE AT 0800; 2ND DOSE AT [id number]; THIRD DOSE AT 2200. 12/01/18 Medications in the ED Mupirocin 22 gm STK-MED ONCE .ROUTE ; Start 01/11/20 at 14:32; Stop 01/11/20 at 14:25; Status DC SHIRLEY CHAIDEZ MD Jan 11, 2020 14:52
--- OUTSIDE RECORDS SUMMARY | 2020-01-11 15:21 | XMS REPORT | Clinical Summary ---
Author Author Adkins [facility] Organization [place] [facility] Address Unknown Phone Unavailable Care Team Providers Care Canine Service Instructor Trainer Name Role Phone Summer Jasso MD PCP Allergies No Known Active Allergies Medications End Date Status Medication Sig Dispensed Refills Start Date Active hydrOXYzine (ATARAX) 50 1 by mouth 0 MG tablet take at 8 bedtime for sleep Active pantoprazole (PROTONIX) Take 40 mg by 2 40 MG EC tablet mouth daily. 9 Active zolpidem (AMBIEN) 5 MG / tab by 0 12/30/ 01 tablet tube nightly 8 at bedtime [...] (Primary Dx); Failure of outpatient treatment 06/24/2019 Hospital General Internal Hi dicine - Encounter 06/27/2019 06/24/2019 Travel Suzy Garcia MD Pneumonia of both lungs due to infectiou s organism, unspecified part of lung (Primary Dx) 06/19/2019 Emergency Emergency Medicine after 01/10/2019 Immunizations Name Administration Dates Next Due FLUCELVAX QUAD PF 06/27/2019 Pneumococcal Conjugate 07/15/2017 (Deferred: - Re ceived Pneumonia 13-Valent Vaccine previous hospital v isit) Surgical History Surgery Date Site/Laterality Comments UPPER GASTROINTESTINAL 12/16/2017 Esophagogastric landmarks identified. LA Grade B ENDOSCOPY esophagitis. The G-tube was found in the stomach extending into the small bowel through the pylorus with the inflated balloon at the pyloru s. Attempt to examine the duodenum was not taken f or risk of dislodging the feeding tube. G-tube sit e was unremarkable. Gastritis. Biopsied. 3cm hiatal hernia. ESOPHAGOGASTRODUODENOSCOP 12/16/2017 N/A Proc edure: ESOPHAGOGASTRODUODENOSCOPY (EGD) with Y (EGD) biopsy; Surgeon: Chapo More MD; [place] [facility] [place] [facility]; Service: Gastroenterol ogy; Laterality: N/A; h.h., esophagitis, no active bleeding, mild gastritis Medical History Medical History Date Comments Seizures (HCC) Meningitis when he was 3 months old pe r sister High cholesterol Pancreatitis Family History Medical History Relation Name Comments [...] Assigned at Date Recorded Not on file Last Filed Vital Signs Reading Time Taken [...] PORTABLE STAT 06/19/2019 12:58 AM CDT after 01/10/2019 Results * Estimated GFR (06/27/2019 5:25 AM CDT) Only the most recent of 4 results within the time period is included. Pathologist [facility] Estimated GFR >=90 mL/min/1.73 m2 SHARON Comment: [facility] Interpretation G1 >=90 Normal or high [...] published in 2014. Specimen Performing Organization Address City/State/ZIP Code [place] [address] [place], [place] [address] [facility] [address] [place] [address] [facility] * CBC with platelet and differential (06/27/2019 5:25 AM CDT) Only the most recent of 4 results within the time period is included. Pathologist [facility] WBC 4.15 (L) 4.50 - 11.00 k/uL [facility] RBC 4.08 (L) 4.40 - 6.00 m/uL [facility] HGB 12.4 (L) 14.0 - 18.0 g/dL [facility] HCT 38.8 (L) 41.0 - 51.0 % [facility] MCV 95.1 82.0 - 100.0 fL [facility] MCH 30.4 27.0 - 34.0 pg [facility] MCHC 32.0 31.0 - 37.0 g/dL [facility] RDW - SD 52.9 37.0 - 55.0 fL [facility] MPV 10.8 8.8 - 13.2 fL [facility] Platelet count 220 150 - 400 k/uL [facility] Nucleated RBC 0.00 /100 WBC [facility] Neutrophils 62.9 39.0 - 69.0 % [facility] Lymphocytes 25.8 25.0 - 45.0 % [facility] Monocytes 5.1 0.0 - 10.0 % [facility] Eosinophils 4.8 0.0 - 5.0 % [facility] Basophils 1.2 (H) 0.0 - 1.0 % [facility] Specimen Blood Performing Organization Address City/State/ZIP Code [place] [address] [place], [place] [address] [facility] [address] [place] [address] [facility] * Comprehensive metabolic panel (06/27/2019 5:25 AM CDT) Only the most recent of 3 results within the time period is included. Sodium 142 135 - 148 mEq/L [facility] Potassium 3.2 (L) 3.5 - 5.0 mEq/L [facility] Chloride 110 98 - 112 mEq/L [facility] CO2 21 (L) 24 - 31 mEq/L [facility] Anion gap 11@ANIO 7 - 15 mEq/L [facility] BUN 17 6 - 20 mg/dL [facility] Creatinine 0.40 (L) 0.70 - 1.20 mg/dL [facility] Glucose 130 (H) 65 - 99 mg/dL [facility] Calcium 8.4 8.3 - 10.2 mg/dL [facility] Protein 6.3 6.3 - 8.3 g/dL SHARON Comment: [facility] [place] 4.6-7.0 g/dL 1 week 4.4-7.6 g/dL 7 months-1year 5.1-7.3 g/dL 1-2 years 5.6-7.5 g/dL >3 years 6.0-8.0 g/dL 18-150 6.3-8.3 g/dL Albumin 3.2 (L) 3.5 - 5.0 g/dL [facility] A/G ratio 1.0 0.7 - 3.8 [facility] Alkaline 140 (H) 40 - 129 U/L [facility] phosphatase [facility] AST 80 (H) 10 - 50 U/L [facility] ALT 87 (H) 5 - 50 U/L [facility] Total bilirubin <0.2 0.0 - 1.2 mg/dL [facility] Specimen Blood Performing Organization Address City/State/ZIP Code [place] [address] [place], [place] [address] [facility] [address] [place] [address] [facility] * XR Chest 1 Vw Portable [...] si lhouette are unchanged. Atherosclerotic disease. Osteopenia. [id number] Procedure Note Hm Interface, Radiology Results Incoming [...] cardiac silhouette are unchanged. Atherosclerotic disease. Osteopenia. HMRM-WPHYAAW Performing Organization Address City/State/ZIP Code P mishel Number [facility] [address] [place] [address] * Respiratory pathogen panel (06/24/2019 2:40 AM CDT) Respiratory Negative for all pathogens SHARON pathogen panel tested: SP[facility]ITISM Negative for Adenovirus HOSPITAL Negative for Coronavirus [...] Specimen Nares - Left Performing Organization Address [facility] [place] [address] PATHOLOGY AND [facility] MEDICINE [address] * Influenza antigen test, reflex negative to RPP (06/24/2019 2:40 AM CDT) [facility] Influenza Negative for Influenza A/B SHARON antigen antigen. [facility] CLEAR Comment: [facility] Specimen Information Specimen Source: Nares Specimen Site: Left Specimen Nares - Left Performing Organization Address [facility] P mishel Number [address] [place] [address] PATHOLOGY AND GENOMIC MEDICINE [address] * Blood culture, aerobic & anaerobic (06/24/2019 2:40 AM CDT) [facility] Blood culture No growth after 5 days of SHARON isolate incubation. [facility]ITISM Comment: [facility]OSPITAL Specimen Information Specimen Source: Blood Specimen Site: Forearm, left Specimen Blood - Forearm, left Performing Organization Address [facility] [place] [address] PATHOLOGY AND [facility] [address] * Lipase level (06/24/2019 2:25 AM CDT) [facility] Lipase 118 (H) 13 - 60 U/L [facility] Specimen Blood Performing Organization Address [facility] P mishel Number [address] [place], [place] [address] [facility] [address] [address] * Creatine kinase, total (CPK) (06/24/2019 2:25 AM CDT) Pathologist [facility] Creatine kinase 114 39 - 308 U/L [facility] Specimen Blood Performing Organization Address City/[facility] P mishel Number [facility] DEPARTMENT [address] [place] [phone] [facility] [id number] [place] [address] * Hepatic function panel (06/24/2019 2:25 AM CDT) [facility] Albumin 3.8 3.5 - 5.0 g/dL [facility] Total bilirubin 0.2 0.0 - 1.2 mg/dL [facility] Bilirubin <0.1 0.0 - 0.3 mg/dL [facility]ON direct [facility] Alkaline 153 (H) 40 - 129 U/L [facility] phosphatase [facility] Protein 7.9 6.3 - 8.3 g/dL SHARON Comment: [facility] [place] 4.6-7.0 g/dL 1 week 4.4-7.6 g/dL 7 months-1year 5.1-7.3 g/dL 1-2 years 5.6-7.5 g/dL >3 years 6.0-8.0 g/dL 18-150 6.3-8.3 g/dL ALT 86 (H) 5 - 50 U/L [facility] AST 80 (H) 10 - 50 U/L [facility] Specimen Blood Performing Organization Address City/[facility] P mishel Number [facility] DEPARTMENT OF [facility] [place] [address] PATHOLOGY AND GENOMIC MEDICINE [address] * Basic metabolic panel (06/24/2019 2:25 AM CDT) Pathologist [facility] Sodium 136 135 - 148 mEq/L [facility] Potassium 5.0 3.5 - 5.0 mEq/L [facility] Chloride 102 98 - 112 mEq/L [facility] CO2 20 (L) 24 - 31 mEq/L [facility] Anion gap 14@ANIO 7 - 15 mEq/L [facility] BUN 20 6 - 20 mg/dL [facility] Creatinine 0.40 (L) 0.70 - 1.20 mg/dL [facility] Glucose 115 (H) 65 - 99 mg/dL [facility] Calcium 9.1 8.3 - 10.2 mg/dL [facility] Specimen Blood Performing Organization Address City/State/ZIP Code [place] [address] [place], [place] [address] [facility] [address] [place] [address] [facility] after 01/10/2019 Insurance Type Payer Benefit Subscriber ID Effective Phone Address Plan / Dates Group HMO [facility] MEDICARE [facility] DUAL [id number] 2019-P COMPLETE resent MCR Advance Directives For more information, please contact: [phone] Patient Plate Keeper Explanation Type Date Recorded Advance Directives, 07/03/2017 1:34 PM Living Will and Medical Power of Administration Dean Advance Directives, 05/12/2018 12:51 PM Living Will and Medical Power of Administration Dean Advance Directives, 07/12/2018 4:53 AM Living Will and Medical Power of Administration Dean Date Inactivated Comments Code Status Date Activated 07/16/2017 2:02 AM DNR 07/05/2017 6:55 PM Code Status decision reached by: Legal Surrogate Name of Surrogate: brother , mother Surrogate Relation: 1. Legal Guardian or Agent
--- OUTSIDE RECORDS SUMMARY | 2020-01-11 15:22 | XMS REPORT | Continuity of Care Document ---
Author Author [facility] t Organization [facility] Address [address] [place] [address] Phone Unavailable Care Team Providers Care Government Services Professional Name Role Phone NONSTAFF PCP Unavailable Rudy Boo Attphys Unavailable Sriram MedAdherence, Gisselle Attphys Unajose frias Gomez, Darshana Attphys Unavailable Farideh Brand Attphys Unavailable THOMASBASHIR RAMOS Attphys Unavailable Avalos MedAdherence,, Eloisa Attphys Unavailable Gal Otoole Attphys Unavailable Corbin, Paigea Attphys Unavailable Duncan Heart Attphys Unavailable Minoo Lee Attphys Unavailable Summer Jasso Attphys Ren MedAdherence, Sarah Attphys [phone] Veena Gaitan Attphys Kaitlyn Pfeiffer Attphys Unavailable Veena Posey Attphys Unavailable Plasencia MedAdherence, Loida Attphys Unavailable Noah MedAdherence, S Opal Attphys Unavailab josesito Posey MedAdherence, Tabatha Attphys Unavailable Luba Mandujano Attphys Unavailable Fabian Vazquez Attphys Unavailable Chloe Etienne DO Attphys Richie HIDALGO, Awilda Attphys Jose HIDALGO, Maddy Almonte Attphys Diana Herrera Attphys Villalobos MedAdherence, IShunti Attphys Unavailab le Status, Fax Attphys Unavailable GuzmanAugustus torrez Attphys Unavailable Duong, Verna Attphys Unavailable Goldberg, Randa Attphys Unavailable Randa Alicia Attphys Unavailable Fran Wu Attphys Tobi, Roxana Attphys Magallon, Sandovalel Attphys Unavailable Anushka Prieto Attphys Unavailable Abby Alejo Attphys Unavailable Tim, Berlondrika Attphys Unavailable Roman, Kristal Attphys Unavailable MIKEL, ARMAND Attphys Unavailable Kicza, Candelaria Attphys Unavailable Adryan Bull, Tanika Attphys Unavailable Lindsey, Madhumita Attphys Su Underwood Attphys Unavailable Elvira Fox Attphys Unavailable Elisabeth Astorga Attphys Unavailable Enedelia Mi Attphys Unavailable Adam, Desi Attphys Effie Woodard Attphys Argueta, Claus Attphys Unavailable THOMAS, SOUHEIL Admphys Unavailable MOUGOURIS, TASO Admphys Unavailable MIKEL, ARMAND Admphys Unavailable Boo, Yandro Unavailable Unavailable Tim, Berlondrika Unavailable Unavailable Kicza, Candelaria Unavailable Unavailable Fran Wu Unavailable Veena Gaitan Unavailable Payers Payer Name Policy Type Policy Number Effective Date Expiration Date S zan [facility] [id number] 2011 00:00:00 [facility] [id number] 1998 00:00:[address] [facility] UHC MEDICAREUHC DUAL COMPLETE [id number] 2019-PresentHMO [id number] 2019 00:00:00 [facility] Medicare A & B [id number] 1998 00:00:00 [facility] Problems Condition Name Condition Details Condition Category Status Onset Date Resolution Date Last Treatment Date Treating Clinician Comments Source Bronchiectasis Condition Active 2019-07-31 00:00:00 202 [facility] Chest congestion Condition Active 2019-07-18 00:00:00 2 08:50:16 Ema [facility] Community acquired pneumonia Community acquired pneumonia Disease Active 2019-06-24 00:00:00 Jed Otero Irritability Condition Active 2019-04-06 00:00:00 04-18 10:04:29 Ema [facility] Incontinence Condition Active 2019-02-27 00:00:00 03[facility]01 [facility] Condition Active 2019-02-27 00:00:00 2 09:25:22 Tim [facility] Gastric outlet obstruction Gastric outlet obstruction Disease Active 2018-07-12 00:00:[address] UTI (urinary tract infection) UTI (urinary tract infection) Disease Active 2018-07-12 00:00:00 Jed Otero Elevated blood pressure reading without diagnosis of hypertensio n Condition Active 2018-03-30 00:00:00 2018-03-31 [facility] Condition Active 2018-01-26 00:00:00 2018-03-12 1 16:40:26 Fran Wu [facility] Circadian rhythm sleep disorder, irregular sleep wake Condition Active 2018-01-26 00:00:00 2018-01-26 21:38:56 [facility] Flu shot Condition Active 2018-01-26 00:00:00 2018-01-09 8 [facility]38[facility] Constipation Condition Active 2017-11-02 00:00:00 11-02 10:04:00 Yoel [facility] Leaking peg tube Condition Active 2017-10-04 00:00:00 2 09:58:34 Ashleigh Gaitan [facility] High risk for aspiration Condition Active 2017-10-04 00:0 0:00 2017-10-05 19:34:51 Candelaria Diallo [facility] Cachexia Condition Active 2017-10-04 00:00:00 2017-09-10 7 19:34:51 Candelaria Diallo [facility] Need for home health care Condition Active 2017-10-04 00: 00:00 2017-10-05 19:34:51 Candelaria Diallo [facility] Seizure disorder Condition Active 2017-10-04 00:00:00 2 16:09:06 Candelaria Diallo [facility] Feeding intolerance Condition Active 2017-10-04 00:00:00 2017-10-04 16:09:06 Candelaria Diallo [facility] Presence of gastrostomy Condition Active 2017-10-04 00:00 :00 2018-05-16 11:59:16 Candelaria Diallo [facility] History of meningitis Condition Active 2017-10-04 00:00:0 0 2017-10-04 16:09:06 Candelaria [facility]iallo age 2 months [facility] Developmental delay Condition Active 2017-10-04 00:00:00 2017-10-04 16:09:06 Candelaria Diallo [facility] Sepsis Sepsis Disease Active 2017-07-14 [...] 00:00:00 Jed Otero Pancreatitis Pancreatitis Problem Active [facility] Vomiting Vomiting Problem Active [facility] Respiratory tract infection due to sever e acute respiratory syndrome coronavirus 2 (SARS-CoV-2) Problem Active [facility] Fecal impaction Problem Active [facility] Hypoxia Problem Active [facility] History of Past Illness Condition Name Condition Details Condition Category Status Onset Date Resolution Date Last Treatment Date Treating Clinician Comments Source Cough Condition Inactive 2017-12-06 00:00:00 2018-01-26 00:00:00 2018-01-26 21:38:56 Yoel [facility] Dysuria Condition Inactive 2017-10-04 00:00:00 2017-11-02 00:00:00 2017-11-02 13:21:10 [facility] Foul smelling urine Condition Inactive 2017-10-04 00:00 :00 2017-11-02 00:00:00 2017-11-02 13:21:10 [facility] Allergies, Adverse Reactions, Alerts This patient has no known allergies or adverse reactions. Family History Family Member Diagnosis Comments Start Date Stop Date Source Natural brother Hypertension [place] Natural mother Arthritis [facility] [place] [facility] Natural mother Diabetes [facility] [place] [facility] Natural mother Hyperlipidemia [place] Natural mother Hypertension [place] Natural sister Arthritis [place] [facility] Natural sister Hyperlipidemia [place] Natural sister Pancreatitis [place] Natural sister Hypertension [place] Social History Social Habit Start Date Stop Date Quantity Comments Source Sex Assigned At [place] adalsophia Otero time of call 2019-09-04 14:51:58 2019-09-04 14:51:58 09/04/2019 2:52 PM [facility] Tobacco use and exposure 2019-06-24 00:00:00 2019-06-24 00:00:00 Yamile darby used Jed Otero Alcohol intake 2019-06-24 00:00:00 2019-06-24 00:00:00 Current non-drinker of alcohol (finding) Jed Otero drug use, illicit 2019-04-06 15:48:42 2019-04-06 15:48:42 Never [facility] alcohol use 2019-04-06 15:48:42 2019-04-06 15:48:42 Never [facility] social history reviewed E&M 2019-04-06 15:48:42 2019-04-06 15:48 :42 reviewed today [facility] assessment of health literacy (NCQA [facility] 2014 Standard s, 3C10) 2019-04-06 15:48:42 2019-04-06 15:48:42 Low [facility] is there any chance that you could be ? 2019-02-27 1 5:50:01 2019-02-27 15:50:01 No [facility] Occupation #1 2017-10-04 14:13:35 2017-10-04 14:13:35 Disabled [facility] patient considered to be homeless 2017-10-04 14:13:35 2017-10-04 14:1 3:35 No [facility] Smoking Status Start Date Stop Date Source Never smoker Jed eller Medications Ordered Medication Name Filled Medication Name Start Date Stop Da te Current Medication? Ordering Clinician Indication Dosage Frequency Signature (SIG) Comments Components Source MIRALAX (POLYETHYLENE GLYCOL 3350) 17 GM/SCOOP POWD 11 00:00:00 Yes Summer Jasso 17g dissolved in 8 oz of water once d aily As Needed [facility] (SODIUM CHLORIDE) 0.9 % NEBU 2019-07-26 00:00:00 Yes Yue Wu apply 3ml to nebulizer Three Times a Day As Needed allow for substitutions [facility] AIRIAL COMPACT COMPRESSOR NEB (NEBULIZERS) 2019-07-18 00:0 0:00 Yes Fran Wu use as instructed for chest congestion related to bronchiectasis allow for substitutions [facility] bisacodyL (DULCOLAX) 10 mg suppository 2019-06-27 21:27:19 Yes 10mg Insert 10 mg into the rectum as needed for constipation. Jed Otero HYDROcodone-acetaminophen (NORCO) 5-325 mg per tablet 2019-06-27 21:27:19 Yes acute pain 1{tbl} Q6H Take 1 tablet b y mouth every 6 (six) hours as needed for moderate pain .acute pain. Jed harris amoxicillin-pot clavulanate (AUGMENTIN) 875-125 mg per table [...] times a day as needed for pain [facility] (HYDROXYZINE HCL) 25 MG TABS 2019-04-06 00:00:00 Yes Yue ac Wu 2 by mouth daily As Needed before bedtime [facility] (LORAZEPAM) 0.5 MG TABS 2019-04-06 00:00:00 Yes Isaa c Wu 1{Tablet} 3xD 1 by mouth 3 times a day as needed [facility] (GABAPENTIN) 100 MG CAPS 2019-04-06 00:00:00 Yes Fran G oldberg 1 by [facility] (TRAMADOL HCL) 50 MG TABS 2019-02-27 00:00:00 2019-04-06 00:00:0 0 No 2{Tablet} 4xD 1-2 tablets by mouth 4 times a day as needed for pain [facility] carBAMazepine (TEGretol) 200 mg tablet 2018-06-13 00:00:00 Yes 400mg [id number] Take 400 mg by mouth 3 (three) [...] 10 MG TBDP 2018-01-26 00:00:00 Yes Fran Lindo dberg 1 tab [facility] HYDROcodone-acetaminophen (NORCO) 5-325 mg per tablet 2018-01-26 00:00:00 2019-06-24 00:00:00 No 1 tab per tube q8h A s Needed severe pain Jed Otero (HYDROCODONE-ACETAMINOPHEN) 5-325 MG TABS 2017-0418 00:00:00 2019-04-06 00:00:00 No 1 tab per tube q8h As Needed se elin pain [facility] (PANTOPRAZOLE SODIUM) 40 MG [facility] 2017-12-30 00:00:00 Yes Ashleigh Curiel Ehdaie 1 tab per tube daily [facility] hydrOXYzine (ATARAX) 50 MG tablet 2017-12-30 00:00:00 Yes 1 by mouth take at bedtime for sleep Jed douglas zolpidem (AMBIEN) 5 MG tablet 2017-12-30 00:00:00 Yes 1/2 tab by tube nightly at bedtime as needed for insomnia Jed Otero AMBIEN (ZOLPIDEM TARTRATE) 5 MG TABS 2017-12-30 00:00: 00 2019-04-06 00:00:00 No 1/2 tab by tube nightly at bedtime as ne eded for insomnia [facility] (LORATADINE) 10 MG TABS 2017-12-06 00:00:00 2018-01-26 00: 00:00 No Ashleigh Curiel Ehdaie 1 per tube once a day as needed for tien rgies [facility] (DOCUSATE SODIUM) 50 MG/5ML LIQD 2017-11-02 00:00:00 Yes Ashleigh Curiel Ehdaie 10ml per tube BID [facility] (CARBAMAZEPINE) 100 MG/5ML SUSP 2017-10-29 00:00:00 Yes Fran Wu TAKE 10ML PER G-TUBE 3 TIMES DAILY [facility] AUGMENTIN (AMOXICILLIN-POT CLAVULANATE) 250-62.5 MG/5ML SUSR 2017-10-10 00:00:00 2017-11-02 00:00:00 No 2ml BID for 5 days take with food, changed from pill to liquid [facility] PROBIOTIC MAXIMUM STRENGTH (PROBIOTIC PRODUCT) CAPS 2017-10-10 00:00:00 2017-10-15 00:00:00 No Ashleigh Curiel Ehdaie 1 capsule By M outh tid [facility] REGLAN (METOCLOPRAMIDE HCL) 10 MG TABS 2017-09-10 6 00:00:00 2018-01-26 00:00:00 No Ashleigh Curiel Ehdaie 1/2 tab by mouth ac and ni ghtly at bedtime [facility] (MORPHINE SULFATE) 10 MG/5ML SOLN 2017-10-04 00:00:00 2017 00:00:00 No 1ml per G tube q4h As Needed pain [facility] Apixaban (Eliquis) 2.5 Mg TABLET Apixaban (Eliquis) 2.5 Mg TABLET Yes 2.5 Twice A Day for 30 [facility] Carbamazepine Carbamazepine Yes 200 Three Times A Day [facility] Dexamethasone (Decadron) 6 Mg TABLET Dexamethasone (Decadron) 6 Mg TABLET Yes 6 Daily [facility] Lorazepam (Ativan*) 0.5 Mg TABLET Lorazepam (Ativan*) 0.5 Mg TABLET Yes .5 Four Times Daily as needed for Anxiety [facility] Pantoprazole Sodium (Protonix) 40 Mg TABLET. Pantopr azole Sodium (Protonix) 40 Mg TABLET. Yes 40 Daily [facility] Immunizations Ordered Immunization Name Filled Immunization Name Date Status Comments Source FLUCELVAX QUAD PF 2019-06-27 00:00:00 Completed Jed Otero flu vax 2018-01-26 14:21:39 Completed Legac [facility] Vital Signs Vital Name Observation Time Observation Value Comments Source Body Temperature 2019-10-17 16:00:00 97.1 [degF] [facility] Weight 2019-10-17 02:24:00 58.25 [lb_av] [facility] BMI (Body Mass Index) 2019-10-17 02:24:00 17.8 kg/m2 [facility] Weight 2019-10-14 17:50:00 50 [lb_av] [facility] BMI (Body Mass Index) 2019-10-14 17:50:00 15.3 kg/m2 [facility] Systolic blood pressure 2019-06-27 15:23:03 113 mm[Hg] [facility] Di[facility] blood pressure 2019-06-27 15:23:03 71 mm[Hg] [place] Heart rate 2019-06-27 15:23:03 64 /min [facility] Body temperature 2019-06-27 15:23:03 36.61 Talya [place] Respiratory rate 2019-06-27 15:23:03 17 /min [place] Oxygen saturation in Arterial blood by Pulse oximetry 06-26 15:23:03 98 /min [place] [employer] Body height 2019-06-24 02:04:00 147.3 cm [facility] [place] Body weight 2019-06-24 02:04:00 18.597 kg [place] BMI 2019-06-24 02:04:00 8.57 kg/m2 [place] oxygen saturation, oximetry 2019-04-06 15:48:42 98 % [facility] blood pressure, diastolic 2019-04-06 15:48:42 61 mm[Hg] [facility] blood pressure, systolic 2019-04-06 15:48:42 102 mm[Hg] [facility] respiratory rate E&M 2019-04-06 15:48:42 18 /min [facility] pulse rate 2019-04-06 15:48:42 72 /min [facility] temperature site 2019-04-06 15:48:42 tympanic Lega cy [facility] temperature E&M 2019-04-06 15:48:42 98.2 [degF] [facility] oxygen saturation, oximetry 2019-02-27 15:50:01 95 % [facility] blood pressure, diastolic 2019-02-27 15:50:01 85 mm[Hg] [facility] blood pressure, systolic 2019-02-27 15:50:01 138 mm[Hg] [facility] respiratory rate E&M 2019-02-27 15:50:01 14 /min [facility] pulse rate 2019-02-27 15:50:01 68 /[facility] 2019-02-27 15:50:01 oral Lega cy [facility] temperature E&M 2019-02-27 15:50:01 97.6 [degF] [facility] oxygen saturation, oximetry 2018-03-30 09:44:41 98 % [facility] blood pressure, diastolic 2018-03-30 09:44:41 142 mm[Hg] [facility] blood pressure, systolic 2018-03-30 09:44:41 207 mm[Hg] [facility] respiratory rate E&M 2018-03-30 09:44:41 21 /min [facility] pulse rate 2018-03-30 09:44:41 98 /min [facility] temperature site 2018-03-30 09:44:41 tympanic Lega cy [facility] temperature E&M 2018-03-30 09:44:41 98.1 [degF] [facility] blood pressure, diastolic 2018-01-26 14:21:39 82 mm[Hg] [facility] blood pressure, systolic 2018-01-26 14:21:39 129 mm[Hg] [facility] respiratory rate E&M 2018-01-26 14:21:39 16 /min [facility] pulse rate 2018-01-26 14:21:39 66 /min [facility] 2018-01-26 14:21:39 tympanic [facility] temperature E&M 2018-01-26 14:21:39 98.3 [degF] [facility] respiratory rate E&M 2017-11-02 09:08:16 22 /min [facility] pulse rate 2017-11-02 09:08:16 136 /min [facility] blood pressure, diastolic 2017-11-02 09:08:16 58 mm[Hg] [facility] blood pressure, systolic 2017-11-02 09:08:16 132 mm[Hg] [facility] oxygen saturation, oximetry 2017-11-02 09:08:16 90 % [facility] temperature E&M 2017-11-02 09:08:16 99.1 [degF] Legac y [facility] temperature site 2017-11-02 09:08:16 axillary Lega [facility] oxygen saturation, oximetry 2017-10-04 14:13:35 98 % [facility] blood pressure, diastolic 2017-10-04 14:13:35 97 mm[Hg] [facility] blood pressure, systolic 2017-10-04 14:13:35 143 mm[Hg] [facility] respiratory rate E&M 2017-10-04 14:13:35 16 /min [facility] pulse rate 2017-10-04 14:13:35 67 /min [facility] temperature site 2017-10-04 14:13:35 oral Lega [facility] temperature E&M 2017-10-04 14:13:35 99.2 [degF] [facility] Procedures Procedure Date / Time Performed Performing Clinician Sour e Computed tomography of abdomen and pelvis with contrast 00:00:00 [facility] HC COMPLETE BLD COUNT W/AUTO DIFF 2019-06-27 [...] 05:51:00 Radha Colon ESTIMATED GFR 2019-06-25 05:51:00 Radha Colon XR CHEST 1 VW PORTABLE 2019-06-24 03:05:18 Rui Etienne INFLUENZA ANTIGEN TEST, REFLEX NEGATIVE TO RPP 2019-06-24 02 :40:00 Rui Etienne BLOOD CULTURE, AEROBIC & ANAEROBIC 2019-06-24 02:40:00 Teresita Etienne RESPIRATORY PATHOGEN PANEL 2019-06-24 02:40:00 Rui Etienne HC COMPLETE BLD COUNT W/AUTO DIFF 2019-06-24 02:25:00 Darrell Etienne BASIC METABOLIC PANEL 2019-06-24 02:25:00 Rui Etienne CREATINE KINASE, TOTAL (CPK) 2019-06-24 02:25:00 Rui Etienne ESTIMATED GFR 2019-06-24 02:25:00 Rui Etienne HEPATIC FUNCTION PANEL 2019-06-24 02:25:00 LowellRui LIPASE LEVEL 2019-06-24 02:25:00 LowellRui XR CHEST 1 VW PORTABLE 2019-06-19 00:58:00 Suzy Garcia Plan of Care Planned Activity Planned Date Details Comments Source Future Scheduled Test 2019-11-10 00:00:00 INFLUENZA VACCINE [code = INFLUENZA VACCINE] Jed Otero Instructions COVID-19: 06/25/2019 [facility] Encounters Start Date/Time End Date/Time Encounter Type Admission Type Attendi ng Clinicians Care Facility Care Department Encounter ID Source 2019-12-22 00:00:00 2019-12-22 00:00:00 Office Visit BooRobertdr castellanos LC LC Encounter/[id number] [facility] 2019-12-21 00:00:00 2019-12-21 00:00:00 Office Visit Rudy Barron Stephanie LC LC Encounter/[id number] [facility] 2019-12-13 00:00:00 2019-12-13 00:00:00 Office Visit BooRobertdr castellanos LC LC Encounter/[id number] [facility] 2019-12-13 00:00:00 2019-12-13 00:00:00 Office Visit Pankaj Boo LC LC Encounter/[id number] [facility] 2019-12-12 00:00:00 2019-12-12 00:00:00 Office Visit Pankaj Boo LC LC Encounter/[id number] [facility] 2019-12-12 00:00:00 2019-12-12 00:00:00 Office Visit Pankaj Boo LC LC Encounter/[id number] [facility] 2019-12-11 00:00:00 2019-12-11 00:00:00 Office Visit Pankaj Boo LC LC Encounter/[id number] [facility] 2019-12-11 00:00:00 2019-12-11 00:00:00 Office Visit Pankaj Boo LC LC Encounter/[id number] [facility] 2019-12-11 00:00:00 2019-12-11 00:00:00 Office Visit Pankaj Boo LC LC Encounter/[id number] [facility] 2019-12-04 00:00:00 2019-12-04 00:00:00 Office Visit Darshana Gomez LC [facility] Encounter/[id number] [facility] 2019-11-19 00:00:00 2019-11-19 00:00:00 Office Visit Darshana Ambriz Cindy [facility] Encounter/[id number] Leg [facility] 2019-10-15 02:00:00 2019-10-15 02:00:00 Admitted Inpatient 1 BASHIR THOMAS [facility] [id number] [facility] 2019-09-25 00:00:00 2019-09-25 00:00:00 Office Visit Rudy Barron MedAdherence,, Eloisa [facility] Encounter/[id number] [facility] 2019-09-25 00:00:00 2019-09-25 00:00:00 Office Visit Rudy Barron MedAdherence,, Eloisa [facility] Encounter/[id number] [facility] 2019-09-10 00:00:00 2019-09-10 00:00:00 Office Visit Rudy Barron Drinda Hinojosa, Duncan Leonard David [facility] Encounter/[id number] [facility] 2019-09-07 00:00:00 2019-09-07 00:00:00 Office Visit Summer Vaughn MedAdherence, Rudy Lam [facility] Encounter/[id number] [facility] 2019-09-07 00:00:00 2019-09-07 00:00:00 Office Visit Ashleigh Zamora MedAdherbruno, Sarah [facility] Encounter/[id number] [facility] 2019-09-04 00:00:00 2019-09-04 00:00:00 Office Visit Rudy Barron Lisa Mariaca, Jennifer [facility] Encounter/[id number] [facility] 2019-08-06 00:00:00 2019-08-06 00:00:00 Office Visit Rudy Barron Lisa [facility] Encounter/[id number] [facility] 2019-07-31 00:00:00 2019-07-31 00:00:00 Office Visit Rudy Barron Lisa Vazquez, Elizabeth Curiel [facility] Encounter/[id number] [facility] 2019-07-30 00:00:00 2019-07-30 00:00:00 Office Visit Sherwin davis Ashleighlore Plasencia MedAdherence, Loida [facility] Encounter/[id number] [facility] 2019-07-26 00:00:00 2019-07-26 00:00:00 Office Visit Pankaj Boo [facility] Encounter/[id number] [facility] 2019-07-18 00:00:00 2019-07-18 00:00:00 Office Visit Rudy Barron MedAdherbruno, Opal S [facility] Encounter/[id number] [facility] 2019-06-29 00:00:00 2019-06-29 00:00:00 Office Visit Rudy Barron MedAdherence, Tabatha [facility] Encounter/[id number] [facility] 2019-06-29 00:00:00 2019-06-29 00:00:00 Office Visit Rudy Barron Lindsey Leon, Karla L [facility] Encounter/[id number] [facility] 2019-06-27 00:00:00 2019-06-27 00:00:00 Office Visit Pankaj Boo [facility] Encounter/[id number] [facility] 2019-06-27 00:00:00 2019-06-27 00:00:00 Office Visit Pankaj Boo [facility] Encounter/[id number] [facility] 2019-06-24 00:00:00 2019-06-27 00:00:00 ANNIE Mccabe [facility] [id number] Jed Otero 2019-06-24 00:00:00 2019-06-24 00:00:00 Office Visit Pankaj Boo [facility] [facility] Encounter/[id number] [facility] 2019-06-19 00:00:2019-06-19 00:00:00 Emergency SUZY GARCIA [id number] [facility] 2019-06-19 00:00:00 2019-06-19 00:00:00 Office Visit Pankaj Boo [facility] LC Encounter/[id number] [facility] 2019-06-05 00:00:00 2019-06-05 00:00:00 Office Visit Aisha Herrera [facility] LC Encounter/[id number] [facility] 2019-05-15 00:00:00 2019-05-15 00:00:00 Office Visit Ahsleigh Zamora MedAdherence, Rudy Lam MedAdherence, Ольга [facility] LC Encounter/[id number] [facility] 2019-05-02 00:00:00 2019-05-02 00:00:00 Office Visit Aisha Herrera [facility] LC Encounter/[id number] [facility] 2019-05-02 00:00:00 2019-05-02 00:00:00 Office Visit Status, Fax LC [facility] Encounter/[id number] [facility] 2019-05-02 00:00:00 2019-05-02 00:00:00 Office Visit Status, Fax [facility] Encounter/[id number] [facility] 2019-05-02 00:00:00 2019-05-02 00:00:00 Office Visit Status, Fax LC [facility] Encounter/[id number] [facility] 2019-04-20 00:00:00 2019-04-20 00:00:00 Office Visit Pankaj Boo LC [facility] Encounter/[id number] [facility] 2019-04-18 00:00:00 2019-04-18 00:00:00 Office Visit Augustus Ashton Yandro [facility] LC Encounter/[id number] [facility] includes the [facility] 2019-04-09 00:00:00 2019-04-09 00:00:00 Office Visit Status, Fax LC [facility] Encounter/[id number] [facility] 2019-04-09 00:00:00 2019-04-09 00:00:00 Office Visit Status, Fax LC LC Encounter/[id number] [facility] 2019-04-09 00:00:00 2019-04-09 00:00:00 Office Visit Status, Fax [facility] Encounter/[id number] [facility] 2019-04-06 00:00:00 2019-04-06 00:00:00 Office Visit Pankaj Boo LC LC Encounter/[id number] [facility] 2019-04-06 00:00:00 2019-04-06 00:00:00 Office Visit Pankaj Boo [facility] Encounter/[id number] [facility] 2019-04-06 00:00:00 2019-04-06 00:00:00 Office Visit Pankaj Boo LC [facility] Encounter/[id number] [facility] 2019-04-06 00:00:00 2019-04-06 00:00:00 Office Visit Ashleigh Zamora, Diana Duong, Rudy Gunderson [facility] LC Encounter/[id number] [facility] 2019-03-30 00:00:00 2019-03-30 00:00:00 Office Visit Galina Goldberg LC LC Encounter/[id number] [facility] 2019-03-30 00:00:00 2019-03-30 00:00:00 Office Visit Portia Alicia [facility] LC Encounter/[id number] [facility] 2019-03-29 00:00:00 2019-03-29 00:00:00 Office Visit Nathan Jasso LC LC Encounter/[id number] [facility] 2019-03-23 00:00:00 2019-03-23 00:00:00 Office Visit Fran WelchAdherLoida carr [facility] LC Encounter/[id number] [facility] 2019-03-14 00:00:00 2019-03-14 00:00:00 Office Visit Roxana Duggan MedAdherSarah carr [facility] Encounter/[id number] [facility] 2019-03-01 00:00:00 2019-03-01 00:00:00 Office Visit Luciano Magallon katherine [facility] Encounter/[id number] [facility] 2019-02-28 00:00:00 2019-02-28 00:00:00 Office Visit Darshana Ambriz, Anushka Magallon, Abby Felix [facility] Encounter/[id number] [facility] hospital 2019-02-28 00:00:00 2019-02-28 00:00:00 Office Visit Status, Fax [facility] Encounter/[id number] [facility] 2019-02-28 00:00:00 2019-02-28 00:00:00 Office Visit Status, Fax [facility] Encounter/[id number] [facility] 2019-02-28 00:00:00 2019-02-28 00:00:00 Office Visit Status, Fax [facility] Encounter/[id number] [facility] 2019-02-27 00:00:00 2019-02-27 00:00:00 Office Visit Polly Dumont [facility] Encounter/[id number] [facility] 2019-02-27 00:00:00 2019-02-27 00:00:00 Office Visit Polly Dumont [facility] Encounter/[id number] [facility] 2019-02-27 00:00:00 2019-02-27 00:00:00 Office Visit Fran Welch, Diana Dumont, Polly Owens, Augustus Orozco [facility] Encounter/[id number] [facility] 2019-02-09 00:00:00 2019-02-09 00:00:00 Office Visit Roxana Duggan MedAdherence, Loida Mcclure [facility]herence, Sarah Dumont, Polly [facility] Encounter/[id number] L [facility] 2018-12-18 00:00:00 2018-12-18 00:00:00 Office Visit Luba Rapp Jennifer [facility] Encounter/[id number] [facility] 2018-12-01 00:45:00 2018-12-05 22:20:00 Discharged Inpatient 1 ARMAND MORIN [facility] [id number] [facility] 2018-11-30 00:00:00 2018-11-30 00:00:00 Office Visit Polly Dumont [facility] Encounter/[id number] [facility] 2018-11-28 00:00:00 2018-11-28 00:00:00 Office Visit Summer Vaughn, Sarah [facility] Encounter/[id number] [facility] 2018-10-13 00:00:00 2018-10-13 00:00:00 Office Visit Status, Fax [facility] Encounter/[id number] [facility] 2018-10-04 00:00:00 2018-10-04 00:00:00 Office Visit Jasmin Byrd, Sarah Mandujano, Luba Prieto, Abby Marinelli [facility] Encounter/[id number] [facility] 2018-10-04 00:00:00 2018-10-04 00:00:00 Office Visit Status, Fax [facility] Encounter/[id number] [facility] 2018-09-26 00:00:00 2018-09-26 00:00:00 Office Visit Cristina Diallo [facility] Encounter/[id number] [facility] 2018-09-24 00:00:00 2018-09-24 00:00:00 Office Visit Cristina Diallo [facility] Encounter/[id number] [facility] 2018-09-05 00:00:00 2018-09-05 00:00:00 Office Visit Jasmin Byrd, Darshana Onofre, Tanika Wong [facility] Encounter/[id number] [facility] 2018-09-05 00:00:00 2018-09-05 00:00:00 Office Visit Fran Welch [facility] Encounter/[id number] [facility] 2018-07-20 00:00:00 2018-07-20 00:00:00 Office Visit Cristina Diallo LC Encounter/[id number] [facility] 2018-07-14 00:00:00 2018-07-14 00:00:00 Office Visit Arsh Britton estevan [facility] LC Encounter/[id number] [facility] 2018-07-14 00:00:00 2018-07-14 00:00:00 Office Visit Cristina Diallo [facility] Encounter/[id number] [facility] 2018-07-14 00:00:00 2018-07-14 00:00:00 Office Visit Cristina Diallo [facility] Encounter/[id number] [facility] 2018-07-11 00:00:00 2018-07-11 00:00:00 Office Visit Pankaj Boo [facility] LC Encounter/[id number] [facility] 2018-07-11 00:00:00 2018-07-11 00:00:00 Office Visit Candelaria Matta Lindsey [facility] Encounter/[id number] [facility] 2018-06-15 00:00:00 2018-06-15 00:00:00 Office Visit Ileana eDsir Lindsey [facility] Encounter/[id number] [facility] 2018-05-16 00:00:00 2018-05-16 00:00:00 Office Visit Cristina Diallo [facility] Encounter/[id number] [facility] 2018-05-16 00:00:00 2018-05-16 00:00:00 Office Visit Galindo Portillo [facility] LC Encounter/[id number] [facility] 2018-05-16 00:00:00 2018-05-16 00:00:00 Office Visit Hamida Mandujano [facility] Encounter/[id number] [facility] 2018-05-11 00:00:00 2018-05-11 00:00:00 Office Visit Candelaria Matta Lindsey LC [facility] Encounter/[id number] [facility] 2018-03-30 00:00:00 2018-03-30 00:00:00 Office Visit Cristina Diallo LC [facility] Encounter/[id number] [facility] 2018-03-30 00:00:00 2018-03-30 00:00:00 Office Visit Fran Welch Jacqueline Kicza, Adrienne [facility] Encounter/[id number] [facility] 2018-03-15 00:00:00 2018-03-15 00:00:00 Office Visit Keith Gaitan LC [facility] Encounter/[id number] [facility] 2018-01-30 00:00:00 2018-01-30 00:00:[address] Adrienne LC [facility] Encounter/[id number] [facility] 2018-01-30 00:00:00 2018-01-30 00:00:00 Office Visit Anushka Prieto [facility] Encounter/[id number] [facility] 2018-01-26 00:00:00 2018-01-26 00:00:00 Office Visit Cristina Diallo [facility] Encounter/[id number] [facility] 2018-01-26 00:00:00 2018-01-26 00:00:00 Office Visit Cristina Diallo [facility] Encounter/[id number] [facility] 2018-01-26 00:00:00 2018-01-26 00:00:00 Office Visit Cristina Diallo [facility] Encounter/[id number] [facility] 2018-01-26 00:00:00 2018-01-26 00:00:00 Office Visit Portia Alicia LC [facility] Encounter/[id number] [facility] 2018-01-26 00:00:00 2018-01-26 00:00:00 Office Visit Cristina Diallo [facility] Encounter/[id number] [facility] 2018-01-26 00:00:00 2018-01-26 00:00:00 Office Visit Aurora elliott, Fran Alicia, Randa Duong, Candelaria Erickson [facility] Encounter/[id number] [facility] 2018-01-26 00:00:00 2018-01-26 00:00:00 Office Visit Hamida Mandujano [facility] Encounter/[id number] [facility] 2018-01-25 00:00:00 2018-01-25 00:00:00 Office Visit Cristina Diallo [facility] Encounter/[id number] [facility] 2018-01-25 00:00:00 2018-01-25 00:00:00 Office Visit Candelaria Matta Lindsey [facility] Encounter/[id number] [facility] 2018-01-25 00:00:00 2018-01-25 00:00:00 Office Visit Hamida Mandujano [facility] Encounter/[id number] [facility] 2018-01-20 00:00:00 2018-01-20 00:00:00 Office Visit Cristina Diallo LC [facility] Encounter/[id number] [facility] 2018-01-20 00:00:00 2018-01-20 00:00:[address] Lindsey Kicza, Adrienne LC [facility] Encounter/[id number] [facility] 2018-01-13 00:00:00 2018-01-13 00:00:00 Office Visit Cristina Diallo [facility] Encounter/[id number] [facility] 2018-01-11 00:00:00 2018-01-11 00:00:00 Office Visit Cristina Diallo [facility] Encounter/[id number] [facility] 2017-12-30 00:00:00 2017-12-30 00:00:00 Office Visit JerrymelaniCristina torrez susan LC [facility] Encounter/[id number] [facility] 2017-12-20 00:00:00 2017-12-20 00:00:00 Office Visit Summer Vaughn, Candelaria Bhakta LC Encounter/[id number] [facility] 2017-12-19 00:00:00 2017-12-19 00:00:00 Office Visit Jerrymelanilore Cristina susan LC [facility] Encounter/[id number] [facility] 2017-12-15 00:00:00 2017-12-15 00:00:00 Office Visit Jerrymelanilore Cristina susan LC [facility] Encounter/[id number] [facility] 2017-12-15 00:00:00 2017-12-15 00:00:00 Office Visit Yoel Cristina susan LC [facility] Encounter/[id number] [facility] 2017-12-15 00:00:00 2017-12-15 00:00:00 Office Visit Jerrymelanilore Cristina susan LC [facility] Encounter/[id number] [facility] 2017-12-06 00:00:00 2017-12-06 00:00:00 Office Visit Candelaria Matta Lindsey Garcia, Yareli LC [facility] Encounter/[id number] [facility] 2017-11-15 00:00:00 2017-11-15 00:00:00 Office Visit Elvira Tavares LC LC Encounter/[id number] [facility] 2017-11-08 00:00:00 2017-11-08 00:00:00 Office Visit Elvira Tavares LC [facility] Encounter/[id number] [facility] 2017-11-02 00:00:00 2017-11-02 00:00:00 Office Visit Jerrymelanilore Cristina susan LC [facility] Encounter/[id number] [facility] 2017-11-02 00:00:00 2017-11-02 00:00:00 Office Visit Ashleigh Zamora, Elisabeth Diallo, Elvira Bonilla Kristine [facility] LC Encounter/[id number] [facility] 2017-10-24 00:00:00 2017-10-24 00:00:00 Office Visit Elvira Tavares LC Encounter/[id number] [facility] 2017-10-14 00:00:00 2017-10-14 00:00:00 Office Visit Elvira Tavares [facility] LC Encounter/[id number] [facility] 2017-10-10 00:00:00 2017-10-10 00:00:00 Office Visit Cristina Diallo [facility] LC Encounter/[id number] [facility] 2017-10-07 00:00:00 2017-10-07 00:00:00 Office Visit Elvira Tavares [facility] LC Encounter/[id number] [facility] 2017-10-06 00:00:00 2017-10-06 00:00:00 Office Visit Keith Gaitan [facility] LC Encounter/[id number] [facility] 2017-10-05 00:00:00 2017-10-05 00:00:00 Office Visit Cristina Diallo [facility] LC Encounter/[id number] [facility] 2017-10-05 00:00:00 2017-10-05 00:00:00 Office Visit Sarah Yanez LC LC Encounter/[id number] [facility] 2017-10-05 00:00:00 2017-10-05 00:00:00 Office Visit Status, Fax LC LC Encounter/[id number] [facility] 2017-10-05 00:00:00 2017-10-05 00:00:00 Office Visit Status, Fax LC [facility] Encounter/[id number] [facility] 2017-10-05 00:00:00 2017-10-05 00:00:00 Office Visit Status, Fax LC LC Encounter/[id number] [facility] 2017-10-05 00:00:00 2017-10-05 00:00:00 Office Visit Status, Fax [facility] Encounter/[id number] [facility] 2017-10-05 00:00:00 2017-10-05 00:00:00 Office Visit Status, Fax [facility] Encounter/[id number] [facility] 2017-10-05 00:00:00 2017-10-05 00:00:00 Office Visit Status, Fax [facility] LC Encounter/[id number] [facility] 2017-10-04 00:00:00 2017-10-04 00:00:00 Office Visit Keith Gaitan [facility] Encounter/[id number] [facility] 2017-10-04 00:00:00 2017-10-04 00:00:00 Office Visit Cristina Diallo [facility] Encounter/[id number] [facility] 2017-10-04 00:00:00 2017-10-04 00:00:00 Office Visit Cristina Diallo [facility] Encounter/[id number] [facility] 2017-10-04 00:00:00 2017-10-04 00:00:00 Office Visit Ashleigh Zamora, Desi Goldberg, Randa Woodard, Effie Diallo, Candelaria Fox, Elvira Argueta, Enedelia Beebe [facility] Encounter/[id number] [facility] Results Test Description Test Time Test Comments Results Result Comments Source Blood leukocytes automated count (number/volume) 2019-10-17 05:40:00 Test Item White Blood Count (test code = 6690-2) 4.08 4.8-10.8 [facility] count (number/volume)2019-10-17 05:40:00* Test Item Value Reference Range Interpretation Comments Red Blood Count (test code = 789-8) 3.77 4.3-5.7 [facility] hemoglobin measurement (moles/volume)2019-10-17 05:40:00* Test Item Value Reference Range Interpretation Comments Hemoglobin (test code = 82348-8) 12.1 14.0-18.0 [facility]icsAutomated blood hematocrit (volume fraction)2019-10-17 05:40:00* Test Item Value Reference Range Interpretation Comments Hematocrit (test code = 4544-3) 37.3 38.2-49.6 [facility]icsAutomated erythrocyte mean corpuscular oaryxj3339-05-18 05:40:00* Test Item Value Reference Range Interpretation Comments Mean Corpuscular Volume (test code = 787-2) 98.9 81-99 [facility]icsAutomated erythrocyte mean corpuscular hemoglobin (mass per erythrocyte)2019-10-17 05:40:00* Test Item Value Reference Range Interpretation Comments Mean Corpuscular Hemoglobin (test code = 785-6) 32.1 28-32 [facility]icsAutomated erythrocyte mean corpuscular hemoglobin concentration measurement (mass/volume)2019-10-17 05:40:00* Test Item Value Reference Range Interpretation Comments Mean Corpuscular Hemoglobin Concent (test code = 786-4) 32.4 31-35 [facility] ClinicsRDW VvqAj-Pnx3338-36-08 05:40:00* Test Item Value Reference Range Interpretation Comments Red Cell Distribution Width (test code = 63343-7) 14.2 11.7 -14.4 [facility]icsAutomated blood platelet count (count/volume)2019-10-17 05:40:00* Test Item Value Reference Range Interpretation Comments Platelet Count (test code = 777-3) 99 140-360 [facility] ClinicsAutomated blood segmented neutrophil count as percentage of total ugmwhndlxo9118-34-26 05:40:00* Test Item Value Reference Range Interpretation Comments Neutrophils (%) (Auto) (test code = 00120-0) 77.5 38.7-80.0 [facility] ClinicsAutomated blood lymphocyte count as percentage ot total etfxfrjdrt4348-93-24 05:40:00* Test Item Value Reference Range Interpretation Comments Lymphocytes (%) (Auto) (test code = 736-9) 17.2 18.0-39.1 [facility] ClinicsAutomated blood monocyte count as percentage of total hpxwxgktwi6735-07-65 05:40:00* Test Item Value Reference Range Interpretation Comments Monocytes (%) (Auto) (test code = 5905-5) 3.2 4.4-11.3 [facility]icsAutomated blood eosinophil count as percentage of total efkvvicxtu1472-84-23 05:40:00* Test Item Value Reference Range Interpretation Comments Eosinophils (%) (Auto) (test code = 713-8) 0.2 0.0-6.0 [facility]icsAutomated blood basophil count as percentage of total mvfsygbeiu6500-09-34 05:40:00* Test Item Value Reference Range Interpretation Comments Basophils (%) (Auto) (test code = 706-2) 0.2 0.0-1.0 [facility] ClinicsFluoroscopic procedure less than one hour ewkmekut5730-00-66 05:40:00* Test Item Value Reference Range Interpretation Comments IM GRANULOCYTES % (test code = IM GRANULOCYTES %) 1.7 0.0- 1.0 [facility] ClinicsAutomated blood neutrophil count 2019-10-17 05:40:00* Test Item Value Reference Range Interpretation Comments Neutrophils # (Auto) (test code = 751-8) 3.2 2.1-6.9 [facility]icsBlood lymphocytes count (number/volume) 2019-10-17 05:40:00* Test Item Value Reference Range Interpretation Comments Lymphocytes # (Auto) (test code = 44363-8) 0.7 1.0-3.2 [facility]icsBlood monocytes automated count (number/volume)2019-10-17 05:40:00* Test Item Value Reference Range Interpretation Comments Monocytes # (Auto) (test code = 742-7) 0.1 0.2-0.8 [facility] ClinicsAutomated blood eosinophil count 2019-10-17 05:40:00* Test Item Value Reference Range Interpretation Comments Eosinophils # (Auto) (test code = 711-2) 0.0 0.0-0.4 [facility] ClinicsAutomated blood basophil count (count/volume)2019-10-17 05:40:00* Test Item Value Reference Range Interpretation Comments Basophils # (Auto) (test code = 704-7) 0.0 0.0-0.1 [facility] ClinicsFluoroscopic procedure less than one hour jtcqzskh7587-55-44 05:40:00* Test Item Value Reference Range Interpretation Comments Absolute Immature Granulocyte (auto (heraclio t code = Absolute Immature Granulocyte (auto) 0.07 0-0.1 [facility]icsBlood platelets count by estimate (number/volume)2019-10-17 05:40:00* Test Item Value Reference Range Interpretation Comments Platelet Estimate (test code = 02060-5) MODERATELY DECREASED [facility] ClinicsPlatelet llfmfxmgls1761-17-64 05:40:00* Test Item Value Reference Range Interpretation Comments Platelet Morphology Comment (test code = 58871-6) RARE EDTA CLUMPIN G [facility] ClinicsRBC msyldqskzo5153-56-86 05:40:00* Test Item Value Reference Range Interpretation Comments Red Cell Morphology Comment (test code = 6742-1) NORMAL [facility] sodium measurement (moles/volume)2019-10-17 05:40:00* Test Item Value Reference Range Interpretation Comments Sodium Level (test code = 2951-2) 135 136-145 [facility] potassium measurement (moles/volume)2019-10-17 05:40:00* Test Item Value Reference Range Interpretation Comments Potassium Level (test code = 2823-3) 3.8 3.5-5.1 [facility] chloride measurement (moles/volume)2019-10-17 05:40:00* Test Item Value Reference Range Interpretation Comments Chloride Level (test code = 2075-0) 106 98-107 [facility] or plasma carbon dioxide, total measurement (moles/volume)2019-10-17 05:40:00* Test Item Value Reference Range Interpretation Comments Carbon Dioxide Level (test code = 2028-9) 24 22-29 [facility] or plasma anion yns9903-68-75 05:40:00* Test Item Value Reference Range Interpretation Comments Anion Gap (test code = 09650-1) 8.8 8-16 [facility] urea nitrogen measurement (mass/volume)2019-10-17 05:40:00* Test Item Value Reference Range Interpretation Comments Blood Urea Nitrogen (test code = 3094-0) 7 7-26 [facility] plasma creatinine measurement (mass/volume)2019-10-17 05:40:00* Test Item Value Reference Range Interpretation Comments Creatinine (test code = 2160-0) 0.40 0.72-1.25 [facility]ererum or plasma urea nitrogen/creatinine mass ccfrf9303-42-03 05:40:00* Test Item Value Reference Range Interpretation Comments BUN/Creatinine Ratio (test code = 3097-3) 18 6-25 [facility] ClinicsEstimated glomerular filtration rate (GFR) pknkysfimeyjv8603-37-53 05:40:00* Test Item Value Reference Range Interpretation Comments Estimat Glomerular Filtration Rate (test code = 629113314) > 60 >60 Ranges were taken from the National Kidney Disease Education Program and the [facility] literature.Reference ranges:60 or greater: Pekslr23-15 ( for 3 consecutive months): Chronic kidney disease 15 or less: Kidney failureEast [facility] Hospital and ClinicsGlucose mbpmokxplvg2395-65-01 05:40:00* Test Item Value Reference Range Interpretation Comments Glucose Level (test code = JQY3411) 99 74-118 [facility]ere[facility] or plasma calcium measurement (mass/volume)2019-10-17 05:40:00* Test Item Value Reference Range Interpretation Comments Calcium Level (test code = 62247-3) 7.1 8.4-10.2 [facility]ere[facility] or plasma total bilirubin measurement (mass/volume)2019-10-15 12:18:00* Test Item Value Reference Range Interpretation Comments Total Bilirubin (test code = 1975-2) 0.2 0.2-1.2 [facility] ClinicsFluoroscopic procedure less than one hour hqkgqklu6645-20-22 12:18:00* Test Item Value Reference Range Interpretation Comments Aspartate Amino Transf (AST/SGOT) (test code = Aspartate Amino Transf (AST/SGOT)) 40 5-34 [facility] alanine aminotransferase measurement (enzymatic activity/volume)2019-10-15 12:18:00* Test Item Value Reference Range Interpretation Comments Alanine Aminotransferase (ALT/SGPT) (test code = 1742-6) 55 0-55 [facility] or plasma protein measurement (mass/volume)2019-10-15 12:18:00* Test Item Value Reference Range Interpretation Comments Total Protein (test code = 2885-2) 6.2 6.5-8.1 [facility]ererum or plasma albumin measurement (mass/volume)2019-10-15 12:18:00* Test Item Value Reference Range Interpretation Comments Albumin (test code = 1751-7) 2.5 3.5-5.0 [facility] ClinicsPlasma globulin measurement (mass/volume) 2019-10-15 12:18:00* Test Item Value Reference Range Interpretation Comments Globulin (test code = 35818-2) 3.7 2.3-3.5 [facility]ere[facility] plasma albumin/globulin mass nycfh2644-12-73 12:18:00* Test Item Value Reference Range Interpretation Comments Albumin/Globulin Ratio (test code = 1759-0) 0.7 0.8-2.0 [facility]ererum or plasma alkaline phosphatase measurement (enzymatic activity/volume)2019-10-15 12:18:00* Test Item Value Reference Range Interpretation Comments Alkaline Phosphatase (test code = 6768-6) 98 40-150 [facility] or plasma carbamazepine measurement (mass/volume)2019-10-15 12:18:00* Test Item Value Reference Range Interpretation Comments Carbamazepine (Tegretol) Level (test code = 3432-2) 8.65 4. 0-12.0 [facility]icsCHE[facility] ([facility])2019-10-15 09:24:00 [place] [address] Patient Name: SHANNON GIMENEZ MR #: [id number] : 1975 Age/Sex: 44/M Req #: [id number] Adm Physician: BASHIR THOMAS MD Ordered by: MELCHOR LI MD Report #: [id number] Location: [facility] Room/Bed: [place] [address] Procedure: [id number] DX/CHEST SINGL E (PORTABLE) Exam Date: 10/15/19 [...] COPY TO: MELCHOR LI MD CT ABDOMEN/PELVIS [id number] 23:26:00 [place] [address] Patient Name: SHANNON GIMENEZ MR #: [id number] : 1975 Age/Sex: 44/M Req #: [id number] Adm Physician: Ordered by: SHIRLEY CHAIDEZ MD Report #: [id number] Location: Room/Bed: Procedure: [id number] CT/CT ABDOMEN/ PELVIS W Exam Date: 10/14/19 Exam Time: 2300 REPORT STATUS: Signed EXAM: CT Abdomen and Pelvis WITH contrast INDICATION: ABD PAIN, DISTENDED, FLUID NUVIA EDIS AROUND GTUBE, ?SBO [id number] COMPARISON: 12/01/2018 TECHNIQUE : Abdomen and pelvis [...] 11:33 PM Dictated By: WILLIAMS MARCUS MD 2333 Transcribed By: SELVIN on 2333 COPY TO: SHIRLEY CHAIDEZ MD Serum or plasma sodium measurement (moles/volume)2019-10-14 21:53:00* Test Item Value Reference Range Interpretation Comments Sodium Level (test code = 2951-2) 141 136-145 [facility] potassium measurement (moles/volume)2019-10-14 21:53:00* Test Item Value Reference Range Interpretation Comments Potassium Level (test code = 2823-3) 4.0 3.5-5.1 [facility]ererum or plasma chloride measurement (moles/volume)2019-10-14 21:53:00* Test Item Value Reference Range Interpretation Comments Chloride Level (test code = 2075-0) 102 98-107 [facility]rum or plasma carbon dioxide, total measurement (moles/volume)2019-10-14 21:53:00* Test Item Value Reference Range Interpretation Comments Carbon Dioxide Level (test code = 2028-9) 28 22-29 [facility]ere[facility] or plasma anion tho7199-66-07 21:53:00* Test Item Value Reference Range Interpretation Comments Anion Gap (test code = 92939-2) 15.0 8-16 [facility] plasma urea nitrogen measurement (mass/volume)2019-10-14 21:53:00* Test Item Value Reference Range Interpretation Comments Blood Urea Nitrogen (test code = 3094-0) 35 7-26 [facility]rum or plasma creatinine measurement (mass/volume)2019-10-14 21:53:00* Test Item Value Reference Range Interpretation Comments Creatinine (test code = 2160-0) 0.69 0.72-1.25 [facility]ererum or plasma urea nitrogen/creatinine mass emcuw3979-68-85 21:53:00* Test Item Value Reference Range Interpretation Comments BUN/Creatinine Ratio (test code = 3097-3) 51 6-25 [facility] ClinicsEstimated glomerular filtration rate (GFR) ghfbpjqtodzzy6080-72-48 21:53:00* Test Item Value Reference Range Interpretation Comments Estimat Glomerular Filtration Rate (test code = 147223659) > 60 >60 Ranges were taken from the National Kidney Disease Education Program and the [facility] literature.Reference ranges:60 or greater: Asdzdu13-17 ( for 3 consecutive months): Chronic kidney disease 15 or less: Kidney failureEast Houston Hospital and ClinicsGlucose bwgzchvhhch2445-53-57 21:53:00* Test Item Value Reference Range Interpretation Comments Glucose Level (test code = DWR5028) 123 74-118 [facility]ere[facility] or plasma calcium measurement (mass/volume)2019-10-14 21:53:00* Test Item Value Reference Range Interpretation Comments Calcium Level (test code = 73861-4) 7.8 8.4-10.2 [facility]ere[facility] or plasma total bilirubin measurement (mass/volume)2019-10-14 21:53:00* Test Item Value Reference Range Interpretation Comments Total Bilirubin (test code = 1975-2) 0.4 0.2-1.2 [facility] ClinicsFluoroscopic procedure less than one hour nrifszre1845-05-96 21:53:00* Test Item Value Reference Range Interpretation Comments Aspartate Amino Transf (AST/SGOT) (test code = Aspartate Amino Transf (AST/SGOT)) 44 5-34 [facility]ererum or plasma alanine aminotransferase measurement (enzymatic activity/volume)2019-10-14 21:53:00* Test Item Value Reference Range Interpretation Comments Alanine Aminotransferase (ALT/SGPT) (test code = 1742-6) 68 0-55 [facility]ererum or plasma protein measurement (mass/volume)2019-10-14 21:53:00* Test Item Value Reference Range Interpretation Comments Total Protein (test code = 2885-2) 7.1 6.5-8.1 [facility]ererum or plasma albumin measurement (mass/volume)2019-10-14 21:53:00* Test Item Value Reference Range Interpretation Comments Albumin (test code = 1751-7) 2.9 3.5-5.0 [facility] ClinicsPlasma globulin measurement (mass/volume) 2019-10-14 21:53:00* Test Item Value Reference Range Interpretation Comments Globulin (test code = 37924-8) 4.2 2.3-3.5 [facility]ererum or plasma albumin/globulin mass eibqb4224-18-24 21:53:00* Test Item Value Reference Range Interpretation Comments Albumin/Globulin Ratio (test code = 1759-0) 0.7 0.8-2.0 [facility]ererum or plasma alkaline phosphatase measurement (enzymatic activity/volume)2019-10-14 21:53:00* Test Item Value Reference Range Interpretation Comments Alkaline Phosphatase (test code = 6768-6) 113 40-150 [facility]ererum or plasma creatine kinase measurement (enzymatic activity/volume)2019-10-14 21:53:00* Test Item Value Reference Range Interpretation Comments Creatine Kinase (test code = 2157-6) 32 30-200 [facility]ererum or plasma creatine kinase MB measurement (mass/volume)2019-10-14 21:53:00* Test Item Value Reference Range Interpretation Comments Creatine Kinase MB (test code = 38285-1) 0.70 0-5.0 [facility] ClinicsTroponin I measurement by highly sensitive enzyme ytgllobepms3718-53-23 21:53:00* Test Item Value Reference Range Interpretation Comments Troponin I (test code = 61451-9) < 0.001 0-0.300 [facility]ererum or plasma lipase measurement (enzymatic activity/volume)2019-10-14 21:53:00* Test Item Value Reference Range Interpretation Comments Lipase (test code = 3040-3) 39 8-78 [facility]ererum or plasma creatine kinase measurement (enzymatic activity/volume)2019-10-14 21:53:00* Test Item Value Reference Range Interpretation Comments Creatine Kinase (test code = 2157-6) 32 30-200 [facility]ererum or plasma creatine kinase MB measurement (mass/volume)2019-10-14 21:53:00* Test Item Value Reference Range Interpretation Comments Creatine Kinase MB (test code = 39446-1) 0.70 0-5.0 [facility] ClinicsTroponin I measurement by highly sensitive enzyme nqealxsdorq1729-86-47 21:53:00* Test Item Value Reference Range Interpretation Comments Troponin I (test code = 18295-8) < 0.001 0-0.300 [facility]rum or plasma lipase measurement (enzymatic activity/volume)2019-10-14 21:53:00* Test Item Value Reference Range Interpretation Comments Lipase (test code = 3040-3) 39 8-78 [facility] ClinicsFluoroscopic procedure less than one hour cvyoxbmg9082-00-76 20:11:00* Test Item Value Reference Range Interpretation [...] from individuals suspected of COVID-19 by their white hospital provider. This test has not been Food [...] under 564(g) of the ACT.Testing performed by [id number] [place], [place] [address] leukocytes automated count (number/volume) 2019-10-14 18:35:00* Test Item Value Reference Range Interpretation Comments White Blood Count (test code = 6690-2) 14.30 4.8-10.8 [facility]icsBl[facility] erythrocytes automated count (number/volume)2019-10-14 18:35:00* Test Item Value Reference Range Interpretation Comments Red Blood Count (test code = 789-8) 4.82 4.3-5.7 [facility] ClinicsBlood hemoglobin measurement (moles/volume)2019-10-14 18:35:00* Test Item Value Reference Range Interpretation Comments Hemoglobin (test code = 69968-2) 15.3 14.0-18.0 [facility] ClinicsAutomated blood hematocrit (volume fraction)2019-10-14 18:35:00* Test Item Value Reference Range Interpretation Comments Hematocrit (test code = 4544-3) 46.4 38.2-49.6 [facility] ClinicsAutomated erythrocyte mean corpuscular vkdrpi8723-22-97 18:35:00* Test Item Value Reference Range Interpretation Comments Mean Corpuscular Volume (test code = 787-2) 96.3 81-99 [facility] ClinicsAutomated erythrocyte mean corpuscular hemoglobin (mass per erythrocyte)2019-10-14 18:35:00* Test Item Value Reference Range Interpretation Comments Mean Corpuscular Hemoglobin (test code = 785-6) 31.7 28-32 [facility] ClinicsAutomated erythrocyte mean corpuscular hemoglobin concentration measurement (mass/volume)2019-10-14 18:35:00* Test Item Value Reference Range Interpretation Comments Mean Corpuscular Hemoglobin Concent (test code = 786-4) 33.0 31-35 [facility] ClinicsRDW WlmNm-Qjk3168-64-05 18:35:00* Test Item Value Reference Range Interpretation Comments Red Cell Distribution Width (test code = 20557-5) 14.1 11.7 -14.4 [facility] ClinicsAutomated blood platelet count (count/volume)2019-10-14 18:35:00* Test Item Value Reference Range Interpretation Comments Platelet Count (test code = 777-3) 232 140-360 [facility] ClinicsAutatrium healthed blood segmented neutrophil count as percentage of total jbrcnidqln7217-76-58 18:35:00* Test Item Value Reference Range Interpretation Comments Neutrophils (%) (Auto) (test code = 82174-5) 78.1 38.7-80.0 [facility] ClinicsAutomated blood lymphocyte count as percentage ot total mnkdjhrtbb9356-79-05 18:35:00* Test Item Value Reference Range Interpretation Comments Lymphocytes (%) (Auto) (test code = 736-9) 18.1 18.0-39.1 [facility] ClinicsAutomated blood monocyte count as percentage of total jjyugsavrn7108-19-24 18:35:00* Test Item Value Reference Range Interpretation Comments Monocytes (%) (Auto) (test code = 5905-5) 2.9 4.4-11.3 [facility] ClinicsAutomated blood eosinophil count as percentage of total weizcmsxdq3685-19-87 18:35:00* Test Item Value Reference Range Interpretation Comments Eosinophils (%) (Auto) (test code = 713-8) 0.3 0.0-6.0 [facility] ClinicsAutomated blood basophil count as percentage of total ussjilxweu5227-40-71 18:35:00* Test Item Value Reference Range Interpretation Comments Basophils (%) (Auto) (test code = 706-2) 0.3 0.0-1.0 [facility] ClinicsFluoroscopic procedure less than one hour cspipdbj7470-32-06 18:35:00* Test Item Value Reference Range Interpretation Comments IM GRANULOCYTES % (test code = IM GRANULOCYTES %) 0.3 0.0- 1.0 [facility] ClinicsAutomated blood neutrophil count 2019-10-14 18:35:00* Test Item Value Reference Range Interpretation Comments Neutrophils # (Auto) (test code = 751-8) 11.1 2.1-6.9 [facility] ClinicsBlood lymphocytes count (number/volume) 2019-10-14 18:35:00* Test Item Value Reference Range Interpretation Comments Lymphocytes # (Auto) (test code = 25622-2) 2.6 1.0-3.2 [facility] ClinicsBlood monocytes automated count (number/volume)2019-10-14 18:35:00* Test Item Value Reference Range Interpretation Comments Monocytes # (Auto) (test code = 742-7) 0.4 0.2-0.8 [facility] ClinicsAutomated blood eosinophil count 2019-10-14 18:35:00* Test Item Value Reference Range Interpretation Comments Eosinophils # (Auto) (test code = 711-2) 0.1 0.0-0.4 [facility] ClinicsAutomated blood basophil count (count/volume)2019-10-14 18:35:00* Test Item Value Reference Range Interpretation Comments Basophils # (Auto) (test code = 704-7) 0.1 0.0-0.1 [facility] ClinicsFluoroscopic procedure less than one hour rhozdfxz3539-55-54 18:35:00* Test Item Value Reference Range Interpretation Comments Absolute Immature Granulocyte (auto (heraclio t code = Absolute Immature Granulocyte (auto) 0.05 0-0.1 [facility] ClinicsProthrombin time (PT) in platelet poor plasma by coagulation atrop5226-96-06 18:35:00* Test Item Value Reference Range Interpretation Comments Prothrombin Time (test code = 5902-2) 13.3 11.9-14.5 [facility] ClinicsINR in Platelet poor plasma by Coagulation tnudu5621-83-96 18:35:00* Test Item Value Reference Range Interpretation Comments Prothromb Time International Ratio (test code = 6301-6) 0.96 Oral Anticoagulant Therapy INR Values:1. Low Intensity Therapy 1.5 - 2.02 . Moderate Intensity Therapy 2.0 - 3.03. High Intensity Therapy(1) 2.5 - 3. 54. High Intensity Therapy(2) 3.0 - 4.05. Panic Value INR > 5.0 [facility] ClinicsActivated partial thromboplastin time (aPTT) in platelet poor plasma by coagulation qkizg7558-60-49 18:35:00* Test Item Value Reference Range Interpretation Comments Activated Partial Thromboplast Time (test code = 57006-3) 36.5 23.8-35.5 [facility] ClinicsUrine color etmmzimcbrohl5670-22-18 18:35:00* Test Item Value Reference Range Interpretation Comments Urine Color (test code = 5778-6) YELLOW YELLOW [facility] ClinicsUrine gqyxmxl6563-18-21 18:35:00* Test Item Value Reference Range Interpretation Comments Urine Clarity (test code = 43782-7) HAZY CLEAR [facility] Centerpecific gravity of Urine by Test strip 2019-10-14 18:35:00* Test Item Value Reference Range Interpretation Comments Urine Specific [place] (test code = 5811-5) 1.030 1.010-1.02 5 [facility] ClinicsUrine pH measurement by automated test gmewy6469-49-55 18:35:00* Test Item Value Reference Range Interpretation Comments Urine pH (test code = 30337-8) 5.5 5-7 [facility] ClinicsUrine leukocyte esterase detection by hxmmnmjr1278-56-05 18:35:00* Test Item Value Reference Range Interpretation Comments Urine Leukocyte Esterase (test code = 5799-2) NEGATIVE NEGATIVE [facility] ClinicsUrine nitrite kwozoybsq7456-36-68 18:35:00* Test Item Value Reference Range Interpretation Comments Urine Nitrite (test code = 70301-0) NEGATIVE NEGATIVE [facility] ClinicsUrine protein measurement by test strip (mass/volume)2019-10-14 18:35:00* Test Item Value Reference Range Interpretation Comments Urine Protein (test code = 5804-0) 2+ NEGATIVE [facility] ClinicsUrine glucose egfzkwwzw8242-06-57 18:35:00* Test Item Value Reference Range Interpretation Comments Urine Glucose (UA) (test code = 2349-9) NEGATIVE NEGATIVE [facility] ClinicsUrine ketones detection by automated test caavk1995-97-82 18:35:00* Test Item Value Reference Range Interpretation Comments Urine Ketones (test code = 68493-5) NEGATIVE NEGATIVE [facility] ClinicsUrine urobilinogen measurement by test strip (mass/volume)2019-10-14 18:35:00* Test Item Value Reference Range Interpretation Comments Urine Urobilinogen (test code = 70903-7) 0.2 0.2-1 [facility] ClinicsUrine total bilirubin measurement (mass/volume)2019-10-14 18:35:00* Test Item Value Reference Range Interpretation Comments Urine Bilirubin (test code = 1978-6) NEGATIVE NEGATIVE [facility] ClinicsUrine erythrocytes fcoanewrq9229-43-48 18:35:00* Test Item Value Reference Range Interpretation Comments Urine Blood (test code = 26721-6) NEGATIVE NEGATIVE [facility] ClinicsAutomated urine sediment leukocyte count by microscopy (number/high power field)2019-10-14 18:35:00* Test Item Value Reference Range Interpretation Comments Urine WBC (test code = 5821-4) 0-5 0-5 [facility] ClinicsErythrocytes detection in urine sediment by light xhrwbzdjgu9979-08-59 18:35:00* Test Item Value Reference Range Interpretation Comments Urine RBC (test code = 61482-6) 0-5 0-5 [facility] ClinicsBacteria detection in urine sediment by light hnyaefaqdo9910-81-46 18:35:00* Test Item Value Reference Range Interpretation Comments Urine Bacteria (test code = 37162-4) FEW NONE [facility] ClinicsEpithelial cells detection in urine sediment by light zhycgsmpty7361-03-58 18:35:00* Test Item Value Reference Range Interpretation Comments Urine Epithelial Cells (test code = 12244-9) FEW NONE [facility] ClinicsAmorphous sediment detection in urine sediment by light ikmxwoosuy4504-59-68 18:35:00* Test Item Value Reference Range Interpretation Comments Urine Amorphous Sediment (test code = 8246-1) FEW FEW [facility] ClinicsAutomated fine granular casts count in urine sediment by microscopy low power field (number/area)2019-10-14 18:35:00* Test Item Value Reference Range Interpretation Comments Urine Fine Granular Casts (test code = 44390-1) 1-5 >0 [facility] ClinicsMucus detection in urine sediment by light kdrzuhevae6920-45-20 18:35:00* Test Item Value Reference Range Interpretation Comments Urine Mucus (test code = 8247-9) FEW RARE [facility]icsProthrombin time (PT) in platelet poor plasma by coagulation gjtme8766-34-53 18:35:00* Test Item Value Reference Range Interpretation Comments Prothrombin Time (test code = 5902-2) 13.3 11.9-14.5 [facility] ClinicsINR in Platelet poor plasma by Coagulation xblro9286-72-81 18:35:00* Test Item Value Reference Range Interpretation Comments Prothromb Time International Ratio (test code = 6301-6) 0.96 Oral Anticoagulant Therapy INR Values:1. Low Intensity Therapy 1.5 - 2.02 . Moderate Intensity Therapy 2.0 - 3.03. High Intensity Therapy(1) 2.5 - 3. 54. High Intensity Therapy(2) 3.0 - 4.05. Panic Value INR > 5.0 [facility] ClinicsActivated partial thromboplastin time (aPTT) in platelet poor plasma by coagulation lferi3676-85-28 18:35:00* Test Item Value Reference Range Interpretation Comments Activated Partial Thromboplast Time (test code = 30574-7) 36.5 23.8-35.5 [facility] ClinicsUrine color futvdzrwjwuzr4257-69-67 18:35:00* Test Item Value Reference Range Interpretation Comments Urine Color (test code = 5778-6) YELLOW YELLOW [facility] ClinicsUrine ehqkaur9528-10-35 18:35:00* Test Item Value Reference Range Interpretation Comments Urine Clarity (test code = 80515-6) HAZY CLEAR [facility] Centerpecific gravity of Urine by Test strip 2019-10-14 18:35:00* Test Item Value Reference Range Interpretation Comments Urine Specific [place] (test code = 5811-5) 1.030 1.010-1.02 5 [facility] ClinicsUrine pH measurement by automated test jgdir7285-85-88 18:35:00* Test Item Value Reference Range Interpretation Comments Urine pH (test code = 17299-6) 5.5 5-7 [facility] ClinicsUrine leukocyte esterase detection by jfwtsgjv8858-90-71 18:35:00* Test Item Value Reference Range Interpretation Comments Urine Leukocyte Esterase (test code = 5799-2) NEGATIVE NEGATIVE [facility] ClinicsUrine nitrite mjswqwgtz8736-67-44 18:35:00* Test Item Value Reference Range Interpretation Comments Urine Nitrite (test code = 94742-1) NEGATIVE NEGATIVE [facility] ClinicsUrine protein measurement by test strip (mass/volume)2019-10-14 18:35:00* Test Item Value Reference Range Interpretation Comments Urine Protein (test code = 5804-0) 2+ NEGATIVE [facility] ClinicsUrine glucose ofmaxlumw2971-44-82 18:35:00* Test Item Value Reference Range Interpretation Comments Urine Glucose (UA) (test code = 2349-9) NEGATIVE NEGATIVE [facility] ClinicsUrine ketones detection by automated test fbbyt0378-54-01 18:35:00* Test Item Value Reference Range Interpretation Comments Urine Ketones (test code = 31931-5) NEGATIVE NEGATIVE [facility] ClinicsUrine urobilinogen measurement by test strip (mass/volume)2019-10-14 18:35:00* Test Item Value Reference Range Interpretation Comments Urine Urobilinogen (test code = 76023-1) 0.2 0.2-1 [facility] ClinicsUrine total bilirubin measurement (mass/volume)2019-10-14 18:35:00* Test Item Value Reference Range Interpretation Comments Urine Bilirubin (test code = 1978-6) NEGATIVE NEGATIVE [facility] ClinicsUrine erythrocytes zkceveofi0512-41-84 18:35:00* Test Item Value Reference Range Interpretation Comments Urine Blood (test code = 74124-2) NEGATIVE NEGATIVE [facility] ClinicsAutomated urine sediment leukocyte count by microscopy (number/high power field)2019-10-14 18:35:00* Test Item Value Reference Range Interpretation Comments Urine WBC (test code = 5821-4) 0-5 0-5 [facility] ClinicsErythrocytes detection in urine sediment by light kytpabevwg0382-39-06 18:35:00* Test Item Value Reference Range Interpretation Comments Urine RBC (test code = 54959-8) 0-5 0-5 [facility] ClinicsBacteria detection in urine sediment by light wxspqwlphh1614-97-06 18:35:00* Test Item Value Reference Range Interpretation Comments Urine Bacteria (test code = 32653-3) FEW NONE [facility] ClinicsEpithelial cells detection in urine sediment by light xceexhuejt9817-94-98 18:35:00* Test Item Value Reference Range Interpretation Comments Urine Epithelial Cells (test code = 54169-0) FEW NONE [facility] ClinicsAmorphous sediment detection in urine sediment by light yxktehzrrf4023-20-11 18:35:00* Test Item Value Reference Range Interpretation Comments Urine Amorphous Sediment (test code = 8246-1) FEW FEW [facility] ClinicsAutomated fine granular casts count in urine sediment by microscopy low power field (number/area)2019-10-14 18:35:00* Test Item Value Reference Range Interpretation Comments Urine Fine Granular Casts (test code = 02952-8) 1-5 >0 [facility] ClinicsMucus detection in urine sediment by light wwmhplxzxl3666-93-97 18:35:00* Test Item Value Reference Range Interpretation Comments Urine Mucus (test code = 8247-9) FEW RARE [facility] ClinicsBlood ludxdie1268-91-08 18:35:00* Test Item Value Reference Range Interpretation Comments Blood Culture (test code = 12772763) NO GROWTH AFTER 72 HOURS [facility] ClinicsFluoroscopic procedure less than one hour pykiyejr8778-52-00 18:32:00* Test Item Value Reference Range Interpretation Comments Lactic Acid Level (test code = Lactic Acid Level) 1.5 0.5- 2.0 [facility] ClinicsFluoroscopic procedure less than one hour qykjczjq0773-89-42 18:32:00* Test Item Value Reference Range Interpretation Comments Lactic Acid Level (test code = Lactic Acid Level) 1.5 0.5- 2.0 [facility] ClinicsBlood culture, aerobic & anaerobic 2019-06-29 12:03:04* Test Item Value Reference Range Interpretation Comments Blood culture isolate (test code = 600-7) No growth after 5 days of incubation. Specimen InformationSpecimen Source: BloodSpecimen Site: Forearm, left [facility] MethodistComprehensive metabolic qqdur0868-80-39 06:05:05* Test Item Value Reference Range Interpretation Comments Sodium (test code = 2951-2) 142 135- 148 mEq/L Potassium (test code = 2823-3) 3.2 3.5- 5.0 mEq/L L Chloride (test code = 2075-0) 110 98- 112 mEq/L CO2 (test code = 2027-9) 21 24- 31 mEq/L L Anion gap (test code = 41600-0) 11@ANIO 7- 15 mEq/L BUN (test code = 3094-0) 17 mg/dL 6-20 Creatinine (test code = 2160-0) 0.40 mg/dL 0.7-1.2 L Glucose (test code = 2345-7) 130 mg/dL 65-99 H Calcium (test code = 60217-6) 8.4 mg/dL 8.3-10.2 Protein (test code = 2885-2) 6.3 g/dL 6.3-8.3 - 4.6- 7.0 g/dL1 week 4.4-7.6 g/dL7 months-1year 5.1-7.3 g/dL1-2 years 5.6-7.5 g/dL>3 years 6.0-8.0 g/aP80-943 6.3-8.3 g/dL Albumin (test code = 1751-7) 3.2 g/dL 3.5-5 L A/G ratio (test code = 1759-0) 1.0 0.7-3.8 Alkaline phosphatase (test code = 6768-6) 140 U/L 40-129 H AST (test code = 1920-8) 80 U/L 10-50 H ALT (test code = 1742-6) 87 U/L 5-50 H Total bilirubin (test code = 1975-2) <0.2 0-1.2 Lab Interpretation (test code = 08625-5) Abnormal [facility] MethodistEstimated GAW6468-15-29 06:05:05* Test Item Value Reference Range Interpretation Comments Estimated GFR (test code = 5488) >=90 mL/min/1.73 m2 Catergory Units InterpretationG1 >=90 Normal or highG2 60-89 Mildly feasscwdpC7f 45-59 Mildly to moderately meqxzfxelD9v 30-44 Moderately to severely decreasedG4 15-29 Severely decreasedG5 <15 Kidney failureThe eGFR was calculated using the Chronic Kidney Disease Epidemiology Collaboration (CKD-EPI) equation. Interpretation is based on recommendations of the National Kidney Foundation-Kidney Disease Outcomes Quality Initiative (NKF-KDOQI) published in 2014. [facility] MethodistCBC with platelet and currfkfjlwsa2336-36-97 05:49:01* Test Item Value Reference Range Interpretation Comments WBC (test code = 45732-6) 4.15 4.50- 11.00 k/uL L RBC (test code = 34488-2) 4.08 m/uL 4.4-6 L HGB (test code = 718-7) 12.4 g/dL 14-18 L HCT (test code = 4544-3) 38.8 % 41-51 L MCV (test code = 787-2) 95.1 fL 82-100 MCH (test code = 785-6) 30.4 pg 27-34 MCHC (test code = 786-4) 32.0 g/dL 31-37 RDW - SD (test code = 06467-9) 52.9 fL 37-55 MPV (test code = 93665-1) 10.8 fL 8.8-13.2 Platelet count (test code = 14239-1) 220 150- 400 k/uL Nucleated RBC (test code = 84255-4) 0.00 /100 WBC Neutrophils (test code = 06777-1) 62.9 % 39-69 Lymphocytes (test code = 67424-8) 25.8 % 25-45 Monocytes (test code = 66532-1) 5.1 % 0-10 Eosinophils (test code = 66855-7) 4.8 % 0-5 Basophils (test code = 00894-6) 1.2 % 0-1 H Lab Interpretation (test code = 69266-8) Abnormal [facility]XR [facility] 1 Dbpdhtyc1221-95-57 12:09:24Hm Interface, Radiology Results - 06/26/2019 12:12 PM CDTEXAMINATION: XR CHEST 1 PORTABLECLINICAL HISTORY: f u pneumoniaCOMPARISON: Single view chest from 06/24/2019IMPRESSION:An AP radiograph of the chest was submitted for in terpretation.Perihilar opacities have improved. Interstitial opacities are again seen bilaterally which are nonspecific and may represent underlying chronic lung disease.No pleural effusion. No pneumothorax or midline shift.The mediastinal contours and cardiac silhouette are unchanged. Atherosclerotic disease.[facility]opselect medical [facility]rie RM-WPHYAANew [facility] MethodistRespiratory pathogen xfjsh0143-18-02 12:00:03 Respiratory pathogen panelNegative for all pathogens tested:Negative for Adenovi rusNegative for Coronavirus OCR3Fqzqdunp for Coronavirus JO04Dmoqvyxl for Chadwick virus 229ENegative for Coronavirus PU17Ttbnfskc for Human MetapneumovirusNegativ e for Rhinovirus/EnterovirusNegative for Influenza ANegative for Influenza A/H1N egative for Influenza A/W7Hbrpfpgn for Influenza A/H1-2009Negative for Influenza BNegative for [...] . Comment: Specimen InformationSpecimen Source: NaresSpecimen Site: Left [facility] MethodistHepatic function ehtmd6396-31-20 03:42:58* Test Item Value Reference Range Interpretation Comments Albumin (test code = 1751-7) 3.8 g/dL 3.5-5 Total bilirubin (test code = 1974-) 0.2 mg/dL 0-1.2 Bilirubin direct (test code = 1967-7) <0.1 0-0.3 Alkaline phosphatase (test code = 6768-6) 153 U/L 40-129 H Protein (test code = 2885-2) 7.9 g/dL 6.3-8.3 -Ballinger 4.6- 7.0 g/dL1 week 4.4-7.6 g/dL7 months-1year 5.1-7.3 g/dL1-2 years 5.6-7.5 g/dL>3 years 6.0-8.0 g/dD80-516 6.3-8.3 g/dL ALT (test code = 1742-6) 86 U/L 5-50 H AST (test code = 1920-8) 80 U/L 10-50 H Lab Interpretation (test code = 47634-7) Abnormal [facility] MethodistLipase vlugg3180-37-60 03:42:58* Test Item Value Reference Range Interpretation Comments Lipase (test code = 3040-3) 118 U/L 13-60 H Lab Interpretation (test code = 10585-3) Abnormal [facility] MethodistInfluenza antigen test, reflex negative to GRL6764-10-49 03:04:43* Test Item Value Reference Range Interpretation Comments Influenza antigen (test code = 81395-3) Negative for Influenza A/B antigen. Specimen InformationSpecimen Source: NaresSpecimen Site: Left [facility] MethodistBasic metabolic zdoqo2652-61-87 02:56:36* Test Item Value Reference Range Interpretation Comments Sodium (test code = 2951-2) 136 135- 148 mEq/L Potassium (test code = 2823-3) 5.0 3.5- 5.0 mEq/L Chloride (test code = 2074-0) 102 98- 112 mEq/L CO2 (test code = 2027-9) 20 24- 31 mEq/L L Anion gap (test code = 31909-5) 14@ANIO 7- 15 mEq/L BUN (test code = 3094-0) 20 mg/dL 6-20 Creatinine (test code = 2160-0) 0.40 mg/dL 0.7-1.2 L Glucose (test code = 2345-7) 115 mg/dL 65-99 H Calcium (test code = 81593-8) 9.1 mg/dL 8.3-10.2 Lab Interpretation (test code = 59492-1) Abnormal [facility] MethodistCreatine kinase, total (CPK)2019-06-24 02:56:36* Test Item Value Reference Range Interpretation Comments Creatine kinase (test code = 2157-6) 114 U/L 39-308 [facility] Methodistcarbamazepine level, kvtdq8763-72-52 16:51:00* Test Item Value Reference Range Interpretation Comments carbamazepine level, serum (test code = 3432-2) 12.7 ug/mL 4.0-12 .0 [facility]Blood Mygmgzo6327-95-45 21:05:00* Test Item Value Reference Range Interpretation Comments Blood Culture (test code = 36411882) NO GROWTH AFTER 24 HOURS [facility] ClinicsUrine CUG1226-47-68 17:00:00* Test Item Value Reference Range Interpretation Comments Urine WBC (test code = 5821-4) NONE 0-5 [facility] ClinicsUrine FZB4746-26-56 17:00:00* Test Item Value Reference Range Interpretation Comments Urine RBC (test code = 55675-7) NONE 0-5 [facility] ClinicsUrine Npfqqemr4880-84-75 17:00:00* Test Item Value Reference Range Interpretation Comments Urine Bacteria (test code = 12788-4) NONE NONE [facility] ClinicsUrine Epithelial Efhrh9411-32-86 17:00:00 * Test Item Value Reference Range Interpretation Comments Urine Epithelial Cells (test code = 57911-0) NONE NONE [facility] ClinicsUrine Amorphous Wbiwjhou4364-98-51 17:00:00* Test Item Value Reference Range Interpretation Comments Urine Amorphous Sediment (test code = 8246-1) FEW FEW [facility] ClinicsUrine Ngsmr2296-81-83 17:00:00* Test Item Value Reference Range Interpretation Comments Urine Mucus (test code = 8247-9) FEW RARE H [facility] ClinicsUrine Yoseg1115-53-38 16:44:00* Test Item Value Reference Range Interpretation Comments Urine Color (test code = 5778-6) YELLOW YELLOW [facility] ClinicsUrine Yfczvmz0969-55-74 16:44:00* Test Item Value Reference Range Interpretation Comments Urine Clarity (test code = 06036-0) CLEAR CLEAR [facility] ClinicsUrine Specific Sdjvgmz1748-18-45 16:44:00 * Test Item Value Reference Range Interpretation Comments Urine Specific [place] (test code = 5811-5) 1.015 1.010-1.02 5 [facility] ClinicsUrine uV9907-36-84 16:44:00* Test Item Value Reference Range Interpretation Comments Urine pH (test code = 95254-2) 6 5-7 [facility] ClinicsUrine Leukocyte Zqeodihe5062-88-18 16:44:00* Test Item Value Reference Range Interpretation Comments Urine Leukocyte Esterase (test code = 77315-6) NEGATIVE NEGATIV E [facility] ClinicsUrine Budcpzk5848-81-83 16:44:00* Test Item Value Reference Range Interpretation Comments Urine Nitrite (test code = 76625-7) NEGATIVE NEGATIVE [facility] ClinicsUrine Lsafsth5302-94-34 16:44:00* Test Item Value Reference Range Interpretation Comments Urine Protein (test code = 35040-8) NEGATIVE NEGATIVE [facility] ClinicsUrine Glucose (UA)2018-12-05 16:44:00* Test Item Value Reference Range Interpretation Comments Urine Glucose (UA) (test code = 86973-2) NEGATIVE NEGATIVE [facility] ClinicsUrine Wlgxpcr5963-35-81 16:44:00* Test Item Value Reference Range Interpretation Comments Urine Ketones (test code = 13605-4) NEGATIVE NEGATIVE [facility] ClinicsUrine Eabpbierqaud4761-10-16 16:44:00* Test Item Value Reference Range Interpretation Comments Urine Urobilinogen (test code = 41163-6) 0.2 0.2-1 [facility] ClinicsUrine Bwzjprork6699-57-25 16:44:00* Test Item Value Reference Range Interpretation Comments Urine Bilirubin (test code = 1977-8) NEGATIVE NEGATIVE [facility] ClinicsUrine Vwypq5609-36-21 16:44:00* Test Item Value Reference Range Interpretation Comments Urine Blood (test code = 80838-4) NEGATIVE NEGATIVE [facility] ClinicsLipase2019-08-27 05:49:00* Test Item Value Reference Range Interpretation Comments Lipase (test code = 3040-3) [facility]icsHejerold [facility] A IgM Uwibzffe9886-33-26 05:08:00* Test Item Value Reference Range Interpretation Comments Hepatitis A IgM Antibody (test code = 42106-8) Negative Negativ e [facility] B Surface Idggctg3063-90-24 05:08:00* Test Item Value Reference Range Interpretation Comments Hepatitis B Surface Antigen (test code = 5196-1) Negative Negat yuli [facility] B Core IgM Kozlntvn0369-24-45 05:08:00* Test Item Value Reference Range Interpretation Comments Hepatitis B Core IgM Antibody (test code = 04616-3) Negative Ne gative [facility] C Bmzysplu2195-25-06 05:08:00* Test Item Value Reference Range Interpretation Comments Hepatitis C Antibody (test code = 91609-8) <0.1 0.0-0.9 Negative: < 0.8 Indeterminate: 0.8 - 0.9 Positive: > 0.9 The CDC recommends that a positive HCV antibody result be followed up with a HCV Nucleic Acid Amplification test (907835).Performed at: [facility] [id number] Director: Ramon Meza MD, Phone: [phone] Houston Hospital and ClinicsCHEST SINGLE (PORTABLE) 2018-12-04 22:42:00 [place] [address] Patient Name: SHANNON GIMENEZ MR #: [id number] : 1975 Age/Sex: 43/M Req #: [id number] Adm Physician: ARMAND MORIN MD Ordered by: ARMAND MORIN MD Report #: [id number] Location: MED/SURG3 Room/Bed: 286-1 Procedure: [id number] DX /CHEST SINGLE (PORTABLE) Exam Date: 12/04/18 [...] maurice By: MINOO ZHENG MD on 12/04/18 3371 Transcribed By: SELVIN on 12/04/18 2 245 COPY TO: ARMAND MORIN MD Qphnlfluhzqxq3657-05-93 22:16:00* Test Item Value Reference Range Interpretation Comments Ceruloplasmin (test code = 2064-4) 28.5 16.0-31.0 Performed at: [facility] Rrbfjd7073 [facility] [address], [place], [place] [id number] 4Lab Director: ROWENA Arroyo MD, Phone: [phone] [facility] CenterAnti-Mitochondrial Jdmqukli5594-96-48 22:16:00* Test Item Value Reference Range Interpretation Comments Anti-Mitochondrial Antibody (test code = 32548-1) <20.0 0.0- 20.0 Negative 0.0 - 20.0 Equivocal 20.1 - 24.9 Positive > 24.9Mitochondrial (M2) Antibodies are found in 90-96% ofpatients with primary bi liary cirrhosis.Performed at: - [facility] [id number] Director: Kobe Meyers MD, Phone: [phone] [facility] Hospital and ClinicsBedside Wathzfj7694-76-58 16:13:00* Test Item Value Reference Range Interpretation Comments Bedside Glucose (test code = 22846-5) 111 70-120 Meter ID: [id number] Regional Medical CenterCarbamazepine (Tegretol) Miqlk6495-78-54 06:56:00* Test Item Value Reference Range Interpretation Comments Carbamazepine (Tegretol) Level (test code = 3432-2) 5.04 4. 0-12.0 [facility] ClinicsPhenytoin (Dilantin) Uxstk4915-65-32 06:56:00* Test Item Value Reference Range Interpretation Comments Phenytoin (Dilantin) Level (test code = 3968-5) 13.19 10-20 [facility] Centerodium Egqyy6936-12-21 06:38:00* Test Item Value Reference Range Interpretation Comments Sodium Level (test code = 2951-2) 142 136-145 VERIFIED ON 2ND ANALYZEREast [facility] Hospital and ClinicsPotassium Level 2018-12-02 06:38:00* Test Item Value Reference Range Interpretation Comments Potassium Level (test code = 2823-3) 4.4 3.5-5.1 VERIFIED ON 2ND ANALYZEREast [facility] Hospital and ClinicsAnion Gap 2018-12-02 06:38:00* Test Item Value Reference Range Interpretation Comments Anion Gap (test code = 27991-0) 15.4 8-16 [facility] ClinicsAlkaline Ckoxgyzsogq5050-81-55 06:38:00* Test Item Value Reference Range Interpretation Comments Alkaline Phosphatase (test code = 6768-6) 102 40-150 [facility] ClinicsChloride Dhzeg4417-23-17 06:25:00* Test Item Value Reference Range Interpretation Comments Chloride Level (test code = 2075-0) 111 98-107 H [facility] ClinicsCarbon Dioxide Prqit7215-44-35 06:25:00* Test Item Value Reference Range Interpretation Comments Carbon Dioxide Level (test code = 8-9) 20 22-29 L [facility] ClinicsBlood Urea Eztfvgex8950-01-02 06:25:00* Test Item Value Reference Range Interpretation Comments Blood Urea Nitrogen (test code = 3094-0) 10 7-26 [facility] ClinicsCreatinine2019-08-24 06:25:00* Test Item Value Reference Range Interpretation Comments Creatinine (test code = 2160-0) 0.59 0.72-1.25 L [facility] ClinicsBUN/Creatinine Fbcab7586-51-27 06:25:00* Test Item Value Reference Range Interpretation Comments BUN/Creatinine Ratio (test code = 3097-3) 17 6-25 [facility] ClinicsEstimat Glomerular Filtration Rate 2018-12-02 06:25:00* Test Item Value Reference Range Interpretation Comments Estimat Glomerular Filtration Rate (test code = 084104358) > 60 >60 Ranges were taken from the National Kidney Disease Education Program and the [facility] Kid[facility] Foundation literature.Reference ranges:60 or greater: Hdnebo74-33 ( for 3 consecutive months): Chronic kidney disease 15 or less: Kidney failureEast Houston Hospital and ClinicsGlucose Uubtd2226-46-59 06:25:00* Test Item Value Reference Range Interpretation Comments Glucose Level (test code = SAY7159) 116 74-118 [facility] ClinicsCalcium Cfwbj9505-61-12 06:25:00* Test Item Value Reference Range Interpretation Comments Calcium Level (test code = 12991-1) 8.5 8.4-10.2 [facility] ClinicsTotal Tcgcowykq3458-14-92 06:25:00* Test Item Value Reference Range Interpretation Comments Total Bilirubin (test code = 1975-2) 0.5 0.2-1.2 [facility] and ClinicsAspartate Amino Transf (AST/SGOT) 2018-12-02 06:25:00* Test Item Value Reference Range Interpretation Comments Aspartate Amino Transf (AST/SGOT) (test code = Aspartate Amino Transf (AST/SGOT)) 37 5-34 H [facility] ClinicsAlanine Aminotransferase (ALT/SGPT) 2018-12-02 06:25:00* Test Item Value Reference Range Interpretation Comments Alanine Aminotransferase (ALT/SGPT) (test code = 1742-6) 58 0-55 H [facility] ClinicsTotal Xlrksyn4320-75-24 06:25:00* Test Item Value Reference Range Interpretation Comments Total Protein (test code = 2885-2) 6.5 6.5-8.1 [facility] ClinicsAlbumin2019-08-24 06:25:00* Test Item Value Reference Range Interpretation Comments Albumin (test code = 1751-7) 3.2 3.5-5.0 L [facility] ClinicsGlobulin2019-08-24 06:25:00* Test Item Value Reference Range Interpretation Comments Globulin (test code = 55377-7) 3.3 2.3-3.5 [facility] ClinicsAlbumin/Globulin Uaxpr5583-33-88 06:25:00 * Test Item Value Reference Range Interpretation Comments Albumin/Globulin Ratio (test code = 1759-0) 1.0 0.8-2.0 [facility] ClinicsAmylase Nanwv0258-55-94 06:25:00* Test Item Value Reference Range Interpretation Comments Amylase Level (test code = 1798-8) 98 25-125 [facility] ClinicsWhite Blood Ttjog2101-29-31 06:16:00* Test Item Value Reference Range Interpretation Comments White Blood Count (test code = 6690-2) 9.78 4.8-10.8 [facility] ClinicsRed Blood Pipvj5015-09-97 06:16:00* Test Item Value Reference Range Interpretation Comments Red Blood Count (test code = 789-8) 4.00 4.3-5.7 L [facility] ClinicsHemoglobin2019-08-24 06:16:00* Test Item Value Reference Range Interpretation Comments Hemoglobin (test code = 75839-8) 12.8 14.0-18.0 L [facility] ClinicsHematocrit2019-08-24 06:16:00* Test Item Value Reference Range Interpretation Comments Hematocrit (test code = 4544-3) 42.1 38.2-49.6 [facility] ClinicsMean Corpuscular Vndxab1339-08-39 06:16:00* Test Item Value Reference Range Interpretation Comments Mean Corpuscular Volume (test code = 787-2) 105.3 81-99 H [facility] ClinicsMean Corpuscular Rxcnqnutey0177-08-35 06:16:00* Test Item Value Reference Range Interpretation Comments Mean Corpuscular Hemoglobin (test code = 785-6) 32.0 28-32 [facility] ClinicsMean Corpuscular Hemoglobin Concent 2018-12-02 06:16:00* Test Item Value Reference Range Interpretation Comments Mean Corpuscular Hemoglobin Concent (test code = 786-4) 30.4 31-35 L [facility] ClinicsRed Cell Distribution Mkapn8318-73-56 06:16:00* Test Item Value Reference Range Interpretation Comments Red Cell Distribution Width (test code = 54211-6) 14.5 11.7 -14.4 H [facility] ClinicsPlatelet Oppwl6045-67-82 06:16:00* Test Item Value Reference Range Interpretation Comments Platelet Count (test code = 777-3) 159 140-360 [facility] ClinicsNeutrophils (%) (Auto)2018-12-02 06:16:00 * Test Item Value Reference Range Interpretation Comments Neutrophils (%) (Auto) (test code = 77999-9) 70.5 38.7-80.0 [facility] ClinicsLymphocytes (%) (Auto)2018-12-02 06:16:00 * Test Item Value Reference Range Interpretation Comments Lymphocytes (%) (Auto) (test code = 736-9) 19.5 18.0-39.1 [facility] ClinicsMonocytes (%) (Auto)2018-12-02 06:16:00* Test Item Value Reference Range Interpretation Comments Monocytes (%) (Auto) (test code = 5905-5) 7.5 4.4-11.3 [facility] ClinicsEosinophils (%) (Auto)2018-12-02 06:16:00 * Test Item Value Reference Range Interpretation Comments Eosinophils (%) (Auto) (test code = 713-8) 1.5 0.0-6.0 [facility] ClinicsBasophils (%) (Auto)2018-12-02 06:16:00* Test Item Value Reference Range Interpretation Comments Basophils (%) (Auto) (test code = 706-2) 0.6 0.0-1.0 [facility] ClinicsIM GRANULOCYTES %2018-12-02 06:16:00* Test Item Value Reference Range Interpretation Comments IM GRANULOCYTES % (test code = IM GRANULOCYTES %) 0.4 0.0- 1.0 [facility] ClinicsNeutrophils # (Auto)2018-12-02 06:16:00* Test Item Value Reference Range Interpretation Comments Neutrophils # (Auto) (test code = 751-8) 6.9 2.1-6.9 [facility] ClinicsLymphocytes # (Auto)2018-12-02 06:16:00* Test Item Value Reference Range Interpretation Comments Lymphocytes # (Auto) (test code = 79027-0) 1.9 1.0-3.2 [facility] ClinicsMonocytes # (Auto)2018-12-02 06:16:00* Test Item Value Reference Range Interpretation Comments Monocytes # (Auto) (test code = 742-7) 0.7 0.2-0.8 [facility] ClinicsEosinophils # (Auto)2018-12-02 06:16:00* Test Item Value Reference Range Interpretation Comments Eosinophils # (Auto) (test code = 711-2) 0.2 0.0-0.4 [facility] ClinicsBasophils # (Auto)2018-12-02 06:16:00* Test Item Value Reference Range Interpretation Comments Basophils # (Auto) (test code = 704-7) 0.1 0.0-0.1 [facility] ClinicsAbsolute Immature Granulocyte (auto 2018-12-02 06:16:00* Test Item Value Reference Range Interpretation Comments Absolute Immature Granulocyte (auto (heraclio t code = Absolute Immature Granulocyte (auto) 0.04 0-0.1 [facility] ClinicsFerritin2019-08-23 21:32:00* Test Item Value Reference Range Interpretation Comments Ferritin (test code = 2276-4) 79.54 21.81-274.66 [facility] ClinicsIron Ikimt4346-50-98 21:14:00* Test Item Value Reference Range Interpretation Comments Iron Level (test code = 2498-4) 86 65-175 [facility] ClinicsTotal Iron Binding Zbeophog7420-25-81 21:14:00* Test Item Value Reference Range Interpretation Comments Total Iron Binding Capacity (test code = 2500-7) 279 261-4 78 [facility] ClinicsPercent Iron Jsudhsixdm1740-06-35 21:14:00* Test Item Value Reference Range Interpretation Comments Percent Iron Saturation (test code = 2502-3) 31 15-50 [facility] ClinicsTransferrin2019-08-23 21:14:00* Test Item Value Reference Range Interpretation Comments Transferrin (test code = 3034-6) 199 174-364 [facility] ClinicsCT ABDOMEN/PELVIS Y0032-79-56 16:56:00 [place] [address] Patient Name: SHANNON GIMENEZ MR #: [id number] : 1975 Age/Sex: 43/M Req #: [id number] Adm Physician: ARMAND MORIN MD Ordered by: ARMAND MORIN MD Report #: [id number] Location: MED/SURG3 Room/Bed: [facility] Procedure: [id number] CT /CT ABDOMEN/PELVIS W Exam Date: 12/01/18 [...] on 12/01/181705 COPY TO: ARMAND MORIN MD HWATOOCMBOR1638-46-79 10:37:00 [place] [address] Patient Name: SHANNON WILEY MR #: [id number] : 1975 Age/Sex: 43/M Req #: [id number] Adm Physician: ARMAND MORIN MD Ordered by: AMY OSWALD MD Report #: [id number] Location: MED/SURG3 Room/Bed: [facility] Procedure: [id number] US/US GALLBLADDER Exam Date: 12/01/18 Exam Time : 0856 REPORT STATUS: Signed EXA M: Right upper [...] 10:39 AM Dictated By: JUNIOR TRUONG MD 1039 Transcribed By: SELVIN on 12/01/18 1039 COPY TO: AMY OSWALD MD Activated Partial Thromboplast Time 2018-11-30 23:42:00* Test Item Value Reference Range Interpretation Comments Activated Partial Thromboplast Time (test code = 65546-1) 25.8 23.8-35.5 [facility] ClinicsProthrombin Lcnj2551-74-63 23:40:00* Test Item Value Reference Range Interpretation Comments Prothrombin Time (test code = 5902-2) 12.5 11.9-14.5 [facility] ClinicsProthromb Time International Ratio 2018-11-30 23:40:00* Test Item Value Reference Range Interpretation Comments Prothromb Time International Ratio (test code = 6301-6) 0.89 Oral Anticoagulant Therapy INR Values:1. Low Intensity Therapy 1.5 - 2.02 . Moderate Intensity Therapy 2.0 - 3.03. High Intensity Therapy(1) 2.5 - 3. 54. High Intensity Therapy(2) 3.0 - 4.05. Panic Value INR > 5.0 [facility] Clinicsurine roasjyq7387-91-86 15:11:00* Test Item Value Reference Range Interpretation Comments urine culture (test code = 630-4) [place] [facility] (SGPT), rwzyw6252-47-36 16:28:00 * Test Item Value Reference Range Interpretation Comments alanine aminotransferase (SGPT), serum (test code = 1742-6) 37 1/L 0-44 [facility] Hospitalaspartate aminotransferase (SGOT), aheru1168-33-88 16:28:00* Test Item Value Reference Range Interpretation Comments aspartate aminotransferase (SGOT), serum (test code = 1920-8) 35 1/ L 0-40 [facility] Hospitalalkaline phosphatase, abcey9848-89-88 16:28:00* Test Item Value Reference Range Interpretation Comments alkaline phosphatase, serum (test code = 1783-0) 159 1/L 39-11 7 [facility] Healthbilirubin, serum, [id number] 16:28:00* Test Item Value Reference Range Interpretation Comments bilirubin, serum, total (test code = 1975-2) <0.2 mg/dL 0.0-1.2 [facility]album[facility]/globulin ratio, [id number] 16:28:00* Test Item Value Reference Range Interpretation Comments albumin/globulin ratio, serum (test code = 1759-0) 1.4 1.2 -2.2 [facility] Healthglobulin, [id number] 16:28:00* Test Item Value Reference Range Interpretation Comments globulin, serum (test code = 2336-6) 2.7 1.5-4.5 [facility] Healthalbumin, [id number] 16:28:00* Test Item Value Reference Range Interpretation Comments albumin, serum (test code = 1751-7) 3.8 g/dL 3.5-5.5 [facility] Healthprotein, total, [id number] 16:28:00* Test Item Value Reference Range Interpretation Comments protein, total, serum (test code = 2885-2) 6.5 g/dL 6.0-8.5 [facility] Healthcalcium, [id number] 16:28:00* Test Item Value Reference Range Interpretation Comments calcium, serum (test code = 2000-8) 9.1 mg/dL 8.7-10.2 [facility] [id number] 16:28:00* Test Item Value Reference Range Interpretation Comments carbon dioxide, venous blood (test code = 7-1) 23 mmol/L 20-2 9 [facility] Healthchloride, [id number] 16:28:00* Test Item Value Reference Range Interpretation Comments chloride, serum (test code = 2075-0) 99 mmol/L 96-106 [facility], [id number] 16:28:00* Test Item Value Reference Range Interpretation Comments potassium, serum (test code = 2823-3) 4.7 mmol/L 3.5-5.2 [facility], [id number] 16:28:00* Test Item Value Reference Range Interpretation Comments sodium, serum (test code = 2951-2) 138 mmol/L 134-144 [facility] nitrogen/creatinine ratio, [id number] 16:28:00 * Test Item Value Reference Range Interpretation Comments urea nitrogen/creatinine ratio, serum (test code = 3097-3) 88 9-20 H [facility]aleGFR if [id number] 16:28:00* Test Item Value Reference Range Interpretation Comments eGFR if (test code = 96799-8) 205 mL/min/((173/100 ).m2) >59 [facility]Estimated Glomerular Filtration Rate (calc)2017-10-04 16:28:00* Test Item Value Reference Range Interpretation Comments Estimated Glomerular Filtration Rate (calc) (test code = 04063-3) 178 mL/min/((173/100).m2) >59 [facility], [id number] 16:28:00* Test Item Value Reference Range Interpretation Comments creatinine, serum (test code = 2160-0) 0.25 mg/dL 0.76-1.27 L [facility] nitrogen, [id number] 16:28:00* Test Item Value Reference Range Interpretation Comments urea nitrogen, blood (test code = 3094-0) 22 mg/dL 6-24 [facility], [id number] 16:28:00* Test Item Value Reference Range Interpretation Comments blood glucose, random (test code = 2339-0) 95 mg/dL 65-99 [facility]
--- NOTE | 2020-01-11 15:30 | NUR ---
sutures out by md. groveacin to wound per er md. orquidea grant with sterile 4x4 gauze and foam tape.
[2020-01-11] MEDS ORDERED: BACITRACIN ZINC 15 GM OINT TOP STA (15:31)
== END 2020-01-11 15:32 | disposition home or self-care (01) ==
LOC: ER 14:15
DX: Z48.02 Encounter for removal of sutures (principal)
CPT/HCPCS: 99282